=== PATIENT | female | born 1935 | race Caucasian/White ===

== ENCOUNTER 2018-01-22 20:02 | Emergency (ER) | payer OTHER ==
--- NOTE | 2018-01-22 20:46 | EDPHYS ---
Physician Documentation [facility] Name: Trisha Lovelace Age: 82 yrs Sex: Female : 1935 Arrival Date: 01/22/2018 Time: 20:07 Bed 6 Private MD: ED Physician Jignesh Nj HPI: 01/22 20:17 This 82 yrs old Female presents to ER via EMS with complaints of Syncope. kdr 20:17 The patient has experienced syncope, became unresponsive, collapsed, lost kdr consciousness. Onset: The symptoms/episode began/occurred suddenly, last night, About 10:00 PM last night. Duration: This was a single episode. Context: the episode(s) was witnessed, by no one, occurred at home, occurred while the patient was sitting, Just prior to the episode the patient experienced weakness, The patient was feeling week and sat on the toilet (not to go the bathroom). Then she passed out in the bathroom. Does not remember falling. By 19:00 today, she had managed to crawl into the living room where she had her cell phone and called her daughter. Associated injury: Head/face: She thinks she may have a tender spot on top of her head and her right eye seems more "puffy" then ususal. Associated signs and symptoms: The patient has no apparent associated signs or symptoms. Current symptoms: Generalized weakness. The patient has experienced similar episodes in the past, a few times. The patient has not recently seen a physician. States that she has passed out before. Historical: - Allergies: 20:15 shrimp; bp - Home Meds: 20:15 Aggrenox 25-200 mg Oral CM12 1 cap 2 times per day [Active]; carvedilol 6.25 mg Oral bp tab 1 tab 2 times per day [Active]; levothyroxine 50 mcg tab 1 tab once daily [Active]; losartan 50 mg Oral tab 1 tab once daily [Active]; Namenda 28MG Oral 1 tab daily [Active]; simvastatin 20 mg Oral tab 1 tab once daily [Active]; spiriva inhaler as needed [Active]; - PMHx: 20:15 Alzheimers; High Cholesterol; Hypertension; Hypothyroidism; TIA; bp - PSHx: 20:15 CATARACT; Hysterectomy; bp - Immunization history:: Adult Immunizations up to date. - Social history:: Smoking status: Patient/guardian denies using tobacco. - Ebola Screening: : Patient negative for fever greater than or equal to 101.5 degrees Fahrenheit, and additional compatible Ebola Virus Disease symptoms Patient denies exposure to infectious person Patient denies travel to an Ebola-affected area in the 21 days before illness onset No symptoms or risks identified at this time. ROS: 20:17 Constitutional: Negative for fever, chills, and weight loss, Eyes: Negative for injury, kdr pain, redness, and discharge, ENT: Negative for injury, pain, and discharge, Neck: Negative for injury, pain, and swelling, Cardiovascular: Negative for chest pain, palpitations, and edema, Respiratory: Negative for shortness of breath, cough, wheezing, and pleuritic chest pain, Abdomen/GI: Negative for abdominal pain, nausea, vomiting, diarrhea, and constipation, Back: Negative for injury and pain, : Negative for injury, bleeding, discharge, and swelling, MS/Extremity: Negative for injury and deformity, Skin: Negative for injury, rash, and discoloration, Psych: Negative for depression, anxiety, suicide ideation, homicidal ideation, and hallucinations, Allergy/Immunology: Negative for hives, rash, and allergies, Endocrine: Negative for neck swelling, polydipsia, polyuria, polyphagia, and marked weight changes, Hematologic/Lymphatic: Negative for swollen nodes, abnormal bleeding, and unusual bruising. 20:17 Neuro: Positive for dizziness, syncope, weakness, Negative for altered mental status, hearing loss, speech changes, tremor. Exam: 20:17 Constitutional: This is a well developed, well nourished patient who is awake, alert, kdr and in no acute distress. Head/Face: Normocephalic, atraumatic. Eyes: Pupils equal round and reactive to light, extra-ocular motions intact. Lids and lashes normal. Conjunctiva and sclera are non-icteric and not injected. Cornea within normal limits. Periorbital areas with no swelling, redness, or edema. Neck: Trachea midline, no thyromegaly or masses palpated, and no cervical lymphadenopathy. Supple, full range of motion without nuchal rigidity, or vertebral point tenderness. No Meningismus. Chest/axilla: Normal chest wall appearance and motion. Nontender with no deformity. No lesions are appreciated. Cardiovascular: Regular rate and rhythm with a normal S1 and S2. No gallops, murmurs, or rubs. Normal PMI, no JVD. No pulse deficits. Respiratory: Lungs have equal breath sounds bilaterally, clear to auscultation and percussion. No rales, rhonchi or wheezes noted. No increased work of breathing, no retractions or nasal flaring. Abdomen/GI: Soft, non-tender obese, with normal bowel sounds. No distension or tympany. No guarding or rebound. No evidence of tenderness throughout. Back: No spinal tenderness. No costovertebral tenderness. Full range of motion. Skin: Warm, dry with normal turgor. Normal color with no rashes, no lesions, and no evidence of cellulitis. MS/ Extremity: Pulses equal, no cyanosis. Neurovascular intact. Full, normal range of motion. Neuro: Awake and alert, GCS 15, oriented to person, place, time, and situation. Cranial nerves II-XII grossly intact. Motor strength 5/5 in all extremities. Sensory grossly intact. Cerebellar exam normal. Normal gait. Psych: Awake, alert, with orientation to person, place and time. Behavior, mood, and affect are within normal limits. Vital Signs: 20:15 BP 167 / 85; Pulse 78; Resp 16; Temp 98.1; Pulse Ox 99% ; bp 21:00 BP 142 / 75; Pulse 80; Resp 18; Pulse Ox 97% on R/A; lp1 21:27 BP 159 / 69; Pulse 75; Resp 18; Pulse Ox 96% on R/A; lp1 MDM: 20:17 Data reviewed: vital signs, nurses notes, lab test result(s), EKG, radiologic studies. kdr Counseling: I had a detailed discussion with the patient and/or guardian regarding: the historical points, exam findings, and any diagnostic results supporting the discharge/admit diagnosis, lab results, radiology results. 20:45 Patient medically screened. kdr 01/22 20:15 Order name: Basic Metabolic Panel; Complete Time: : kdr 01/22 20:15 Order name: BNP kdr 01/22 20:15 Order name: CBC with Diff; Complete Time: 21:11 kdr 01/22 20:15 Order name: CPK; Complete Time: : [facility] 01/22 20:15 Order name: LFT's; Complete Time: :26 [facility] 01/22 20:15 Order name: Magnesium; Complete Time: 21:26 [facility] 01/22 20:15 Order name: PT-INR [facility] 01/22 20:15 Order name: Ptt, Activated kdr 01/22 20:15 Order name: Troponin (emerg Dept Use Only); Complete Time: 21:26 [facility] 01/22 20:15 Order name: XRAY Chest (1 view) [facility] 01/22 20:15 Order name: EKG; Complete Time: 20:16 [facility] 01/22 20:15 Order name: Cardiac monitoring; Complete Time: 20:52 [facility] 01/22 20:15 Order name: EKG - Nurse/Tech; Complete Time: 20:52 [facility] 01/22 20:15 Order name: CT Head C Spine; Complete Time: 20:59 [facility] 01/22 20:15 Order name: IV Saline Lock; Complete Time: 20:53 [facility] 01/22 20:15 Order name: Labs collected and sent; Complete Time: 20:53 [facility] 01/22 20:15 Order name: O2 Per Protocol; Complete Time: 20:53 [facility] 01/22 20:15 Order name: O2 Sat Monitoring; Complete Time: 20:53 kdr Administered Medications: No medications were administered Point of Care Testing: Blood Glucose: 20:15 Blood Glucose: 144 mg/dL; bp Ranges: Critical Glucose Levels:Adult <50 mg/dl or >400 mg/dl <40 mg/dl or >180 mg/dl Disposition: 01/22/18 20:45 Transfer ordered to [facility]. Diagnosis is 4 CM Left Cerebellar infarct . - Reason for transfer: Higher level of care. - Accepting physician is Dr. Allen. - Condition is Fair. - Problem is new. - Symptoms are unchanged. Signatures: Dispatcher [employer] EDMS Jignesh Nj MD MD kdr Wally Vela RN RN bp Yaya Gunderson RN RN mg2 Corrections: (The following items were deleted from the chart) 21: 20:45 01/22/2018 20:45 Transfer ordered to [facility]. Diagnosis is kdr 4 CM Left Cerebellar infarct . Reason for transfer: Higher level of care. Accepting physician is Neuro/Medicine. Condition is Fair. Problem is new. Symptoms are unchanged. kdr 22:25 21:28 01/22/2018 20:45 Transfer ordered to [facility]. Diagnosis is mg2 4 CM Left Cerebellar infarct . Reason for transfer: Higher level of care. Accepting physician is Dr. Allen. Condition is Fair. Problem is new. Symptoms are unchanged. kdr
--- NOTE | 2018-01-22 20:46 | ER ---
Nurse's Notes [facility] Name: Trisha Lovelace Age: 82 yrs Sex: Female : 1935 Arrival Date: 01/22/2018 Time: 20:07 Bed 6 Private MD: Diagnosis: 4 CM Left Cerebellar infarct Presentation: 01/22 20:11 Presenting complaint: EMS states: SHE FELL AT 2200 LAST NIGHT AND HAS BEEN ON THE bp GROUND SINCE THEN, SHE CRAWLED TO A PHONE AND CALLED HER DAUGHTER. Transition of care: patient was not received from another setting of care. Onset of symptoms was January 21, 2018 at 22:00. Risk Assessment: Do you want to hurt yourself or someone else? Patient reports no desire to harm self or others. Initial Sepsis Screen: Does the patient meet any 2 criteria? No. Patient's initial sepsis screen is negative. Does the patient have a suspected source of infection? No. Patient's initial sepsis screen is negative. Care prior to arrival: IV initiated. 20 GA, in the right antecubital area, Glucose check: 144. 20:11 Method Of Arrival: EMS: [facility] bp 20:11 Acuity: JUAN 3 bp Historical: - Allergies: 20:15 shrimp; bp - Home Meds: 20:15 Aggrenox 25-200 mg Oral CM12 1 cap 2 times per day [Active]; carvedilol 6.25 mg Oral bp tab 1 tab 2 times per day [Active]; levothyroxine 50 mcg tab 1 tab once daily [Active]; losartan 50 mg Oral tab 1 tab once daily [Active]; Namenda 28MG Oral 1 tab daily [Active]; simvastatin 20 mg Oral tab 1 tab once daily [Active]; spiriva inhaler as needed [Active]; - PMHx: 20:15 Alzheimers; High Cholesterol; Hypertension; Hypothyroidism; TIA; bp - PSHx: 20:15 CATARACT; Hysterectomy; bp - Immunization history:: Adult Immunizations up to date. - Social history:: Smoking status: Patient/guardian denies using tobacco. - Ebola Screening: : Patient negative for fever greater than or equal to 101.5 degrees Fahrenheit, and additional compatible Ebola Virus Disease symptoms Patient denies exposure to infectious person Patient denies travel to an Ebola-affected area in the 21 days before illness onset No symptoms or risks identified at this time. Screenin:15 Abuse screen: Denies threats or abuse. Denies injuries from another. Nutritional bp screening: No deficits noted. Tuberculosis screening: No symptoms or risk factors identified. Fall Risk Fall in past 12 months (25 points). Secondary diagnosis (15 points) Alzheimer's, IV access (20 points). Ambulatory Aid- None/Bed Rest/Nurse Assist (0 pts). Gait- Normal/Bed Rest/Wheelchair (0 pts) Mental Status- Oriented to own ability (0 pts). Total Murillo Fall Scale indicates High Risk Score (45 or more points). Fall prevention measures have been instituted. Side Rails Up X 2 Placed Close to Nursing Station Frequent Obs/Assessments Occuring Family Present and informed to notify staff if the need to leave the bedside As available patient and family educated on Fall Prevention Program and Strategies. Assessment: 20:15 General: Appears in no apparent distress. comfortable, obese, Behavior is calm, bp cooperative, appropriate for age. Pain: Denies pain. Neuro: Level of Consciousness is awake, alert, obeys commands, Oriented to person, place, time, situation, Appropriate for age. Cardiovascular: Rhythm is sinus rhythm. Respiratory: Airway is patent Respiratory effort is even, unlabored, Respiratory pattern is regular, symmetrical. GI: No signs and/or symptoms were reported involving the gastrointestinal system. : No signs and/or symptoms were reported regarding the genitourinary system. EENT: Eyes PANCHITO-ORBITAL EDEMA. Derm: No signs and/or symptoms reported regarding the dermatologic system. Musculoskeletal: Circulation, motion, and sensation intact. Range of motion:. 20:57 Reassessment: PER MD, PT HAS ISCHEMIC STROKE. XFER TO [facility] INITIATED. PT bp REMAINS DIZZY BUT OTHERWISE NEURO INTACT. Neuro: Level of Consciousness is awake, alert, obeys commands, Oriented to person, place, time, situation, Appropriate for age Paper Reel Operator are equal bilaterally Moves all extremities. Gait is unsteady, Speech is normal, Facial symmetry appears normal, Pupils are PERRLA, Intact. 21:56 Reassessment: REPORT TO CARMELA MONREAL FOR [facility], 24 BED 5, TRANSPORT PENDING. bp 22:23 Reassessment: EMS AT B/S FOR TRANSPORT, PT ASHLY. mg2 Vital Signs: 20:15 BP 167 / 85; Pulse 78; Resp 16; Temp 98.1; Pulse Ox 99% ; bp 21:00 BP 142 / 75; Pulse 80; Resp 18; Pulse Ox 97% on R/A; lp1 21:27 BP 159 / 69; Pulse 75; Resp 18; Pulse Ox 96% on R/A; lp1 ED Course: 20:07 Patient arrived in ED. bp 20:08 Jignesh Nj MD is Attending Physician. kdr 20:10 Wally Vela, JOCELIN is Primary Nurse. bp 20:12 Triage completed. bp 20:15 Arm band placed on. bp 20:15 Patient has correct armband on for positive identification. Placed in gown. Bed in low bp position. Call light in reach. Side rails up X2. Adult w/ patient. 20:27 Maintain EMS IV. Dressing intact. Good blood return noted. Site clean \T\ dry. Gauge \T\ bp site: 20 R AC. 20:30 CT completed. Patient moved to CT via stretcher. Patient moved back from CT. cw1 20:31 CT Head C Spine In Process Unspecified. EDMS 21:01 initiated transfer with [facility] with Karen, she will call [place]uk[place] carbon electrodes supervisor and call eb us. 21:11 Franky Doctor from [facility] connected with ED for patient consultation for patient eb transfer. 21:25 the hospitalist from [facility] connected with ED doctor for pt consultation eb for patient transfer. 21:27 Dr. Crenshaw has accepted the patient. eb 21:27 No provider procedures requiring assistance completed. lp1 21:37 administrative approval given by Karen Medina , Pt is going to 24 tower Bed 5. Number eb for report is [phone]. 21:45 XRAY Chest (1 view) In Process Unspecified. EDMS 21:53 Report given to CARMELA MONREAL, [facility] 24 BED 5. bp 21:57 Patient transferred, IV remains in place. bp Administered Medications: No medications were administered Point of Care Testing: Blood Glucose: 20:15 Blood Glucose: 144 mg/dL; bp Ranges: Outcome: 20:45 ER care complete, transfer ordered by . kdr 22:23 Transferred by ground EMS to [facility], Transfer form completed. mg2 X-rays sent w/ patient. 22:23 Condition: stable 22:23 Instructed on the need for transfer. 22:25 Patient left the ED. mg2 Signatures: Dispatcher [employer] EDJignesh Harp MD MD kdr Woodley, Anette cw1 Aye Laura, RN RN lp1 Wally Vela RN RN bp Cydney Nolasco Michele, RN RN mg2 Corrections: (The following items were deleted from the chart) 21:10 21:04 initiated transfer with [facility] with Karen, she will call [facility] carbon electrodes supervisor and eb call us. eb 21:28 21:25 the hospitalist from [facility] connected with ED doctor for pt eb consultation for patient transfer. eb 21:53 20:15 BP 167 / 85; Pulse 78bpm; Resp 16bpm; Pulse Ox 99%; bp bp
--- NOTE | 2018-01-22 20:50 | RAD REPORT ---
EXAM DESCRIPTION: CT - Head C Spine Mpr Wo Con - 01/22/2018 8:32 pm CLINICAL HISTORY: Head and neck injury status post fall. Head and neck pain COMPARISON: 2013 TECHNIQUE: Computed axial tomography of the head and cervical spine was obtained. Sagittal and coronal reconstruction was performed. All CT scans are performed using dose optimization technique as appropriate and may include automated exposure control or mA/KV adjustment according to patient size. FINDINGS: Mild right scalp swelling is seen. A 4 centimeter low-density area has developed within the left cerebellum. The fourth ventricle is com pressed. An intracranial bleed is not seen. The ventricles are normal in caliber. An extra-axial fluid collect ion is not noted. Small amount of fluid is present within the right maxillary and sphenoid sinus A cervical fracture is not visualized. No dislocation is noted. IMPRESSION: A 4 centimeter low-density area within the left cerebellum results in compression of the fourth ventricle. Most likely this represents an acute infarct. Less likely this represents vasogeni c edema associated with a mass. Follow-up with MRI is recommended. A cervical fracture is not seen The exam was discussed with Dr Nj in the Emergency Room 8:43 p.m. on January 22, 2018
[2018-01-22 20:57] LABS: Absolute Lymphocytes (CBC) 1.4 K/uL (0.7-4.9); Absolute Monocytes 1.2 K/uL (0.1-1.3); Absolute Neutrophil 13.1 K/uL (1.8-8.0); Basophils % 0.3 % (0-1.3); Eosinophils % 0.1 % (0-4.4); Hematocrit 42.1 % (36.0-45.0); MCH 28.5 pg (27.0-35.0); MCV 86.3 fL (80-100); Monocytes % 7.8 % (3.3-12.3); RBC Red Blood Cell Count 4.88 M/uL (3.86-4.86)
[2018-01-22 21:12] LABS: Potassium 3.9 mEq/L (3.6-5.0)
[2018-01-22 21:18] LABS: Albumin 3.7 g/dL (3.2-5.5); Bilirubin Direct 0.1 mg/dL (0-0.2); Bilirubin Total 0.5 mg/dL (0.3-1.2); Magnesium 1.8 mg/dL (1.8-2.5); Protein, Total 6.9 g/dL (6.0-8.3)
[2018-01-22 21:28] LABS: Protime INR 1.07
[2018-01-22 22:28] VITALS: TEMP 98.1
[2018-01-22 22:30] VITALS: BP 159/69; O2SAT 96
--- NOTE | 2018-01-22 22:40 | RAD REPORT ---
EXAM DESCRIPTION: Alexa Single View01/22/2018 9:45 pm CLINICAL HISTORY: Chest pain COMPARISON: 2016 FINDINGS: The lungs appear clear of acute infiltrate. The heart is normal size IMPRESSION: No acute abnormalities displayed
--- NOTE | 2018-01-23 06:30 | EKG ---
Test Date: 2018-01-22 Test Time: 21:03:01 Lockstitch Sleeve Setter: MEASUREMENT RESULTS: Intervals: Rate: 72 OH: 204 QRSD: 64 QT: 398 QTc: 435 [place]: P: 47 OH: 204 QRS: 50 T: 65 INTERPRETIVE STATEMENTS: Normal sinus rhythm Normal ECG Compared to ECG 05/07/2016 09:21:16 No significant changes Electronically Signed On 01-23-18 06:29:38 CDT by Saul Arnold
== END 2018-01-22 22:25 | disposition short-term general hospital (02) ==
LOC: ER 20:02
DX: I63.8 Other cerebral infarction (principal); I10 Essential (primary) hypertension; G30.9 Alzheimer's disease, unspecified; F02.80 Dementia in other diseases classified elsewhere, unspecified severity, without behavioral disturbance, psychotic disturbance, mood disturbance, and anxiety; W19.XXXA Unspecified fall, initial encounter; Y93.9 Activity, unspecified; Y92.009 Unspecified place in unspecified non-institutional (private) residence as the place of occurrence of the external cause; Z91.013 Allergy to seafood
CPT/HCPCS: 36415; 70450; 71045; 72125; 80048; 80076; 82550; 83735; 83880; 84484; 85025; 85610; 85730; 93005; 99285

== ENCOUNTER 2018-01-29 09:39 | Inpatient (IN) | payer OTHER ==
--- NOTE | 2018-01-29 14:11 | R.PREADM ---
SCREENING DATE AND TIME 01/29/2018 09:42 (CDT) ANTICIPATED REHAB ADMISSION DATE 01/31/2018 REFERRING FACILITY [facility] REFERRAL DATE AND TIME 01/29/2018 09:43 (CDT) ACUTE ADMIT DATE 01/22/2018 Previous Rehabilitation(s): No. REFERRING PHYSICIAN Costa Crenshaw REHAB FACILITY [facility] CLINICAL LIAISON Jones Walsh PHYSICIAN REVIEWER Dr. Glen Davidson M.D. MR# [id number] NAME MAURICE SIFUENTES ADDRESS [address] PHONE [facility] [address] DATE OF 1935 AGE 82 SSN# [id number] GENDER female MARITAL STATUS RACE white ADMIT FROM 02 - [facility] PRE-HOSPITAL LIVING SETTING 01 - Home (private home/apt. board/care, assisted living, fdc, transitional living) HOME TYPE AND DETAILS Type of home: single family house # of steps to enter the residence: 0 # of steps within the residence: 0 # of levels in the residence: 1 PRE-HOSPITAL LIVING WITH Family/Relatives FAMILY SUPPORT Yes PRIMARY FAMILY CONTACT NAME Saida Sifuentes PRIMARY FAMILY CONTACT PHONE PHONE PRIMARY FAMILY CONTACT ON ADM.? no IS PRIMARY FAMILY CONTACT AUTH. REP.? no 1ST EMERGENCY CONTACT Saida Sifuentes 1ST CONTACT PHONE PHONE 1ST CONTACT ON ADM. no IS 1ST CONTACT AUTH. REP.? no PHONE 2ND CONTACT ON ADM.? no PATIENT EMPLOYMENT STATUS Retired (for age) PATIENT EMPLOYER No Employer PAYOR INFORMATION: 1ST PAYOR NAME Medicare 1ST PAYOR PHONE 1ST PAYOR INJURY/ILLNESS DUE TO ACCIDENT? No ANOTHER LIBERTARIAN RESPONSIBLE? No PRIMARY REHAB/ACUTE DIAGNOSIS: 4 cm left cerebeller hypodensity. L Pica stroke with associated hemorrhage ONSET DATE 01/22/2018 REHAB IMPAIRMENT CATEGORY (LONNY): 01 Stroke (STR) MEETS 60% rule AFFECTED EXTREMITIES: RLE, and RUE PRIMARY DIAGNOSIS-RELATED SURGERIES: No surgeries related to the primary diagnosis were performed. 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 is a 82 yo Right-handed white female. On 01/22/2018 Pt. presented to [facility] with sudden onset of right-side weakness. On 01/22/2018 she was admitted to [facility] with diagnosis 4 cm left cere igor hypodensity. L Pica stroke with associated hemorrhage. Her impairment category is Stroke 01 - Right Body (Left Brain) (01.2). Pre-morbidly, Pt. was independent/mod-I in Social Cognition, Self-Care, Sphincter Control, Transfers Control, Communication, and Locomotion; and she had good Sphincter Control. Currently, she has deficits of Social Cognition, Balance, Self-Care, Endurance, Safety Awareness, Tra nsfers Control, Communication, and Locomotion. Pt. is now referred to [facility] for acute in-patient rehabilitation in order to maximize patient's functional independence in activities of daily living, strength, ROM, and mobi lity. Patient has realistic goal of being discharged at assistance level 6-Ramon to reside at Home with Fam lisa/Relatives. PAST MEDICAL HISTORY dementia a fib with RVR MEDICATION ALLERGIES: No Known Drug Allergies (NKDA) ENVIRONMENTAL ALLERGIES: - Substance Allergies None Known - Other Allergies None Known CODE STATUS: Full code WEIGHT/HEIGHT/BMI: WEIGHT 227 lbs HEIGHT 5' 0" BMI 44.3 DIET: - Diet Type Regular - Diet - Solid Texture Regular - Diet - Liquid Texture Regular - Tube Feed N/A REVIEW OF SYSTEMS: - Gen Alert and awake Lying in bed No apparent distress Oriented to: person, time, and place - CVS RRR VITAL SIGNS Temperature: 96.4 F SBP/DBP: 166/74 Pulse: 77 Resp: 19 Vital signs stable, afebrile CURRENT SPHINCTER CONTROL: Pre-hospital bladder status: unspecified # of bladder accidents in the last 7 days prior to screenin Pre-hospital bowel status: unspecified # of bowel accidents in the last 7 days prior to screenin Last Bowel Movement Date: 01/29/2018 DETAILED CURRENT FUNCTIONAL STATUS: - Bladder accident frequency: Ind - No accidents in the past 7 days - Bowel accident frequency: Ind - No accidents in the past 7 days - Walking score based on distance walked: 1(<=50ft) FUNCTIONAL STATUS: - Self-Care A. Eating Ind modA B. Grooming Ind modA C. Bathing Ind modA D. Dressing - Upper Ind modA E. Dressing - Lower Ind modA F. Toileting Ind modA - Sphincter Control G: Bladder control Ind Ind H: Bowel control Ind Ind - Transfers Control I. Bed/Chair/Wheelchair Ind modA J. Toilet Ind modA K. Tub/Shower Ind modA - Locomotion L. Walk/Wheelchair (B) Ind Dep M. Stairs Ind ADNO - Communication N. Comprehension (B) Ind modA O. Expression (B) Ind [place] - Social Cognition P. Social Interaction Ind modA Q. Problem Solving Ind modA R. Memory Ind modA - Endurance Poor - Balance Poor - Safety Awareness Poor CURRENT FUNC. DEFICITS: Social Cognition, Balance, Self-Care, Endurance, Safety Awareness, Transfers Control, Communication, and Locomotion THERAPY NOTES FROM ACUTE CARE: Attached. SPECIAL NEEDS: - Safety Concerns Skin breakdown precautions needed due to skin breakdown risk PATIENT NEEDS ACTIVE AND ONGOING THERAPEUTIC INTERVENTION OF MULTIPLE THERAPY DISCIPLINES, INCLUDING: - Occupational Therapy Evaluate and Treat. Cognitive Retraining. Visual Perceptual Training. - Speech Therapy Memory Strategies. Expressive Language Skills. Speech Intelligibility Training. Cognitive Training. R eceptive Language Skills. - Physical Therapy Evaluate and Treat. PATIENT NEEDS CLOSE MEDICAL SUPERVISION BY A REHABILITATION PHYSICIAN FOR: Bowel and Bladder Management Coordination of Treatment Team Medical and Co-Morbidity Management PATIENT REQUIRES 24X7 REHAB NURSING FOR MEDICAL AND FUNCTIONAL MGT. OF THE FOLLOWING DEFICITS: ADL's Ambulation Bowel and Bladder Management Cognition Communication Disease Management Medication Management Patient/Family Education Providing Safe Environment Transfers PATIENT REQUIRES INTENSIVE, COORDINATED INTERDISCIPLINARY APPROACH TO REHAB: Arranging Home Equipment/Services Discharge Planning Family Intervention/Training Outbound Sales Agent/Case Management PATIENT REHAB POTENTIAL: Expected level of measurable improvement will be of a practical value to patient's functional capacit y or adaptations to impairments Has a viable Discharge Plan Medically appropriate; condition is sufficiently stable to participate in intensive rehab program Patient is able and expected to receive 3 hours of individualized therapy daily on at least 5 of ever y 7 days Patient's prognosis for significant practical improvement within a reasonable period of time appears Good DISCHARGE PLAN: - Estimated Length of Stay (days) 17. - Consensus on plan Discharge plan has been discussed with primary caregiver. Patient/Family is in agreement with the didi n. Primary caregiver is in agreement with the plan. - Patient/Family Goals Return home with assistance. - Planned Living Setting Upon Discharge Home, to live with Family/Relatives. RECOMMENDED CARE LEVEL: IRF RECOMMENDATION DETAILS: Recommended Admission to Comprehensive Rehabilitation Program to Increase Functional [place] SCREENER'S COMPLETENESS CONFIRMATION: - Screening Confirmation The patient data collection on this preadmission screening form is finished PHYSICIANS REVIEW AND ADMISSION DETERMINATION Admit - Based on my review of the Pre-Admission Screening results, in my medical judgment and experie nce, I concur with the findings and recommend admission to [facility], as this patient requires an IRF level of care. SIGNATURE PANEL: Clinical Liaison - [electronically] signed by Christen Miles on 01/29/2018 at 09:52 (CDT) Clinical Liaison - [electronically] signed by Jones Walsh on 01/29/2018 at 12:11 (CDT) Physician Reviewer - [electronically] signed by Dr. Glen Davidson M.D. on 01/29/2018 at 13:11 (CDT )
--- OUTSIDE RECORDS SUMMARY | 2018-01-29 17:22 | XMS REPORT | Clinical Summary ---
:1935 Author Organization [facility] Address [address] [place] [address] Phone Care Team Providers Name Role Phone Unavailable Primary Care Provider Unavailable Allergies No Known Allergies Current Medications Prescription Sig. Disp. Refills Start Date End Date Status tiotropium (SPIRIVA) Inhale 18 mcg by Active 18 mcg inhalation mouth via capsule inhaler daily as needed. memantine (NAMENDA Take 28 mg by Active XR) 28 mg mouth daily. CSpXIndications: Moderate to Severe Alzheimer's Type Dementia levothyroxine Take 50 mcg by Active (SYNTHROID, mouth Every LEVOTHROID) 50 MCG morning on an tablet empty stomach. apixaban (ELIQUIS) 5 Take 1 tablet (5 60 tablet 1 01/29/2018 Active mg Tab tablet mg total) by mouth 2 (two) times daily. aspirin 81 MG Take 1 tablet 30 tablet 11 01/30/2018 01/30/2019 Active chewable tablet (81 mg total) by mouth daily. carvedilol (COREG) Take 1 tablet 60 tablet 11 01/29/2018 01/29/2019 Active 12.5 MG tablet (12.5 mg total) by mouth 2 (two) times daily. atorvastatin Take 1 tablet 30 tablet 11 01/29/2018 01/29/2019 Active (LIPITOR) 80 MG (80 mg total) by tablet mouth nightly. losartan (COZAAR) 25 Take 1 tablet 30 tablet 11 01/30/2018 01/30/2019 Active MG tablet (25 mg total) by mouth daily. aspirin-dipyridamole Take 1 capsule 01/29/2018 Suspended (AGGRENOX) 25-200 mg by mouth 2 (two) per 12 hr capsule times daily. losartan (COZAAR) 50 Take 50 mg by 01/29/2018 Suspended MG tablet mouth daily. simvastatin (ZOCOR) Take 20 mg by 01/29/2018 Suspended 20 MG tablet mouth nightly. carvedilol (COREG) Take 6.25 mg by 01/29/2018 Suspended 6.25 MG tablet mouth 2 (two) times daily with breakfast and dinner. Active Problems Problem Noted Date Atrial fibrillation with RVR ([facility]) 01/25/2018 Benign essential HTN 01/25/2018 Mixed hyperlipidemia 01/25/2018 Late onset Alzheimer's disease without behavioral disturbance 01/25/2018 Stroke (cerebrum) ([facility]) 01/23/2018 Encounters Date Type Specialty Care Team Description 01/24/2018 Orders Only General Internal Medicine 01/22/2018 - Hospital Cardiology [facility], [facility] Cerebrovascular 01/29/2018 Encounter MD Anahy accident (CVA), Brea Michaud unspecified mechanism MD Diaz ([facility]);Essential Brann, Christopher hypertension;Hyperlipi MD Saul demia, unspecified hyperlipidemia type;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);Paroxysmal atrial fibrillation (HCC);Cerebellar stroke (HCC);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);Gait abnormality;Impaired mobility and ADLs after 01/28/2017 Social History Tobacco Use Types Packs/Day Years Used Date Former Smoker Smokeless Tobacco: Never Used Sex Assigned at Date Recorded Not on file Last Filed Vital Signs Vital Sign Reading Time Taken Blood Pressure 139/58 01/29/2018 3:44 PM CDT Pulse 69 01/29/2018 3:44 PM CDT Temperature 36.1 C (96.9 F) 01/29/2018 3:44 PM CDT Respiratory Rate 19 01/29/2018 3:44 PM CDT Oxygen Saturation 96% 01/29/2018 3:44 PM CDT Inhaled Oxygen Concentration - - Weight 103 kg (227 lb) 01/23/2018 12:01 AM CDT Height 158.8 cm (5' 2.5") 01/23/2018 12:01 AM CDT Body Mass Index 40.86 01/23/2018 12:01 AM CDT Plan of Treatment Not on file Results CT brain without IV contrast (01/29/2018 1:05 PM)Only the most recent of2 resultswithin the time period is included. Specimen Performing Laboratory RIS Narrative FINAL REPORT CT head without contrast. Comparisons: January 24 Reason for exam: Cerebral hemorrhage suspected follow up imaging for hemmorhage after anticoagulation started.. Discussion: Multiple axial CT images of the head are provided without contrast evaluated in brain and bone windows. Dose modulation, iterative reconstruction, and/or weight based adjustment of the mA/kV was utilized to reduce the radiation dose to as low as reasonably achievable. An evolving recent left PICA territory cerebellar infarct is similar in appearance to that of the prior study. Hemorrhages are not visible. There is mild associated swelling. No intracranial hematoma, significant mass effect, hydrocephalus, shift, extra-axial collection. Impressions: 1. Unchanged appearance of an evolving recent left cerebellar infarct. No tahir hematoma or mass effect.. Signed: Cheyenne Berger MD Report Verified Date/Time:01/29/2018 13:45:52 Reading Location: [address] Neuro Reading Room Procedure Note Interface, External Ris In - 01/29/2018 1:47 PM CDT FINAL REPORT CT head without contrast. Comparisons: January 24 Reason for exam: Cerebral hemorrhage suspected follow up imaging for hemmorhage after anticoagulation started.. Discussion: Multiple axial CT images of the head are provided without contrast evaluated in brain and bone windows. Dose modulation, iterative reconstruction, and/or weight based adjustment of the mA/kV was utilized to reduce the radiation dose to as low as reasonably achievable. An evolving recent left PICA territory cerebellar infarct is similar in appearance to that of the prior study. Hemorrhages are not visible. There is mild associated swelling. No intracranial hematoma, significant mass effect, hydrocephalus, shift, extra-axial collection. Impressions: 1. Unchanged appearance of an evolving recent left cerebellar infarct. No tahir hematoma or mass effect.. Signed: Cheyenne Berger MD Report Verified Date/Time: 01/29/2018 13:45:52 Reading Location: [address] Neuro Reading Room (Hemogram only) (01/29/2018 4:29 AM) Component Value Ref Range WBC 14.1 (H) 3.5 - 10.5 K/L RBC 4.91 3.93 - 5.22 M/L Hemoglobin 13.8 11.2 - 15.7 GM/DL Hematocrit 43.0 34.1 - 44.9 % MCV 87.6 79.4 - 94.8 fL MCH 28.1 25.6 - 32.2 pg MCHC 32.1 (L) 32.2 - 35.5 GM/DL RDW 14.7 (H) 11.7 - 14.4 % Platelets 222 150 - 450 K/CU MM MPV 9.8 9.4 - 12.3 fL nRBC 0 0 - 0 /100 WBC Specimen Performing Laboratory Blood - Arm, [address] [address] Basic Metabolic Panel (01/29/2018 4:29 AM)Only the most recent of4 resultswithin the time period is included. Component Value Ref Range Sodium 133 (L) 136 - 145 meq/L Potassium 4.2Comment: Specimen slightly hemolyzed 3.5 - 5.1 meq/L Chloride 102 98 - 107 meq/L CO2 19 (L) 22 - 29 meq/L BUN 24 (H) 7 - 21 mg/dL Creatinine 0.79Comment: Specimen slightly hemolyzed 0.57 - 1.25 mg/dL Glucose 112 (H) 70 - 105 mg/dL Calcium 8.8 8.4 - 10.2 mg/dL EGFR 70Comment: ESTIMATED GFR IS NOT ACCURATE mL/min/1.73 sq m CREATININE CLEARANCE IN PREDICTING GLOMERULAR FILTRATION RATE. ESTIMATED GFR IS NOT APPLICABLE FOR DIALYSIS PATIENTS. Specimen Performing Laboratory Blood - Arm, [address] [address] ECHOCARDIOGRAM REPORT - SCAN (01/25/2018 6:00 PM)2D Echo W/Doppler(CW/PW/Color ) (01/25/2018 10:42 AM) Component Value Ref Range Ejection Fraction Specimen Performing Laboratory [facility] ECHO HEARTLAB MKCKESSON CPACS Narrative Transthoracic Echocardiography Report (TTE) Demographics Patient Name MAURICE SIFUENTES Date of Study 01/25/2018 [id number] Female Visit Number [id number] Accession Number [id number] Room Number 2405 Date of Birth1935Referring Physician Age82 year(s)Taker Off [employer]rying [employer] Wally Funk [facility] Interpreting Ceci Crocker MD Physician Procedure Type of Study TTE procedure:2DECHO W/CONTRAST & DOPPLER (Routine) Indications:Suspected cardiac source of emboli. Clinical History Former Smoker Hyperlipidemia Hypertension Thyroid disease TIA HGB 14.2 HCT 43.4 % Contrast Medium: Definity. Amount - 2 ml Height: 62 inches Weight: 102.97 kg (227 lbs) BSA: 2.02 m^2 BMI: 41.52 kg/m^2 HR: 62 bpm BP: 122/75 mmHg Summary LV endocardium is partially visualized with IV ultrasound enhancing agent. Global LV systolic function hyperdynamic . Mild concentric LV hypertrophy. LA size is normal . IV saline contrast injection was negative for a PFO (patent foramen ovale) at rest and post Valsalva . Unable to estimate peak systolic PA pressure; inadequate TR velocity signal. The estimated RA pressure by IVC dynamics indeterminate . Technically limited study. Previous Study No prior studies available for comparison. Signature Findings Left Ventricle LV endocardium is partially visualized with IV ultrasound enhancing agent. Mild concentric LV hypertrophy. Global LV systolic function hyperdynamic . Degree of diastolic dysfunction (LAP assessment) is inconclusive due to arrhythmia . LVEF by Anderson's method of disk assessment is increased (>60%) . The left ventricle is chamber size (by vol index) is small. Left AtriumLA size is normal . Right VentricleRV is not well visualized. The right ventricular chamber size and systolic function are within normal limits. Right Atrium RA size is normal. Atrial SeptumIV saline contrast injection was negative for a PFO (patent foramen ovale) at rest and post Valsalva . Aortic Valve Mild AoV cusp thickening. Mild AoV cusp calcification. Mitral Valve Mild MV leaflet thickening. Mild mitral annular calcification. Tricuspid ValveTV is not well visualized. Unable to estimate peak systolic PA pressure; inadequate TR velocity signal. Pulmonic Valve PV is partially visualized. AortaAortic root size (SInus of Valsalva diameter) is normal . PericardiumNo pericardial effusion is visualized. IVC/SVC/PA/PV/PleuralThe inferior vena cava is not well visualized. The estimated RA pressure by IVC dynamics indeterminate . Chambers/Structures Left Atrium LA Volume: 50.06 ml LA Area: 18.09 cm^ 2 LA Vol. Index: 25 ml/m^2 Left Ventricle LVIDd: 3.37 cm LVIDs: 2.21 cm LV Septum Diastolic: 1.34 cm LV PW Diastolic: 1.29 cmLV FS: 34.4 % LVEDV Anderson's:50.22 ml LVESV Anderson's:15.07 mlLVEDVI: 25 ml/ m^2 LVEF Anderson's: 70 %LVESVI: 7 ml/m^2 Doppler/Quantitative Measurements Mitral Valve Mean Velocity: 0.58 m/s Mean Gradient: 1.57 mmHg MV VTI: 22.96 cm MV Td. Peak: 0.93 m/s LVOT Peak Velocity: 1.07 m/s Peak Gradient: 4.55 mmHg Mean Velocity: 0.61 m/s Mean Gradient: 1.95 mmHg LVOT VTI: 16.7 cm Procedure Note Interface, External Ris In - 01/25/2018 4:52 PM CDT Transthoracic Echocardiography Report (TTE) Demographics Patient Name MAURICE SIFUENTES Date of Study 01/25/2018 Gender Female Visit Number [id number] Race Unknown Accession Number [id number] Room Number 2405 Date of 1935 Referring Physician Age 82 year(s) Taker [employer] Wally Funk [facility] Interpreting Ceci Crocker MD Physician Procedure Type of Study TTE procedure:2DECHO W/CONTRAST & DOPPLER (Routine) Indications:Suspected cardiac source of emboli. Clinical History Former Smoker Hyperlipidemia Hypertension Thyroid disease TIA HGB 14.2 HCT 43.4 % Contrast Medium: Definity. Amount - 2 ml Height: 62 inches Weight: 102.97 kg (227 lbs) BSA: 2.02 m^2 BMI: 41.52 kg/m^2 HR: 62 bpm BP: 122/75 mmHg Summary LV endocardium is partially visualized with IV ultrasound enhancing agent. Global LV systolic function hyperdynamic . Mild concentric LV hypertrophy. LA size is normal . IV saline contrast injection was negative for a PFO (patent foramen ovale) at rest and post Valsalva . Unable to estimate peak systolic PA pressure; inadequate TR velocity signal. The estimated RA pressure by IVC dynamics indeterminate . Technically limited study. Previous Study No prior studies available for comparison. Signature Findings Left Ventricle LV endocardium is partially visualized with IV ultrasound enhancing agent. Mild concentric LV hypertrophy. Global LV systolic function hyperdynamic . Degree of diastolic dysfunction (LAP assessment) is inconclusive due to arrhythmia . LVEF by Anderson's method of disk assessment is increased (>60%) . The left ventricle is chamber size (by vol index) is small. Left Atrium LA size is normal . Right Ventricle RV is not well visualized. The right ventricular chamber size and systolic function are within normal limits. Right Atrium RA size is normal. Atrial Septum IV saline contrast injection was negative for a PFO (patent foramen ovale) at rest and post Valsalva . Aortic Valve Mild AoV cusp thickening. Mild AoV cusp calcification. Mitral Valve Mild MV leaflet thickening. Mild mitral annular calcification. Tricuspid Valve TV is not well visualized. Unable to estimate peak systolic PA pressure; inadequate TR velocity signal. Pulmonic Valve PV is partially visualized. Aorta Aortic root size (SInus of Valsalva diameter) is normal . Pericardium No pericardial effusion is visualized. IVC/SVC/PA/PV/Pleural The inferior vena cava is not well visualized. The estimated RA pressure by IVC dynamics indeterminate . Chambers/Structures Left Atrium LA Volume: 50.06 ml LA Area: 18.09 cm^2 LA Vol. Index: 25 ml/m^2 Left Ventricle LVIDd: 3.37 cm LVIDs: 2.21 cm LV Septum Diastolic: 1.34 cm LV PW Diastolic: 1.29 cm LV FS: 34.4 % LVEDV Anderson's:50.22 ml LVESV Anderson's:15.07 ml LVEDVI: 25 ml/m^2 LVEF Anderson's: 70 % LVESVI: 7 ml/m^2 Doppler/Quantitative Measurements Mitral Valve Mean Velocity: 0.58 m/s Mean Gradient: 1.57 mmHg MV VTI: 22.96 cm MV Td. Peak: 0.93 m/s LVOT Peak Velocity: 1.07 m/s Peak Gradient: 4.55 mmHg Mean Velocity: 0.61 m/s Mean Gradient: 1.95 mmHg LVOT VTI: 16.7 cm CBC with platelet count + automated diff (01/25/2018 6:04 AM)Only the most recent of3 resultswithin the time period is included. Component Value Ref Range WBC 10.6 (H) 3.5 - 10.5 K/L RBC 4.98 3.93 - 5.22 M/L Hemoglobin 14.2 11.2 - 15.7 GM/DL Hematocrit 43.4 34.1 - 44.9 % MCV 87.1 79.4 - 94.8 fL MCH 28.5 25.6 - 32.2 pg MCHC 32.7 32.2 - 35.5 GM/DL RDW 14.5 (H) 11.7 - 14.4 % Platelets 235 150 - 450 K/CU MM MPV 9.7 9.4 - 12.3 fL nRBC 0 0 - 0 /100 WBC % Neutros 60 % % Lymphs 23 % % Monos 13 % % Eos 3 % % Baso 0 % # Neutros 6.30 (H) 1.56 - 6.13 K/L # Lymphs 2.45 1.18 - 3.74 K/L # Monos 1.38 (H) 0.24 - 0.36 K/L # Eos 0.33 0.04 - 0.36 K/L # Baso 0.03 0.01 - 0.08 K/L Immature Granulocytes-Relative 1 0 - 1 % Specimen Performing Laboratory Blood - Arm, Left [facility] [address] [address] CBC with platelet count + automated diff (01/25/2018 6:04 AM)Only the most recent of3 resultswithin the time period is included. Specimen Performing Laboratory Blood Narrative The following orders were created for panel order CBC with platelet count + automated diff. Procedure Abnormality Status --------- ------ CBC with platelet count ...[[id number]]AbnormalFinal result Please view results for these tests on the individual orders. ECG 12 lead (01/24/2018 3:15 AM) Specimen Performing Laboratory GE MUSE Narrative Ventricular Rate 115 BPM Atrial Rate 111 BPM QRS Duration 84 ms Q-T Interval 314 ms QTC Calculation(Bazett) 434 ms R Bixby 22 degrees T Bixby 47 degrees Atrial fibrillation with rapid ventricular response Abnormal ECG No previous ECGs available Confirmed by MD JESUS YOCHAI ([id number]) on 01/24/2018 6:48:32 AM Procedure Note Interface, External Ris In - 01/24/2018 6:48 AM CDT Ventricular Rate 115 BPM Atrial Rate 111 BPM QRS Duration 84 ms Q-T Interval 314 ms QTC Calculation(Bazett) 434 ms R Bixby 22 degrees T Bixby 47 degrees Atrial fibrillation with rapid ventricular response Abnormal ECG No previous ECGs available Confirmed by MD JESUS YOCHAI ([id number]) on 01/24/2018 6:48:32 AM Urinalysis w/Microscopic + Reflex to Culture (01/23/2018 7:41 PM) Component Value Ref Range Color, UA Yellow Clarity, UA Clear Specific Malone, UA 1.022 1.001 - 1.035 pH, UA 5.5 5.0 - 8.0 Protein, UA 10 mg/dL (A) Negative Glucose, UA Negative Negative Ketones, UA Negative Negative Bilirubin, UA Negative Negative Blood, UA Negative Negative Nitrite, UA Negative Negative Leukocytes, UA Negative Negative Urobilinogen, UA 0.2 0.2 - 1.0 mg/dL RBC, UA <1 /HPF WBC, UA <1 /HPF Mucus Rare Squam Epithel, UA 1 /HPF Specimen Source Specimen Performing Laboratory Urine [facility] [address] [place] [id number] MR brain without IV contrast (01/23/2018 6:29 AM) Specimen Performing Laboratory GE RIS Narrative FINAL REPORT MRI brain and MRA head and neck without contrast 01/23/2018 7:26 AM CLINICAL INDICATION: Cerebral hemorrhage suspected Stroke TECHNIQUE: Multiplanar, multisequence MR imaging of the brain was performed utilizing the following imaging sequences: Axial T1, T2, FLAIR, GRE, and DWI; sagittal and coronal T1-weighted images.Two- and three-dimensional [id number] MRA images of the intra- and extracranial carotid and vertebral arterial circulations were obtained, from which maximal intensity projection 3-D reconstructions were created. COMPARISON: None available FINDINGS: MRI: There is a large volume acute infarct involving the inferior left cerebellar hemisphere and adjacent inferior vermis. There is petechial hemorrhage. There is no current parenchymal herniation or obstructive hydrocephalus. There is no malignant hematoma, mass, or extra-axial collection. There are rare chronic microvascular changes in the supratentorial white matter. There is generalized parenchymal volume loss. Normal appearing flow-voids are present in the major intracranial vascular structures. The sellar and pineal regions, craniocervical junction, orbits, face, and skull base are without worrisome finding. MRA neck: There is no vessel occlusion or flow-limiting stenosis. There is no NASCET-quantifiable cervical internal carotid artery stenosis. Flow is antegrade in both vertebral arteries. MRA [place]: There is severely attenuated flow related enhancement in the left posterior inferior cerebellar artery, which may reflect intraluminal thrombus and/or slow flow. The remainder of the intracranial arterial vasculature is intact. Anterior and bilateral posterior communicating arteries are present. IMPRESSION: 1. 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 2. Unremarkable extracranial MRA. 3. Left PICA intraluminal thrombus and/or slow flow. Findings were discussed with the floor neurology housestaff on 01/23/2018 at 0730. Signed: Se Patel MD Report Verified Date/Time:01/23/2018 07:30:49 Reading Location: [address] Neuro Reading Room Procedure Note Interface, External Ris In - 01/23/2018 7:33 AM CDT FINAL REPORT MRI brain and MRA head and neck without contrast 01/23/2018 7:26 AM CLINICAL INDICATION: Cerebral hemorrhage suspected Stroke TECHNIQUE: Multiplanar, multisequence MR imaging of the brain was performed utilizing the following imaging sequences: Axial T1, T2, FLAIR, GRE, and DWI; sagittal and coronal T1-weighted images. Two- and three-dimensional [id number] MRA images of the intra- and extracranial carotid and vertebral arterial circulations were obtained, from which maximal intensity projection 3-D reconstructions were created. COMPARISON: None available FINDINGS: MRI: There is a large volume acute infarct involving the inferior left cerebellar hemisphere and adjacent inferior vermis. There is petechial hemorrhage. There is no current parenchymal herniation or obstructive hydrocephalus. There is no malignant hematoma, mass, or extra-axial collection. There are rare chronic microvascular changes in the supratentorial white matter. There is generalized parenchymal volume loss. Normal appearing flow-voids are present in the major intracranial vascular structures. The sellar and pineal regions, craniocervical junction, orbits, face, and skull base are without worrisome finding. MRA neck: There is no vessel occlusion or flow-limiting stenosis. There is no NASCET-quantifiable cervical internal carotid artery stenosis. Flow is antegrade in both vertebral arteries. MRA [place]: There is severely attenuated flow related enhancement in the left posterior inferior cerebellar artery, which may reflect intraluminal thrombus and/or slow flow. The remainder of the intracranial arterial vasculature is intact. Anterior and bilateral posterior communicating arteries are present. IMPRESSION: 1. 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 2. Unremarkable extracranial MRA. 3. Left PICA intraluminal thrombus and/or slow flow. Findings were discussed with the floor neurology housestaff on 01/23/2018 at 0730. Signed: Se Patel MD Report Verified Date/Time: 01/23/2018 07:30:49 Reading Location: [address] Neuro Reading Room neck without IV contrast (01/23/2018 6:29 AM) Specimen Performing Laboratory [facility] RIS Narrative FINAL REPORT MRI brain and MRA head and neck without contrast 01/23/2018 7:26 AM CLINICAL INDICATION: Cerebral hemorrhage suspected Stroke TECHNIQUE: Multiplanar, multisequence MR imaging of the brain was performed utilizing the following imaging sequences: Axial T1, T2, FLAIR, GRE, and DWI; sagittal and coronal T1-weighted images.Two- and three-dimensional [id number] MRA images of the intra- and extracranial carotid and vertebral arterial circulations were obtained, from which maximal intensity projection 3-D reconstructions were created. COMPARISON: None available FINDINGS: MRI: There is a large volume acute infarct involving the inferior left cerebellar hemisphere and adjacent inferior vermis. There is petechial hemorrhage. There is no current parenchymal herniation or obstructive hydrocephalus. There is no malignant hematoma, mass, or extra-axial collection. There are rare chronic microvascular changes in the supratentorial white matter. There is generalized parenchymal volume loss. Normal appearing flow-voids are present in the major intracranial vascular structures. The sellar and pineal regions, craniocervical junction, orbits, face, and skull base are without worrisome finding. MRA neck: There is no vessel occlusion or flow-limiting stenosis. There is no NASCET-quantifiable cervical internal carotid artery stenosis. Flow is antegrade in both vertebral arteries. MRA [place]: There is severely attenuated flow related enhancement in the left posterior inferior cerebellar artery, which may reflect intraluminal thrombus and/or slow flow. The remainder of the intracranial arterial vasculature is intact. Anterior and bilateral posterior communicating arteries are present. IMPRESSION: 1. 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 2. Unremarkable extracranial MRA. 3. Left PICA intraluminal thrombus and/or slow flow. Findings were discussed with the floor neurology housestaff on 01/23/2018 at 0730. Signed: Se Patel MD Report Verified Date/Time:01/23/2018 07:30:49 Reading Location: [facility] Neuro Reading Room Procedure Note Interface, External Ris In - 01/23/2018 7:33 AM CDT FINAL REPORT MRI brain and MRA head and neck without contrast 01/23/2018 7:26 AM CLINICAL INDICATION: Cerebral hemorrhage suspected Stroke TECHNIQUE: Multiplanar, multisequence MR imaging of the brain was performed utilizing the following imaging sequences: Axial T1, T2, FLAIR, GRE, and DWI; sagittal and coronal T1-weighted images. Two- and three-dimensional [id number] MRA images of the intra- and extracranial carotid and vertebral arterial circulations were obtained, from which maximal intensity projection 3-D reconstructions were created. COMPARISON: None available FINDINGS: MRI: There is a large volume acute infarct involving the inferior left cerebellar hemisphere and adjacent inferior vermis. There is petechial hemorrhage. There is no current parenchymal herniation or obstructive hydrocephalus. There is no malignant hematoma, mass, or extra-axial collection. There are rare chronic microvascular changes in the supratentorial white matter. There is generalized parenchymal volume loss. Normal appearing flow-voids are present in the major intracranial vascular structures. The sellar and pineal regions, craniocervical junction, orbits, face, and skull base are without worrisome finding. MRA neck: There is no vessel occlusion or flow-limiting stenosis. There is no NASCET-quantifiable cervical internal carotid artery stenosis. Flow is antegrade in both vertebral arteries. MRA [place]: There is severely attenuated flow related enhancement in the left posterior inferior cerebellar artery, which may reflect intraluminal thrombus and/or slow flow. The remainder of the intracranial arterial vasculature is intact. Anterior and bilateral posterior communicating arteries are present. IMPRESSION: 1. 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 2. Unremarkable extracranial MRA. 3. Left PICA intraluminal thrombus and/or slow flow. Findings were discussed with the floor neurology housestaff on 01/23/2018 at 0730. Signed: Se Patel MD Report Verified Date/Time: 01/23/2018 07:30:49 Reading Location: [address] Neuro Reading Room head without IV contrast (01/23/2018 6:29 AM) Specimen Performing Laboratory [facility] Narrative FINAL REPORT MRI brain and MRA head and neck without contrast 01/23/2018 7:26 AM CLINICAL INDICATION: Cerebral hemorrhage suspected Stroke TECHNIQUE: Multiplanar, multisequence MR imaging of the brain was performed utilizing the following imaging sequences: Axial T1, T2, FLAIR, GRE, and DWI; sagittal and coronal T1-weighted images.Two- and three-dimensional [id number] MRA images of the intra- and extracranial carotid and vertebral arterial circulations were obtained, from which maximal intensity projection 3-D reconstructions were created. COMPARISON: None available FINDINGS: MRI: There is a large volume acute infarct involving the inferior left cerebellar hemisphere and adjacent inferior vermis. There is petechial hemorrhage. There is no current parenchymal herniation or obstructive hydrocephalus. There is no malignant hematoma, mass, or extra-axial collection. There are rare chronic microvascular changes in the supratentorial white matter. There is generalized parenchymal volume loss. Normal appearing flow-voids are present in the major intracranial vascular structures. The [place] and pineal regions, craniocervical junction, orbits, face, and skull base are without worrisome finding. MRA neck: There is no vessel occlusion or flow-limiting stenosis. There is no NASCET-quantifiable cervical internal carotid artery stenosis. Flow is antegrade in both vertebral arteries. MRA [place]: There is severely attenuated flow related enhancement in the left posterior inferior cerebellar artery, which may reflect intraluminal thrombus and/or slow flow. The remainder of the intracranial arterial vasculature is intact. Anterior and bilateral posterior communicating arteries are present. IMPRESSION: 1. 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 2. Unremarkable extracranial MRA. 3. Left PICA intraluminal thrombus and/or slow flow. Findings were discussed with the floor neurology housestaff on 01/23/2018 at 0730. Signed: Se Patel MD Report Verified Date/Time:01/23/2018 07:30:49 Reading Location: [address] Neuro Reading Room Procedure Note Interface, External Ris In - 01/23/2018 7:33 AM CDT FINAL REPORT MRI brain and MRA head and neck without contrast 01/23/2018 7:26 AM CLINICAL INDICATION: Cerebral hemorrhage suspected Stroke TECHNIQUE: Multiplanar, multisequence MR imaging of the brain was performed utilizing the following imaging sequences: Axial T1, T2, FLAIR, GRE, and DWI; sagittal and coronal T1-weighted images. Two- and three-dimensional [id number] MRA images of the intra- and extracranial carotid and vertebral arterial circulations were obtained, from which maximal intensity projection 3-D reconstructions were created. COMPARISON: None available FINDINGS: MRI: There is a large volume acute infarct involving the inferior left cerebellar hemisphere and adjacent inferior vermis. There is petechial hemorrhage. There is no current parenchymal herniation or obstructive hydrocephalus. There is no malignant hematoma, mass, or extra-axial collection. There are rare chronic microvascular changes in the supratentorial white matter. There is generalized parenchymal volume loss. Normal appearing flow-voids are present in the major intracranial vascular structures. The [place] and pineal regions, craniocervical junction, orbits, face, and skull base are without worrisome finding. MRA neck: There is no vessel occlusion or flow-limiting stenosis. There is no NASCET-quantifiable cervical internal carotid artery stenosis. Flow is antegrade in both vertebral arteries. MRA [place]: There is severely attenuated flow related enhancement in the left posterior inferior cerebellar artery, which may reflect intraluminal thrombus and/or slow flow. The remainder of the intracranial arterial vasculature is intact. Anterior and bilateral posterior communicating arteries are present. IMPRESSION: 1. 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 2. Unremarkable extracranial MRA. 3. Left PICA intraluminal thrombus and/or slow flow. Findings were discussed with the floor neurology housestaff on 01/23/2018 at 0730. Signed: Se Patel MD Report Verified Date/Time: 01/23/2018 07:30:49 Reading Location: [facility] Neuro Reading Room Vitamin B12 and Folate (01/23/2018 1:30 AM) Component Value Ref Range Vitamin B12 >2000 (H) 213 - 816 pg/mL Folate 5.4 (L) >=7.0 ng/mL Specimen Performing Laboratory [facility], [address] [address] TSH/Free T4 If Indicated (01/23/2018 1:30 AM) Component Value Ref Range TSH 0.78 0.35 - 4.94 uIU/mL Specimen Performing Laboratory [facility], [address] [address] BUN and Creatinine (01/23/2018 1:30 AM) Component Value Ref Range BUN 20 7 - 21 mg/dL Creatinine 0.93 0.57 - 1.25 mg/dL EGFR 58Comment: ESTIMATED GFR IS NOT ACCURATE mL/min/1.73 sq m CREATININE CLEARANCE IN PREDICTING GLOMERULAR FILTRATION RATE. ESTIMATED GFR IS NOT APPLICABLE FOR DIALYSIS PATIENTS. Specimen Performing Laboratory [facility], [address] [address] Narrative Fasting Troponin I (01/23/2018 1:30 AM) Component Value Ref Range Troponin I 0.02 0.00 - 0.03 ng/mL Specimen Performing Laboratory [facility], [address] [address] Narrative Troponin I (TnI) levels must be interpreted in the context of the presenting symptoms and the clinical findings. Elevated TnI levels indicate myocardial damage, but are not specific for ischemic heart disease. Elevated TnI levels are seen in patients with other cardiac conditions (including myocarditis and congestive heart failure), and slight TnI elevations occur in patients with other conditions, including sepsis, renal failure, acidosis, acute neurological disease, and persistent tachyarrhythmia. Fasting Hemoglobin A1c - Fasting (01/23/2018 1:30 AM) Component Value Ref Range Hemoglobin A1C 6.4 (H) 4.3 - 6.1 % Specimen Performing Laboratory [facility], [address] [address] Narrative Fasting Fasting lipid panel (01/23/2018 1:30 AM) Component Value Ref Range Triglycerides 173 mg/dL Cholesterol 180 mg/dL HDL 47 mg/dL LDL Calculated 98 mg/dL Specimen Performing Laboratory [facility], [address] [address] Narrative Triglyceride Reference Range: Low Risk <150 [id number] High Risk 200-499 Very High Risk>=500 Cholesterol Reference Range: Low Risk <200 [id number] High Risk>240 HDL Cholesterol Reference Range: Low Risk >=60 High Risk <40 LDL Cholesterol Reference Range: Optimal<100 Near [id number] Very High >=190 Fasting after 01/28/2017
--- OUTSIDE RECORDS SUMMARY | 2018-01-29 17:22 | XMS REPORT ---
:1935 [facility] Address [address] [place] [address] Dr. Doran [address] [place] [id number] Care Team Providers Name Role Phone NIKKI BENTLEY Unavailable Unavailable Problems This patient has no known problems. Allergies, Adverse Reactions, Alerts This patient has no known allergies or adverse reactions. Medications This patient has no known medications. Results Test Description Test Time Test Comments Text Results Atomic Results Result Comments CT, BRAIN, WITHOUT CONTRAST 2018-01-29 13:45:[address] head without contrast. Comparisons: January 24 Reason for exam: Cerebral hemorrhage suspectedfollow up imaging for hemmorhage after anticoagulation started.. [...] hematoma or mass effect.. Signed: Cheyenne Berger Verified Date/Time: 01/29/2018 13:45:52 Reading Location: [address] Neuro Reading Room C METABOLIC PANEL 2018-01-29 04:56:00 Test Item Value Reference Range Comments SODIUM (BEAKER) (test 133 meq/L 136-145 xyac=560) POTASSIUM (BEAKER) (test 4.2 meq/L 3.5-5.1 Specimen slightly hemolyzed hqch=750) CHLORIDE (BEAKER) (test 102 meq/L 98-107 ueda=802) CO2 (BEAKER) (test hfbo=671) 19 meq/L 22-29 BLOOD UREA NITROGEN (BEAKER) 24 mg/dL 7-21 (test pfuc=076) CREATININE (BEAKER) (test 0.79 mg/dL 0.57-1.25 Specimen slightly hemolyzed aazm=744) GLUCOSE RANDOM (BEAKER) 112 mg/dL 70-105 (test djep=242) CALCIUM (BEAKER) (test 8.8 mg/dL 8.4-10.2 wngd=523) EGFR (BEAKER) (test 70 mL/min/1.73 sq m ESTIMATED GFR IS NOT sywx=7005) ACCURATE CREATININE CLEARANCE IN PREDICTING GLOMERULAR FILTRATION RATE. ESTIMATED GFR IS NOT APPLICABLE FOR DIALYSIS PATIENTS. CBC (HEMOGRAM ONLY)2018-01-29 04:46:00 Test Item Value Reference Range Comments WHITE BLOOD CELL COUNT (BEAKER) (test uroq=856) 14.1 K/ L 3.5-10.5 RED BLOOD CELL COUNT (BEAKER) (test detn=536) 4.91 M/ L 3.93-5.22 HEMOGLOBIN (BEAKER) (test cfcr=747) 13.8 GM/DL 11.2-15.7 HEMATOCRIT (BEAKER) (test bnee=535) 43.0 % 34.1-44.9 MEAN CORPUSCULAR VOLUME (BEAKER) (test agwf=796) 87.6 fL 79.4-94.8 MEAN CORPUSCULAR HEMOGLOBIN (BEAKER) (test 28.1 pg 25.6-32.2 aedn=568) MEAN CORPUSCULAR HEMOGLOBIN CONC (BEAKER) (test 32.1 GM/DL 32.2-35.5 nvcb=802) RED CELL DISTRIBUTION WIDTH (BEAKER) (test 14.7 % 11.7-14.4 ugzz=082) PLATELET COUNT (BEAKER) (test nrdu=597) 222 K/CU MM 150-450 MEAN PLATELET VOLUME (BEAKER) (test fmmw=172) 9.8 fL 9.4-12.3 NUCLEATED RED BLOOD CELLS (BEAKER) (test 0 /100 WBC 0-0 xhfa=515) BASIC METABOLIC [id number] 07:03:00 Test Item Value Reference Range Comments SODIUM (BEAKER) (test 133 meq/L 136-145 auud=443) POTASSIUM (BEAKER) (test 4.2 meq/L 3.5-5.1 vicn=852) CHLORIDE (BEAKER) (test 102 meq/L 98-107 fekz=013) CO2 (BEAKER) (test 23 meq/L 22-29 wdft=812) BLOOD UREA NITROGEN 20 mg/dL 7-21 (BEAKER) (test tiwc=312) CREATININE (BEAKER) (test 0.82 mg/dL 0.57-1.25 enbe=205) GLUCOSE RANDOM (BEAKER) 116 mg/dL 70-105 (test suuo=808) CALCIUM (BEAKER) (test 8.9 mg/dL 8.4-10.2 zdyf=214) EGFR (BEAKER) (test 67 mL/min/1.73 sq m ESTIMATED GFR IS NOT xsci=1095) ACCURATE CREATININE CLEARANCE IN PREDICTING GLOMERULAR FILTRATION RATE. ESTIMATED GFR IS NOT APPLICABLE FOR DIALYSIS PATIENTS. CBC W/PLT COUNT & AUTO [id number] 06:36:00 Test Item Value Reference Range Comments WHITE BLOOD CELL COUNT (BEAKER) (test kjhm=732) 10.6 K/ L 3.5-10.5 RED BLOOD CELL COUNT (BEAKER) (test jifw=122) 4.98 M/ L 3.93-5.22 HEMOGLOBIN (BEAKER) (test jlvk=361) 14.2 GM/DL 11.2-15.7 HEMATOCRIT (BEAKER) (test fapi=485) 43.4 % 34.1-44.9 MEAN CORPUSCULAR VOLUME (BEAKER) (test ytao=828) 87.1 fL 79.4-94.8 MEAN CORPUSCULAR HEMOGLOBIN (BEAKER) (test 28.5 pg 25.6-32.2 kkdp=287) MEAN CORPUSCULAR HEMOGLOBIN CONC (BEAKER) (test 32.7 GM/DL 32.2-35.5 jcnr=535) RED CELL DISTRIBUTION WIDTH (BEAKER) (test 14.5 % 11.7-14.4 djbv=929) PLATELET COUNT (BEAKER) (test spri=742) 235 K/CU MM 150-450 MEAN PLATELET VOLUME (BEAKER) (test dwdu=158) 9.7 fL 9.4-12.3 NUCLEATED RED BLOOD CELLS (BEAKER) (test 0 /100 WBC 0-0 hseh=309) NEUTROPHILS RELATIVE PERCENT (BEAKER) (test 60 % fmid=147) LYMPHOCYTES RELATIVE PERCENT (BEAKER) (test 23 % bnzk=546) MONOCYTES RELATIVE PERCENT (BEAKER) (test 13 % lakt=606) EOSINOPHILS RELATIVE PERCENT (BEAKER) (test 3 % knfk=308) BASOPHILS RELATIVE PERCENT (BEAKER) (test 0 % yoli=652) NEUTROPHILS ABSOLUTE COUNT (BEAKER) (test 6.30 K/ L 1.56-6.13 zole=424) LYMPHOCYTES ABSOLUTE COUNT (BEAKER) (test 2.45 K/ L 1.18-3.74 mjsh=018) MONOCYTES ABSOLUTE COUNT (BEAKER) (test 1.38 K/ L 0.24-0.36 cneh=399) EOSINOPHILS ABSOLUTE COUNT (BEAKER) (test 0.33 K/ L 0.04-0.36 rtes=565) BASOPHILS ABSOLUTE COUNT (BEAKER) (test 0.03 K/ L 0.01-0.08 egmf=974) IMMATURE GRANULOCYTES-RELATIVE PERCENT (BEAKER) 1 % 0-1 (test ntpx=1011) CT, BRAIN, WITHOUT [id number] 09:53:00FINAL REPORT CT head without contrast 01/24/2018 9:51 AM CLINICAL HISTORY: Stroke TECHNIQUE: Axial noncontrast CT images through the head were obtained. This examination was performed according to our departmental dose optimization program, which includes automated exposure control, adjustment of the mA and/or kV according to patient size, and/or use of iterated reconstruction technique. COMPARISON: MRI brain 01/23/2018 FINDINGS: There is an evolving large volume left cerebellar/vermian infarct with stable trace petechial hemorrhage but no parenchymal herniation or obstructive hydrocephalus. There remains no mass or extra-axial collection. There is mild microvascular ischemia in the supratentorial white matter. There is atherosclerotic calcification of the intracranial arterial vasculature. There is generalized parenchymal volume loss. The visualized paranasal sinuses and mastoid air cells are well aerated. The skull is intact. 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 Signed: Se Patel MDReport Verified Date/Time: 01/24/2018 09:53:07 Reading Location: [facility] C013V Neuro Reading Room BASIC METABOLIC [id number] 07:40:00 Test Item Value Reference Range Comments SODIUM (BEAKER) (test 136 meq/L 136-145 gzft=822) POTASSIUM (BEAKER) (test 4.0 meq/L 3.5-5.1 rnlg=540) CHLORIDE (BEAKER) (test 104 meq/L 98-107 jmku=220) CO2 (BEAKER) (test 20 meq/L 22-29 iasd=145) BLOOD UREA NITROGEN 20 mg/dL 7-21 (BEAKER) (test vzjz=248) CREATININE (BEAKER) (test 0.80 mg/dL 0.57-1.25 czkn=573) GLUCOSE RANDOM (BEAKER) 126 mg/dL 70-105 (test jdtw=856) CALCIUM (BEAKER) (test 8.9 mg/dL 8.4-10.2 gzac=477) EGFR (BEAKER) (test 69 mL/min/1.73 sq m ESTIMATED GFR IS NOT tqmc=1727) ACCURATE CREATININE CLEARANCE IN PREDICTING GLOMERULAR FILTRATION RATE. ESTIMATED GFR IS NOT APPLICABLE FOR DIALYSIS PATIENTS. CBC W/PLT COUNT & AUTO [id number] 07:13:00 Test Item Value Reference Range Comments WHITE BLOOD CELL COUNT (BEAKER) (test llqz=850) 9.7 K/ L 3.5-10.5 RED BLOOD CELL COUNT (BEAKER) (test ntkz=101) 4.46 M/ L 3.93-5.22 HEMOGLOBIN (BEAKER) (test ukxw=505) 12.9 GM/DL 11.2-15.7 HEMATOCRIT (BEAKER) (test xfxg=976) 40.1 % 34.1-44.9 MEAN CORPUSCULAR VOLUME (BEAKER) (test vexe=387) 89.9 fL 79.4-94.8 MEAN CORPUSCULAR HEMOGLOBIN (BEAKER) (test 28.9 pg 25.6-32.2 gtam=584) MEAN CORPUSCULAR HEMOGLOBIN CONC (BEAKER) (test 32.2 GM/DL 32.2-35.5 betg=356) RED CELL DISTRIBUTION WIDTH (BEAKER) (test 15.0 % 11.7-14.4 hxos=666) PLATELET COUNT (BEAKER) (test octn=277) 228 K/CU MM 150-450 MEAN PLATELET VOLUME (BEAKER) (test uvnm=714) 10.1 fL 9.4-12.3 NUCLEATED RED BLOOD CELLS (BEAKER) (test 0 /100 WBC 0-0 sqre=826) NEUTROPHILS RELATIVE PERCENT (BEAKER) (test 60 % glto=670) LYMPHOCYTES RELATIVE PERCENT (BEAKER) (test 26 % pkxw=641) MONOCYTES RELATIVE PERCENT (BEAKER) (test 11 % zxsv=205) EOSINOPHILS RELATIVE PERCENT (BEAKER) (test 2 % vikk=487) BASOPHILS RELATIVE PERCENT (BEAKER) (test 0 % iweh=376) NEUTROPHILS ABSOLUTE COUNT (BEAKER) (test 5.81 K/ L 1.56-6.13 kmgs=925) LYMPHOCYTES ABSOLUTE COUNT (BEAKER) (test 2.56 K/ L 1.18-3.74 exyc=644) MONOCYTES ABSOLUTE COUNT (BEAKER) (test 1.07 K/ L 0.24-0.36 erxv=365) EOSINOPHILS ABSOLUTE COUNT (BEAKER) (test 0.19 K/ L 0.04-0.36 ttpt=717) BASOPHILS ABSOLUTE COUNT (BEAKER) (test 0.02 K/ L 0.01-0.08 lwbm=508) IMMATURE GRANULOCYTES-RELATIVE PERCENT (BEAKER) 1 % 0-1 (test cgut=1168) URINALYSIS W/ REFLEX URINE [id number] 20:08:00 Test Item Value Reference Range Comments COLOR (BEAKER) (test basa=352) Yellow CLARITY (BEAKER) (test vhep=596) Clear SPECIFIC GRAVITY UA (BEAKER) (test dgjf=899) 1.022 1.001-1.035 PH UA (BEAKER) (test xigz=416) 5.5 5.0-8.0 PROTEIN UA (BEAKER) (test emqy=082) 10 mg/dL Negative GLUCOSE UA (BEAKER) (test dczi=650) Negative Negative KETONES UA (BEAKER) (test tawt=465) Negative Negative BILIRUBIN UA (BEAKER) (test agpe=786) Negative Negative BLOOD UA (BEAKER) (test qhsw=769) Negative Negative NITRITE UA (BEAKER) (test ibne=061) Negative Negative LEUKOCYTE ESTERASE UA (BEAKER) (test gxam=890) Negative Negative UROBILINOGEN UA (BEAKER) (test swum=960) 0.2 mg/dL 0.2-1.0 RBC UA (BEAKER) (test gqgl=980) < /HPF WBC UA (BEAKER) (test bbvu=951) < /HPF MUCUS (BEAKER) (test frmu=4812) Rare SQUAMOUS EPITHELIAL (BEAKER) (test kcmz=143) 1 /HPF SOURCE(BEAKER) (test zmlo=5848) HEMOGLOBIN [id number] 10:48:00 Test Item Value Reference Range Comments HEMOGLOBIN A1C (BEAKER) (test frgm=346) 6.4 % 4.3-6.1 FastingMR, BRAIN, WITHOUT [id number] 07:30:00Reason for exam:-> StrokeWhat is the patient's sedation requirement?->No SedationFINAL REPORT MRI brain and MRA head and neck without contrast 2017 7:26 AM CLINICAL INDICATION: Cerebral hemorrhage suspectedStroke TECHNIQUE : Multiplanar, multisequence MR imaging of the brain was performed utilizing the following imaging sequences: Axial T1, T2, FLAIR, GRE, and DWI; sagittal and coronal T1-weighted images. Two- and three-dimensional zxfz-nr-cyccja MRA images of the intra- and extracranial carotid and vertebral arterial circulations were obtained, from which maximal intensity projection 3-D reconstructions were created. COMPARISON: None available FINDINGS: MRI: There is a large volume acute infarct involving the inferior left cerebellar hemisphere andadjacent inferior vermis. There is petechial hemorrhage. There [...] skull base are without worrisome finding. MRA neck : There is no vessel occlusion or flow-limiting stenosis. There is no NASCET- quantifiable cervical internal carotid artery stenosis. Flow is antegrade in both vertebral arteries. MRA [place]: There is severely attenuated flow related enhancement in the left posterior inferior cerebellar artery, which may reflect intraluminal thrombus and/or slow flow. The remainder of the intracranial arterial vasculature is intact. Anterior and bilateral posterior communicatingarteries are present. IMPRESSION: 1. 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 Unremarkable extracranial MRA. 3. Left PICA intraluminal thrombus and/or slow flow. Findings were discussed with the floor neurology housestaff on 01/23/2018 at 0730. Signed : Se Patel Verified Date/Time: 01/23/2018 07:30:49 Reading Location: [facility] C013V Neuro Reading Room Electronicallysigned by: SE PATEL M.D. on 01/23/2018 07:30 AMMR, MRA, BRAIN, WITHOUT [id number] 07 :30:00Reason for exam:->Ischemic Stroke EvaluationFINAL REPORT MRI brain and MRA head and neck without contrast 01/23/2018 7:26 AM CLINICAL INDICATION: Cerebral hemorrhage suspectedStroke TECHNIQUE: Multiplanar , multisequence MR imaging of the brain was performed utilizing the following imaging sequences: Axial T1, T2, FLAIR, GRE, and DWI; sagittal and coronal T1- weighted images. Two- and three-dimensional etpw-ku-euzxni MRA images of the intra- and extracranial carotid and vertebral arterial circulations were obtained, from which maximal intensity projection 3-D reconstructions were created. COMPARISON: None available FINDINGS: MRI: There is a large volume acute infarct involving the inferior left cerebellar hemisphere andadjacent inferior vermis. There is petechial hemorrhage. There is no current parenchymal herniation or obstructive hydrocephalus. There is no malignant hematoma, mass, or extra-axial collection. There are rare chronic microvascular changes in the supratentorial white matter. There is generalized parenchymal volume loss. Normal appearing flow-voids are present in the major intracranial vascular structures. The sellar and pineal regions, craniocervical junction, orbits, face , and skull base are without worrisome finding. MRA neck: There is no vessel occlusion or flow-limiting stenosis. There is no NASCET-quantifiable cervical internal carotid artery stenosis. Flow is antegrade in both vertebral arteries. MRA [place]: There is severely attenuated flow related enhancement in the left posterior inferior cerebellar artery, which may reflect intraluminal thrombus and/or slow flow. The remainder of the intracranial arterial vasculature is intact. Anterior and bilateral posterior communicatingarteries are present. IMPRESSION: 1. 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 Unremarkable extracranial MRA. 3. Left PICA intraluminal thrombus and/or slow flow. Findings were discussed with the floor neurology housestaff on 01/23/2018 at 0730. Signed: Se Patel Verified Date/Time: 01/23/2018 07:30:49 Reading Location: [address] Neuro Reading Room Electronicallysigned by: SE PATEL M.D. on 01/23/2018 07:30 AMMR, MRA, NECK, WITHOUT IV [id number] 07:30:00Reason for exam:->Ischemic Stroke EvaluationFINAL REPORT MRI brain and MRA head and neck without contrast 01/23/2018 7:26 AM CLINICAL INDICATION: Cerebral hemorrhage suspectedStroke TECHNIQUE: Multiplanar, multisequence MR imaging of the brain was performed utilizing the following imaging sequences: Axial T1, T2, FLAIR, GRE, and DWI; sagittal and coronal T1- weighted images. Two- and three-dimensional tltf-gh-wlnawr MRA images of the intra- and extracranial carotid and vertebral arterial circulations were obtained, from which maximal intensity projection 3-D reconstructions were created. COMPARISON: None available FINDINGS: MRI: There is a large volume acute infarct involving the inferior left cerebellar hemisphere andadjacent inferior vermis. There is petechial hemorrhage. There is no current parenchymal herniation or obstructive hydrocephalus. There is no malignant hematoma, mass, or extra-axial collection. There are rare chronic microvascular changes in the supratentorial white matter. There is generalized parenchymal volume loss. Normal appearing flow-voids are present in the major intracranial vascular structures. The sellar and pineal regions, craniocervical junction, orbits, face , and skull base are without worrisome finding. MRA neck: There is no vessel occlusion or flow-limiting stenosis. There is no NASCET-quantifiable cervical internal carotid artery stenosis. Flow is antegrade in both vertebral arteries. MRA [place]: There is severely attenuated flow related enhancement in the left posterior inferior cerebellar artery, which may reflect intraluminal thrombus and/or slow flow. The remainder of the intracranial arterial vasculature is intact. Anterior and bilateral posterior communicatingarteries are present. IMPRESSION: 1. 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 Unremarkable extracranial MRA. 3. Left PICA intraluminal thrombus and/or slow flow. Findings were discussed with the floor neurology housestaff on 01/23/2018 at 0730. Signed: Se Patel Verified Date/Time: 01/23/2018 07:30:49 Reading Location: [address] Neuro Reading Room Electronicallysigned by: SE PATEL M.D. on 01/23/2018 07:30 AMTSH/FREE T4 IF [id number] 02:31:00 Test Item Value Reference Range Comments THYROID STIMULATING HORMONE (BEAKER) (test 0.78 uIU/mL 0.35-4.94 ounb=955) VITAMIN B12 AND [id number] 02:31:00 Test Item Value Reference Range Comments VITAMIN B12 (BEAKER) (test bacq=784) > pg/mL 213-816 FOLATE (BEAKER) (test pkyf=025) 5.4 ng/mL >=7.0 TROPONIN [id number] 02:08:00 Test Item Value Reference Range Comments TROPONIN I (BEAKER) (test fgto=774) 0.02 ng/mL 0.00-0.03 Troponin I (TnI) levels must be interpreted [...] failure, acidosis, acute neurological disease, and persistent tachyarrhythmia.FastingLIPID [id number] 02:00:00 Test Item Value Reference Range Comments TRIGLYCERIDES (BEAKER) (test cqny=520) 173 mg/dL CHOLESTEROL (BEAKER) (test rzfh=779) 180 mg/dL HDL CHOLESTEROL (BEAKER) (test kicy=070) 47 mg/dL LDL CHOLESTEROL CALCULATED (BEAKER) (test 98 mg/dL tecq=725) Triglyceride Reference Range: Low Risk <150 Borderline 150- 199 High Risk 200-499 Very High Risk >=500Cholesterol Reference Range: Low Risk <200 Borderline 200-239 High Risk > 240HDL Cholesterol Reference Range: Low Risk >=60 High Risk <40LDL Cholesterol Reference Range: Optimal <100 Near Optimal 100-129 Borderline 130-159 High 160-189 Very High >=190 FastingBUN AND [id number] 02:00:00 Test Item Value Reference Range Comments BLOOD UREA NITROGEN 20 mg/dL 7-21 (BEAKER) (test yafp=788) CREATININE (BEAKER) (test 0.93 mg/dL 0.57-1.25 rnlz=533) EGFR (BEAKER) (test 58 mL/min/1.73 sq m ESTIMATED GFR IS NOT ioha=4064) ACCURATE CREATININE CLEARANCE IN PREDICTING GLOMERULAR FILTRATION RATE. ESTIMATED GFR IS NOT APPLICABLE FOR DIALYSIS PATIENTS. FastingBASIC METABOLIC [id number] 02:00:00 Test Item Value Reference Range Comments SODIUM (BEAKER) (test 143 meq/L 136-145 wqvq=291) POTASSIUM (BEAKER) (test 4.2 meq/L 3.5-5.1 dahd=946) CHLORIDE (BEAKER) (test 106 meq/L 98-107 iblf=594) CO2 (BEAKER) (test 26 meq/L 22-29 pcwk=457) BLOOD UREA NITROGEN 20 mg/dL 7-21 (BEAKER) (test cymz=136) CREATININE (BEAKER) (test 0.93 mg/dL 0.57-1.25 mafe=585) GLUCOSE RANDOM (BEAKER) 147 mg/dL 70-105 (test abro=767) CALCIUM (BEAKER) (test 9.2 mg/dL 8.4-10.2 pxlc=950) EGFR (BEAKER) (test 58 mL/min/1.73 sq m ESTIMATED GFR IS NOT xdwi=8504) ACCURATE CREATININE CLEARANCE IN PREDICTING GLOMERULAR FILTRATION RATE. ESTIMATED GFR IS NOT APPLICABLE FOR DIALYSIS PATIENTS. FastingCBC W/PLT COUNT & AUTO [id number] 01:51:00 Test Item Value Reference Range Comments WHITE BLOOD CELL COUNT (BEAKER) (test dgnd=816) 13.8 K/ L 3.5-10.5 RED BLOOD CELL COUNT (BEAKER) (test vlqp=085) 4.83 M/ L 3.93-5.22 HEMOGLOBIN (BEAKER) (test xbon=580) 13.7 GM/DL 11.2-15.7 HEMATOCRIT (BEAKER) (test lzmc=507) 42.5 % 34.1-44.9 MEAN CORPUSCULAR VOLUME (BEAKER) (test aofr=635) 88.0 fL 79.4-94.8 MEAN CORPUSCULAR HEMOGLOBIN (BEAKER) (test 28.4 pg 25.6-32.2 zvdw=098) MEAN CORPUSCULAR HEMOGLOBIN CONC (BEAKER) (test 32.2 GM/DL 32.2-35.5 bgln=082) RED CELL DISTRIBUTION WIDTH (BEAKER) (test 14.6 % 11.7-14.4 pzkd=115) PLATELET COUNT (BEAKER) (test nopr=738) 233 K/CU MM 150-450 MEAN PLATELET VOLUME (BEAKER) (test nwpz=981) 9.9 fL 9.4-12.3 NUCLEATED RED BLOOD CELLS (BEAKER) (test 0 /100 WBC 0-0 ytni=989) NEUTROPHILS RELATIVE PERCENT (BEAKER) (test 80 % inxo=418) LYMPHOCYTES RELATIVE PERCENT (BEAKER) (test 11 % rlin=953) MONOCYTES RELATIVE PERCENT (BEAKER) (test 8 % elfg=120) EOSINOPHILS RELATIVE PERCENT (BEAKER) (test 0 % xbxc=182) BASOPHILS RELATIVE PERCENT (BEAKER) (test 0 % exdv=809) NEUTROPHILS ABSOLUTE COUNT (BEAKER) (test 10.98 K/ L 1.56-6.13 qpsg=862) LYMPHOCYTES ABSOLUTE COUNT (BEAKER) (test 1.51 K/ L 1.18-3.74 cgxe=089) MONOCYTES ABSOLUTE COUNT (BEAKER) (test 1.11 K/ L 0.24-0.36 gwhi=623) EOSINOPHILS ABSOLUTE COUNT (BEAKER) (test 0.03 K/ L 0.04-0.36 nkmn=834) BASOPHILS ABSOLUTE COUNT (BEAKER) (test 0.02 K/ L 0.01-0.08 vztf=863) IMMATURE GRANULOCYTES-RELATIVE PERCENT (BEAKER) 1 % 0-1 (test kmiq=1501)
[2018-01-29 17:48] VITALS: BMI 39.9
[2018-01-29] MEDS ORDERED: BISACODYL 10 MG RECTAL SUPP PR PRN (17:50)
[2018-01-29] MEDS ORDERED: HYDROCODONE/APAP 10/325 TAB PO PRN (17:50)
[2018-01-29] MEDS ORDERED: BISACODYL E.C. 5 MG TAB PO PRN (17:50)
[2018-01-29] MEDS ORDERED: HYDROCODONE/APAP 5/325 MG TAB PO PRN (17:50)
[2018-01-29] MEDS ORDERED: MAGNES/ALUMIN/SIMET 30ML UCUP PO PRN (18:01)
[2018-01-29] MEDS: CARVEDILOL 12.5 MG TAB PO SCH (18:20)
[2018-01-29] MEDS: FAMOTIDINE 20 MG TAB PO SCH (20:06)
[2018-01-29] MEDS: ATORVASTATIN 80 MG TAB PO SCH (20:06)
[2018-01-29] MEDS: DOCUSATE NA/SENNA CONC 1 TAB PO SCH (20:06)
[2018-01-29] MEDS: APIXABAN 5 MG TABLET PO SCH (20:06)
[2018-01-29] MEDS ORDERED: MECLIZINE HCL 12.5 MG TAB PO SCH (21:00)
[2018-01-29 21:21] LABS: Urine Appearance CLEAR; Urine Bilirubin NEGATIVE (NEG); Urine Blood NEGATIVE (NEG); Urine Color YELLOW; Urine Glucose NEGATIVE (NEG); Urine Protein NEGATIVE (NEG); Urine Urobilinogen 0.2 mg/dL (0.2-1.0); Urine pH 5.5 (5.0-7.0)
[2018-01-29 21:25] LABS: Urine Bacteria <20 /HPF (<20); Urine Culture Reflex Order NOT NEEDED; Urine RBC <5 /HPF (NONE SEEN)
[2018-01-30] MEDS ORDERED: MECLIZINE HCL 12.5 MG TAB PO PRN (03:32)
[2018-01-30] MEDS: CARVEDILOL 12.5 MG TAB PO SCH ×2 (05:15→17:15)
[2018-01-30] MEDS: LEVOTHYROXINE SOD 0.05 MG TABLET PO SCH (05:15)
[2018-01-30 06:38] LABS: Absolute Lymphocytes (CBC) 2.4 K/uL (0.7-4.9); Absolute Monocytes 1.7 K/uL (0.1-1.3); Absolute Neutrophil 7.6 K/uL (1.8-8.0); Basophils % 0.4 % (0-1.3); Eosinophils % 1.7 % (0-4.4); Hematocrit 39.5 % (36.0-45.0); Lymphocytes % 20.4 % (15.3-44.8); MCH 28.9 pg (27.0-35.0); MCV 87.2 fL (80-100); MPV 8.3 fL (7.6-11.3); Monocytes % 14.2 % (3.3-12.3); RBC Red Blood Cell Count 4.53 M/uL (3.86-4.86)
[2018-01-30 06:49] LABS: Albumin 2.8 g/dL (3.2-5.5); Magnesium 1.8 mg/dL (1.8-2.5); Potassium 4.1 mEq/L (3.6-5.0); Prealbumin 16.6 mg/dl (18-38)
[2018-01-30] MEDS: LOSARTAN POTASSIUM 50 MG TABLET PO SCH ×2 (08:00→08:17)
[2018-01-30] MEDS: APIXABAN 5 MG TABLET PO SCH ×2 (08:16→20:10)
[2018-01-30] MEDS: FAMOTIDINE 20 MG TAB PO SCH ×2 (08:16→20:10)
[2018-01-30] MEDS: ASPIRIN 81 MG CHEWABLE TABLET PO SCH (08:16)
[2018-01-30] MEDS: DOCUSATE NA/SENNA CONC 1 TAB PO SCH ×2 (08:16→20:00)
[2018-01-30] MEDS: FOLIC ACID 1 MG TABLET PO SCH (08:16)
[2018-01-30] MEDS: NAMENDA 28 MG PO SCH (08:16)
--- NOTE | 2018-01-30 13:55 | R.HP ---
FACILITY: [facility] ENCOUNTER DATE AND TIME: 01/30/2018 12:51 (CDT) MR#: [id number] NAME MAURICE SIFUENTES ADDRESS: [address] [place] [address]: [place]IP [id number] PHONE: DATE OF : 1935 AGE: 82 SSN# [id number] GENDER: Female DEXTERITY Right-handed MARITAL STATUS RACE White PRE-HOSPITAL LIVING SETTING 01 - Home (private home/apt. board/care, assisted living, long-term, transitional living) PRE-HOSPITAL LIVING WITH Family/Relatives ENCOUNTER PHYSICIAN: Dr. Glen Davidson M.D. REFERRING DOCTOR: Costa Crenshaw DATE OF ADMISSION: 01/29/2018 17:19 (CDT) REFERRING FACILITY [facility] HOME TYPE AND DETAILS: Type of home: single family house # of steps to enter the residence: 0 # of steps within the residence: 0 # of levels in the residence: 1 ADMISSION DIAGNOSIS: 4 cm left cerebeller hypodensity. L Pica stroke with associated hemorrhage ONSET DATE: 01/22/2018 PRIMARY DIAGNOSIS-RELATED SURGERIES: No surgeries related to the primary diagnosis were performed. 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 is a 82 yo Right-handed white female. On 01/22/2018 Pt. presented to [facility] with sudden onset of right-side weakness. On 01/22/2018 she was admitted to [facility] with diagnosis 4 cm left cere igor hypodensity. L Pica stroke with associated hemorrhage. Her impairment category is Stroke 01 - Right Body (Left Brain) (01.2). Pre-morbidly, Pt. was independent/mod-I in Social Cognition, Self-Care, Sphincter Control, Transfers Control, Communication, and Locomotion; and she had good Sphincter Control. Currently, she has deficits of Social Cognition, Balance, Self-Care, Endurance, Safety Awareness, Tra nsfers Control, Communication, and Locomotion. Pt. is now referred to [facility] for acute in-patient rehabilitation in order to maximize patient's functional independence in activities of daily living, strength, ROM, and mobi lity. Patient has realistic goal of being discharged at assistance level 6-Ramon to reside at Home with Fam lisa/Relatives. MEDICATION ALLERGIES: No Known Drug Allergies (NKDA) ENVIRONMENTAL ALLERGIES: - Substance Allergies None Known - Other Allergies None Known PAST MEDICAL HISTORY: dementia a fib with RVR FAMILY HISTORY: Family history is not contributory. SOCIAL HISTORY: - Home Living Family/Relatives REVIEW OF SYSTEMS: - Gen No Chills No Fatigue No Fever - Eyes No Double Vision No itchiness - ENMT No Difficulty Swallowing - CVS No Chest Discomfort No Chest Pain No Fatigue No Weight Gain - Resp No Cough No Shortness of Breath - GI Continent No Abdominal Pain No Constipation No Diarrhea - Continent No Kidney Pain No Painful Urination No Urinary Urgency - MSK No Joint Pain No Muscle Cramps No Stiffness - Skin No Itching No Rash No Suspicious Lesions - Neuro No Coordination Difficulty No Difficulty with Concentration No Memory Loss No Seizures No Weakness - Psych No Anxiety No Depression No HIV Exposure No Persistent Infections No Seasonal Allergies - Endo No Cold/Heat Intolerance No Excessive Hunger No Excessive Thirst No Excessive Urination PHYSICAL EXAM - Gen Alert and awake Lying in bed No apparent distress Oriented to: person, time, and place - Skin No breakdowns No abnormalities - Eyes No abnormalities - ENMT No abnormalities - Neck No abnormalities - CVS RRR - Chest Clear - Abd + BS - GI Soft Deferred - No abnormalities - Ext no edema - MSK Right arm and leg incoordination. Drifts to the right with ambulation. Able to walk fairly well with walker covering 250'. - Neuro Mild right sided weakness and incoordination. - Psych No abnormalities VITAL SIGNS Temperature: 96.4 F SBP/DBP: 166/74 Pulse: 77 Resp: 19 NURSING: - Shower allowing shower - Bladder care per protocol - Skin care per protocol PRECAUTIONS: - Weight Bearing Precaution WBAT right LE ACTIVITIES OOB only with supervision FUNCTIONAL STATUS: - Self-Care A. Eating Ind modA B. Grooming Ind modA C. Bathing Ind modA D. Dressing - Upper Ind modA E. Dressing - Lower Ind modA F. Toileting Ind modA - Sphincter Control G: Bladder control Ind Ind H: Bowel control Ind Ind - Transfers Control I. Bed/Chair/Wheelchair Ind modA J. Toilet Ind modA K. Tub/Shower Ind modA - Locomotion L. Walk/Wheelchair (B) Ind Dep M. Stairs Ind ADNO - Communication N. Comprehension (B) Ind modA O. Expression (B) Ind Abdirizak - Social Cognition P. Social Interaction Ind modA Q. Problem Solving Ind modA R. Memory Ind modA - Endurance Poor - Balance Poor - Safety Awareness Poor CURRENT FUNC. DEFICITS: Social Cognition, Balance, Self-Care, Endurance, Safety Awareness, Transfers Control, Communication, and Locomotion ASSESSMENT: Pt. is a 82 yo Right-handed white female.On 01/22/2018 Pt. presented to [facility] with sudden onset of right-side weakness.On 01/22/2018 she was admitted to [facility] with diagnosis 4 cm left cerebeller hypodensity. L Pica stroke with associated h emorrhage.Her impairment category is Stroke 01 - Right Body (Left Brain) (01.2).Pre-morbidly, Pt. wa s independent/mod-I in Social Cognition, Self-Care, Sphincter Control, Transfers Control, Communicati on, and Locomotion; and she had good Sphincter Control.Currently, she has deficits of Social Cognitio n, Balance, Self-Care, Endurance, Safety Awareness, Transfers Control, Communication, and Locomotion. Pt. is now referred to [facility] for acute in-patient rehabilitation in order to maximize patient's functional independence in activities of daily living, strength, ROM, and mobi lity.- Rehab Goal Patient has realistic goal of being discharged at assistance level 6-Ramon to reside at Home with Fam lisa/Relatives. REHAB PLAN: for Dementia, TBI, Stroke, or others - Physical Therapy Gait dysfunction - to improve, our physical therapists will perform initial evaluation of pt's status upon admission and devise an individualized program for Gait Training, and Wheel Chair mobility Inability to transfer - to improve, our physical therapists will perform initial evaluation of pt's s tatus upon admission and devise an individualized program for Bed mobility Need for home safety evaluation - to improve, our physical therapists will perform initial evaluation of pt's status upon admission and devise an individualized program for Home Evaluation Need in caregiver upon discharge - to improve, our physical therapists will perform initial evaluatio n of pt's status upon admission and devise an individualized program for Caregiver Training New precaution - to improve, our physical therapists will perform initial evaluation of pt's status u desirae admission and devise an individualized program for Patient precaution education Poor balance - to improve, our physical therapists will perform initial evaluation of pt's status upo n admission and devise an individualized program for Balance Training Poor endurance - to improve, our physical therapists will perform initial evaluation of pt's status u desirae admission and devise an individualized program for Endurance Training Weakness - to improve, our physical therapists will perform initial evaluation of pt's status upon ad mission and devise an individualized program for Aquatic Therapy, Neuromuscular Reeducation, and Stre ngthening Achieving independence - to improve, our physical therapists will perform initial evaluation of pt's status upon admission and devise an individualized program for Community Reintegration Activities - Occupational Therapy ADL deficits - to improve, our occupation therapists will perform initial evaluation of pt's status u desirae admission and devise an individualized program for Bathing, Bed mobility, Community Reintegration , Cooking, Dressing, Eating, Fine Motor Skills, Grooming, Homemaking, Kitchen Mobility, Laundry, Idalia ent Education, Safety Awareness, Splinting - Positioning, Transfers(Toilet, Tub, Shower), and Wheel C hair Management Cognitive deficits - to improve, our occupation therapists will perform initial evaluation of pt's st atus upon admission and devise an individualized program for Cognition - orientation Need for intensive care nurse - to improve, our occupation therapists will perform initial evaluation of pt's s tatus upon admission and devise an individualized program for Caregiver Training Weakness - to improve, our occupation therapists will perform initial evaluation of pt's status upon admission and devise an individualized program for Aquatic Therapy, Balance, Endurance, UE ROM, and U E strengthening MEDICAL PLAN: - Diet Type Regular - Diet - Liquid Texture Regular - Tube Feed N/A - Bladder care per protocol - Weight Bearing Precaution WBAT right LE - Skin care per protocol - Diet - Solid Texture Regular - Shower shower DISCHARGE PLAN: - Estimated Length of Stay (days) 17. - Consensus on plan Discharge plan has been discussed with primary caregiver. Patient/Family is in agreement with the didi n. Primary caregiver is in agreement with the plan. - Patient/Family Goals Return home with assistance. - Planned Living Setting Upon Discharge Home, to live with Family/Relatives. SIGNATURE PANEL: (CDT)
--- NOTE | 2018-01-30 13:56 | PAPE ---
PATIENT: [facility] MR# [id number] REFERRING DOCTOR Costa Crenshaw EVALUATION DATE AND TIME 01/30/2018 12:55 (CDT) NAME MAURICE SIFUENTES DATE OF 1935 AGE 82 PHONE N# [id number] GENDER female EVALUATING PHYSICIAN Dr. Glen Davidson M.D. ADMISSION DIAGNOSIS: 4 cm left cerebeller hypodensity. 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 PATIENT NEEDS CLOSE MEDICAL SUPERVISION BY A REHABILITATION PHYSICIAN FOR: Bowel and Bladder Management Coordination of Treatment Team Medical and Co-Morbidity Management PATIENT REQUIRES 24X7 REHAB NURSING FOR MEDICAL AND FUNCTIONAL MGT. OF THE FOLLOWING DEFICITS: ADL's Ambulation Bowel and Bladder Management Cognition Communication Disease Management Medication Management Patient/Family Education Providing Safe Environment Transfers PATIENT REQUIRES INTENSIVE, COORDINATED INTERDISCIPLINARY APPROACH TO REHAB: Arranging Home Equipment/Services Discharge Planning Family Intervention/Training Fire Assistant/Case Management LIST OF IDENTIFIED AND POTENTIAL PROBLEMS: Alteration in leisure activities Bladder, Incontinence Bowel, Incontinence Infection, Actual or Potential Mobility Impaired Pain, Alteration in Comfort Self Care Deficit Skin Integrity, Actual or Potential Urinary Tract Infection (UTI), Actual or Potential PATIENT COULD BE AT RISK FOR COMPLICATIONS FROM ADVERSE MEDICAL CONDITIONS DUE TO HIS/HER COMORBIDITI ES AND THE RIGORS OF THE INTENSIVE REHABILLITATION PROGRAM. METHODS OR INTERVENTIONS TO AVOID COMPLIC ATIONS INCLUDE: - Bleeding Stroke patients assessed for lethargy or change in status. - Infection Clinical staff to assess and manage the signs and symptoms of infection including fever, redness, war mth, etc. - Urinary Tract Infection - Aspiration Clinical staff will assess and manage coughing, drooling, congestion. - Falls Patient will be evaluated for Fall Precautions and will be placed on Fall Precautions as indicated pe r protocol. - Skin Breakdown Nursing will assess skin daily using assessment tool and will place on Skin Breakdown Precautions as indicated per protocol. - Pain Clinical staff may employ non-medication methods such as massage, distraction, decrease stimulus, etc . as needed. Clinical staff will assess patient's pain level every shift per protocol to assess and e nsure pain management effectiveness. Medications will be given and the pain level re-assessed. PRELIMINARY PLAN OF CARE: - Physical Therapy Patient needs Physical Therapy for a daily minimum of 1.5 hours at least 5 out of 7 days, to improve: Mobility, Strengthening, Transfers, Stretching, ROM, Endurance, Ability to manage stairs, Gait, and Balance. - Speech Therapy Patient needs Speech Therapy for a daily minimum of 0.5 hours at least 5 out of 7 days, to improve: S wallowing, Cognition, Language Skills, and Compensatory Strategies. - Rehabilitation Nursing Patient requires 24x7 Rehabilitation Nursing for: Pain Issues, Identifying and preventing risk factor s, Monitoring and reporting current medical conditions, Assisting with ambulation and transfer, Karl ting with all ADL-s, Teaching patients about disease process and medications, Family teaching, Provid ing safe environment, Bowel and Bladder Issues, Skin Integrity, and Medication Management. Patient needs Fire Assistant and/or Case Management for: Discharge Planning, Arranging Home Equipmen t or Services, and Family Interventions. - Dietary and Nutrition Services Patient needs Dietary and Nutrition Services for: Adequate Nutrition, Nutritional Supplements, and Nu tritional Education. - Occupational Therapy Patient needs Occupational Therapy for a daily minimum of 1.5 hours at least 5 out of 7 days, to impr ove Activities of Daily Living, including: Eating, Grooming, Bathing, Dressing, Toileting, Toilet Tra nsfers, Community Reintegration, Higher functional activities, Adaptive Equipment, Splinting, Househo ld Tasks, and Other activities as determined. POTENTIAL FUNCTIONAL GOALS FOR PATIENT TO ACHIEVE BY DISCHARGE: - Safety Precaution Patient will remain free from falls or injury at time of discharge. - Bed Mobility Patient will perform bed mobility at 4-Abdirizak level of assistance. - Transfers Patient will complete transfers from bed to chair at 4-Abdirizak level of assistance. - Mobility Patient will ambulate 150 ft with 4-Abdirizak level of assistance with RW. PATIENT REHAB POTENTIAL Expected level of measurable improvement will be of a practical value to patient's functional capacit y or adaptations to impairments Has a viable Discharge Plan Medically appropriate; condition is sufficiently stable to participate in intensive rehab program Patient is able and expected to receive 3 hours of individualized therapy daily on at least 5 of ever y 7 days Patient's prognosis for significant practical improvement within a reasonable period of time appears Good DISCHARGE PLAN: - Estimated Length of Stay (days) 17. - Consensus on plan Discharge plan has been discussed with primary caregiver. Patient/Family is in agreement with the didi n. Primary caregiver is in agreement with the plan. - Patient/Family Goals Return home with assistance. - Planned Living Setting Upon Discharge Home, to live with Family/Relatives. CONCLUSION ON REHABILITATION NECESSITY: I have evaluated patient's pre-admission functional status and, comparing it to the patient's post-ad mission functional status now, I conclude that the pre-admission assessment was accurate. Patient's c ondition on admission supports the medical necessity of admission to IR[facility]. It is safe to proceed with patient's therapy program. SIGNATURE PANEL: (CDT)
--- NOTE | 2018-01-30 16:35 | FAST ---
SHIFT START DATE/TIME: 01/30/2018 07:00 (CDT) SHIFT END DATE/TIME: 01/30/2018 19:00 (CDT) NAME MAURICE SIFUENTES DATE OF : 1935 DATE OF ADMISSION: 01/29/2018 17:19 (CDT) PHONE: AGE: 82 [facility]# [id number] GENDER: Female ENCOUNTER PHYSICIAN: Dr. Glen Davidson M.D. 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 EATING: EATING - STEP 1: Does the patient require assistance when eating? Yes. EATING - STEP 2: Does the patient require the assistance of a helper? No, patient only requires an assistive device, O R s/he takes more than reasonable time to eat, OR there is a safety concern, OR s/he requires modifie d food consistency EATING - SCORE: 6-SONYA GROOMING: Comb/brush hair Oral care Wash, rinse, and dry face Wash, rinse, and dry hands GROOMING - STEP 1: Does the patient require assistance when grooming? Yes. GROOMING - STEP 2: Does the patient require the assistance of a helper? No. The patient only requires an assistive devic e, OR takes more than reasonable time to groom, OR there is a concern for safety as the patient groom s GROOMING - SCORE: 6-SONYA BATHING: Activity did not occur on this shift BATHING - SCORE: 0-UNK DRESSING - UPPER BODY: Activity did not occur on this shift ARTICLES SCORE Total number of steps: 0 DRESSING - UPPER BODY - SCORE: 0-UNK DRESSING - LOWER BODY: Activity did not occur on this shift ARTICLES SCORE Total number of steps: 0 DRESSING - LOWER BODY - SCORE: 0-UNK TOILETING: TOILETING - STEP 1: Does the patient require assistance with toileting? Yes. TOILETING - STEP 2: Does the patient require the assistance of a helper? Yes. TOILETING - STEP 3: How much assistance does the patient require from the helper? Only supervision TOILETING - SCORE: 5-SUP BLADDER MANAGEMENT: BLADDER MANAGEMENT - STEP 1: Does the patient control the bladder completely and intentionally without equipment or devices or med ications, and is always continent? No. BLADDER MANAGEMENT - STEP 2: Does the patient require the assistance of a helper? Yes. BLADDER MANAGEMENT - STEP 3: How much assistance does the patient require from the helper? Only supervision, stand-by, cuing, or c oaxing BLADDER MANAGEMENT - SCORE: 5-SUP BLADDER MANAGEMENT - FREQUENCY OF ACCIDENTS: BLADDER MANAGEMENT(FA) - STEP 1: How many accidents has the patient had during the current shift? 0 BOWEL MANAGEMENT: Activity did not occur on this shift BOWEL MANAGEMENT - SCORE: 7-IND BOWEL MANAGEMENT - FREQUENCY OF ACCIDENTS: BOWEL MANAGEMENT(FA) - STEP 1: How many accidents has the patient had during the current shift? 0 TRANSFERS: BED, CHAIR, WHEELCHAIR: TRANSFERS: BED, CHAIR, WHEELCHAIR - STEP 1: Does the patient require assistance with bed, chair, or wheelchair transfers? Yes. TRANSFERS: BED, CHAIR, WHEELCHAIR - STEP 2: Does the patient require the assistance of a helper? Yes. TRANSFERS: BED, CHAIR, WHEELCHAIR - STEP 3: How much assistance does the patient require from the helper? Steadying/guiding assistance TRANSFERS: BED, CHAIR, WHEELCHAIR - SCORE: 4-MIN TRANSFERS: TOILET: TRANSFERS: TOILET - STEP 1: Does the patient require assistance with toilet transfers? Yes. TRANSFERS: TOILET - STEP 2: Does the patient require the assistance of a helper? Yes. TRANSFERS: TOILET - STEP 3: How much assistance does the patient require from the helper? Patient performs half or more of the tr ansferring tasks TRANSFERS: TOILET - STEP 4: Does the patient need only incidental help such as contact guard or steadying during toilet transfer? Yes. TRANSFERS: TOILET - SCORE: 4-MIN TRANSFERS: SHOWER: Activity did not occur on this shift TRANSFERS: SHOWER - SCORE: 0-UNK TRANSFERS: TUB: Activity did not occur on this shift TRANSFERS: TUB - SCORE: 0-UNK LOCOMOTION: WALK: Activity did not occur on this shift LOCOMOTION: WALK - SCORE: 0-UNK LOCOMOTION: WHEELCHAIR: LOCOMOTION: WHEELCHAIR - STEP 1: Does the patient need help to go 150 feet in a wheelchair? Yes. LOCOMOTION: WHEELCHAIR - STEP 2: How much assistance does the patient need from the helper? Only supervision, cuing, or coaxing LOCOMOTION: WHEELCHAIR - SCORE: 5-SUP COMPREHENSION: COMPREHENSION - STEP 1: Does the patient require help to understand complex and abstract ideas (such as current events, finan naveen, discharge planning, medical issues, relationships, etc)? No. COMPREHENSION - STEP 2: Does the patient need extra time, require an assistive device (such as glasses, hearing aids, or an a ugmentative communication system), OR does s/he have mild difficulty expressing complex and abstract ideas (including mild dysarthria or mild word-finding problems)? Yes. COMPREHENSION - SCORE: 6-SNOYA EXPRESSION EXPRESSION: TYPE: Both EXPRESSION - STEP 1: Does the patient require help expressing complex and abstract ideas (such as current events, finances , discharge planning, medical issues, relationships, etc)? No. EXPRESSION - STEP 2: Does the patient need extra time, require an assistive device (such as augmentive communication syste m or a communication board), OR does s/he have mild difficulty expressing complex and abstract ideas (including mild dysarthria or mild word-find problems)? Yes. EXPRESSION - SCORE: 6-SONYA SOCIAL INTERACTION: SOCIAL INTERACTION - STEP 1: Does the patient require a helper to interact with others in social and therapeutic situations? No. SOCIAL INTERACTION - STEP 2: Does the patient need extra time in social situations, OR does s/he interact with staff, other patien ts, and family members ONLY in structured environments, OR does s/he require medication for social in teraction? No. SOCIAL INTERACTION - SCORE: 7-IND PROBLEM SOLVING: PROBLEM SOLVING - STEP 1: Does the patient need help to solve complex problems such as managing a checking account or confronti ng interpersonal problems? No. PROBLEM SOLVING - STEP 2: Does the patient require extra time to make decisions or solve problems, OR does s/he have slight dif ficulty reading, initiating, or self-correcting in unfamiliar situations? Yes, patient needs extra ti me. PROBLEM SOLVING - SCORE: 6-SONYA MEMORY: MEMORY - STEP 1: Does the patient need help to remember frequently encountered people, daily routines, and executing r equests? No. MEMORY - STEP 2: Does the patient have slight difficulty recognizing frequently encountered people, daily routines, or executing requests without the need for repetition or using self-initiated or environmental cues to remember? Yes. MEMORY - SCORE: 6-SONYA SIGNATURE PANEL: The following modified sections: Eating - Score, Grooming - Score, Bathing - Score, Dressing - Upper Body - Score, Dressing - Lower Body - Score, Toileting - Score, Bladder Management - Score, Bowel Man agement - Score, Transfers: Bed, Chair, Wheelchair - Score, Transfers: Toilet - Score, Transfers: Sara wer - Score, Transfers: Tub - Score, Locomotion: Walk - Score, Locomotion: Wheelchair - Score, Compre hension - Score, Expression - Score, Social Interaction - Score, Problem Solving - Score, Memory - Sc ore were [electronically] signed by Anselmo LozanoNMundo on MonJan 30 2018 15:35:12 T-0500 (Centra [place] Daylight Time)
--- NOTE | 2018-01-30 16:41 | FAST ---
ENCOUNTER DATE AND TIME: 01/30/2018 08:00 (CDT) NAME MAURICE SIFUENTES DATE OF : 1935 DATE OF ADMISSION: 01/29/2018 17:19 (CDT) PHONE: AGE: 82 N# [id number] GENDER: Female ENCOUNTER PHYSICIAN: Dr. Glen Davidson M.D. 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 EATING: Activity did not occur on this shift EATING - SCORE: 0-UNK GROOMING: Activity did not occur on this shift GROOMING - SCORE: 0-UNK BATHING: Activity did not occur on this shift BATHING - SCORE: 0-UNK DRESSING - UPPER BODY: Activity did not occur on this shift Patient is not dressing in public clothing ARTICLES SCORE Total number of steps: 0 DRESSING - UPPER BODY - SCORE: 0-UNK DRESSING - LOWER BODY: Activity did not occur on this shift Patient is not dressing in public clothing ARTICLES SCORE Total number of steps: 0 DRESSING - LOWER BODY - SCORE: 0-UNK TOILETING: Activity did not occur on this shift TOILETING - SCORE: 0-UNK BLADDER MANAGEMENT: Activity did not occur on this shift BLADDER MANAGEMENT - SCORE: 7-IND BOWEL MANAGEMENT: Activity did not occur on this shift BOWEL MANAGEMENT - SCORE: 7-IND TRANSFERS: BED, CHAIR, WHEELCHAIR: Activity did not occur on this shift TRANSFERS: BED, CHAIR, WHEELCHAIR - SCORE: 0-UNK TRANSFERS: TOILET: Activity did not occur on this shift TRANSFERS: TOILET - SCORE: 0-UNK TRANSFERS: SHOWER: Activity did not occur on this shift TRANSFERS: SHOWER - SCORE: 0-UNK TRANSFERS: TUB: Activity did not occur on this shift TRANSFERS: TUB - SCORE: 0-UNK LOCOMOTION: WALK: Activity did not occur on this shift LOCOMOTION: WALK - SCORE: 0-UNK LOCOMOTION: WHEELCHAIR: Activity did not occur on this shift LOCOMOTION: WHEELCHAIR - SCORE: 0-UNK LOCOMOTION: STAIRS: Activity did not occur on this shift LOCOMOTION: STAIRS - SCORE: 0-UNK COMPREHENSION: COMPREHENSION - STEP 1: Does the patient require help to understand complex and abstract ideas (such as current events, finan naveen, discharge planning, medical issues, relationships, etc)? Yes. COMPREHENSION - STEP 2: Does the patient require help to understand questions or statements about basic needs or ideas (such as hunger, thirst, sleep, safety, daily schedule, room location, or discomfort) half or more of the t russell? No. COMPREHENSION - STEP 3: How often does the patient need help to understand directions and conversation about basic needs? 10% - 24% of the time COMPREHENSION - SCORE: 4-MIN EXPRESSION EXPRESSION - STEP 1: Does the patient require help expressing complex and abstract ideas (such as current events, finances , discharge planning, medical issues, relationships, etc)? Yes. EXPRESSION - STEP 2: Does the patient require help to express basic necessities or ideas (such as hunger, thirst, sleep, s afety, daily schedule, room location, or discomfort) half or more of the time? No. EXPRESSION - STEP 3: How often does the patient need help to express directions and conversation about basic needs? Less t wilder 10% of the time EXPRESSION - SCORE: 5-SUP SOCIAL INTERACTION: SOCIAL INTERACTION - STEP 1: Does the patient require a helper to interact with others in social and therapeutic situations? No. SOCIAL INTERACTION - STEP 2: Does the patient need extra time in social situations, OR does s/he interact with staff, other patien ts, and family members ONLY in structured environments, OR does s/he require medication for social in teraction? No. SOCIAL INTERACTION - SCORE: 7-IND PROBLEM SOLVING: PROBLEM SOLVING - STEP 1: Does the patient need help to solve complex problems such as managing a checking account or confronti ng interpersonal problems? Yes. PROBLEM SOLVING - STEP 2: Does the patient solve basic routine problems half or more of the time? Yes. PROBLEM SOLVING - STEP 3: How often does the patient need help to solve basic routine problems? Less than 10% of the time PROBLEM SOLVING - SCORE: 5-SUP MEMORY: MEMORY - STEP 1: Does the patient need help to remember frequently encountered people, daily routines, and executing r equests? Yes. MEMORY - STEP 2: How often does the patient need help to remember frequently encountered people, daily routines, and e xecuting requests? 25% - 49% of the time MEMORY - SCORE: 3-MOD SIGNATURE PANEL: The following modified sections: Comprehension - Score, Expression - Score, Social Interaction - Scor e, Problem Solving - Score, Memory - Score were [electronically] signed by LINN Carlton on Mon 15:41:03 GMT-0500 (Central Daylight Time)
--- NOTE | 2018-01-30 17:13 | FAST ---
ENCOUNTER DATE AND TIME: 01/30/2018 08:00 (CDT) NAME MAURICE SIFUENTES DATE OF : 1935 DATE OF ADMISSION: 01/29/2018 17:19 (CDT) PHONE: AGE: 82 N# [id number] GENDER: Female ENCOUNTER PHYSICIAN: Dr. Glen Davidson M.D. 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 EATING: EATING - STEP 1: Does the patient require assistance when eating? No. EATING - SCORE: 7-IND GROOMING: Comb/brush hair Oral care Wash, rinse, and dry face Wash, rinse, and dry hands GROOMING - STEP 1: Does the patient require assistance when grooming? No. GROOMING - SCORE: 7-IND BATHING: Abdomen Buttocks Chest Left arm Left lower leg and foot Left upper leg Perineal area Right arm Right lower leg and foot Right upper leg BATHING - STEP 1: Does the patient require assistance when bathing? Yes. BATHING - STEP 2: Does the patient require the assistance of a helper? Yes. BATHING - STEP 3: How much assistance does the patient require from the helper? More than just incidental help BATHING - STEP 4: What percent of the body parts did the patient bathe WITHOUT the helper? Half or more of the body par ts BATHING - SCORE: 3-MOD DRESSING - UPPER BODY: Bra (three steps) T-shirt/pullover shirt (four steps) ARTICLES SCORE Total number of steps: 7 DRESSING - UPPER BODY - STEP 1: Does the patient require help when dressing above the waist? Yes. DRESSING - UPPER BODY - STEP 2: Does the patient require the assistance of a helper? Yes. DRESSING - UPPER BODY - STEP 3: Does the helper touch the patient while dressing? No. DRESSING - UPPER BODY - SCORE: 5-SUP DRESSING - LOWER BODY: Elastic waist pants (three steps) Slip-on shoe - Left foot (one step) Slip-on shoe - Right foot (one step) Underwear (three steps) ARTICLES SCORE Total number of steps: 8 DRESSING - LOWER BODY - STEP 1: Does the patient require help when dressing below the waist? Yes. DRESSING - LOWER BODY - STEP 2: Does the patient require the assistance of a helper? Yes. DRESSING - LOWER BODY - STEP 3: Does the helper touch the patient while dressing? Yes. DRESSING - LOWER BODY - STEP 4: How many of the total steps does the patient complete on his/her own? 8 DRESSING - LOWER BODY - SCORE: 4-MIN TOILETING: TOILETING - STEP 1: Does the patient require assistance with toileting? Yes. TOILETING - STEP 2: Does the patient require the assistance of a helper? Yes. TOILETING - STEP 3: How much assistance does the patient require from the helper? Hands-on assistance from the helper TOILETING - STEP 4: Of the 3 tasks: 1) Adjusting clothing prior to use, 2) Cleansing of perineal area, 3) Adjusting clot nisha after use; How many tasks does the patient perform WITHOUT assistance of the helper? Two tasks TOILETING - SCORE: 3-MOD BLADDER MANAGEMENT: Activity did not occur on this shift BLADDER MANAGEMENT - SCORE: 7-IND BOWEL MANAGEMENT: Activity did not occur on this shift BOWEL MANAGEMENT - SCORE: 7-IND TRANSFERS: BED, CHAIR, WHEELCHAIR: Activity did not occur on this shift TRANSFERS: BED, CHAIR, WHEELCHAIR - SCORE: 0-UNK TRANSFERS: TOILET: TRANSFERS: TOILET - STEP 1: Does the patient require assistance with toilet transfers? Yes. TRANSFERS: TOILET - STEP 2: Does the patient require the assistance of a helper? Yes. TRANSFERS: TOILET - STEP 3: How much assistance does the patient require from the helper? Patient performs half or more of the tr ansferring tasks TRANSFERS: TOILET - STEP 4: Does the patient need only incidental help such as contact guard or steadying during toilet transfer? Yes. TRANSFERS: TOILET - SCORE: 4-MIN TRANSFERS: SHOWER: Activity did not occur on this shift TRANSFERS: SHOWER - SCORE: 0-UNK TRANSFERS: TUB: TRANSFERS: TUB - STEP 1: Does the patient require assistance with tub transfers? Yes. TRANSFERS: TUB - STEP 2: Does the patient require the assistance of a helper? Yes. TRANSFERS: TUB - STEP 3: How much assistance does the patient require from the helper? Incidental help such as contact guardin g or steadying, OR help to lift one leg into the tub TRANSFERS: TUB - SCORE: 4-MIN LOCOMOTION: WALK: Activity did not occur on this shift LOCOMOTION: WALK - SCORE: 0-UNK LOCOMOTION: WHEELCHAIR: Activity did not occur on this shift LOCOMOTION: WHEELCHAIR - SCORE: 0-UNK LOCOMOTION: STAIRS: Activity did not occur on this shift LOCOMOTION: STAIRS - SCORE: 0-UNK COMPREHENSION: COMPREHENSION: TYPE: Both COMPREHENSION - STEP 1: Does the patient require help to understand complex and abstract ideas (such as current events, finan naveen, discharge planning, medical issues, relationships, etc)? No. COMPREHENSION - STEP 2: Does the patient need extra time, require an assistive device (such as glasses, hearing aids, or an a ugmentative communication system), OR does s/he have mild difficulty expressing complex and abstract ideas (including mild dysarthria or mild word-finding problems)? No. COMPREHENSION - SCORE: 7-IND EXPRESSION EXPRESSION: TYPE: Both EXPRESSION - STEP 1: Does the patient require help expressing complex and abstract ideas (such as current events, finances , discharge planning, medical issues, relationships, etc)? No. EXPRESSION - STEP 2: Does the patient need extra time, require an assistive device (such as augmentive communication syste m or a communication board), OR does s/he have mild difficulty expressing complex and abstract ideas (including mild dysarthria or mild word-find problems)? No. EXPRESSION - SCORE: 7-IND SOCIAL INTERACTION: SOCIAL INTERACTION - STEP 1: Does the patient require a helper to interact with others in social and therapeutic situations? No. SOCIAL INTERACTION - STEP 2: Does the patient need extra time in social situations, OR does s/he interact with staff, other patien ts, and family members ONLY in structured environments, OR does s/he require medication for social in teraction? No. SOCIAL INTERACTION - SCORE: 7-IND PROBLEM SOLVING: PROBLEM SOLVING - STEP 1: Does the patient need help to solve complex problems such as managing a checking account or confronti ng interpersonal problems? No. PROBLEM SOLVING - STEP 2: Does the patient require extra time to make decisions or solve problems, OR does s/he have slight dif ficulty reading, initiating, or self-correcting in unfamiliar situations? No. PROBLEM SOLVING - SCORE: 7-IND MEMORY: MEMORY - STEP 1: Does the patient need help to remember frequently encountered people, daily routines, and executing r equests? No. MEMORY - STEP 2: Does the patient have slight difficulty recognizing frequently encountered people, daily routines, or executing requests without the need for repetition or using self-initiated or environmental cues to remember? Yes. MEMORY - SCORE: 6-SONYA SIGNATURE PANEL: The following modified sections: Eating - Score, Grooming - Score, Bathing - Score, Dressing - Upper Body - Score, Dressing - Lower Body - Score, Toileting - Score, Transfers: Bed, Chair, Wheelchair - S core, Transfers: Shower - Score, Transfers: Toilet - Score, Transfers: Tub - Score, Comprehension - S core, Expression - Score, Social Interaction - Score, Problem Solving - Score, Memory - Score were [e lectronically] signed by Kylee Goncalves OT on MonJan 30 2018 16:13:01 T-0500 (Central Daylight T russell)
--- NOTE | 2018-01-30 17:39 | FAST ---
ENCOUNTER DATE AND TIME: 01/30/2018 08:00 (CDT) NAME MAURICE SIFUENTES DATE OF : 1935 DATE OF ADMISSION: 01/29/2018 17:19 (CDT) PHONE: AGE: 82 N# [id number] GENDER: Female ENCOUNTER PHYSICIAN: Dr. Glen Davidson M.D. 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 EATING: Activity did not occur on this shift EATING - SCORE: 0-UNK GROOMING: Activity did not occur on this shift GROOMING - SCORE: 0-UNK BATHING: Activity did not occur on this shift BATHING - SCORE: 0-UNK DRESSING - UPPER BODY: Activity did not occur on this shift Patient is not dressing in public clothing ARTICLES SCORE Total number of steps: 0 DRESSING - UPPER BODY - SCORE: 0-UNK DRESSING - LOWER BODY: Activity did not occur on this shift Patient is not dressing in public clothing ARTICLES SCORE Total number of steps: 0 DRESSING - LOWER BODY - SCORE: 0-UNK TOILETING: Activity did not occur on this shift TOILETING - SCORE: 0-UNK BLADDER MANAGEMENT: Activity did not occur on this shift BLADDER MANAGEMENT - SCORE: 7-IND BOWEL MANAGEMENT: Activity did not occur on this shift BOWEL MANAGEMENT - SCORE: 7-IND TRANSFERS: BED, CHAIR, WHEELCHAIR: TRANSFERS: BED, CHAIR, WHEELCHAIR - STEP 1: Does the patient require assistance with bed, chair, or wheelchair transfers? Yes. TRANSFERS: BED, CHAIR, WHEELCHAIR - STEP 2: Does the patient require the assistance of a helper? Yes. TRANSFERS: BED, CHAIR, WHEELCHAIR - STEP 3: How much assistance does the patient require from the helper? Steadying/guiding assistance TRANSFERS: BED, CHAIR, WHEELCHAIR - SCORE: 4-MIN TRANSFERS: TOILET: Activity did not occur on this shift TRANSFERS: TOILET - SCORE: 0-UNK TRANSFERS: SHOWER: Activity did not occur on this shift TRANSFERS: SHOWER - SCORE: 0-UNK TRANSFERS: TUB: Activity did not occur on this shift TRANSFERS: TUB - SCORE: 0-UNK LOCOMOTION: WALK: LOCOMOTION: WALK - STEP 1: Does the patient need help to walk 150 feet? Yes. LOCOMOTION: WALK - STEP 2: How much assistance does the patient require to walk a minimum of 150 feet? Only incidental help such as contact guarding or steadying LOCOMOTION: WALK - SCORE: 4-MIN LOCOMOTION: WHEELCHAIR: Activity did not occur on this shift LOCOMOTION: WHEELCHAIR - SCORE: 0-UNK LOCOMOTION: STAIRS: Activity did not occur on this shift LOCOMOTION: STAIRS - SCORE: 0-UNK COMPREHENSION: COMPREHENSION - SCORE: 0-UNK EXPRESSION EXPRESSION - SCORE: 0-UNK SOCIAL INTERACTION: SOCIAL INTERACTION - SCORE: 0-UNK PROBLEM SOLVING: PROBLEM SOLVING - SCORE: 0-UNK MEMORY: MEMORY - SCORE: 0-UNK SIGNATURE PANEL: The following modified sections: Transfers: Bed, Chair, Wheelchair - Score, Transfers: Toilet - Score , Locomotion: Walk - Score, Locomotion: Wheelchair - Score, Locomotion: Stairs - Score were [electron lauren] signed by Moises Sherman PT on MonJan 30 2018 16:39:31 T-0500 (Central Daylight Time)
[2018-01-30] MEDS: ATORVASTATIN 80 MG TAB PO SCH (20:09)
[2018-01-31] MEDS: MELATONIN 3 MG TABLET PO PRN (01:04)
--- NOTE | 2018-01-31 05:00 | FAST ---
SHIFT START DATE/TIME: 01/30/2018 19:00 (CDT) SHIFT END DATE/TIME: 01/31/2018 07:00 (CDT) NAME MAURICE SIFUENTES DATE OF : 1935 DATE OF ADMISSION: 01/29/2018 17:19 (CDT) PHONE: AGE: 82 [facility]# [id number] GENDER: Female ENCOUNTER PHYSICIAN: Dr. Glen Davidson M.D. 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 EATING: EATING - STEP 1: Does the patient require assistance when eating? Yes. EATING - STEP 2: Does the patient require the assistance of a helper? Yes. EATING - STEP 3: Does the patient perform half or more of the eating tasks? Yes. EATING - STEP 4: Does the patient need only supervision, cuing, coaxing OR help to apply an orthosis OR help to cut fo od, open containers, pour liquids, or butter bread? Yes. EATING - SCORE: 5-SUP GROOMING: Oral care Wash, rinse, and dry face Wash, rinse, and dry hands GROOMING - STEP 1: Does the patient require assistance when grooming? Yes. GROOMING - STEP 2: Does the patient require the assistance of a helper? Yes. GROOMING - STEP 3: How much assistance does the patient require from the helper? Only prior equipment preparation/set up from the helper GROOMING - SCORE: 5-SUP BATHING: Activity did not occur on this shift BATHING - SCORE: 0-UNK DRESSING - UPPER BODY: Patient is not dressing in public clothing ARTICLES SCORE Total number of steps: 0 DRESSING - UPPER BODY - SCORE: 0-UNK DRESSING - LOWER BODY: Patient is not dressing in public clothing ARTICLES SCORE Total number of steps: 0 DRESSING - LOWER BODY - SCORE: 0-UNK TOILETING: TOILETING - STEP 1: Does the patient require assistance with toileting? Yes. TOILETING - STEP 2: Does the patient require the assistance of a helper? Yes. TOILETING - STEP 3: How much assistance does the patient require from the helper? Hands-on assistance from the helper TOILETING - STEP 4: Of the 3 tasks: 1) Adjusting clothing prior to use, 2) Cleansing of perineal area, 3) Adjusting clot nisha after use; How many tasks does the patient perform WITHOUT assistance of the helper? One task TOILETING - SCORE: 2-MAX BLADDER MANAGEMENT: BLADDER MANAGEMENT - STEP 1: Does the patient control the bladder completely and intentionally without equipment or devices or med ications, and is always continent? No. BLADDER MANAGEMENT - STEP 2: Does the patient require the assistance of a helper? Yes. BLADDER MANAGEMENT - STEP 3: How much assistance does the patient require from the helper? Patient requires contact assistance fro m the helper BLADDER MANAGEMENT - STEP 4: How much contact assistance does the patient require from the helper? Patient requires minimal assist ance to maintain an external device - by positioning, and the patient performs 75% or more of bladder management tasks, while the helper provides less than 25% of the assistance to position patient on / off bedpan BLADDER MANAGEMENT - SCORE: 4-MIN BLADDER MANAGEMENT - FREQUENCY OF ACCIDENTS: BLADDER MANAGEMENT(FA) - STEP 1: How many accidents has the patient had during the current shift? 0 BOWEL MANAGEMENT: BOWEL MANAGEMENT - STEP 1: Does the patient control bowels completely and intentionally without equipment devices or medications AND is always continent? No. BOWEL MANAGEMENT - STEP 2: Does the patient require the assistance of a helper? Yes. BOWEL MANAGEMENT - STEP 3: How much assistance does the patient require from the helper? [place] provides less than 25% assistanc e to position patient on / off bedpan BOWEL MANAGEMENT - SCORE: 4-MIN BOWEL MANAGEMENT - FREQUENCY OF ACCIDENTS: BOWEL MANAGEMENT(FA) - STEP 1: How many accidents has the patient had during the current shift? 0 TRANSFERS: BED, CHAIR, WHEELCHAIR: TRANSFERS: BED, CHAIR, WHEELCHAIR - STEP 1: Does the patient require assistance with bed, chair, or wheelchair transfers? Yes. TRANSFERS: BED, CHAIR, WHEELCHAIR - STEP 2: Does the patient require the assistance of a helper? Yes. TRANSFERS: BED, CHAIR, WHEELCHAIR - STEP 3: How much assistance does the patient require from the helper? Steadying/guiding assistance TRANSFERS: BED, CHAIR, WHEELCHAIR - SCORE: 4-MIN TRANSFERS: TOILET: TRANSFERS: TOILET - STEP 1: Does the patient require assistance with toilet transfers? Yes. TRANSFERS: TOILET - STEP 2: Does the patient require the assistance of a helper? Yes. TRANSFERS: TOILET - STEP 3: How much assistance does the patient require from the helper? Patient performs half or more of the tr ansferring tasks TRANSFERS: TOILET - STEP 4: Does the patient need only incidental help such as contact guard or steadying during toilet transfer? Yes. TRANSFERS: TOILET - SCORE: 4-MIN TRANSFERS: SHOWER: Activity did not occur on this shift TRANSFERS: SHOWER - SCORE: 0-UNK TRANSFERS: TUB: Activity did not occur on this shift TRANSFERS: TUB - SCORE: 0-UNK LOCOMOTION: WALK: Activity did not occur on this shift LOCOMOTION: WALK - SCORE: 0-UNK LOCOMOTION: WHEELCHAIR: Activity did not occur on this shift LOCOMOTION: WHEELCHAIR - SCORE: 0-UNK COMPREHENSION: COMPREHENSION: TYPE: Both COMPREHENSION - STEP 1: Does the patient require help to understand complex and abstract ideas (such as current events, finan naveen, discharge planning, medical issues, relationships, etc)? No. COMPREHENSION - STEP 2: Does the patient need extra time, require an assistive device (such as glasses, hearing aids, or an a ugmentative communication system), OR does s/he have mild difficulty expressing complex and abstract ideas (including mild dysarthria or mild word-finding problems)? Yes. COMPREHENSION - SCORE: 6-SONYA EXPRESSION EXPRESSION: TYPE: Both EXPRESSION - STEP 1: Does the patient require help expressing complex and abstract ideas (such as current events, finances , discharge planning, medical issues, relationships, etc)? No. EXPRESSION - STEP 2: Does the patient need extra time, require an assistive device (such as augmentive communication syste m or a communication board), OR does s/he have mild difficulty expressing complex and abstract ideas (including mild dysarthria or mild word-find problems)? No. EXPRESSION - SCORE: 7-IND SOCIAL INTERACTION: SOCIAL INTERACTION - STEP 1: Does the patient require a helper to interact with others in social and therapeutic situations? No. SOCIAL INTERACTION - STEP 2: Does the patient need extra time in social situations, OR does s/he interact with staff, other patien ts, and family members ONLY in structured environments, OR does s/he require medication for social in teraction? No. SOCIAL INTERACTION - SCORE: 7-IND PROBLEM SOLVING: PROBLEM SOLVING - STEP 1: Does the patient need help to solve complex problems such as managing a checking account or confronti ng interpersonal problems? No. PROBLEM SOLVING - STEP 2: Does the patient require extra time to make decisions or solve problems, OR does s/he have slight dif ficulty reading, initiating, or self-correcting in unfamiliar situations? Yes, patient needs extra ti me. PROBLEM SOLVING - SCORE: 6-SONYA MEMORY: MEMORY - STEP 1: Does the patient need help to remember frequently encountered people, daily routines, and executing r equests? No. MEMORY - STEP 2: Does the patient have slight difficulty recognizing frequently encountered people, daily routines, or executing requests without the need for repetition or using self-initiated or environmental cues to remember? Yes. MEMORY - SCORE: 6-SONYA SIGNATURE PANEL: The following modified sections: Eating - Score, Grooming - Score, Bathing - Score, Dressing - Upper Body - Score, Dressing - Lower Body - Score, Toileting - Score, Bladder Management - Score, Bowel Man agement - Score, Transfers: Bed, Chair, Wheelchair - Score, Transfers: Toilet - Score, Transfers: Sara wer - Score, Transfers: Tub - Score, Locomotion: Walk - Score, Locomotion: Wheelchair - Score, Compre hension - Score, Expression - Score, Social Interaction - Score, Problem Solving - Score, Memory - Sc ore were [electronically] signed by Anselmo UgaldeNMundo on MonJan 31 2018 03:59:42 GMT-0500 ( Central Daylight Time)
[2018-01-31] MEDS: CARVEDILOL 12.5 MG TAB PO SCH ×2 (05:20→17:06)
[2018-01-31] MEDS: LEVOTHYROXINE SOD 0.05 MG TABLET PO SCH (05:21)
[2018-01-31] MEDS: NAMENDA 28 MG PO SCH (07:46)
[2018-01-31] MEDS: APIXABAN 5 MG TABLET PO SCH ×2 (07:47→20:01)
[2018-01-31] MEDS: LOSARTAN POTASSIUM 50 MG TABLET PO SCH (07:47)
[2018-01-31] MEDS: DOCUSATE NA/SENNA CONC 1 TAB PO SCH ×2 (07:47→19:31)
[2018-01-31] MEDS: ASPIRIN 81 MG CHEWABLE TABLET PO SCH (07:47)
[2018-01-31] MEDS: FOLIC ACID 1 MG TABLET PO SCH (07:47)
[2018-01-31] MEDS: FAMOTIDINE 20 MG TAB PO SCH ×2 (07:47→20:01)
--- NOTE | 2018-01-31 15:24 | FAST ---
SHIFT START DATE/TIME: 01/31/2018 07:00 (CDT) SHIFT END DATE/TIME: 01/31/2018 19:00 (CDT) NAME MAURICE SIFUENTES DATE OF : 1935 DATE OF ADMISSION: 01/29/2018 17:19 (CDT) PHONE: AGE: 82 N# [id number] GENDER: Female ENCOUNTER PHYSICIAN: Dr. Glen Davidson M.D. 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 EATING: EATING - STEP 1: Does the patient require assistance when eating? Yes. EATING - STEP 2: Does the patient require the assistance of a helper? No, patient only requires an assistive device, O R s/he takes more than reasonable time to eat, OR there is a safety concern, OR s/he requires modifie d food consistency EATING - SCORE: 6-SONYA GROOMING: Comb/brush hair Oral care Patient shaved Wash, rinse, and dry face Wash, rinse, and dry hands GROOMING - STEP 1: Does the patient require assistance when grooming? Yes. GROOMING - STEP 2: Does the patient require the assistance of a helper? No. The patient only requires an assistive devic e, OR takes more than reasonable time to groom, OR there is a concern for safety as the patient groom s GROOMING - SCORE: 6-SONYA BATHING: Activity did not occur on this shift BATHING - SCORE: 0-UNK DRESSING - UPPER BODY: Bra (three steps) Sweater (four steps) T-shirt/pullover shirt (four steps) ARTICLES SCORE Total number of steps: 11 DRESSING - UPPER BODY - STEP 1: Does the patient require help when dressing above the waist? Yes. DRESSING - UPPER BODY - STEP 2: Does the patient require the assistance of a helper? Yes. DRESSING - UPPER BODY - STEP 3: Does the helper touch the patient while dressing? No. DRESSING - UPPER BODY - SCORE: 5-SUP DRESSING - LOWER BODY: Elastic waist pants (three steps) Slip-on shoe - Left foot (one step) Slip-on shoe - Right foot (one step) ARTICLES SCORE Total number of steps: 5 DRESSING - LOWER BODY - STEP 1: Does the patient require help when dressing below the waist? Yes. DRESSING - LOWER BODY - STEP 2: Does the patient require the assistance of a helper? Yes. DRESSING - LOWER BODY - STEP 3: Does the helper touch the patient while dressing? No. DRESSING - LOWER BODY - SCORE: 5-SUP TOILETING: TOILETING - STEP 1: Does the patient require assistance with toileting? Yes. TOILETING - STEP 2: Does the patient require the assistance of a helper? Yes. TOILETING - STEP 3: How much assistance does the patient require from the helper? Hands-on assistance from the helper TOILETING - STEP 4: Of the 3 tasks: 1) Adjusting clothing prior to use, 2) Cleansing of perineal area, 3) Adjusting clot nisha after use; How many tasks does the patient perform WITHOUT assistance of the helper? Three tasks with steadying assistance from the helper TOILETING - SCORE: 4-MIN BLADDER MANAGEMENT: BLADDER MANAGEMENT - STEP 1: Does the patient control the bladder completely and intentionally without equipment or devices or med ications, and is always continent? No. BLADDER MANAGEMENT - STEP 2: Does the patient require the assistance of a helper? No, patient requires and independently uses an a ssistive device, such as a urinal, bedpan, bedside commode, catheter, absorbent pad, or collecting de vice BLADDER MANAGEMENT - SCORE: 6-SONYA BOWEL MANAGEMENT: BOWEL MANAGEMENT - STEP 1: Does the patient control bowels completely and intentionally without equipment devices or medications AND is always continent? No. BOWEL MANAGEMENT - STEP 2: Does the patient require the assistance of a helper? No, patient requires and manages independently a n assistive device such as a bedpan, bedside commode, absorbent pad, incontinent device, or collectin g device BOWEL MANAGEMENT - SCORE: 6-SONYA TRANSFERS: BED, CHAIR, WHEELCHAIR: TRANSFERS: BED, CHAIR, WHEELCHAIR - STEP 1: Does the patient require assistance with bed, chair, or wheelchair transfers? Yes. TRANSFERS: BED, CHAIR, WHEELCHAIR - STEP 2: Does the patient require the assistance of a helper? Yes. TRANSFERS: BED, CHAIR, WHEELCHAIR - STEP 3: How much assistance does the patient require from the helper? Steadying/guiding assistance TRANSFERS: BED, CHAIR, WHEELCHAIR - SCORE: 4-MIN TRANSFERS: TOILET: TRANSFERS: TOILET - STEP 1: Does the patient require assistance with toilet transfers? Yes. TRANSFERS: TOILET - STEP 2: Does the patient require the assistance of a helper? Yes. TRANSFERS: TOILET - STEP 3: How much assistance does the patient require from the helper? Only supervision, cuing, coaxing, OR he lp to set out transfer equipment or to lock brakes and/or lift foot rests TRANSFERS: TOILET - SCORE: 5-SUP TRANSFERS: SHOWER: Activity did not occur on this shift TRANSFERS: SHOWER - SCORE: 0-UNK TRANSFERS: TUB: Activity did not occur on this shift TRANSFERS: TUB - SCORE: 0-UNK LOCOMOTION: WALK: Activity did not occur on this shift LOCOMOTION: WALK - SCORE: 0-UNK LOCOMOTION: WHEELCHAIR: Activity did not occur on this shift LOCOMOTION: WHEELCHAIR - SCORE: 0-UNK COMPREHENSION: COMPREHENSION - SCORE: 0-UNK EXPRESSION EXPRESSION - SCORE: 0-UNK SOCIAL INTERACTION: SOCIAL INTERACTION - SCORE: 0-UNK PROBLEM SOLVING: PROBLEM SOLVING - SCORE: 0-UNK MEMORY: MEMORY - SCORE: 0-UNK SIGNATURE PANEL: The following modified sections: Eating - Score, Grooming - Score, Bathing - Score, Dressing - Upper Body - Score, Dressing - Lower Body - Score, Toileting - Score, Bladder Management - Score, Bowel Man agement - Score, Transfers: Bed, Chair, Wheelchair - Score, Transfers: Toilet - Score, Transfers: Sara wer - Score, Transfers: Tub - Score, Locomotion: Walk - Score, Locomotion: Wheelchair - Score, Compre hension - Score, Expression - Score, Social Interaction - Score, Problem Solving - Score, Memory - Sc ore were [electronically] signed by Anjel Maki on MonJan 31 2018 14:24:40 GMT-0500 (Central Daylight Time)
--- NOTE | 2018-01-31 16:10 | FAST ---
ENCOUNTER DATE AND TIME: 01/31/2018 08:00 (CDT) NAME MAURICE SIFUENTES DATE OF : 1935 DATE OF ADMISSION: 01/29/2018 17:19 (CDT) PHONE: AGE: 82 N# [id number] GENDER: Female ENCOUNTER PHYSICIAN: Dr. Glen Davidson M.D. 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 EATING: Activity did not occur on this shift EATING - SCORE: 0-UNK GROOMING: Activity did not occur on this shift GROOMING - SCORE: 0-UNK BATHING: Activity did not occur on this shift BATHING - SCORE: 0-UNK DRESSING - UPPER BODY: Activity did not occur on this shift Patient is not dressing in public clothing ARTICLES SCORE Total number of steps: 0 DRESSING - UPPER BODY - SCORE: 0-UNK DRESSING - LOWER BODY: Activity did not occur on this shift Patient is not dressing in public clothing ARTICLES SCORE Total number of steps: 0 DRESSING - LOWER BODY - SCORE: 0-UNK TOILETING: Activity did not occur on this shift TOILETING - SCORE: 0-UNK BLADDER MANAGEMENT: Activity did not occur on this shift BLADDER MANAGEMENT - SCORE: 7-IND BOWEL MANAGEMENT: Activity did not occur on this shift BOWEL MANAGEMENT - SCORE: 7-IND TRANSFERS: BED, CHAIR, WHEELCHAIR: TRANSFERS: BED, CHAIR, WHEELCHAIR - STEP 1: Does the patient require assistance with bed, chair, or wheelchair transfers? Yes. TRANSFERS: BED, CHAIR, WHEELCHAIR - STEP 2: Does the patient require the assistance of a helper? Yes. TRANSFERS: BED, CHAIR, WHEELCHAIR - STEP 3: How much assistance does the patient require from the helper? Only supervision TRANSFERS: BED, CHAIR, WHEELCHAIR - SCORE: 5-SUP TRANSFERS: TOILET: Activity did not occur on this shift TRANSFERS: TOILET - SCORE: 0-UNK TRANSFERS: SHOWER: Activity did not occur on this shift TRANSFERS: SHOWER - SCORE: 0-UNK TRANSFERS: TUB: Activity did not occur on this shift TRANSFERS: TUB - SCORE: 0-UNK LOCOMOTION: WALK: LOCOMOTION: WALK - STEP 1: Does the patient need help to walk 150 feet? Yes. LOCOMOTION: WALK - STEP 2: How much assistance does the patient require to walk a minimum of 150 feet? Only supervision, cuing, or coaxing LOCOMOTION: WALK - SCORE: 5-SUP LOCOMOTION: WHEELCHAIR: LOCOMOTION: WHEELCHAIR - STEP 1: Does the patient need help to go 150 feet in a wheelchair? Yes. LOCOMOTION: WHEELCHAIR - STEP 2: How much assistance does the patient need from the helper? Only supervision, cuing, or coaxing LOCOMOTION: WHEELCHAIR - SCORE: 5-SUP LOCOMOTION: STAIRS: LOCOMOTION: STAIRS - STEP 1: Does the patient need help to go up and down 12 to 14 stairs? Yes. LOCOMOTION: STAIRS - STEP 2: How much assistance does the patient need from the helper to go a minimum of 12 to 14 stairs? Only in cidental help such as contact guarding or steadying LOCOMOTION: STAIRS - SCORE: 4-MIN COMPREHENSION: COMPREHENSION - SCORE: 0-UNK EXPRESSION EXPRESSION - SCORE: 0-UNK SOCIAL INTERACTION: SOCIAL INTERACTION - SCORE: 0-UNK PROBLEM SOLVING: PROBLEM SOLVING - SCORE: 0-UNK MEMORY: MEMORY - SCORE: 0-UNK SIGNATURE PANEL: The following modified sections: Transfers: Bed, Chair, Wheelchair - Score, Transfers: Toilet - Score , Locomotion: Walk - Score, Locomotion: Wheelchair - Score, Locomotion: Stairs - Score were [cluadio [email or web address]] signed by Jan Bush PTA on MonJan 31 2018 15:10:14 GMT-0500 (Central Daylight Time)
--- NOTE | 2018-01-31 16:57 | FAST ---
ENCOUNTER DATE AND TIME: 01/31/2018 08:00 (CDT) NAME MAURICE SIFUENTES DATE OF : 1935 DATE OF ADMISSION: 01/29/2018 17:19 (CDT) PHONE: AGE: 82 N# [id number] GENDER: Female ENCOUNTER PHYSICIAN: Dr. Glen Davidson M.D. 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 EATING: Activity did not occur on this shift EATING - SCORE: 0-UNK GROOMING: Activity did not occur on this shift GROOMING - SCORE: 0-UNK BATHING: Activity did not occur on this shift BATHING - SCORE: 0-UNK DRESSING - UPPER BODY: Activity did not occur on this shift Patient is not dressing in public clothing ARTICLES SCORE Total number of steps: 0 DRESSING - UPPER BODY - SCORE: 0-UNK DRESSING - LOWER BODY: Activity did not occur on this shift Patient is not dressing in public clothing ARTICLES SCORE Total number of steps: 0 DRESSING - LOWER BODY - SCORE: 0-UNK TOILETING: Activity did not occur on this shift TOILETING - SCORE: 0-UNK BLADDER MANAGEMENT: Activity did not occur on this shift BLADDER MANAGEMENT - SCORE: 7-IND BOWEL MANAGEMENT: Activity did not occur on this shift BOWEL MANAGEMENT - SCORE: 7-IND TRANSFERS: BED, CHAIR, WHEELCHAIR: Activity did not occur on this shift TRANSFERS: BED, CHAIR, WHEELCHAIR - SCORE: 0-UNK TRANSFERS: TOILET: Activity did not occur on this shift TRANSFERS: TOILET - SCORE: 0-UNK TRANSFERS: SHOWER: Activity did not occur on this shift TRANSFERS: SHOWER - SCORE: 0-UNK TRANSFERS: TUB: Activity did not occur on this shift TRANSFERS: TUB - SCORE: 0-UNK LOCOMOTION: WALK: Activity did not occur on this shift LOCOMOTION: WALK - SCORE: 0-UNK LOCOMOTION: WHEELCHAIR: Activity did not occur on this shift LOCOMOTION: WHEELCHAIR - SCORE: 0-UNK LOCOMOTION: STAIRS: Activity did not occur on this shift LOCOMOTION: STAIRS - SCORE: 0-UNK COMPREHENSION: COMPREHENSION - STEP 1: Does the patient require help to understand complex and abstract ideas (such as current events, finan naveen, discharge planning, medical issues, relationships, etc)? Yes. COMPREHENSION - STEP 2: Does the patient require help to understand questions or statements about basic needs or ideas (such as hunger, thirst, sleep, safety, daily schedule, room location, or discomfort) half or more of the t russell? No. COMPREHENSION - STEP 3: How often does the patient need help to understand directions and conversation about basic needs? Les s than 10% of the time COMPREHENSION - SCORE: 5-SUP EXPRESSION EXPRESSION - STEP 1: Does the patient require help expressing complex and abstract ideas (such as current events, finances , discharge planning, medical issues, relationships, etc)? Yes. EXPRESSION - STEP 2: Does the patient require help to express basic necessities or ideas (such as hunger, thirst, sleep, s afety, daily schedule, room location, or discomfort) half or more of the time? No. EXPRESSION - STEP 3: How often does the patient need help to express directions and conversation about basic needs? Less t wilder 10% of the time EXPRESSION - SCORE: 5-SUP SOCIAL INTERACTION: SOCIAL INTERACTION - STEP 1: Does the patient require a helper to interact with others in social and therapeutic situations? No. SOCIAL INTERACTION - STEP 2: Does the patient need extra time in social situations, OR does s/he interact with staff, other patien ts, and family members ONLY in structured environments, OR does s/he require medication for social in teraction? No. SOCIAL INTERACTION - SCORE: 7-IND PROBLEM SOLVING: PROBLEM SOLVING - STEP 1: Does the patient need help to solve complex problems such as managing a checking account or confronti ng interpersonal problems? Yes. PROBLEM SOLVING - STEP 2: Does the patient solve basic routine problems half or more of the time? Yes. PROBLEM SOLVING - STEP 3: How often does the patient need help to solve basic routine problems? Less than 10% of the time PROBLEM SOLVING - SCORE: 5-SUP MEMORY: MEMORY - STEP 1: Does the patient need help to remember frequently encountered people, daily routines, and executing r equests? Yes. MEMORY - STEP 2: How often does the patient need help to remember frequently encountered people, daily routines, and e xecuting requests? 10% - 24% of the time MEMORY - SCORE: 4-MIN SIGNATURE PANEL: The following modified sections: Comprehension - Score, Expression - Score, Social Interaction - Scor e, Problem Solving - Score, Memory - Score were [electronically] signed by LINN Carlton on Mon 15:57:14 GMT-0500 (Central Daylight Time)
[2018-01-31] MEDS ORDERED: ONDANSETRON 4 MG (ODT) TAB PO PRN (18:04)
[2018-01-31] MEDS: ATORVASTATIN 80 MG TAB PO SCH (20:01)
[2018-02-01] MEDS: MELATONIN 3 MG TABLET PO PRN ×2 (00:48→23:59)
--- NOTE | 2018-02-01 03:32 | FAST ---
SHIFT START DATE/TIME: 01/31/2018 19:00 (CDT) SHIFT END DATE/TIME: 02/01/2018 07:00 (CDT) NAME MAURICE SIFUENTES DATE OF : 1935 DATE OF ADMISSION: 01/29/2018 17:19 (CDT) PHONE: AGE: [address] [facility]# [id number] GENDER: Female ENCOUNTER PHYSICIAN: Dr. Glen Davidson M.D. 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 EATING: EATING - STEP 1: Does the patient require assistance when eating? Yes. EATING - STEP 2: Does the patient require the assistance of a helper? No, patient only requires an assistive device, O R s/he takes more than reasonable time to eat, OR there is a safety concern, OR s/he requires modifie d food consistency EATING - SCORE: 6-SOYNA GROOMING: Comb/brush hair Oral care Wash, rinse, and dry face Wash, rinse, and dry hands GROOMING - STEP 1: Does the patient require assistance when grooming? Yes. GROOMING - STEP 2: Does the patient require the assistance of a helper? No. The patient only requires an assistive devic e, OR takes more than reasonable time to groom, OR there is a concern for safety as the patient groom s GROOMING - SCORE: 6-SONYA BATHING: Activity did not occur on this shift BATHING - SCORE: 0-UNK DRESSING - UPPER BODY: Patient is not dressing in public clothing ARTICLES SCORE Total number of steps: 0 DRESSING - UPPER BODY - SCORE: 0-UNK DRESSING - LOWER BODY: Patient is not dressing in public clothing ARTICLES SCORE Total number of steps: 0 DRESSING - LOWER BODY - SCORE: 0-UNK TOILETING: TOILETING - STEP 1: Does the patient require assistance with toileting? Yes. TOILETING - STEP 2: Does the patient require the assistance of a helper? Yes. TOILETING - STEP 3: How much assistance does the patient require from the helper? Hands-on assistance from the helper TOILETING - STEP 4: Of the 3 tasks: 1) Adjusting clothing prior to use, 2) Cleansing of perineal area, 3) Adjusting clot nisha after use; How many tasks does the patient perform WITHOUT assistance of the helper? Two tasks TOILETING - SCORE: 3-MOD BLADDER MANAGEMENT: BLADDER MANAGEMENT - STEP 1: Does the patient control the bladder completely and intentionally without equipment or devices or med ications, and is always continent? No. BLADDER MANAGEMENT - STEP 2: Does the patient require the assistance of a helper? Yes. BLADDER MANAGEMENT - STEP 3: How much assistance does the patient require from the helper? Patient requires contact assistance fro m the helper BLADDER MANAGEMENT - STEP 4: How much contact assistance does the patient require from the helper? Patient requires minimal assist ance to maintain an external device - by positioning, and the patient performs 75% or more of bladder management tasks, while the helper provides less than 25% of the assistance to position patient on / off bedpan BLADDER MANAGEMENT - SCORE: 4-MIN BLADDER MANAGEMENT - FREQUENCY OF ACCIDENTS: BLADDER MANAGEMENT(FA) - STEP 1: How many accidents has the patient had during the current shift? 0 BOWEL MANAGEMENT: BOWEL MANAGEMENT - STEP 1: Does the patient control bowels completely and intentionally without equipment devices or medications AND is always continent? No. BOWEL MANAGEMENT - STEP 2: Does the patient require the assistance of a helper? Yes. BOWEL MANAGEMENT - STEP 3: How much assistance does the patient require from the helper? [place] provides less than 25% assistanc e to position patient on / off bedpan BOWEL MANAGEMENT - SCORE: 4-MIN BOWEL MANAGEMENT - FREQUENCY OF ACCIDENTS: BOWEL MANAGEMENT(FA) - STEP 1: How many accidents has the patient had during the current shift? 0 TRANSFERS: BED, CHAIR, WHEELCHAIR: TRANSFERS: BED, CHAIR, WHEELCHAIR - STEP 1: Does the patient require assistance with bed, chair, or wheelchair transfers? Yes. TRANSFERS: BED, CHAIR, WHEELCHAIR - STEP 2: Does the patient require the assistance of a helper? Yes. TRANSFERS: BED, CHAIR, WHEELCHAIR - STEP 3: How much assistance does the patient require from the helper? Steadying/guiding assistance TRANSFERS: BED, CHAIR, WHEELCHAIR - SCORE: 4-MIN TRANSFERS: TOILET: TRANSFERS: TOILET - STEP 1: Does the patient require assistance with toilet transfers? Yes. TRANSFERS: TOILET - STEP 2: Does the patient require the assistance of a helper? Yes. TRANSFERS: TOILET - STEP 3: How much assistance does the patient require from the helper? Patient performs half or more of the tr ansferring tasks TRANSFERS: TOILET - STEP 4: Does the patient need only incidental help such as contact guard or steadying during toilet transfer? Yes. TRANSFERS: TOILET - SCORE: 4-MIN TRANSFERS: SHOWER: Activity did not occur on this shift TRANSFERS: SHOWER - SCORE: 0-UNK TRANSFERS: TUB: Activity did not occur on this shift TRANSFERS: TUB - SCORE: 0-UNK LOCOMOTION: WALK: Activity did not occur on this shift LOCOMOTION: WALK - SCORE: 0-UNK LOCOMOTION: WHEELCHAIR: Activity did not occur on this shift LOCOMOTION: WHEELCHAIR - SCORE: 0-UNK COMPREHENSION: COMPREHENSION: TYPE: Both COMPREHENSION - STEP 1: Does the patient require help to understand complex and abstract ideas (such as current events, finan naveen, discharge planning, medical issues, relationships, etc)? No. COMPREHENSION - STEP 2: Does the patient need extra time, require an assistive device (such as glasses, hearing aids, or an a ugmentative communication system), OR does s/he have mild difficulty expressing complex and abstract ideas (including mild dysarthria or mild word-finding problems)? Yes. COMPREHENSION - SCORE: 6-SONYA EXPRESSION EXPRESSION: TYPE: Both EXPRESSION - STEP 1: Does the patient require help expressing complex and abstract ideas (such as current events, finances , discharge planning, medical issues, relationships, etc)? No. EXPRESSION - STEP 2: Does the patient need extra time, require an assistive device (such as augmentive communication syste m or a communication board), OR does s/he have mild difficulty expressing complex and abstract ideas (including mild dysarthria or mild word-find problems)? No. EXPRESSION - SCORE: 7-IND SOCIAL INTERACTION: SOCIAL INTERACTION - STEP 1: Does the patient require a helper to interact with others in social and therapeutic situations? No. SOCIAL INTERACTION - STEP 2: Does the patient need extra time in social situations, OR does s/he interact with staff, other patien ts, and family members ONLY in structured environments, OR does s/he require medication for social in teraction? No. SOCIAL INTERACTION - SCORE: 7-IND PROBLEM SOLVING: PROBLEM SOLVING - STEP 1: Does the patient need help to solve complex problems such as managing a checking account or confronti ng interpersonal problems? No. PROBLEM SOLVING - STEP 2: Does the patient require extra time to make decisions or solve problems, OR does s/he have slight dif ficulty reading, initiating, or self-correcting in unfamiliar situations? Yes, patient needs extra ti me. PROBLEM SOLVING - SCORE: 6-SONYA MEMORY: MEMORY - STEP 1: Does the patient need help to remember frequently encountered people, daily routines, and executing r equests? No. MEMORY - STEP 2: Does the patient have slight difficulty recognizing frequently encountered people, daily routines, or executing requests without the need for repetition or using self-initiated or environmental cues to remember? Yes. MEMORY - SCORE: 6-SONYA SIGNATURE PANEL: The following modified sections: Eating - Score, Grooming - Score, Bathing - Score, Dressing - Upper Body - Score, Dressing - Lower Body - Score, Toileting - Score, Bladder Management - Score, Bowel Man agement - Score, Transfers: Bed, Chair, Wheelchair - Score, Transfers: Toilet - Score, Transfers: Sara wer - Score, Transfers: Tub - Score, Locomotion: Walk - Score, Locomotion: Wheelchair - Score, Compre hension - Score, Expression - Score, Social Interaction - Score, Problem Solving - Score, Memory - Sc ore were [electronically] signed by Nelly Angela [email or web address] on MonFeb 01 2018 02:32:47 GMT-0500 ( Central Daylight Time)
[2018-02-01] MEDS: CARVEDILOL 12.5 MG TAB PO SCH ×2 (05:11→17:22)
[2018-02-01] MEDS: LEVOTHYROXINE SOD 0.05 MG TABLET PO SCH (05:12)
[2018-02-01 06:36] LABS: Absolute Lymphocytes (CBC) 2.2 K/uL (0.7-4.9); Absolute Monocytes 1.2 K/uL (0.1-1.3); Absolute Neutrophil 6.6 K/uL (1.8-8.0); Basophils % 1.1 % (0-1.3); Eosinophils % 2.1 % (0-4.4); Hematocrit 39.5 % (36.0-45.0); Lymphocytes % 21.1 % (15.3-44.8); MCH 28.7 pg (27.0-35.0); MCV 87.2 fL (80-100); MPV 8.5 fL (7.6-11.3); Monocytes % 11.5 % (3.3-12.3); RBC Red Blood Cell Count 4.52 M/uL (3.86-4.86)
[2018-02-01 06:54] LABS: Magnesium 1.8 mg/dL (1.8-2.5); Potassium 4.2 mEq/L (3.6-5.0)
[2018-02-01] MEDS: NAMENDA 28 MG PO SCH (07:55)
[2018-02-01] MEDS: ASPIRIN 81 MG CHEWABLE TABLET PO SCH (07:56)
[2018-02-01] MEDS: LOSARTAN POTASSIUM 50 MG TABLET PO SCH (07:56)
[2018-02-01] MEDS: FAMOTIDINE 20 MG TAB PO SCH ×2 (07:56→20:17)
[2018-02-01] MEDS: FOLIC ACID 1 MG TABLET PO SCH (07:57)
[2018-02-01] MEDS: DOCUSATE NA/SENNA CONC 1 TAB PO SCH ×2 (07:57→20:00)
[2018-02-01] MEDS: APIXABAN 5 MG TABLET PO SCH ×2 (07:57→20:17)
--- NOTE | 2018-02-01 09:36 | P.RH.PN ---
Estimated Length of Stay: 10 Expected Discharge Date: 02/07/18 Discharge Disposition Plan: Home Family Support: Yes Shelter Goal: Mobility, Transfers, Self Care Vital Signs: Last Vital Signs Temp 97.0 F 02/01/18 07:26 Pulse 62 02/01/18 07:26 Resp 18 02/01/18 07:26 BP 136/63 02/01/18 07:26 Pulse Ox 96 02/01/18 07:26 Laboratory: Laboratory Last Values WBC 10.3 K/uL (4.3-10.9) D 02/01/18 06:07 RBC 4.52 M/uL (3.86-4.86) 02/01/18 06:07 Hgb 13.0 g/dL (12.0-15.0) 02/01/18 06:07 Hct 39.5 % (36.0-45.0) 02/01/18 06:07 MCV 87.2 fL (80-100) 02/01/18 06:07 MCH 28.7 pg (27.0-35.0) 02/01/18 06:07 MCHC 32.9 g/dL (32.0-36.0) 02/01/18 06:07 RDW 14.6 % (12.1-15.2) 02/01/18 06:07 Plt Count 225 K/uL (152-406) 02/01/18 06:07 MPV 8.5 fL (7.6-11.3) 02/01/18 06:07 Neutrophils % 64.2 % (41.7-73.7) 02/01/18 06:07 Lymphocytes % 21.1 % (15.3-44.8) 02/01/18 06:07 Monocytes % 11.5 % (3.3-12.3) 02/01/18 06:07 Eosinophils % 2.1 % (0-4.4) 02/01/18 06:07 Basophils % 1.1 % (0-1.3) 02/01/18 06:07 Absolute Neutrophils 6.6 K/uL (1.8-8.0) 02/01/18 06:07 Absolute Lymphocytes 2.2 K/uL (0.7-4.9) 02/01/18 06:07 Absolute Monocytes 1.2 K/uL (0.1-1.3) 02/01/18 06:07 Absolute Eosinophils 0.2 K/uL (0-0.5) 02/01/18 06:07 Absolute Basophils 0.1 K/uL (0-0.5) 02/01/18 06:07 Sodium 137 mEq/L (135-145) 02/01/18 06:07 Potassium 4.2 mEq/L (3.6-5.0) 02/01/18 06:07 Chloride 105 mEq/L (101-111) 02/01/18 06:07 Carbon Dioxide 26 mEq/L (21-31) 02/01/18 06:07 BUN 25 mg/dL (6-20) H 02/01/18 06:07 Creatinine 1.02 mg/dL (0.44-1.00) H 02/01/18 06:07 Estimated GFR 52 mL/min (=/>90) L 02/01/18 06:07 Glucose 106 mg/dL (65-120) 02/01/18 06:07 Calcium 8.6 mg/dL (8.5-10.5) 02/01/18 06:07 Magnesium 1.8 mg/dL (1.8-2.5) 02/01/18 06:07 Albumin 2.8 g/dL (3.2-5.5) L 01/30/18 05:54 Prealbumin 16.6 mg/dl (18-38) L 01/30/18 05:54 Urine Color Yellow 01/29/18 20:00 Urine Appearance Clear 01/29/18 20:00 Urine pH 5.5 (5.0-7.0) 01/29/18 20:00 Ur Specific [place] 1.010 (1.005-1.030) 01/29/18 20:00 Urine Ketones Negative (NEG) 01/29/18 20:00 Urine Blood Negative (NEG) 01/29/18 20:00 Urine Nitrite Negative (NEG) 01/29/18 20:00 Urine Bilirubin Negative (NEG) 01/29/18 20:00 Urine Urobilinogen 0.2 mg/dL (0.2-1.0) 01/29/18 20:00 Ur Leukocyte Esterase Negative (NEG) 01/29/18 20:00 Urine RBC <5 /HPF (NONE SEEN) 01/29/18 20:00 Urine WBC <5 /HPF (<5) 01/29/18 20:00 Ur Squamous Epith Cells <5 /HPF (NONE SEEN) 01/29/18 20:00 Urine Bacteria <20 /HPF (<20) 01/29/18 20:00 Urine Culture Reflexed Not needed 01/29/18 20:00 Urine Glucose Negative (NEG) 01/29/18 20:00 Urine Total Protein Negative (NEG) 01/29/18 20:00 Weight: 218 lb 2 oz Wound Present: No Closed Surgical Incision Present: No Negative Pressure Wound Therapy Present: No Physician Update: Urine cultures show mixed manolo with strep Agalac. However, her UA is completely negative. Will start cranberry 400 mg twice daily and push more water. Mild dehydration. Mild dizzyness yesterday and today due to mildly low blood pressures secondary to dehydration. She requires minimum assistance overall with physical and occupational therapy. Summary: Patient's care plan and long term care pharmacist goals have been reviewed and revised as necessary. Please see the Rehabilitation Signature page for all necessary signatures.
--- NOTE | 2018-02-01 11:55 | FAST ---
SHIFT START DATE/TIME: 02/01/2018 07:00 (CDT) SHIFT END DATE/TIME: 02/01/2018 19:00 (CDT) NAME MAURICE SIFUENTES DATE OF : 1935 DATE OF ADMISSION: 01/29/2018 17:19 (CDT) PHONE: AGE: [address] [facility]# [id number] GENDER: Female ENCOUNTER PHYSICIAN: Dr. Glen Davidson M.D. 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 EATING: EATING - STEP 1: Does the patient require assistance when eating? Yes. EATING - STEP 2: Does the patient require the assistance of a helper? No, patient only requires an assistive device, O R s/he takes more than reasonable time to eat, OR there is a safety concern, OR s/he requires modifie d food consistency EATING - SCORE: 6-SONYA GROOMING: Comb/brush hair Oral care Wash, rinse, and dry face Wash, rinse, and dry hands GROOMING - STEP 1: Does the patient require assistance when grooming? Yes. GROOMING - STEP 2: Does the patient require the assistance of a helper? No. The patient only requires an assistive devic e, OR takes more than reasonable time to groom, OR there is a concern for safety as the patient groom s GROOMING - SCORE: 6-SONYA BATHING: Activity did not occur on this shift BATHING - SCORE: 0-UNK DRESSING - UPPER BODY: Bra (three steps) T-shirt/pullover shirt (four steps) ARTICLES SCORE Total number of steps: 7 DRESSING - UPPER BODY - STEP 1: Does the patient require help when dressing above the waist? Yes. DRESSING - UPPER BODY - STEP 2: Does the patient require the assistance of a helper? Yes. DRESSING - UPPER BODY - STEP 3: Does the helper touch the patient while dressing? No. DRESSING - UPPER BODY - SCORE: 5-SUP DRESSING - LOWER BODY: Elastic waist pants (three steps) Slip-on shoe - Left foot (one step) Slip-on shoe - Right foot (one step) Underwear (three steps) ARTICLES SCORE Total number of steps: 8 DRESSING - LOWER BODY - STEP 1: Does the patient require help when dressing below the waist? Yes. DRESSING - LOWER BODY - STEP 2: Does the patient require the assistance of a helper? Yes. DRESSING - LOWER BODY - STEP 3: Does the helper touch the patient while dressing? No. DRESSING - LOWER BODY - SCORE: 5-SUP TOILETING: TOILETING - STEP 1: Does the patient require assistance with toileting? Yes. TOILETING - STEP 2: Does the patient require the assistance of a helper? Yes. TOILETING - STEP 3: How much assistance does the patient require from the helper? Only supervision TOILETING - SCORE: 5-SUP BLADDER MANAGEMENT: BLADDER MANAGEMENT - STEP 1: Does the patient control the bladder completely and intentionally without equipment or devices or med ications, and is always continent? Yes. BLADDER MANAGEMENT - SCORE: 7-IND BOWEL MANAGEMENT: Activity did not occur on this shift BOWEL MANAGEMENT - SCORE: 7-IND TRANSFERS: BED, CHAIR, WHEELCHAIR: TRANSFERS: BED, CHAIR, WHEELCHAIR - STEP 1: Does the patient require assistance with bed, chair, or wheelchair transfers? Yes. TRANSFERS: BED, CHAIR, WHEELCHAIR - STEP 2: Does the patient require the assistance of a helper? Yes. TRANSFERS: BED, CHAIR, WHEELCHAIR - STEP 3: How much assistance does the patient require from the helper? Steadying/guiding assistance TRANSFERS: BED, CHAIR, WHEELCHAIR - SCORE: 4-MIN TRANSFERS: TOILET: TRANSFERS: TOILET - STEP 1: Does the patient require assistance with toilet transfers? Yes. TRANSFERS: TOILET - STEP 2: Does the patient require the assistance of a helper? Yes. TRANSFERS: TOILET - STEP 3: How much assistance does the patient require from the helper? Patient performs half or more of the tr ansferring tasks TRANSFERS: TOILET - STEP 4: Does the patient need only incidental help such as contact guard or steadying during toilet transfer? Yes. TRANSFERS: TOILET - SCORE: 4-MIN TRANSFERS: SHOWER: Activity did not occur on this shift TRANSFERS: SHOWER - SCORE: 0-UNK TRANSFERS: TUB: Activity did not occur on this shift TRANSFERS: TUB - SCORE: 0-UNK LOCOMOTION: WALK: Activity did not occur on this shift LOCOMOTION: WALK - SCORE: 0-UNK LOCOMOTION: WHEELCHAIR: Activity did not occur on this shift LOCOMOTION: WHEELCHAIR - SCORE: 0-UNK COMPREHENSION: COMPREHENSION - SCORE: 0-UNK EXPRESSION EXPRESSION - SCORE: 0-UNK SOCIAL INTERACTION: SOCIAL INTERACTION - SCORE: 0-UNK PROBLEM SOLVING: PROBLEM SOLVING - SCORE: 0-UNK MEMORY: MEMORY - SCORE: 0-UNK SIGNATURE PANEL: The following modified sections: Bathing - Score, Eating - Score, Grooming - Score, Dressing - Upper Body - Score, Dressing - Lower Body - Score, Toileting - Score, Bladder Management - Score, Bowel Man agement - Score, Transfers: Bed, Chair, Wheelchair - Score, Transfers: Toilet - Score, Transfers: Sara wer - Score, Transfers: Tub - Score, Locomotion: Walk - Score, Locomotion: Wheelchair - Score, Compre hension - Score, Expression - Score, Social Interaction - Score, Problem Solving - Score, Memory - Sc ore were [electronically] signed by Anjel Maki on MonFeb 01 2018 10:55:29 GMT-0500 (Central Daylight Time)
--- NOTE | 2018-02-01 15:58 | FAST ---
ENCOUNTER DATE AND TIME: 02/01/2018 08:00 (CDT) NAME MAURICE SIFUENTES DATE OF : 1935 DATE OF ADMISSION: 01/29/2018 17:19 (CDT) PHONE: AGE: 82 N# [id number] GENDER: Female ENCOUNTER PHYSICIAN: Dr. Glen Davidson M.D. 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 EATING: Activity did not occur on this shift EATING - SCORE: 0-UNK GROOMING: Comb/brush hair Wash, rinse, and dry face Wash, rinse, and dry hands GROOMING - STEP 1: Does the patient require assistance when grooming? No. GROOMING - SCORE: 7-IND BATHING: Abdomen Buttocks Chest Left arm Left lower leg and foot Left upper leg Perineal area Right arm Right lower leg and foot Right upper leg BATHING - STEP 1: Does the patient require assistance when bathing? Yes. BATHING - STEP 2: Does the patient require the assistance of a helper? Yes. BATHING - STEP 3: How much assistance does the patient require from the helper? Only prior preparation such as putting bathing equipment within reach, turning on water, checking water temperature BATHING - SCORE: 5-SUP DRESSING - UPPER BODY: Bra (three steps) T-shirt/pullover shirt (four steps) ARTICLES SCORE Total number of steps: 7 DRESSING - UPPER BODY - STEP 1: Does the patient require help when dressing above the waist? No. DRESSING - UPPER BODY - SCORE: 7-IND DRESSING - LOWER BODY: Elastic waist pants (three steps) Slip-on shoe - Left foot (one step) Slip-on shoe - Right foot (one step) Underwear (three steps) ARTICLES SCORE Total number of steps: 8 DRESSING - LOWER BODY - STEP 1: Does the patient require help when dressing below the waist? Yes. DRESSING - LOWER BODY - STEP 2: Does the patient require the assistance of a helper? Yes. DRESSING - LOWER BODY - STEP 3: Does the helper touch the patient while dressing? No. DRESSING - LOWER BODY - SCORE: 5-SUP TOILETING: TOILETING - STEP 1: Does the patient require assistance with toileting? Yes. TOILETING - STEP 2: Does the patient require the assistance of a helper? Yes. TOILETING - STEP 3: How much assistance does the patient require from the helper? Only supervision TOILETING - SCORE: 5-SUP BLADDER MANAGEMENT: Activity did not occur on this shift BLADDER MANAGEMENT - SCORE: 7-IND BOWEL MANAGEMENT: Activity did not occur on this shift BOWEL MANAGEMENT - SCORE: 7-IND TRANSFERS: BED, CHAIR, WHEELCHAIR: Activity did not occur on this shift TRANSFERS: BED, CHAIR, WHEELCHAIR - SCORE: 0-UNK TRANSFERS: TOILET: TRANSFERS: TOILET - STEP 1: Does the patient require assistance with toilet transfers? Yes. TRANSFERS: TOILET - STEP 2: Does the patient require the assistance of a helper? Yes. TRANSFERS: TOILET - STEP 3: How much assistance does the patient require from the helper? Patient performs half or more of the tr ansferring tasks TRANSFERS: TOILET - STEP 4: Does the patient need only incidental help such as contact guard or steadying during toilet transfer? Yes. TRANSFERS: TOILET - SCORE: 4-MIN TRANSFERS: SHOWER: Activity did not occur on this shift TRANSFERS: SHOWER - SCORE: 0-UNK TRANSFERS: TUB: TRANSFERS: TUB - STEP 1: Does the patient require assistance with tub transfers? Yes. TRANSFERS: TUB - STEP 2: Does the patient require the assistance of a helper? Yes. TRANSFERS: TUB - STEP 3: How much assistance does the patient require from the helper? Incidental help such as contact guardin g or steadying, OR help to lift one leg into the tub TRANSFERS: TUB - SCORE: 4-MIN LOCOMOTION: WALK: Activity did not occur on this shift LOCOMOTION: WALK - SCORE: 0-UNK LOCOMOTION: WHEELCHAIR: Activity did not occur on this shift LOCOMOTION: WHEELCHAIR - SCORE: 0-UNK LOCOMOTION: STAIRS: Activity did not occur on this shift LOCOMOTION: STAIRS - SCORE: 0-UNK COMPREHENSION: COMPREHENSION - SCORE: 0-UNK EXPRESSION EXPRESSION - SCORE: 0-UNK SOCIAL INTERACTION: SOCIAL INTERACTION - SCORE: 0-UNK PROBLEM SOLVING: PROBLEM SOLVING - SCORE: 0-UNK MEMORY: MEMORY - SCORE: 0-UNK SIGNATURE PANEL: The following modified sections: Eating - Score, Grooming - Score, Bathing - Score, Dressing - Upper Body - Score, Dressing - Lower Body - Score, Toileting - Score, Transfers: Bed, Chair, Wheelchair - S core, Transfers: Toilet - Score, Transfers: Shower - Score, Transfers: Tub - Score, Comprehension - S core, Expression - Score, Social Interaction - Score, Problem Solving - Score, Memory - Score were [e lectronically] signed by ELAINE Shepherd on MonFeb 01 2018 14:57:43 [facility]-0500 ([facility] Time)
--- NOTE | 2018-02-01 16:01 | FAST ---
ENCOUNTER DATE AND TIME: 02/01/2018 08:00 (CDT) NAME MAURICE SIFUENTES DATE OF : 1935 DATE OF ADMISSION: 01/29/2018 17:19 (CDT) PHONE: AGE: 82 N# [id number] GENDER: Female ENCOUNTER PHYSICIAN: Dr. Glen Davidson M.D. 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 EATING: Activity did not occur on this shift EATING - SCORE: 0-UNK GROOMING: Activity did not occur on this shift GROOMING - SCORE: 0-UNK BATHING: Activity did not occur on this shift BATHING - SCORE: 0-UNK DRESSING - UPPER BODY: Activity did not occur on this shift Patient is not dressing in public clothing ARTICLES SCORE Total number of steps: 0 DRESSING - UPPER BODY - SCORE: 0-UNK DRESSING - LOWER BODY: Activity did not occur on this shift Patient is not dressing in public clothing ARTICLES SCORE Total number of steps: 0 DRESSING - LOWER BODY - SCORE: 0-UNK TOILETING: Activity did not occur on this shift TOILETING - SCORE: 0-UNK BLADDER MANAGEMENT: Activity did not occur on this shift BLADDER MANAGEMENT - SCORE: 7-IND BOWEL MANAGEMENT: Activity did not occur on this shift BOWEL MANAGEMENT - SCORE: 7-IND TRANSFERS: BED, CHAIR, WHEELCHAIR: TRANSFERS: BED, CHAIR, WHEELCHAIR - STEP 1: Does the patient require assistance with bed, chair, or wheelchair transfers? Yes. TRANSFERS: BED, CHAIR, WHEELCHAIR - STEP 2: Does the patient require the assistance of a helper? No. Patient only requires an assistive device fo r bed, chair, wheelchair transfers such as a sliding board, grab bar, or brace, OR s/he takes more th an reasonable time, OR there is a safety concern when s/he performs the transfers TRANSFERS: BED, CHAIR, WHEELCHAIR - SCORE: 6-SONYA TRANSFERS: TOILET: Activity did not occur on this shift TRANSFERS: TOILET - SCORE: 0-UNK TRANSFERS: SHOWER: Activity did not occur on this shift TRANSFERS: SHOWER - SCORE: 0-UNK TRANSFERS: TUB: Activity did not occur on this shift TRANSFERS: TUB - SCORE: 0-UNK LOCOMOTION: WALK: LOCOMOTION: WALK - STEP 1: Does the patient need help to walk 150 feet? Yes. LOCOMOTION: WALK - STEP 2: How much assistance does the patient require to walk a minimum of 150 feet? Only supervision, cuing, or coaxing LOCOMOTION: WALK - SCORE: 5-SUP LOCOMOTION: WHEELCHAIR: LOCOMOTION: WHEELCHAIR - STEP 1: Does the patient need help to go 150 feet in a wheelchair? Yes. LOCOMOTION: WHEELCHAIR - STEP 2: How much assistance does the patient need from the helper? Only supervision, cuing, or coaxing LOCOMOTION: WHEELCHAIR - SCORE: 5-SUP LOCOMOTION: STAIRS: LOCOMOTION: STAIRS - STEP 1: Does the patient need help to go up and down 12 to 14 stairs? Yes. LOCOMOTION: STAIRS - STEP 2: How much assistance does the patient need from the helper to go a minimum of 12 to 14 stairs? Only ocasio pervision, cuing, or coaxing LOCOMOTION: STAIRS - SCORE: 5-SUP COMPREHENSION: COMPREHENSION - SCORE: 0-UNK EXPRESSION EXPRESSION - SCORE: 0-UNK SOCIAL INTERACTION: SOCIAL INTERACTION - SCORE: 0-UNK PROBLEM SOLVING: PROBLEM SOLVING - SCORE: 0-UNK MEMORY: MEMORY - SCORE: 0-UNK SIGNATURE PANEL: The following modified sections: Transfers: Bed, Chair, Wheelchair - Score, Transfers: Toilet - Score , Locomotion: Walk - Score, Locomotion: Wheelchair - Score, Locomotion: Stairs - Score were [claudio aguilar] signed by Jan Bush PTA on MonFeb 01 2018 15:00:33 GMT-0500 (Central Daylight Time)
--- NOTE | 2018-02-01 19:26 | FAST ---
ENCOUNTER DATE AND TIME: 02/01/2018 08:00 (CDT) NAME MAURICE SIFUENTES DATE OF : 1935 DATE OF ADMISSION: 01/29/2018 17:19 (CDT) PHONE: AGE: 82 N# [id number] GENDER: Female ENCOUNTER PHYSICIAN: Dr. Glen Davidson M.D. 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 EATING: Activity did not occur on this shift EATING - SCORE: 0-UNK GROOMING: Activity did not occur on this shift GROOMING - SCORE: 0-UNK BATHING: Activity did not occur on this shift BATHING - SCORE: 0-UNK DRESSING - UPPER BODY: Activity did not occur on this shift Patient is not dressing in public clothing ARTICLES SCORE Total number of steps: 0 DRESSING - UPPER BODY - SCORE: 0-UNK DRESSING - LOWER BODY: Activity did not occur on this shift Patient is not dressing in public clothing ARTICLES SCORE Total number of steps: 0 DRESSING - LOWER BODY - SCORE: 0-UNK TOILETING: Activity did not occur on this shift TOILETING - SCORE: 0-UNK BLADDER MANAGEMENT: Activity did not occur on this shift BLADDER MANAGEMENT - SCORE: 7-IND BOWEL MANAGEMENT: Activity did not occur on this shift BOWEL MANAGEMENT - SCORE: 7-IND TRANSFERS: BED, CHAIR, WHEELCHAIR: Activity did not occur on this shift TRANSFERS: BED, CHAIR, WHEELCHAIR - SCORE: 0-UNK TRANSFERS: TOILET: Activity did not occur on this shift TRANSFERS: TOILET - SCORE: 0-UNK TRANSFERS: SHOWER: Activity did not occur on this shift TRANSFERS: SHOWER - SCORE: 0-UNK TRANSFERS: TUB: Activity did not occur on this shift TRANSFERS: TUB - SCORE: 0-UNK LOCOMOTION: WALK: Activity did not occur on this shift LOCOMOTION: WALK - SCORE: 0-UNK LOCOMOTION: WHEELCHAIR: Activity did not occur on this shift LOCOMOTION: WHEELCHAIR - SCORE: 0-UNK LOCOMOTION: STAIRS: Activity did not occur on this shift LOCOMOTION: STAIRS - SCORE: 0-UNK COMPREHENSION: COMPREHENSION - STEP 1: Does the patient require help to understand complex and abstract ideas (such as current events, finan naveen, discharge planning, medical issues, relationships, etc)? No. COMPREHENSION - STEP 2: Does the patient need extra time, require an assistive device (such as glasses, hearing aids, or an a ugmentative communication system), OR does s/he have mild difficulty expressing complex and abstract ideas (including mild dysarthria or mild word-finding problems)? Yes. COMPREHENSION - SCORE: 6-SONYA EXPRESSION EXPRESSION - STEP 1: Does the patient require help expressing complex and abstract ideas (such as current events, finances , discharge planning, medical issues, relationships, etc)? No. EXPRESSION - STEP 2: Does the patient need extra time, require an assistive device (such as augmentive communication syste m or a communication board), OR does s/he have mild difficulty expressing complex and abstract ideas (including mild dysarthria or mild word-find problems)? Yes. EXPRESSION - SCORE: 6-SONYA SOCIAL INTERACTION: SOCIAL INTERACTION - STEP 1: Does the patient require a helper to interact with others in social and therapeutic situations? No. SOCIAL INTERACTION - STEP 2: Does the patient need extra time in social situations, OR does s/he interact with staff, other patien ts, and family members ONLY in structured environments, OR does s/he require medication for social in teraction? No. SOCIAL INTERACTION - SCORE: 7-IND PROBLEM SOLVING: PROBLEM SOLVING - STEP 1: Does the patient need help to solve complex problems such as managing a checking account or confronti ng interpersonal problems? No. PROBLEM SOLVING - STEP 2: Does the patient require extra time to make decisions or solve problems, OR does s/he have slight dif ficulty reading, initiating, or self-correcting in unfamiliar situations? Yes, patient needs extra ti me. PROBLEM SOLVING - SCORE: 6-SONYA MEMORY: MEMORY - STEP 1: Does the patient need help to remember frequently encountered people, daily routines, and executing r equests? Yes. MEMORY - STEP 2: How often does the patient need help to remember frequently encountered people, daily routines, and e xecuting requests? Less than 10% of the time MEMORY - SCORE: 5-SUP SIGNATURE PANEL: The following modified sections: Comprehension - Score, Expression - Score, Social Interaction - Scor e, Problem Solving - Score, Memory - Score were [electronically] signed by LINN Carlton on Mon 18:26:42 GMT-0500 (Central Daylight Time)
[2018-02-01] MEDS: CRANBERRY FRUIT EXTRACT 200 MG CAP PO SCH (20:17)
[2018-02-01] MEDS: ATORVASTATIN 80 MG TAB PO SCH (20:17)
--- NOTE | 2018-02-02 04:41 | FAST ---
SHIFT START DATE/TIME: 02/01/2018 19:00 (CDT) SHIFT END DATE/TIME: 02/02/2018 07:00 (CDT) NAME MAURICE SIFUENTES DATE OF : 1935 DATE OF ADMISSION: 01/29/2018 17:19 (CDT) PHONE: AGE: 82 [facility]# [id number] GENDER: Female ENCOUNTER PHYSICIAN: Dr. Glen Davidson M.D. 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 EATING: EATING - STEP 1: Does the patient require assistance when eating? Yes. EATING - STEP 2: Does the patient require the assistance of a helper? No, patient only requires an assistive device, O R s/he takes more than reasonable time to eat, OR there is a safety concern, OR s/he requires modifie d food consistency EATING - SCORE: 6-SONYA GROOMING: Comb/brush hair Oral care Wash, rinse, and dry face Wash, rinse, and dry hands GROOMING - STEP 1: Does the patient require assistance when grooming? Yes. GROOMING - STEP 2: Does the patient require the assistance of a helper? Yes. GROOMING - STEP 3: How much assistance does the patient require from the helper? Steadying assistance from the helper GROOMING - SCORE: 4-MIN BATHING: Activity did not occur on this shift BATHING - SCORE: 0-UNK DRESSING - UPPER BODY: Activity did not occur on this shift ARTICLES SCORE Total number of steps: 0 DRESSING - UPPER BODY - SCORE: 0-UNK DRESSING - LOWER BODY: Activity did not occur on this shift ARTICLES SCORE Total number of steps: 0 DRESSING - LOWER BODY - SCORE: 0-UNK TOILETING: TOILETING - STEP 1: Does the patient require assistance with toileting? Yes. TOILETING - STEP 2: Does the patient require the assistance of a helper? Yes. TOILETING - STEP 3: How much assistance does the patient require from the helper? Hands-on assistance from the helper TOILETING - STEP 4: Of the 3 tasks: 1) Adjusting clothing prior to use, 2) Cleansing of perineal area, 3) Adjusting clot nisha after use; How many tasks does the patient perform WITHOUT assistance of the helper? Three tasks with steadying assistance from the helper TOILETING - SCORE: 4-MIN BLADDER MANAGEMENT: BLADDER MANAGEMENT - STEP 1: Does the patient control the bladder completely and intentionally without equipment or devices or med ications, and is always continent? No. BLADDER MANAGEMENT - STEP 2: Does the patient require the assistance of a helper? Yes. BLADDER MANAGEMENT - STEP 3: How much assistance does the patient require from the helper? Patient requires contact assistance fro m the helper BLADDER MANAGEMENT - STEP 4: How much contact assistance does the patient require from the helper? Patient requires minimal assist ance to maintain an external device - by positioning, and the patient performs 75% or more of bladder management tasks, while the helper provides less than 25% of the assistance to position patient on / off bedpan BLADDER MANAGEMENT - SCORE: 4-MIN BLADDER MANAGEMENT - FREQUENCY OF ACCIDENTS: BLADDER MANAGEMENT(FA) - STEP 1: How many accidents has the patient had during the current shift? 0 BOWEL MANAGEMENT: Activity did not occur on this shift BOWEL MANAGEMENT - SCORE: 7-IND TRANSFERS: BED, CHAIR, WHEELCHAIR: TRANSFERS: BED, CHAIR, WHEELCHAIR - STEP 1: Does the patient require assistance with bed, chair, or wheelchair transfers? Yes. TRANSFERS: BED, CHAIR, WHEELCHAIR - STEP 2: Does the patient require the assistance of a helper? Yes. TRANSFERS: BED, CHAIR, WHEELCHAIR - STEP 3: How much assistance does the patient require from the helper? Steadying/guiding assistance TRANSFERS: BED, CHAIR, WHEELCHAIR - SCORE: 4-MIN TRANSFERS: TOILET: TRANSFERS: TOILET - STEP 1: Does the patient require assistance with toilet transfers? Yes. TRANSFERS: TOILET - STEP 2: Does the patient require the assistance of a helper? Yes. TRANSFERS: TOILET - STEP 3: How much assistance does the patient require from the helper? Patient performs half or more of the tr ansferring tasks TRANSFERS: TOILET - STEP 4: Does the patient need only incidental help such as contact guard or steadying during toilet transfer? Yes. TRANSFERS: TOILET - SCORE: 4-MIN TRANSFERS: SHOWER: Activity did not occur on this shift TRANSFERS: SHOWER - SCORE: 0-UNK TRANSFERS: TUB: Activity did not occur on this shift TRANSFERS: TUB - SCORE: 0-UNK LOCOMOTION: WALK: Activity did not occur on this shift LOCOMOTION: WALK - SCORE: 0-UNK LOCOMOTION: WHEELCHAIR: Activity did not occur on this shift LOCOMOTION: WHEELCHAIR - SCORE: 0-UNK COMPREHENSION: COMPREHENSION: TYPE: Both COMPREHENSION - STEP 1: Does the patient require help to understand complex and abstract ideas (such as current events, finan naveen, discharge planning, medical issues, relationships, etc)? No. COMPREHENSION - STEP 2: Does the patient need extra time, require an assistive device (such as glasses, hearing aids, or an a ugmentative communication system), OR does s/he have mild difficulty expressing complex and abstract ideas (including mild dysarthria or mild word-finding problems)? Yes. COMPREHENSION - SCORE: 6-SONYA EXPRESSION EXPRESSION - STEP 1: Does the patient require help expressing complex and abstract ideas (such as current events, finances , discharge planning, medical issues, relationships, etc)? No. EXPRESSION - STEP 2: Does the patient need extra time, require an assistive device (such as augmentive communication syste m or a communication board), OR does s/he have mild difficulty expressing complex and abstract ideas (including mild dysarthria or mild word-find problems)? Yes. EXPRESSION - SCORE: 6-SONYA SOCIAL INTERACTION: SOCIAL INTERACTION - STEP 1: Does the patient require a helper to interact with others in social and therapeutic situations? No. SOCIAL INTERACTION - STEP 2: Does the patient need extra time in social situations, OR does s/he interact with staff, other patien ts, and family members ONLY in structured environments, OR does s/he require medication for social in teraction? No. SOCIAL INTERACTION - SCORE: 7-IND PROBLEM SOLVING: PROBLEM SOLVING - STEP 1: Does the patient need help to solve complex problems such as managing a checking account or confronti ng interpersonal problems? No. PROBLEM SOLVING - STEP 2: Does the patient require extra time to make decisions or solve problems, OR does s/he have slight dif ficulty reading, initiating, or self-correcting in unfamiliar situations? Yes, patient needs extra ti me. PROBLEM SOLVING - SCORE: 6-SONYA MEMORY: MEMORY - STEP 1: Does the patient need help to remember frequently encountered people, daily routines, and executing r equests? No. MEMORY - STEP 2: Does the patient have slight difficulty recognizing frequently encountered people, daily routines, or executing requests without the need for repetition or using self-initiated or environmental cues to remember? Yes. MEMORY - SCORE: 6-SONYA SIGNATURE PANEL: The following modified sections: Eating - Score, Grooming - Score, Bathing - Score, Dressing - Upper Body - Score, Dressing - Lower Body - Score, Toileting - Score, Bladder Management - Score, Bowel Man agement - Score, Transfers: Bed, Chair, Wheelchair - Score, Transfers: Toilet - Score, Transfers: Sara wer - Score, Transfers: Tub - Score, Locomotion: Walk - Score, Locomotion: Wheelchair - Score, Compre hension - Score, Expression - Score, Social Interaction - Score, Problem Solving - Score, Memory - Sc ore were [electronically] signed by Nelly Angela [email or web address] on MonFeb 02 2018 03:40:56 T-0500 ( Central Daylight Time)
[2018-02-02] MEDS: CARVEDILOL 12.5 MG TAB PO SCH ×2 (05:08→17:14)
[2018-02-02] MEDS: LEVOTHYROXINE SOD 0.05 MG TABLET PO SCH (05:08)
[2018-02-02] MEDS: CRANBERRY FRUIT EXTRACT 200 MG CAP PO SCH ×2 (08:19→20:26)
[2018-02-02] MEDS: NAMENDA 28 MG PO SCH (08:19)
[2018-02-02] MEDS: APIXABAN 5 MG TABLET PO SCH ×2 (08:20→20:25)
[2018-02-02] MEDS: LOSARTAN POTASSIUM 50 MG TABLET PO SCH (08:20)
[2018-02-02] MEDS: FOLIC ACID 1 MG TABLET PO SCH (08:20)
[2018-02-02] MEDS: ASPIRIN 81 MG CHEWABLE TABLET PO SCH (08:20)
[2018-02-02] MEDS: DOCUSATE NA/SENNA CONC 1 TAB PO SCH ×2 (08:20→20:25)
[2018-02-02] MEDS: FAMOTIDINE 20 MG TAB PO SCH ×2 (08:20→20:26)
--- NOTE | 2018-02-02 12:06 | FAST ---
SHIFT START DATE/TIME: 02/02/2018 07:00 (CDT) SHIFT END DATE/TIME: 02/02/2018 19:00 (CDT) NAME MAURICE SIFUENTES DATE OF : 1935 DATE OF ADMISSION: 01/29/2018 17:19 (CDT) PHONE: AGE: 82 N# [id number] GENDER: Female ENCOUNTER PHYSICIAN: Dr. Glen Davidson M.D. 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 EATING: EATING - STEP 1: Does the patient require assistance when eating? Yes. EATING - STEP 2: Does the patient require the assistance of a helper? No, patient only requires an assistive device, O R s/he takes more than reasonable time to eat, OR there is a safety concern, OR s/he requires modifie d food consistency EATING - SCORE: 6-SONYA GROOMING: Comb/brush hair Oral care Wash, rinse, and dry face Wash, rinse, and dry hands GROOMING - STEP 1: Does the patient require assistance when grooming? Yes. GROOMING - STEP 2: Does the patient require the assistance of a helper? No. The patient only requires an assistive devic e, OR takes more than reasonable time to groom, OR there is a concern for safety as the patient groom s GROOMING - SCORE: 6-SONYA BATHING: Activity did not occur on this shift BATHING - SCORE: 0-UNK DRESSING - UPPER BODY: Button down/zippered sweater (four steps) T-shirt/pullover shirt (four steps) ARTICLES SCORE Total number of steps: 8 DRESSING - UPPER BODY - STEP 1: Does the patient require help when dressing above the waist? Yes. DRESSING - UPPER BODY - STEP 2: Does the patient require the assistance of a helper? No. Patient only requires an assistive device, s uch as a button hook, velcro, or professional nursing tutor. OR s/he takes more than reasonable time as s/he dresses the upper body. OR there is a concern for safety when s/he dresses the upper body DRESSING - UPPER BODY - SCORE: 6-SONYA DRESSING - LOWER BODY: Elastic waist pants (three steps) Sock - Left foot (one step) Sock - Right foot (one step) Underwear (three steps) ARTICLES SCORE Total number of steps: 8 DRESSING - LOWER BODY - STEP 1: Does the patient require help when dressing below the waist? Yes. DRESSING - LOWER BODY - STEP 2: Does the patient require the assistance of a helper? No. Patient requires an assistive device such as a professional nursing tutor. OR s/he takes more than reasonable time as s/he dresses the lower body, OR there is a con cern for safety when s/he dresses the lower body DRESSING - LOWER BODY - SCORE: 6-SONYA TOILETING: TOILETING - STEP 1: Does the patient require assistance with toileting? Yes. TOILETING - STEP 2: Does the patient require the assistance of a helper? Yes. TOILETING - STEP 3: How much assistance does the patient require from the helper? Hands-on assistance from the helper TOILETING - STEP 4: Of the 3 tasks: 1) Adjusting clothing prior to use, 2) Cleansing of perineal area, 3) Adjusting clot nisha after use; How many tasks does the patient perform WITHOUT assistance of the helper? Three tasks with steadying assistance from the helper TOILETING - SCORE: 4-MIN BLADDER MANAGEMENT: BLADDER MANAGEMENT - STEP 1: Does the patient control the bladder completely and intentionally without equipment or devices or med ications, and is always continent? Yes. BLADDER MANAGEMENT - SCORE: 7-IND BLADDER MANAGEMENT - FREQUENCY OF ACCIDENTS: BLADDER MANAGEMENT(FA) - STEP 1: How many accidents has the patient had during the current shift? 0 BOWEL MANAGEMENT: BOWEL MANAGEMENT - STEP 1: Does the patient control bowels completely and intentionally without equipment devices or medications AND is always continent? Yes. BOWEL MANAGEMENT - SCORE: 7-IND BOWEL MANAGEMENT - FREQUENCY OF ACCIDENTS: BOWEL MANAGEMENT(FA) - STEP 1: How many accidents has the patient had during the current shift? 0 TRANSFERS: BED, CHAIR, WHEELCHAIR: TRANSFERS: BED, CHAIR, WHEELCHAIR - STEP 1: Does the patient require assistance with bed, chair, or wheelchair transfers? Yes. TRANSFERS: BED, CHAIR, WHEELCHAIR - STEP 2: Does the patient require the assistance of a helper? Yes. TRANSFERS: BED, CHAIR, WHEELCHAIR - STEP 3: How much assistance does the patient require from the helper? Only supervision TRANSFERS: BED, CHAIR, WHEELCHAIR - SCORE: 5-SUP TRANSFERS: TOILET: TRANSFERS: TOILET - STEP 1: Does the patient require assistance with toilet transfers? Yes. TRANSFERS: TOILET - STEP 2: Does the patient require the assistance of a helper? Yes. TRANSFERS: TOILET - STEP 3: How much assistance does the patient require from the helper? Only supervision, cuing, coaxing, OR he lp to set out transfer equipment or to lock brakes and/or lift foot rests TRANSFERS: TOILET - SCORE: 5-SUP TRANSFERS: SHOWER: Activity did not occur on this shift TRANSFERS: SHOWER - SCORE: 0-UNK TRANSFERS: TUB: Activity did not occur on this shift TRANSFERS: TUB - SCORE: 0-UNK LOCOMOTION: WALK: Activity did not occur on this shift LOCOMOTION: WALK - SCORE: 0-UNK LOCOMOTION: WHEELCHAIR: Activity did not occur on this shift LOCOMOTION: WHEELCHAIR - SCORE: 0-UNK COMPREHENSION: COMPREHENSION - SCORE: 0-UNK EXPRESSION EXPRESSION - SCORE: 0-UNK SOCIAL INTERACTION: SOCIAL INTERACTION - SCORE: 0-UNK PROBLEM SOLVING: PROBLEM SOLVING - SCORE: 0-UNK MEMORY: MEMORY - SCORE: 0-UNK SIGNATURE PANEL: The following modified sections: Eating - Score, Grooming - Score, Bathing - Score, Dressing - Upper Body - Score, Dressing - Lower Body - Score, Toileting - Score, Bladder Management - Score, Bowel Man agement - Score, Transfers: Bed, Chair, Wheelchair - Score, Transfers: Toilet - Score, Transfers: Sara wer - Score, Transfers: Tub - Score, Locomotion: Walk - Score, Locomotion: Wheelchair - Score, Compre hension - Score, Expression - Score, Social Interaction - Score, Problem Solving - Score, Memory - Sc ore were [electronically] signed by Ada Eastman CNA on MonFeb 02 2018 11:05:05 GMT-0500 (Centra [place] Daylight Time)
--- NOTE | 2018-02-02 14:47 | FAST ---
ENCOUNTER DATE AND TIME: 02/02/2018 08:00 (CDT) NAME MAURICE SIFUENTES DATE OF : 1935 DATE OF ADMISSION: 01/29/2018 17:19 (CDT) PHONE: AGE: 82 N# [id number] GENDER: Female ENCOUNTER PHYSICIAN: Dr. Glen Davidson M.D. 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 EATING: Activity did not occur on this shift EATING - SCORE: 0-UNK GROOMING: Activity did not occur on this shift GROOMING - SCORE: 0-UNK BATHING: Activity did not occur on this shift BATHING - SCORE: 0-UNK DRESSING - UPPER BODY: Activity did not occur on this shift Patient is not dressing in public clothing ARTICLES SCORE Total number of steps: 0 DRESSING - UPPER BODY - SCORE: 0-UNK DRESSING - LOWER BODY: Activity did not occur on this shift Patient is not dressing in public clothing ARTICLES SCORE Total number of steps: 0 DRESSING - LOWER BODY - SCORE: 0-UNK TOILETING: Activity did not occur on this shift TOILETING - SCORE: 0-UNK BLADDER MANAGEMENT: Activity did not occur on this shift BLADDER MANAGEMENT - SCORE: 7-IND BOWEL MANAGEMENT: Activity did not occur on this shift BOWEL MANAGEMENT - SCORE: 7-IND TRANSFERS: BED, CHAIR, WHEELCHAIR: Activity did not occur on this shift TRANSFERS: BED, CHAIR, WHEELCHAIR - SCORE: 0-UNK TRANSFERS: TOILET: Activity did not occur on this shift TRANSFERS: TOILET - SCORE: 0-UNK TRANSFERS: SHOWER: Activity did not occur on this shift TRANSFERS: SHOWER - SCORE: 0-UNK TRANSFERS: TUB: Activity did not occur on this shift TRANSFERS: TUB - SCORE: 0-UNK LOCOMOTION: WALK: Activity did not occur on this shift LOCOMOTION: WALK - SCORE: 0-UNK LOCOMOTION: WHEELCHAIR: Activity did not occur on this shift LOCOMOTION: WHEELCHAIR - SCORE: 0-UNK LOCOMOTION: STAIRS: Activity did not occur on this shift LOCOMOTION: STAIRS - SCORE: 0-UNK COMPREHENSION: COMPREHENSION - STEP 1: Does the patient require help to understand complex and abstract ideas (such as current events, finan naveen, discharge planning, medical issues, relationships, etc)? No. COMPREHENSION - STEP 2: Does the patient need extra time, require an assistive device (such as glasses, hearing aids, or an a ugmentative communication system), OR does s/he have mild difficulty expressing complex and abstract ideas (including mild dysarthria or mild word-finding problems)? No. COMPREHENSION - SCORE: 7-IND EXPRESSION EXPRESSION - STEP 1: Does the patient require help expressing complex and abstract ideas (such as current events, finances , discharge planning, medical issues, relationships, etc)? No. EXPRESSION - STEP 2: Does the patient need extra time, require an assistive device (such as augmentive communication syste m or a communication board), OR does s/he have mild difficulty expressing complex and abstract ideas (including mild dysarthria or mild word-find problems)? No. EXPRESSION - SCORE: 7-IND SOCIAL INTERACTION: SOCIAL INTERACTION - STEP 1: Does the patient require a helper to interact with others in social and therapeutic situations? No. SOCIAL INTERACTION - STEP 2: Does the patient need extra time in social situations, OR does s/he interact with staff, other patien ts, and family members ONLY in structured environments, OR does s/he require medication for social in teraction? No. SOCIAL INTERACTION - SCORE: 7-IND PROBLEM SOLVING: PROBLEM SOLVING - STEP 1: Does the patient need help to solve complex problems such as managing a checking account or confronti ng interpersonal problems? No. PROBLEM SOLVING - STEP 2: Does the patient require extra time to make decisions or solve problems, OR does s/he have slight dif ficulty reading, initiating, or self-correcting in unfamiliar situations? No. PROBLEM SOLVING - SCORE: 7-IND MEMORY: MEMORY - STEP 1: Does the patient need help to remember frequently encountered people, daily routines, and executing r equests? No. MEMORY - STEP 2: Does the patient have slight difficulty recognizing frequently encountered people, daily routines, or executing requests without the need for repetition or using self-initiated or environmental cues to remember? Yes. MEMORY - SCORE: 6-SONYA SIGNATURE PANEL: The following modified sections: Comprehension - Score, Expression - Score, Social Interaction - Scor e, Problem Solving - Score, Memory - Score were [electronically] signed by LINN Carlton on Mon 13:47:13 GMT-0500 (Central Daylight Time)
[2018-02-02] MEDS: ATORVASTATIN 80 MG TAB PO SCH (20:25)
--- NOTE | 2018-02-03 05:03 | FAST ---
SHIFT START DATE/TIME: 02/02/2018 19:00 (CDT) SHIFT END DATE/TIME: 02/03/2018 07:00 (CDT) NAME MAURICE SIFUENTES DATE OF : 1935 DATE OF ADMISSION: 01/29/2018 17:19 (CDT) PHONE: AGE: 82 [facility]# [id number] GENDER: Female ENCOUNTER PHYSICIAN: Dr. Glen Davidson M.D. 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 EATING: Activity did not occur on this shift EATING - SCORE: 0-UNK GROOMING: Oral care Wash, rinse, and dry face Wash, rinse, and dry hands GROOMING - STEP 1: Does the patient require assistance when grooming? Yes. GROOMING - STEP 2: Does the patient require the assistance of a helper? Yes. GROOMING - STEP 3: How much assistance does the patient require from the helper? Only prior equipment preparation/set up from the helper GROOMING - SCORE: 5-SUP BATHING: Activity did not occur on this shift BATHING - SCORE: 0-UNK DRESSING - UPPER BODY: Patient is not dressing in public clothing ARTICLES SCORE Total number of steps: 0 DRESSING - UPPER BODY - SCORE: 0-UNK DRESSING - LOWER BODY: Patient is not dressing in public clothing ARTICLES SCORE Total number of steps: 0 DRESSING - LOWER BODY - SCORE: 0-UNK TOILETING: TOILETING - STEP 1: Does the patient require assistance with toileting? Yes. TOILETING - STEP 2: Does the patient require the assistance of a helper? Yes. TOILETING - STEP 3: How much assistance does the patient require from the helper? Hands-on assistance from the helper TOILETING - STEP 4: Of the 3 tasks: 1) Adjusting clothing prior to use, 2) Cleansing of perineal area, 3) Adjusting clot nisha after use; How many tasks does the patient perform WITHOUT assistance of the helper? Three tasks with steadying assistance from the helper TOILETING - SCORE: 4-MIN BLADDER MANAGEMENT: BLADDER MANAGEMENT - STEP 1: Does the patient control the bladder completely and intentionally without equipment or devices or med ications, and is always continent? No. BLADDER MANAGEMENT - STEP 2: Does the patient require the assistance of a helper? Yes. BLADDER MANAGEMENT - STEP 3: How much assistance does the patient require from the helper? Patient requires contact assistance fro m the helper BLADDER MANAGEMENT - STEP 4: How much contact assistance does the patient require from the helper? Patient requires minimal assist ance to maintain an external device - by positioning, and the patient performs 75% or more of bladder management tasks, while the helper provides less than 25% of the assistance to position patient on / off bedpan BLADDER MANAGEMENT - SCORE: 4-MIN BOWEL MANAGEMENT: Activity did not occur on this shift BOWEL MANAGEMENT - SCORE: 7-IND TRANSFERS: BED, CHAIR, WHEELCHAIR: TRANSFERS: BED, CHAIR, WHEELCHAIR - STEP 1: Does the patient require assistance with bed, chair, or wheelchair transfers? Yes. TRANSFERS: BED, CHAIR, WHEELCHAIR - STEP 2: Does the patient require the assistance of a helper? Yes. TRANSFERS: BED, CHAIR, WHEELCHAIR - STEP 3: How much assistance does the patient require from the helper? Steadying/guiding assistance TRANSFERS: BED, CHAIR, WHEELCHAIR - SCORE: 4-MIN TRANSFERS: TOILET: TRANSFERS: TOILET - STEP 1: Does the patient require assistance with toilet transfers? Yes. TRANSFERS: TOILET - STEP 2: Does the patient require the assistance of a helper? Yes. TRANSFERS: TOILET - STEP 3: How much assistance does the patient require from the helper? Patient performs half or more of the tr ansferring tasks TRANSFERS: TOILET - STEP 4: Does the patient need only incidental help such as contact guard or steadying during toilet transfer? Yes. TRANSFERS: TOILET - SCORE: 4-MIN TRANSFERS: SHOWER: Activity did not occur on this shift TRANSFERS: SHOWER - SCORE: 0-UNK TRANSFERS: TUB: Activity did not occur on this shift TRANSFERS: TUB - SCORE: 0-UNK LOCOMOTION: WALK: Activity did not occur on this shift LOCOMOTION: WALK - SCORE: 0-UNK LOCOMOTION: WHEELCHAIR: Activity did not occur on this shift LOCOMOTION: WHEELCHAIR - SCORE: 0-UNK COMPREHENSION: COMPREHENSION: TYPE: Both COMPREHENSION - STEP 1: Does the patient require help to understand complex and abstract ideas (such as current events, finan naveen, discharge planning, medical issues, relationships, etc)? No. COMPREHENSION - STEP 2: Does the patient need extra time, require an assistive device (such as glasses, hearing aids, or an a ugmentative communication system), OR does s/he have mild difficulty expressing complex and abstract ideas (including mild dysarthria or mild word-finding problems)? Yes. COMPREHENSION - SCORE: 6-SONYA EXPRESSION EXPRESSION: TYPE: Both EXPRESSION - STEP 1: Does the patient require help expressing complex and abstract ideas (such as current events, finances , discharge planning, medical issues, relationships, etc)? No. EXPRESSION - STEP 2: Does the patient need extra time, require an assistive device (such as augmentive communication syste m or a communication board), OR does s/he have mild difficulty expressing complex and abstract ideas (including mild dysarthria or mild word-find problems)? Yes. EXPRESSION - SCORE: 6-SONYA SOCIAL INTERACTION: SOCIAL INTERACTION - STEP 1: Does the patient require a helper to interact with others in social and therapeutic situations? No. SOCIAL INTERACTION - STEP 2: Does the patient need extra time in social situations, OR does s/he interact with staff, other patien ts, and family members ONLY in structured environments, OR does s/he require medication for social in teraction? No. SOCIAL INTERACTION - SCORE: 7-IND PROBLEM SOLVING: PROBLEM SOLVING - STEP 1: Does the patient need help to solve complex problems such as managing a checking account or confronti ng interpersonal problems? No. PROBLEM SOLVING - STEP 2: Does the patient require extra time to make decisions or solve problems, OR does s/he have slight dif ficulty reading, initiating, or self-correcting in unfamiliar situations? Yes, patient needs extra ti me. PROBLEM SOLVING - SCORE: 6-SONYA MEMORY: MEMORY - STEP 1: Does the patient need help to remember frequently encountered people, daily routines, and executing r equests? No. MEMORY - STEP 2: Does the patient have slight difficulty recognizing frequently encountered people, daily routines, or executing requests without the need for repetition or using self-initiated or environmental cues to remember? Yes. MEMORY - SCORE: 6-SONYA
[2018-02-03] MEDS: LEVOTHYROXINE SOD 0.05 MG TABLET PO SCH (05:14)
[2018-02-03] MEDS: CARVEDILOL 12.5 MG TAB PO SCH ×2 (05:14→17:17)
[2018-02-03] MEDS: LOSARTAN POTASSIUM 50 MG TABLET PO SCH (07:13)
[2018-02-03] MEDS: APIXABAN 5 MG TABLET PO SCH ×2 (07:13→20:09)
[2018-02-03] MEDS: FAMOTIDINE 20 MG TAB PO SCH ×2 (07:13→20:09)
[2018-02-03] MEDS: DOCUSATE NA/SENNA CONC 1 TAB PO SCH ×3 (07:13→20:00)
[2018-02-03] MEDS: FOLIC ACID 1 MG TABLET PO SCH (07:13)
[2018-02-03] MEDS: CRANBERRY FRUIT EXTRACT 200 MG CAP PO SCH ×2 (07:13→20:09)
[2018-02-03] MEDS: ASPIRIN 81 MG CHEWABLE TABLET PO SCH (07:13)
[2018-02-03] MEDS: NAMENDA 28 MG PO SCH (07:13)
--- NOTE | 2018-02-03 12:39 | FAST ---
ENCOUNTER DATE AND TIME: 02/02/2018 08:00 (CDT) NAME MAURICE SIFUENTES DATE OF : 1935 DATE OF ADMISSION: 01/29/2018 17:19 (CDT) PHONE: AGE: 82 N# [id number] GENDER: Female ENCOUNTER PHYSICIAN: Dr. Glen Davidson M.D. 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 EATING: Activity did not occur on this shift EATING - SCORE: 0-UNK GROOMING: Activity did not occur on this shift GROOMING - SCORE: 0-UNK BATHING: Activity did not occur on this shift BATHING - SCORE: 0-UNK DRESSING - UPPER BODY: Activity did not occur on this shift Patient is not dressing in public clothing ARTICLES SCORE Total number of steps: 0 DRESSING - UPPER BODY - SCORE: 0-UNK DRESSING - LOWER BODY: Activity did not occur on this shift Patient is not dressing in public clothing ARTICLES SCORE Total number of steps: 0 DRESSING - LOWER BODY - SCORE: 0-UNK TOILETING: Activity did not occur on this shift TOILETING - SCORE: 0-UNK BLADDER MANAGEMENT: Activity did not occur on this shift BLADDER MANAGEMENT - SCORE: 7-IND BOWEL MANAGEMENT: Activity did not occur on this shift BOWEL MANAGEMENT - SCORE: 7-IND TRANSFERS: BED, CHAIR, WHEELCHAIR: TRANSFERS: BED, CHAIR, WHEELCHAIR - STEP 1: Does the patient require assistance with bed, chair, or wheelchair transfers? Yes. TRANSFERS: BED, CHAIR, WHEELCHAIR - STEP 2: Does the patient require the assistance of a helper? No. Patient only requires an assistive device fo r bed, chair, wheelchair transfers such as a sliding board, grab bar, or brace, OR s/he takes more th an reasonable time, OR there is a safety concern when s/he performs the transfers TRANSFERS: BED, CHAIR, WHEELCHAIR - SCORE: 6-SONYA TRANSFERS: TOILET: Activity did not occur on this shift TRANSFERS: TOILET - SCORE: 0-UNK TRANSFERS: SHOWER: Activity did not occur on this shift TRANSFERS: SHOWER - SCORE: 0-UNK TRANSFERS: TUB: Activity did not occur on this shift TRANSFERS: TUB - SCORE: 0-UNK LOCOMOTION: WALK: LOCOMOTION: WALK - STEP 1: Does the patient need help to walk 150 feet? Yes. LOCOMOTION: WALK - STEP 2: How much assistance does the patient require to walk a minimum of 150 feet? Only supervision, cuing, or coaxing LOCOMOTION: WALK - SCORE: 5-SUP LOCOMOTION: WHEELCHAIR: Activity did not occur on this shift LOCOMOTION: WHEELCHAIR - SCORE: 0-UNK LOCOMOTION: STAIRS: Activity did not occur on this shift LOCOMOTION: STAIRS - SCORE: 0-UNK COMPREHENSION: COMPREHENSION - SCORE: 0-UNK EXPRESSION EXPRESSION - SCORE: 0-UNK SOCIAL INTERACTION: SOCIAL INTERACTION - SCORE: 0-UNK PROBLEM SOLVING: PROBLEM SOLVING - SCORE: 0-UNK MEMORY: MEMORY - SCORE: 0-UNK SIGNATURE PANEL: The following modified sections: Transfers: Bed, Chair, Wheelchair - Score, Transfers: Toilet - Score , Locomotion: Walk - Score, Locomotion: Wheelchair - Score, Locomotion: Stairs - Score were [electron ically] signed by Jan Bush PTA on Sat Feb 03 2018 11:39:04 GMT-0500 (Central Daylight Time)
--- NOTE | 2018-02-03 12:54 | FAST ---
ENCOUNTER DATE AND TIME: 02/03/2018 08:00 (CDT) NAME MAURICE SIFUENTES DATE OF : 1935 DATE OF ADMISSION: 01/29/2018 17:19 (CDT) PHONE: AGE: 82 N# [id number] GENDER: Female ENCOUNTER PHYSICIAN: Dr. Glen Davidson M.D. 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 EATING: Activity did not occur on this shift EATING - SCORE: 0-UNK GROOMING: Activity did not occur on this shift GROOMING - SCORE: 0-UNK BATHING: Activity did not occur on this shift BATHING - SCORE: 0-UNK DRESSING - UPPER BODY: Activity did not occur on this shift Patient is not dressing in public clothing ARTICLES SCORE Total number of steps: 0 DRESSING - UPPER BODY - SCORE: 0-UNK DRESSING - LOWER BODY: Activity did not occur on this shift Patient is not dressing in public clothing ARTICLES SCORE Total number of steps: 0 DRESSING - LOWER BODY - SCORE: 0-UNK TOILETING: Activity did not occur on this shift TOILETING - SCORE: 0-UNK BLADDER MANAGEMENT: Activity did not occur on this shift BLADDER MANAGEMENT - SCORE: 7-IND BOWEL MANAGEMENT: Activity did not occur on this shift BOWEL MANAGEMENT - SCORE: 7-IND TRANSFERS: BED, CHAIR, WHEELCHAIR: TRANSFERS: BED, CHAIR, WHEELCHAIR - STEP 1: Does the patient require assistance with bed, chair, or wheelchair transfers? Yes. TRANSFERS: BED, CHAIR, WHEELCHAIR - STEP 2: Does the patient require the assistance of a helper? No. Patient only requires an assistive device fo r bed, chair, wheelchair transfers such as a sliding board, grab bar, or brace, OR s/he takes more th an reasonable time, OR there is a safety concern when s/he performs the transfers TRANSFERS: BED, CHAIR, WHEELCHAIR - SCORE: 6-SONYA TRANSFERS: TOILET: Activity did not occur on this shift TRANSFERS: TOILET - SCORE: 0-UNK TRANSFERS: SHOWER: Activity did not occur on this shift TRANSFERS: SHOWER - SCORE: 0-UNK TRANSFERS: TUB: Activity did not occur on this shift TRANSFERS: TUB - SCORE: 0-UNK LOCOMOTION: WALK: LOCOMOTION: WALK - STEP 1: Does the patient need help to walk 150 feet? No. LOCOMOTION: WALK - STEP 2: Does the patient need an assistive device (such as an orthosis, prosthesis, crutches, or walker) to g o 150 feet, OR does s/he take more than reasonable time, OR is there a concern for safety? Yes, the p atient needs an assistive device LOCOMOTION: WALK - SCORE: 6-SONYA LOCOMOTION: WHEELCHAIR: LOCOMOTION: WHEELCHAIR - STEP 1: Does the patient need help to go 150 feet in a wheelchair? No. LOCOMOTION: WHEELCHAIR - SCORE: 6-SONYA LOCOMOTION: STAIRS: LOCOMOTION: STAIRS - STEP 1: Does the patient need help to go up and down 12 to 14 stairs? No. LOCOMOTION: STAIRS - STEP 2: Does the patient require an assistive device - such as handrails or cane - to go up and down one flig ht of stairs, OR does s/he take more than reasonable time, OR is there a concern for safety? Yes, the patient requires an assistive device LOCOMOTION: STAIRS - SCORE: 6-SONYA COMPREHENSION: COMPREHENSION - SCORE: 0-UNK EXPRESSION EXPRESSION - SCORE: 0-UNK SOCIAL INTERACTION: SOCIAL INTERACTION - SCORE: 0-UNK PROBLEM SOLVING: PROBLEM SOLVING - SCORE: 0-UNK MEMORY: MEMORY - SCORE: 0-UNK SIGNATURE PANEL: The following modified sections: Transfers: Bed, Chair, Wheelchair - Score, Transfers: Toilet - Score , Locomotion: Walk - Score, Locomotion: Wheelchair - Score, Locomotion: Stairs - Score were [claudio aguilar] signed by Jan Bush PTA on Sat Feb 03 2018 11:54:05 GMT-0500 (Central Daylight Time)
--- NOTE | 2018-02-03 15:36 | FAST ---
SHIFT START DATE/TIME: 02/03/2018 07:00 (CDT) SHIFT END DATE/TIME: 02/03/2018 19:00 (CDT) NAME MAURICE SIFUENTES DATE OF : 1935 DATE OF ADMISSION: 01/29/2018 17:19 (CDT) PHONE: AGE: 82 [facility]# [id number] GENDER: Female ENCOUNTER PHYSICIAN: Dr. Glen Davidson M.D. 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 EATING: EATING - STEP 1: Does the patient require assistance when eating? Yes. EATING - STEP 2: Does the patient require the assistance of a helper? Yes. EATING - STEP 3: Does the patient perform half or more of the eating tasks? Yes. EATING - STEP 4: Does the patient need only supervision, cuing, coaxing OR help to apply an orthosis OR help to cut fo od, open containers, pour liquids, or butter bread? Yes. EATING - SCORE: 5-SUP GROOMING: Comb/brush hair Oral care Wash, rinse, and dry face Wash, rinse, and dry hands GROOMING - STEP 1: Does the patient require assistance when grooming? Yes. GROOMING - STEP 2: Does the patient require the assistance of a helper? No. The patient only requires an assistive devic e, OR takes more than reasonable time to groom, OR there is a concern for safety as the patient groom s GROOMING - SCORE: 6-SONYA BATHING: Activity did not occur on this shift BATHING - SCORE: 0-UNK DRESSING - UPPER BODY: Bra (three steps) T-shirt/pullover shirt (four steps) ARTICLES SCORE Total number of steps: 7 DRESSING - UPPER BODY - STEP 1: Does the patient require help when dressing above the waist? Yes. DRESSING - UPPER BODY - STEP 2: Does the patient require the assistance of a helper? No. Patient only requires an assistive device, s uch as a button hook, velcro, or newcomer hostess. OR s/he takes more than reasonable time as s/he dresses the upper body. OR there is a concern for safety when s/he dresses the upper body DRESSING - UPPER BODY - SCORE: 6-SONYA DRESSING - LOWER BODY: Elastic waist pants (three steps) Tied or buckled shoe - Left foot (two steps) Tied or buckled shoe - Right foot (two steps) Underwear (three steps) ARTICLES SCORE Total number of steps: 10 DRESSING - LOWER BODY - STEP 1: Does the patient require help when dressing below the waist? Yes. DRESSING - LOWER BODY - STEP 2: Does the patient require the assistance of a helper? Yes. DRESSING - LOWER BODY - STEP 3: Does the helper touch the patient while dressing? No. DRESSING - LOWER BODY - SCORE: 5-SUP TOILETING: TOILETING - STEP 1: Does the patient require assistance with toileting? Yes. TOILETING - STEP 2: Does the patient require the assistance of a helper? Yes. TOILETING - STEP 3: How much assistance does the patient require from the helper? Only supervision TOILETING - SCORE: 5-SUP BLADDER MANAGEMENT: BLADDER MANAGEMENT - STEP 1: Does the patient control the bladder completely and intentionally without equipment or devices or med ications, and is always continent? No. BLADDER MANAGEMENT - STEP 2: Does the patient require the assistance of a helper? No, patient only requires extra time BLADDER MANAGEMENT - SCORE: 6-SONYA BLADDER MANAGEMENT - FREQUENCY OF ACCIDENTS: BLADDER MANAGEMENT(FA) - STEP 1: How many accidents has the patient had during the current shift? 0 BOWEL MANAGEMENT: BOWEL MANAGEMENT - STEP 1: Does the patient control bowels completely and intentionally without equipment devices or medications AND is always continent? Yes. BOWEL MANAGEMENT - SCORE: 7-IND BOWEL MANAGEMENT - FREQUENCY OF ACCIDENTS: BOWEL MANAGEMENT(FA) - STEP 1: How many accidents has the patient had during the current shift? 0 TRANSFERS: BED, CHAIR, WHEELCHAIR: TRANSFERS: BED, CHAIR, WHEELCHAIR - STEP 1: Does the patient require assistance with bed, chair, or wheelchair transfers? Yes. TRANSFERS: BED, CHAIR, WHEELCHAIR - STEP 2: Does the patient require the assistance of a helper? Yes. TRANSFERS: BED, CHAIR, WHEELCHAIR - STEP 3: How much assistance does the patient require from the helper? Only supervision TRANSFERS: BED, CHAIR, WHEELCHAIR - SCORE: 5-SUP TRANSFERS: TOILET: TRANSFERS: TOILET - STEP 1: Does the patient require assistance with toilet transfers? Yes. TRANSFERS: TOILET - STEP 2: Does the patient require the assistance of a helper? Yes. TRANSFERS: TOILET - STEP 3: How much assistance does the patient require from the helper? Patient performs half or more of the tr ansferring tasks TRANSFERS: TOILET - STEP 4: Does the patient need only incidental help such as contact guard or steadying during toilet transfer? Yes. TRANSFERS: TOILET - SCORE: 4-MIN TRANSFERS: SHOWER: Activity did not occur on this shift TRANSFERS: SHOWER - SCORE: 0-UNK TRANSFERS: TUB: Activity did not occur on this shift TRANSFERS: TUB - SCORE: 0-UNK LOCOMOTION: WALK: Activity did not occur on this shift LOCOMOTION: WALK - SCORE: 0-UNK LOCOMOTION: WHEELCHAIR: LOCOMOTION: WHEELCHAIR - STEP 1: Does the patient need help to go 150 feet in a wheelchair? Yes. LOCOMOTION: WHEELCHAIR - STEP 2: How much assistance does the patient need from the helper? Only supervision, cuing, or coaxing LOCOMOTION: WHEELCHAIR - SCORE: 5-SUP COMPREHENSION: COMPREHENSION - STEP 1: Does the patient require help to understand complex and abstract ideas (such as current events, finan naveen, discharge planning, medical issues, relationships, etc)? No. COMPREHENSION - STEP 2: Does the patient need extra time, require an assistive device (such as glasses, hearing aids, or an a ugmentative communication system), OR does s/he have mild difficulty expressing complex and abstract ideas (including mild dysarthria or mild word-finding problems)? Yes. COMPREHENSION - SCORE: 6-SONYA EXPRESSION EXPRESSION - STEP 1: Does the patient require help expressing complex and abstract ideas (such as current events, finances , discharge planning, medical issues, relationships, etc)? No. EXPRESSION - STEP 2: Does the patient need extra time, require an assistive device (such as augmentive communication syste m or a communication board), OR does s/he have mild difficulty expressing complex and abstract ideas (including mild dysarthria or mild word-find problems)? Yes. EXPRESSION - SCORE: 6-SONYA SOCIAL INTERACTION: SOCIAL INTERACTION - STEP 1: Does the patient require a helper to interact with others in social and therapeutic situations? No. SOCIAL INTERACTION - STEP 2: Does the patient need extra time in social situations, OR does s/he interact with staff, other patien ts, and family members ONLY in structured environments, OR does s/he require medication for social in teraction? No. SOCIAL INTERACTION - SCORE: 7-IND PROBLEM SOLVING: PROBLEM SOLVING - STEP 1: Does the patient need help to solve complex problems such as managing a checking account or confronti ng interpersonal problems? No. PROBLEM SOLVING - STEP 2: Does the patient require extra time to make decisions or solve problems, OR does s/he have slight dif ficulty reading, initiating, or self-correcting in unfamiliar situations? Yes, patient needs extra ti me. PROBLEM SOLVING - SCORE: 6-SONYA MEMORY: MEMORY - STEP 1: Does the patient need help to remember frequently encountered people, daily routines, and executing r equests? No. MEMORY - STEP 2: Does the patient have slight difficulty recognizing frequently encountered people, daily routines, or executing requests without the need for repetition or using self-initiated or environmental cues to remember? Yes. MEMORY - SCORE: 6-SONYA SIGNATURE PANEL: The following modified sections: Eating - Score, Grooming - Score, Bathing - Score, Dressing - Upper Body - Score, Dressing - Lower Body - Score, Toileting - Score, Bladder Management - Score, Bowel Man agement - Score, Transfers: Bed, Chair, Wheelchair - Score, Transfers: Toilet - Score, Transfers: Sara wer - Score, Transfers: Tub - Score, Locomotion: Walk - Score, Locomotion: Wheelchair - Score, Compre hension - Score, Expression - Score, Social Interaction - Score, Problem Solving - Score, Memory - Sc ore were [electronically] signed by Ana Weeks C.N.A. on Sat Feb 03 2018 14:36:10 T-0500 (Centra l Daylight Time)
--- NOTE | 2018-02-03 15:48 | FAST ---
ENCOUNTER DATE AND TIME: 02/03/2018 08:00 (CDT) NAME MAURICE SIFUENTES DATE OF : 1935 DATE OF ADMISSION: 01/29/2018 17:19 (CDT) PHONE: AGE: 82 N# [id number] GENDER: Female ENCOUNTER PHYSICIAN: Dr. Glen Davidson M.D. 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 EATING: Activity did not occur on this shift EATING - SCORE: 0-UNK GROOMING: Comb/brush hair GROOMING - STEP 1: Does the patient require assistance when grooming? No. GROOMING - SCORE: 7-IND BATHING: Abdomen Buttocks Chest Left arm Left lower leg and foot Left upper leg Perineal area Right arm Right lower leg and foot Right upper leg BATHING - STEP 1: Does the patient require assistance when bathing? Yes. BATHING - STEP 2: Does the patient require the assistance of a helper? Yes. BATHING - STEP 3: How much assistance does the patient require from the helper? Only supervision, cuing, coaxing, instr uctions, encouragement BATHING - SCORE: 5-SUP DRESSING - UPPER BODY: Bra (three steps) T-shirt/pullover shirt (four steps) ARTICLES SCORE Total number of steps: 7 DRESSING - UPPER BODY - STEP 1: Does the patient require help when dressing above the waist? No. DRESSING - UPPER BODY - SCORE: 7-IND DRESSING - LOWER BODY: Elastic waist pants (three steps) Slip-on shoe - Left foot (one step) Slip-on shoe - Right foot (one step) Underwear (three steps) ARTICLES SCORE Total number of steps: 8 DRESSING - LOWER BODY - STEP 1: Does the patient require help when dressing below the waist? Yes. DRESSING - LOWER BODY - STEP 2: Does the patient require the assistance of a helper? Yes. DRESSING - LOWER BODY - STEP 3: Does the helper touch the patient while dressing? No. DRESSING - LOWER BODY - SCORE: 5-SUP TOILETING: Activity did not occur on this shift TOILETING - SCORE: 0-UNK BLADDER MANAGEMENT: Activity did not occur on this shift BLADDER MANAGEMENT - SCORE: 7-IND BOWEL MANAGEMENT: Activity did not occur on this shift BOWEL MANAGEMENT - SCORE: 7-IND TRANSFERS: BED, CHAIR, WHEELCHAIR: Activity did not occur on this shift TRANSFERS: BED, CHAIR, WHEELCHAIR - SCORE: 0-UNK TRANSFERS: TOILET: Activity did not occur on this shift TRANSFERS: TOILET - SCORE: 0-UNK TRANSFERS: SHOWER: Activity did not occur on this shift TRANSFERS: SHOWER - SCORE: 0-UNK TRANSFERS: TUB: TRANSFERS: TUB - STEP 1: Does the patient require assistance with tub transfers? Yes. TRANSFERS: TUB - STEP 2: Does the patient require the assistance of a helper? Yes. TRANSFERS: TUB - STEP 3: How much assistance does the patient require from the helper? Only supervision, cuing, coaxing, or he lp to set out transfer equipment or to lock brakes and/or lift foot rests TRANSFERS: TUB - SCORE: 5-SUP LOCOMOTION: WALK: Activity did not occur on this shift LOCOMOTION: WALK - SCORE: 0-UNK LOCOMOTION: WHEELCHAIR: Activity did not occur on this shift LOCOMOTION: WHEELCHAIR - SCORE: 0-UNK LOCOMOTION: STAIRS: Activity did not occur on this shift LOCOMOTION: STAIRS - SCORE: 0-UNK COMPREHENSION: COMPREHENSION: TYPE: Both COMPREHENSION - STEP 1: Does the patient require help to understand complex and abstract ideas (such as current events, finan naveen, discharge planning, medical issues, relationships, etc)? No. COMPREHENSION - STEP 2: Does the patient need extra time, require an assistive device (such as glasses, hearing aids, or an a ugmentative communication system), OR does s/he have mild difficulty expressing complex and abstract ideas (including mild dysarthria or mild word-finding problems)? Yes. COMPREHENSION - SCORE: 6-SONYA EXPRESSION EXPRESSION: TYPE: Vocal EXPRESSION - STEP 1: Does the patient require help expressing complex and abstract ideas (such as current events, finances , discharge planning, medical issues, relationships, etc)? No. EXPRESSION - STEP 2: Does the patient need extra time, require an assistive device (such as augmentive communication syste m or a communication board), OR does s/he have mild difficulty expressing complex and abstract ideas (including mild dysarthria or mild word-find problems)? Yes. EXPRESSION - SCORE: 6-SONYA SOCIAL INTERACTION: SOCIAL INTERACTION - STEP 1: Does the patient require a helper to interact with others in social and therapeutic situations? No. SOCIAL INTERACTION - STEP 2: Does the patient need extra time in social situations, OR does s/he interact with staff, other patien ts, and family members ONLY in structured environments, OR does s/he require medication for social in teraction? No. SOCIAL INTERACTION - SCORE: 7-IND PROBLEM SOLVING: PROBLEM SOLVING - STEP 1: Does the patient need help to solve complex problems such as managing a checking account or confronti ng interpersonal problems? Yes. PROBLEM SOLVING - STEP 2: Does the patient solve basic routine problems half or more of the time? Yes. PROBLEM SOLVING - STEP 3: How often does the patient need help to solve basic routine problems? Less than 10% of the time PROBLEM SOLVING - SCORE: 5-SUP MEMORY: MEMORY - STEP 1: Does the patient need help to remember frequently encountered people, daily routines, and executing r equests? Yes. MEMORY - STEP 2: How often does the patient need help to remember frequently encountered people, daily routines, and e xecuting requests? Less than 10% of the time MEMORY - SCORE: 5-SUP SIGNATURE PANEL: The following modified sections: Eating - Score, Grooming - Score, Bathing - Score, Dressing - Upper Body - Score, Dressing - Lower Body - Score, Toileting - Score, Transfers: Bed, Chair, Wheelchair - S core, Transfers: Toilet - Score, Transfers: Shower - Score, Transfers: Tub - Score, Comprehension - S core, Expression - Score, Social Interaction - Score, Problem Solving - Score, Memory - Score were [e lectronically] signed by Madelaine Goncalves OT on MonFeb 03 2018 14:48:03 T-0500 ([facility])
[2018-02-03] MEDS: ATORVASTATIN 80 MG TAB PO SCH (20:09)
[2018-02-04] MEDS: CARVEDILOL 12.5 MG TAB PO SCH ×2 (05:24→16:58)
[2018-02-04] MEDS: LEVOTHYROXINE SOD 0.05 MG TABLET PO SCH (05:25)
[2018-02-04] MEDS: FOLIC ACID 1 MG TABLET PO SCH (07:56)
[2018-02-04] MEDS: ASPIRIN 81 MG CHEWABLE TABLET PO SCH (07:56)
[2018-02-04] MEDS: CRANBERRY FRUIT EXTRACT 200 MG CAP PO SCH ×2 (07:57→20:37)
[2018-02-04] MEDS: LOSARTAN POTASSIUM 50 MG TABLET PO SCH (07:57)
[2018-02-04] MEDS: FAMOTIDINE 20 MG TAB PO SCH ×2 (07:57→20:37)
[2018-02-04] MEDS: APIXABAN 5 MG TABLET PO SCH ×2 (07:57→20:37)
[2018-02-04] MEDS: NAMENDA 28 MG PO SCH (07:57)
[2018-02-04] MEDS: DOCUSATE NA/SENNA CONC 1 TAB PO SCH ×2 (08:00→20:00)
[2018-02-04] MEDS: ATORVASTATIN 80 MG TAB PO SCH (20:38)
--- NOTE | 2018-02-05 03:16 | FAST ---
SHIFT START DATE/TIME: 02/04/2018 19:00 (CDT) SHIFT END DATE/TIME: 02/05/2018 07:00 (CDT) NAME MAURICE SIFUENTES DATE OF : 1935 DATE OF ADMISSION: 01/29/2018 17:19 (CDT) PHONE: AGE: 82 [facility]# [id number] GENDER: Female ENCOUNTER PHYSICIAN: Dr. Glen Davidson M.D. 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 EATING: Activity did not occur on this shift EATING - SCORE: 0-UNK GROOMING: Oral care Wash, rinse, and dry face Wash, rinse, and dry hands GROOMING - STEP 1: Does the patient require assistance when grooming? Yes. GROOMING - STEP 2: Does the patient require the assistance of a helper? Yes. GROOMING - STEP 3: How much assistance does the patient require from the helper? Only prior equipment preparation/set up from the helper GROOMING - SCORE: 5-SUP BATHING: Activity did not occur on this shift BATHING - SCORE: 0-UNK DRESSING - UPPER BODY: Patient is not dressing in public clothing ARTICLES SCORE Total number of steps: 0 DRESSING - UPPER BODY - SCORE: 0-UNK DRESSING - LOWER BODY: Patient is not dressing in public clothing ARTICLES SCORE Total number of steps: 0 DRESSING - LOWER BODY - SCORE: 0-UNK TOILETING: TOILETING - STEP 1: Does the patient require assistance with toileting? Yes. TOILETING - STEP 2: Does the patient require the assistance of a helper? Yes. TOILETING - STEP 3: How much assistance does the patient require from the helper? Hands-on assistance from the helper TOILETING - STEP 4: Of the 3 tasks: 1) Adjusting clothing prior to use, 2) Cleansing of perineal area, 3) Adjusting clot nisha after use; How many tasks does the patient perform WITHOUT assistance of the helper? Three tasks with steadying assistance from the helper TOILETING - SCORE: 4-MIN BLADDER MANAGEMENT: BLADDER MANAGEMENT - STEP 1: Does the patient control the bladder completely and intentionally without equipment or devices or med ications, and is always continent? No. BLADDER MANAGEMENT - STEP 2: Does the patient require the assistance of a helper? Yes. BLADDER MANAGEMENT - STEP 3: How much assistance does the patient require from the helper? Patient requires contact assistance fro m the helper BLADDER MANAGEMENT - STEP 4: How much contact assistance does the patient require from the helper? Patient requires minimal assist ance to maintain an external device - by positioning, and the patient performs 75% or more of bladder management tasks, while the helper provides less than 25% of the assistance to position patient on / off bedpan BLADDER MANAGEMENT - SCORE: 4-MIN BOWEL MANAGEMENT: Activity did not occur on this shift BOWEL MANAGEMENT - SCORE: 7-IND TRANSFERS: BED, CHAIR, WHEELCHAIR: TRANSFERS: BED, CHAIR, WHEELCHAIR - STEP 1: Does the patient require assistance with bed, chair, or wheelchair transfers? Yes. TRANSFERS: BED, CHAIR, WHEELCHAIR - STEP 2: Does the patient require the assistance of a helper? Yes. TRANSFERS: BED, CHAIR, WHEELCHAIR - STEP 3: How much assistance does the patient require from the helper? Steadying/guiding assistance TRANSFERS: BED, CHAIR, WHEELCHAIR - SCORE: 4-MIN TRANSFERS: TOILET: TRANSFERS: TOILET - STEP 1: Does the patient require assistance with toilet transfers? Yes. TRANSFERS: TOILET - STEP 2: Does the patient require the assistance of a helper? Yes. TRANSFERS: TOILET - STEP 3: How much assistance does the patient require from the helper? Only supervision, cuing, coaxing, OR he lp to set out transfer equipment or to lock brakes and/or lift foot rests TRANSFERS: TOILET - SCORE: 5-SUP TRANSFERS: SHOWER: Activity did not occur on this shift TRANSFERS: SHOWER - SCORE: 0-UNK TRANSFERS: TUB: Activity did not occur on this shift TRANSFERS: TUB - SCORE: 0-UNK LOCOMOTION: WALK: Activity did not occur on this shift LOCOMOTION: WALK - SCORE: 0-UNK LOCOMOTION: WHEELCHAIR: Activity did not occur on this shift LOCOMOTION: WHEELCHAIR - SCORE: 0-UNK COMPREHENSION: COMPREHENSION: TYPE: Both COMPREHENSION - STEP 1: Does the patient require help to understand complex and abstract ideas (such as current events, finan naveen, discharge planning, medical issues, relationships, etc)? No. COMPREHENSION - STEP 2: Does the patient need extra time, require an assistive device (such as glasses, hearing aids, or an a ugmentative communication system), OR does s/he have mild difficulty expressing complex and abstract ideas (including mild dysarthria or mild word-finding problems)? Yes. COMPREHENSION - SCORE: 6-SONYA EXPRESSION EXPRESSION: TYPE: Both EXPRESSION - STEP 1: Does the patient require help expressing complex and abstract ideas (such as current events, finances , discharge planning, medical issues, relationships, etc)? No. EXPRESSION - STEP 2: Does the patient need extra time, require an assistive device (such as augmentive communication syste m or a communication board), OR does s/he have mild difficulty expressing complex and abstract ideas (including mild dysarthria or mild word-find problems)? Yes. EXPRESSION - SCORE: 6-SONYA SOCIAL INTERACTION: SOCIAL INTERACTION - STEP 1: Does the patient require a helper to interact with others in social and therapeutic situations? No. SOCIAL INTERACTION - STEP 2: Does the patient need extra time in social situations, OR does s/he interact with staff, other patien ts, and family members ONLY in structured environments, OR does s/he require medication for social in teraction? No. SOCIAL INTERACTION - SCORE: 7-IND PROBLEM SOLVING: PROBLEM SOLVING - STEP 1: Does the patient need help to solve complex problems such as managing a checking account or confronti ng interpersonal problems? No. PROBLEM SOLVING - STEP 2: Does the patient require extra time to make decisions or solve problems, OR does s/he have slight dif ficulty reading, initiating, or self-correcting in unfamiliar situations? Yes, patient needs extra ti me. PROBLEM SOLVING - SCORE: 6-SONYA MEMORY: MEMORY - STEP 1: Does the patient need help to remember frequently encountered people, daily routines, and executing r equests? No. MEMORY - STEP 2: Does the patient have slight difficulty recognizing frequently encountered people, daily routines, or executing requests without the need for repetition or using self-initiated or environmental cues to remember? Yes. MEMORY - SCORE: 6-SONYA
[2018-02-05] MEDS: CARVEDILOL 12.5 MG TAB PO SCH ×2 (05:18→17:30)
[2018-02-05] MEDS: LEVOTHYROXINE SOD 0.05 MG TABLET PO SCH (05:18)
[2018-02-05] MEDS: DOCUSATE NA/SENNA CONC 1 TAB PO SCH ×2 (08:00→20:00)
[2018-02-05] MEDS: CRANBERRY FRUIT EXTRACT 200 MG CAP PO SCH ×2 (08:02→20:13)
[2018-02-05] MEDS: FOLIC ACID 1 MG TABLET PO SCH (08:03)
[2018-02-05] MEDS: APIXABAN 5 MG TABLET PO SCH ×2 (08:03→20:13)
[2018-02-05] MEDS: FAMOTIDINE 20 MG TAB PO SCH ×2 (08:03→20:13)
[2018-02-05] MEDS: ASPIRIN 81 MG CHEWABLE TABLET PO SCH (08:03)
[2018-02-05] MEDS: LOSARTAN POTASSIUM 50 MG TABLET PO SCH (08:04)
[2018-02-05] MEDS: NAMENDA 28 MG PO SCH (08:05)
--- NOTE | 2018-02-05 13:09 | FAST ---
ENCOUNTER DATE AND TIME: 02/05/2018 08:00 (CDT) NAME MAURICE SIFUENTES DATE OF : 1935 DATE OF ADMISSION: 01/29/2018 17:19 (CDT) PHONE: AGE: 82 N# [id number] GENDER: Female ENCOUNTER PHYSICIAN: Dr. Glen Davidson M.D. 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 EATING: Activity did not occur on this shift EATING - SCORE: 0-UNK GROOMING: Comb/brush hair Wash, rinse, and dry face Wash, rinse, and dry hands GROOMING - STEP 1: Does the patient require assistance when grooming? No. GROOMING - SCORE: 7-IND BATHING: Abdomen Buttocks Chest Left arm Left lower leg and foot Left upper leg Perineal area Right arm Right lower leg and foot Right upper leg BATHING - STEP 1: Does the patient require assistance when bathing? Yes. BATHING - STEP 2: Does the patient require the assistance of a helper? No. The patient only requires an assistive devic e such as a bath donna, OR the patient takes more than reasonable time to bathe, OR there is a concern for safety such as regulating water temperature as the patient bathes. BATHING - SCORE: 6-SONYA DRESSING - UPPER BODY: Bra (three steps) T-shirt/pullover shirt (four steps) ARTICLES SCORE Total number of steps: 7 DRESSING - UPPER BODY - STEP 1: Does the patient require help when dressing above the waist? No. DRESSING - UPPER BODY - SCORE: 7-IND DRESSING - LOWER BODY: Elastic waist pants (three steps) Slip-on shoe - Left foot (one step) Slip-on shoe - Right foot (one step) Underwear (three steps) ARTICLES SCORE Total number of steps: 8 DRESSING - LOWER BODY - STEP 1: Does the patient require help when dressing below the waist? Yes. DRESSING - LOWER BODY - STEP 2: Does the patient require the assistance of a helper? No. Patient requires an assistive device such as a mold stripper. OR s/he takes more than reasonable time as s/he dresses the lower body, OR there is a con cern for safety when s/he dresses the lower body DRESSING - LOWER BODY - SCORE: 6-SONYA TOILETING: Activity did not occur on this shift TOILETING - SCORE: 0-UNK BLADDER MANAGEMENT: Activity did not occur on this shift BLADDER MANAGEMENT - SCORE: 7-IND BOWEL MANAGEMENT: Activity did not occur on this shift BOWEL MANAGEMENT - SCORE: 7-IND TRANSFERS: BED, CHAIR, WHEELCHAIR: Activity did not occur on this shift TRANSFERS: BED, CHAIR, WHEELCHAIR - SCORE: 0-UNK TRANSFERS: TOILET: Activity did not occur on this shift TRANSFERS: TOILET - SCORE: 0-UNK TRANSFERS: SHOWER: Activity did not occur on this shift TRANSFERS: SHOWER - SCORE: 0-UNK TRANSFERS: TUB: TRANSFERS: TUB - STEP 1: Does the patient require assistance with tub transfers? Yes. TRANSFERS: TUB - STEP 2: Does the patient require the assistance of a helper? Yes. TRANSFERS: TUB - STEP 3: How much assistance does the patient require from the helper? Only supervision, cuing, coaxing, or he lp to set out transfer equipment or to lock brakes and/or lift foot rests TRANSFERS: TUB - SCORE: 5-SUP LOCOMOTION: WALK: Activity did not occur on this shift LOCOMOTION: WALK - SCORE: 0-UNK LOCOMOTION: WHEELCHAIR: Activity did not occur on this shift LOCOMOTION: WHEELCHAIR - SCORE: 0-UNK LOCOMOTION: STAIRS: Activity did not occur on this shift LOCOMOTION: STAIRS - SCORE: 0-UNK COMPREHENSION: COMPREHENSION - SCORE: 0-UNK EXPRESSION EXPRESSION - SCORE: 0-UNK SOCIAL INTERACTION: SOCIAL INTERACTION - SCORE: 0-UNK PROBLEM SOLVING: PROBLEM SOLVING - SCORE: 0-UNK MEMORY: MEMORY - SCORE: 0-UNK SIGNATURE PANEL: The following modified sections: Eating - Score, Grooming - Score, Bathing - Score, Dressing - Upper Body - Score, Dressing - Lower Body - Score, Toileting - Score, Transfers: Bed, Chair, Wheelchair - S core, Transfers: Toilet - Score, Transfers: Shower - Score, Transfers: Tub - Score, Comprehension - S core, Expression - Score, Social Interaction - Score, Problem Solving - Score, Memory - Score were [e lectronically] signed by ELAINE Shepherd on MonFeb 05 2018 12:09:46 [facility]-0500 ([facility] Time)
--- NOTE | 2018-02-05 14:26 | FAST ---
ENCOUNTER DATE AND TIME: 02/05/2018 08:00 (CDT) NAME MAURICE SIFUENTES DATE OF : 1935 DATE OF ADMISSION: 01/29/2018 17:19 (CDT) PHONE: AGE: 82 N# [id number] GENDER: Female ENCOUNTER PHYSICIAN: Dr. Glen Davidson M.D. 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 EATING: Activity did not occur on this shift EATING - SCORE: 0-UNK GROOMING: Activity did not occur on this shift GROOMING - SCORE: 0-UNK BATHING: Activity did not occur on this shift BATHING - SCORE: 0-UNK DRESSING - UPPER BODY: Activity did not occur on this shift Patient is not dressing in public clothing ARTICLES SCORE Total number of steps: 0 DRESSING - UPPER BODY - SCORE: 0-UNK DRESSING - LOWER BODY: Activity did not occur on this shift Patient is not dressing in public clothing ARTICLES SCORE Total number of steps: 0 DRESSING - LOWER BODY - SCORE: 0-UNK TOILETING: Activity did not occur on this shift TOILETING - SCORE: 0-UNK BLADDER MANAGEMENT: Activity did not occur on this shift BLADDER MANAGEMENT - SCORE: 7-IND BOWEL MANAGEMENT: Activity did not occur on this shift BOWEL MANAGEMENT - SCORE: 7-IND TRANSFERS: BED, CHAIR, WHEELCHAIR: TRANSFERS: BED, CHAIR, WHEELCHAIR - STEP 1: Does the patient require assistance with bed, chair, or wheelchair transfers? Yes. TRANSFERS: BED, CHAIR, WHEELCHAIR - STEP 2: Does the patient require the assistance of a helper? No. Patient only requires an assistive device fo r bed, chair, wheelchair transfers such as a sliding board, grab bar, or brace, OR s/he takes more th an reasonable time, OR there is a safety concern when s/he performs the transfers TRANSFERS: BED, CHAIR, WHEELCHAIR - SCORE: 6-SONYA TRANSFERS: TOILET: Activity did not occur on this shift TRANSFERS: TOILET - SCORE: 0-UNK TRANSFERS: SHOWER: Activity did not occur on this shift TRANSFERS: SHOWER - SCORE: 0-UNK TRANSFERS: TUB: Activity did not occur on this shift TRANSFERS: TUB - SCORE: 0-UNK LOCOMOTION: WALK: LOCOMOTION: WALK - STEP 1: Does the patient need help to walk 150 feet? No. LOCOMOTION: WALK - STEP 2: Does the patient need an assistive device (such as an orthosis, prosthesis, crutches, or walker) to g o 150 feet, OR does s/he take more than reasonable time, OR is there a concern for safety? Yes, the p atient needs an assistive device LOCOMOTION: WALK - SCORE: 6-SONYA LOCOMOTION: WHEELCHAIR: Activity did not occur on this shift LOCOMOTION: WHEELCHAIR - SCORE: 0-UNK LOCOMOTION: STAIRS: LOCOMOTION: STAIRS - STEP 1: Does the patient need help to go up and down 12 to 14 stairs? No. LOCOMOTION: STAIRS - STEP 2: Does the patient require an assistive device - such as handrails or cane - to go up and down one flig ht of stairs, OR does s/he take more than reasonable time, OR is there a concern for safety? Yes, the patient requires an assistive device LOCOMOTION: STAIRS - SCORE: 6-SONYA COMPREHENSION: COMPREHENSION - SCORE: 0-UNK EXPRESSION EXPRESSION - SCORE: 0-UNK SOCIAL INTERACTION: SOCIAL INTERACTION - SCORE: 0-UNK PROBLEM SOLVING: PROBLEM SOLVING - SCORE: 0-UNK MEMORY: MEMORY - SCORE: 0-UNK SIGNATURE PANEL: The following modified sections: Transfers: Bed, Chair, Wheelchair - Score, Transfers: Toilet - Score , Locomotion: Walk - Score, Locomotion: Wheelchair - Score, Locomotion: Stairs - Score were [electron lauren] signed by Moises Sherman PT on MonFeb 05 2018 13:26:43 T-0500 ([facility])
--- NOTE | 2018-02-05 16:26 | FAST ---
SHIFT START DATE/TIME: 02/05/2018 07:00 (CDT) SHIFT END DATE/TIME: 02/05/2018 19:00 (CDT) NAME MAURICE SIFUENTES DATE OF : 1935 DATE OF ADMISSION: 01/29/2018 17:19 (CDT) PHONE: AGE: 82 [facility]# [id number] GENDER: Female ENCOUNTER PHYSICIAN: Dr. Glen Davidson M.D. 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 EATING: EATING - STEP 1: Does the patient require assistance when eating? Yes. EATING - STEP 2: Does the patient require the assistance of a helper? No, patient only requires an assistive device, O R s/he takes more than reasonable time to eat, OR there is a safety concern, OR s/he requires modifie d food consistency EATING - SCORE: 6-SONYA GROOMING: Comb/brush hair Oral care Wash, rinse, and dry face Wash, rinse, and dry hands GROOMING - STEP 1: Does the patient require assistance when grooming? Yes. GROOMING - STEP 2: Does the patient require the assistance of a helper? Yes. GROOMING - STEP 3: How much assistance does the patient require from the helper? Only prior equipment preparation/set up from the helper GROOMING - SCORE: 5-SUP BATHING: Activity did not occur on this shift BATHING - SCORE: 0-UNK DRESSING - UPPER BODY: Activity did not occur on this shift ARTICLES SCORE Total number of steps: 0 DRESSING - UPPER BODY - SCORE: 0-UNK DRESSING - LOWER BODY: Activity did not occur on this shift ARTICLES SCORE Total number of steps: 0 DRESSING - LOWER BODY - SCORE: 0-UNK TOILETING: TOILETING - STEP 1: Does the patient require assistance with toileting? Yes. TOILETING - STEP 2: Does the patient require the assistance of a helper? No. TOILETING - SCORE: 6-SONYA BLADDER MANAGEMENT: BLADDER MANAGEMENT - STEP 1: Does the patient control the bladder completely and intentionally without equipment or devices or med ications, and is always continent? Yes. BLADDER MANAGEMENT - SCORE: 7-IND BOWEL MANAGEMENT: Activity did not occur on this shift BOWEL MANAGEMENT - SCORE: 7-IND TRANSFERS: BED, CHAIR, WHEELCHAIR: TRANSFERS: BED, CHAIR, WHEELCHAIR - STEP 1: Does the patient require assistance with bed, chair, or wheelchair transfers? Yes. TRANSFERS: BED, CHAIR, WHEELCHAIR - STEP 2: Does the patient require the assistance of a helper? Yes. TRANSFERS: BED, CHAIR, WHEELCHAIR - STEP 3: How much assistance does the patient require from the helper? Only supervision TRANSFERS: BED, CHAIR, WHEELCHAIR - SCORE: 5-SUP TRANSFERS: TOILET: TRANSFERS: TOILET - STEP 1: Does the patient require assistance with toilet transfers? Yes. TRANSFERS: TOILET - STEP 2: Does the patient require the assistance of a helper? Yes. TRANSFERS: TOILET - STEP 3: How much assistance does the patient require from the helper? Only supervision, cuing, coaxing, OR he lp to set out transfer equipment or to lock brakes and/or lift foot rests TRANSFERS: TOILET - SCORE: 5-SUP TRANSFERS: SHOWER: Activity did not occur on this shift TRANSFERS: SHOWER - SCORE: 0-UNK TRANSFERS: TUB: Activity did not occur on this shift TRANSFERS: TUB - SCORE: 0-UNK LOCOMOTION: WALK: Activity did not occur on this shift LOCOMOTION: WALK - SCORE: 0-UNK LOCOMOTION: WHEELCHAIR: Activity did not occur on this shift LOCOMOTION: WHEELCHAIR - SCORE: 0-UNK COMPREHENSION: COMPREHENSION - SCORE: 0-UNK EXPRESSION EXPRESSION - SCORE: 0-UNK SOCIAL INTERACTION: SOCIAL INTERACTION - SCORE: 0-UNK PROBLEM SOLVING: PROBLEM SOLVING - SCORE: 0-UNK MEMORY: MEMORY - SCORE: 0-UNK SIGNATURE PANEL: The following modified sections: Eating - Score, Grooming - Score, Bathing - Score, Dressing - Upper Body - Score, Dressing - Lower Body - Score, Toileting - Score, Bladder Management - Score, Bowel Man agement - Score, Transfers: Bed, Chair, Wheelchair - Score, Transfers: Toilet - Score, Transfers: Sara wer - Score, Transfers: Tub - Score, Locomotion: Walk - Score, Locomotion: Wheelchair - Score, Compre hension - Score, Expression - Score, Social Interaction - Score, Problem Solving - Score, Memory - Sc ore were [electronically] signed by Anjel Maki on MonFeb 05 2018 15:27:02 GMT-0500 ([facility] Time)
[2018-02-05] MEDS: ATORVASTATIN 80 MG TAB PO SCH (20:13)
--- NOTE | 2018-02-06 02:19 | FAST ---
SHIFT START DATE/TIME: 02/05/2018 19:00 (CDT) SHIFT END DATE/TIME: 02/06/2018 07:00 (CDT) NAME MAURICE SIFUENTES DATE OF : 1935 DATE OF ADMISSION: 01/29/2018 17:19 (CDT) PHONE: AGE: 82 [facility]# [id number] GENDER: Female ENCOUNTER PHYSICIAN: Dr. Glen Davidson M.D. 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 EATING: Activity did not occur on this shift EATING - SCORE: 0-UNK GROOMING: Wash, rinse, and dry hands GROOMING - STEP 1: Does the patient require assistance when grooming? Yes. GROOMING - STEP 2: Does the patient require the assistance of a helper? No. The patient only requires an assistive devic e, OR takes more than reasonable time to groom, OR there is a concern for safety as the patient groom s GROOMING - SCORE: 6-SONYA BATHING: Activity did not occur on this shift BATHING - SCORE: 0-UNK DRESSING - UPPER BODY: Patient is not dressing in public clothing ARTICLES SCORE Total number of steps: 0 DRESSING - UPPER BODY - SCORE: 0-UNK DRESSING - LOWER BODY: Patient is not dressing in public clothing ARTICLES SCORE Total number of steps: 0 DRESSING - LOWER BODY - SCORE: 0-UNK TOILETING: TOILETING - STEP 1: Does the patient require assistance with toileting? Yes. TOILETING - STEP 2: Does the patient require the assistance of a helper? No. TOILETING - SCORE: 6-SONYA BLADDER MANAGEMENT: BLADDER MANAGEMENT - STEP 1: Does the patient control the bladder completely and intentionally without equipment or devices or med ications, and is always continent? No. BLADDER MANAGEMENT - STEP 2: Does the patient require the assistance of a helper? No, patient requires and independently uses an a ssistive device, such as a urinal, bedpan, bedside commode, catheter, absorbent pad, or collecting de vice BLADDER MANAGEMENT - SCORE: 6-SONYA BOWEL MANAGEMENT: Activity did not occur on this shift BOWEL MANAGEMENT - SCORE: 7-IND TRANSFERS: BED, CHAIR, WHEELCHAIR: TRANSFERS: BED, CHAIR, WHEELCHAIR - STEP 1: Does the patient require assistance with bed, chair, or wheelchair transfers? Yes. TRANSFERS: BED, CHAIR, WHEELCHAIR - STEP 2: Does the patient require the assistance of a helper? No. Patient only requires an assistive device fo r bed, chair, wheelchair transfers such as a sliding board, grab bar, or brace, OR s/he takes more th an reasonable time, OR there is a safety concern when s/he performs the transfers TRANSFERS: BED, CHAIR, WHEELCHAIR - SCORE: 6-SONYA TRANSFERS: TOILET: TRANSFERS: TOILET - STEP 1: Does the patient require assistance with toilet transfers? Yes. TRANSFERS: TOILET - STEP 2: Does the patient require the assistance of a helper? No. Patient only requires an assistive device ocasio ch as a grab bar or special seat, OR s/he takes more than reasonable time to perform toilet transfers , OR there is a safety concern when s/he performs toilet transfers. TRANSFERS: TOILET - SCORE: 6-SONYA TRANSFERS: SHOWER: Activity did not occur on this shift TRANSFERS: SHOWER - SCORE: 0-UNK TRANSFERS: TUB: Activity did not occur on this shift TRANSFERS: TUB - SCORE: 0-UNK LOCOMOTION: WALK: Activity did not occur on this shift LOCOMOTION: WALK - SCORE: 0-UNK LOCOMOTION: WHEELCHAIR: Activity did not occur on this shift LOCOMOTION: WHEELCHAIR - SCORE: 0-UNK COMPREHENSION: COMPREHENSION - STEP 1: Does the patient require help to understand complex and abstract ideas (such as current events, finan naveen, discharge planning, medical issues, relationships, etc)? No. COMPREHENSION - STEP 2: Does the patient need extra time, require an assistive device (such as glasses, hearing aids, or an a ugmentative communication system), OR does s/he have mild difficulty expressing complex and abstract ideas (including mild dysarthria or mild word-finding problems)? Yes. COMPREHENSION - SCORE: 6-SONYA EXPRESSION EXPRESSION - STEP 1: Does the patient require help expressing complex and abstract ideas (such as current events, finances , discharge planning, medical issues, relationships, etc)? No. EXPRESSION - STEP 2: Does the patient need extra time, require an assistive device (such as augmentive communication syste m or a communication board), OR does s/he have mild difficulty expressing complex and abstract ideas (including mild dysarthria or mild word-find problems)? No. EXPRESSION - SCORE: 7-IND SOCIAL INTERACTION: SOCIAL INTERACTION - STEP 1: Does the patient require a helper to interact with others in social and therapeutic situations? No. SOCIAL INTERACTION - STEP 2: Does the patient need extra time in social situations, OR does s/he interact with staff, other patien ts, and family members ONLY in structured environments, OR does s/he require medication for social in teraction? No. SOCIAL INTERACTION - SCORE: 7-IND PROBLEM SOLVING: PROBLEM SOLVING - STEP 1: Does the patient need help to solve complex problems such as managing a checking account or confronti ng interpersonal problems? No. PROBLEM SOLVING - STEP 2: Does the patient require extra time to make decisions or solve problems, OR does s/he have slight dif ficulty reading, initiating, or self-correcting in unfamiliar situations? No. PROBLEM SOLVING - SCORE: 7-IND MEMORY: MEMORY - STEP 1: Does the patient need help to remember frequently encountered people, daily routines, and executing r equests? No. MEMORY - STEP 2: Does the patient have slight difficulty recognizing frequently encountered people, daily routines, or executing requests without the need for repetition or using self-initiated or environmental cues to remember? No. MEMORY - SCORE: 7-IND SIGNATURE PANEL: The following modified sections: Eating - Score, Grooming - Score, Bathing - Score, Dressing - Upper Body - Score, Dressing - Lower Body - Score, Toileting - Score, Bladder Management - Score, Bowel Man agement - Score, Transfers: Bed, Chair, Wheelchair - Score, Transfers: Toilet - Score, Transfers: Sara wer - Score, Transfers: Tub - Score, Locomotion: Walk - Score, Locomotion: Wheelchair - Score, Compre hension - Score, Expression - Score, Social Interaction - Score, Problem Solving - Score, Memory - Sc ore were [electronically] signed by Shona Rodriguez RN on MonFeb 06 2018 01:19:27 T-0500 ([facility] Time)
[2018-02-06] MEDS: CARVEDILOL 12.5 MG TAB PO SCH ×2 (05:08→17:29)
[2018-02-06] MEDS: LEVOTHYROXINE SOD 0.05 MG TABLET PO SCH (05:08)
[2018-02-06] MEDS: DOCUSATE NA/SENNA CONC 1 TAB PO SCH ×2 (08:00→20:00)
[2018-02-06] MEDS: ASPIRIN 81 MG CHEWABLE TABLET PO SCH (08:09)
[2018-02-06] MEDS: CRANBERRY FRUIT EXTRACT 200 MG CAP PO SCH ×2 (08:09→20:45)
[2018-02-06] MEDS: FOLIC ACID 1 MG TABLET PO SCH (08:09)
[2018-02-06] MEDS: APIXABAN 5 MG TABLET PO SCH ×2 (08:09→20:45)
[2018-02-06] MEDS: LOSARTAN POTASSIUM 50 MG TABLET PO SCH (08:09)
[2018-02-06] MEDS: FAMOTIDINE 20 MG TAB PO SCH ×2 (08:09→20:45)
[2018-02-06] MEDS: NAMENDA 28 MG PO SCH (08:10)
--- NOTE | 2018-02-06 11:24 | FAST ---
SHIFT START DATE/TIME: 02/06/2018 07:00 (CDT) SHIFT END DATE/TIME: 02/06/2018 19:00 (CDT) NAME MAURICE SIFUENTES DATE OF : 1935 DATE OF ADMISSION: 01/29/2018 17:19 (CDT) PHONE: AGE: 82 N# [id number] GENDER: Female ENCOUNTER PHYSICIAN: Dr. Glen Davidson M.D. 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 EATING: EATING - STEP 1: Does the patient require assistance when eating? Yes. EATING - STEP 2: Does the patient require the assistance of a helper? No, patient only requires an assistive device, O R s/he takes more than reasonable time to eat, OR there is a safety concern, OR s/he requires modifie d food consistency EATING - SCORE: 6-SONYA GROOMING: Comb/brush hair Oral care Wash, rinse, and dry face Wash, rinse, and dry hands GROOMING - STEP 1: Does the patient require assistance when grooming? Yes. GROOMING - STEP 2: Does the patient require the assistance of a helper? No. The patient only requires an assistive devic e, OR takes more than reasonable time to groom, OR there is a concern for safety as the patient groom s GROOMING - SCORE: 6-SONYA BATHING: Activity did not occur on this shift BATHING - SCORE: 0-UNK DRESSING - UPPER BODY: Bra (three steps) T-shirt/pullover shirt (four steps) ARTICLES SCORE Total number of steps: 7 DRESSING - UPPER BODY - STEP 1: Does the patient require help when dressing above the waist? Yes. DRESSING - UPPER BODY - STEP 2: Does the patient require the assistance of a helper? No. Patient only requires an assistive device, s uch as a button hook, velcro, or supervisor joiners. OR s/he takes more than reasonable time as s/he dresses the upper body. OR there is a concern for safety when s/he dresses the upper body DRESSING - UPPER BODY - SCORE: 6-SONYA DRESSING - LOWER BODY: Slip-on shoe - Left foot (one step) Slip-on shoe - Right foot (one step) ARTICLES SCORE Total number of steps: 2 DRESSING - LOWER BODY - STEP 1: Does the patient require help when dressing below the waist? Yes. DRESSING - LOWER BODY - STEP 2: Does the patient require the assistance of a helper? No. Patient requires an assistive device such as a supervisor joiners. OR s/he takes more than reasonable time as s/he dresses the lower body, OR there is a con cern for safety when s/he dresses the lower body DRESSING - LOWER BODY - SCORE: 6-SONYA TOILETING: TOILETING - STEP 1: Does the patient require assistance with toileting? Yes. TOILETING - STEP 2: Does the patient require the assistance of a helper? No. TOILETING - SCORE: 6-SONYA BLADDER MANAGEMENT: BLADDER MANAGEMENT - STEP 1: Does the patient control the bladder completely and intentionally without equipment or devices or med ications, and is always continent? Yes. BLADDER MANAGEMENT - SCORE: 7-IND BOWEL MANAGEMENT: Activity did not occur on this shift BOWEL MANAGEMENT - SCORE: 7-IND TRANSFERS: BED, CHAIR, WHEELCHAIR: TRANSFERS: BED, CHAIR, WHEELCHAIR - STEP 1: Does the patient require assistance with bed, chair, or wheelchair transfers? Yes. TRANSFERS: BED, CHAIR, WHEELCHAIR - STEP 2: Does the patient require the assistance of a helper? No. Patient only requires an assistive device fo r bed, chair, wheelchair transfers such as a sliding board, grab bar, or brace, OR s/he takes more th an reasonable time, OR there is a safety concern when s/he performs the transfers TRANSFERS: BED, CHAIR, WHEELCHAIR - SCORE: 6-SONYA TRANSFERS: TOILET: TRANSFERS: TOILET - STEP 1: Does the patient require assistance with toilet transfers? Yes. TRANSFERS: TOILET - STEP 2: Does the patient require the assistance of a helper? No. Patient only requires an assistive device ocasio ch as a grab bar or special seat, OR s/he takes more than reasonable time to perform toilet transfers , OR there is a safety concern when s/he performs toilet transfers. TRANSFERS: TOILET - SCORE: 6-SONYA TRANSFERS: SHOWER: Activity did not occur on this shift TRANSFERS: SHOWER - SCORE: 0-UNK TRANSFERS: TUB: Activity did not occur on this shift TRANSFERS: TUB - SCORE: 0-UNK LOCOMOTION: WALK: Activity did not occur on this shift LOCOMOTION: WALK - SCORE: 0-UNK LOCOMOTION: WHEELCHAIR: Activity did not occur on this shift LOCOMOTION: WHEELCHAIR - SCORE: 0-UNK COMPREHENSION: COMPREHENSION - SCORE: 0-UNK EXPRESSION EXPRESSION - SCORE: 0-UNK SOCIAL INTERACTION: SOCIAL INTERACTION - SCORE: 0-UNK PROBLEM SOLVING: PROBLEM SOLVING - SCORE: 0-UNK MEMORY: MEMORY - SCORE: 0-UNK SIGNATURE PANEL: The following modified sections: Eating - Score, Grooming - Score, Bathing - Score, Dressing - Upper Body - Score, Dressing - Lower Body - Score, Toileting - Score, Bladder Management - Score, Bowel Man agement - Score, Transfers: Bed, Chair, Wheelchair - Score, Transfers: Toilet - Score, Transfers: Sara wer - Score, Transfers: Tub - Score, Locomotion: Walk - Score, Locomotion: Wheelchair - Score, Compre hension - Score, Expression - Score, Social Interaction - Score, Problem Solving - Score, Memory - Sc ore were [electronically] signed by Anjel Maki on MonFeb 06 2018 10:24:09 GMT-0500 (Central Daylight Time)
--- NOTE | 2018-02-06 14:54 | FAST ---
ENCOUNTER DATE AND TIME: 02/06/2018 08:00 (CDT) NAME MAURICE SIFUENTES DATE OF : 1935 DATE OF ADMISSION: 01/29/2018 17:19 (CDT) PHONE: AGE: 82 N# [id number] GENDER: Female ENCOUNTER PHYSICIAN: Dr. Glen Davidson M.D. 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 EATING: Activity did not occur on this shift EATING - SCORE: 0-UNK GROOMING: Activity did not occur on this shift GROOMING - SCORE: 0-UNK BATHING: Activity did not occur on this shift BATHING - SCORE: 0-UNK DRESSING - UPPER BODY: Activity did not occur on this shift Patient is not dressing in public clothing ARTICLES SCORE Total number of steps: 0 DRESSING - UPPER BODY - SCORE: 0-UNK DRESSING - LOWER BODY: Activity did not occur on this shift Patient is not dressing in public clothing ARTICLES SCORE Total number of steps: 0 DRESSING - LOWER BODY - SCORE: 0-UNK TOILETING: Activity did not occur on this shift TOILETING - SCORE: 0-UNK BLADDER MANAGEMENT: Activity did not occur on this shift BLADDER MANAGEMENT - SCORE: 7-IND BOWEL MANAGEMENT: Activity did not occur on this shift BOWEL MANAGEMENT - SCORE: 7-IND TRANSFERS: BED, CHAIR, WHEELCHAIR: TRANSFERS: BED, CHAIR, WHEELCHAIR - STEP 1: Does the patient require assistance with bed, chair, or wheelchair transfers? Yes. TRANSFERS: BED, CHAIR, WHEELCHAIR - STEP 2: Does the patient require the assistance of a helper? No. Patient only requires an assistive device fo r bed, chair, wheelchair transfers such as a sliding board, grab bar, or brace, OR s/he takes more th an reasonable time, OR there is a safety concern when s/he performs the transfers TRANSFERS: BED, CHAIR, WHEELCHAIR - SCORE: 6-SONYA TRANSFERS: TOILET: Activity did not occur on this shift TRANSFERS: TOILET - SCORE: 0-UNK TRANSFERS: SHOWER: Activity did not occur on this shift TRANSFERS: SHOWER - SCORE: 0-UNK TRANSFERS: TUB: Activity did not occur on this shift TRANSFERS: TUB - SCORE: 0-UNK LOCOMOTION: WALK: LOCOMOTION: WALK - STEP 1: Does the patient need help to walk 150 feet? No. LOCOMOTION: WALK - STEP 2: Does the patient need an assistive device (such as an orthosis, prosthesis, crutches, or walker) to g o 150 feet, OR does s/he take more than reasonable time, OR is there a concern for safety? Yes, the p atient needs an assistive device LOCOMOTION: WALK - SCORE: 6-SONYA LOCOMOTION: WHEELCHAIR: Activity did not occur on this shift LOCOMOTION: WHEELCHAIR - SCORE: 0-UNK LOCOMOTION: STAIRS: LOCOMOTION: STAIRS - STEP 1: Does the patient need help to go up and down 12 to 14 stairs? No. LOCOMOTION: STAIRS - STEP 2: Does the patient require an assistive device - such as handrails or cane - to go up and down one flig ht of stairs, OR does s/he take more than reasonable time, OR is there a concern for safety? Yes, the patient requires an assistive device LOCOMOTION: STAIRS - SCORE: 6-SONYA COMPREHENSION: COMPREHENSION - SCORE: 0-UNK EXPRESSION EXPRESSION - SCORE: 0-UNK SOCIAL INTERACTION: SOCIAL INTERACTION - SCORE: 0-UNK PROBLEM SOLVING: PROBLEM SOLVING - SCORE: 0-UNK MEMORY: MEMORY - SCORE: 0-UNK SIGNATURE PANEL: The following modified sections: Transfers: Bed, Chair, Wheelchair - Score, Transfers: Toilet - Score , Locomotion: Walk - Score, Locomotion: Wheelchair - Score, Locomotion: Stairs - Score were [electron lauren] signed by Mosies Sherman PT on MonFeb 06 2018 13:54:41 T-0500 (Central Daylight Time)
--- NOTE | 2018-02-06 19:53 | R.PN ---
ENCOUNTER DATE AND TIME: 02/06/2018 18:50 (CDT) NAME MAURICE SIFUENTES DATE OF : 1935 DATE OF ADMISSION: 01/29/2018 17:19 (CDT) 4 cm left cerebeller hypodensity. L Pica stroke with associated hemorrhageCHIEF COMPLAINT: Cerebellar stroke with incoordination gait deficits. SUBJECTIVE: Pt denied any Shortness of Breath. Pt denied any depression. Ambulated 850' with modified independence. Up and down 20 steps with modified independence. VITAL SIGNS Temperature: 97.8 F SBP/DBP: 144/64 Pulse: 79 Resp: 14 MEDICATION ALLERGIES: No Known Drug Allergies (NKDA) ENVIRONMENTAL ALLERGIES: - Substance Allergies None Known - Other Allergies None Known NURSING: - Shower allowing shower - Bladder care per protocol - Skin care per protocol PRECAUTIONS: - Weight Bearing Precaution WBAT right LE ACTIVITIES OOB only with supervision THERAPIES: - Occupational Therapy Evaluate and Treat. Cognitive Retraining. Visual Perceptual Training. - Speech Therapy Memory Strategies. Expressive Language Skills. Speech Intelligibility Training. Cognitive Training. R eceptive Language Skills. - Physical Therapy Evaluate and Treat. PHYSICAL EXAM - Gen Alert and awake Lying in bed No apparent distress Oriented to: person, time, and place - Skin No breakdowns No abnormalities - Eyes No abnormalities - ENMT No abnormalities - Neck No abnormalities - CVS RRR - Chest Clear - Abd + BS - GI Soft Deferred - No abnormalities - Ext no edema - MSK Right arm and leg incoordination. Drifts to the right with ambulation. Able to walk fairly well with walker covering 250'. - Neuro Mild right sided weakness and incoordination. - Psych No abnormalities ASSESSMENT: Pt. is a 82 yo Right-handed white female.On 01/22/2018 Pt. presented to [facility] with sudden onset of right-side weakness.On 01/22/2018 she was admitted to [facility] with diagnosis 4 cm left cerebeller hypodensity. L Pica stroke with associated h emorrhage.Her impairment category is Stroke 01 - Right Body (Left Brain) (01.2).Pre-morbidly, Pt. wa s independent/mod-I in Social Cognition, Self-Care, Sphincter Control, Transfers Control, Communicati on, and Locomotion; and she had good Sphincter Control.Currently, she has deficits of Social Cognitio n, Balance, Self-Care, Endurance, Safety Awareness, Transfers Control, Communication, and Locomotion. Pt. is now referred to [facility] for acute in-patient rehabilitation in order to maximize patient's functional independence in activities of daily living, strength, ROM, and mobi lity.- Rehab Goal Patient has realistic goal of being discharged at assistance level 6-Ramon to reside at Home with Fam lisa/Relatives. MDM/PLAN: - Diet Type Continue Regular for Dementia, TBI, Stroke, or others - Diet - Liquid Texture Continue Regular - Physical Therapy Gait dysfunction - to improve, our physical therapists will perform initial evaluation of pt's statu s upon admission and devise an individualized program for Gait Training, and Wheel Chair mobility Inability to transfer - to improve, our physical therapists will perform initial evaluation of pt's status upon admission and devise an individualized program for Bed mobility Need for home safety evaluation - to improve, our physical therapists will perform initial evaluatio n of pt's status upon admission and devise an individualized program for Home Evaluation Need in caregiver upon discharge - to improve, our physical therapists will perform initial evaluati on of pt's status upon admission and devise an individualized program for Caregiver Training New precaution - to improve, our physical therapists will perform initial evaluation of pt's status upon admission and devise an individualized program for Patient precaution education Poor balance - to improve, our physical therapists will perform initial evaluation of pt's status up on admission and devise an individualized program for Balance Training Poor endurance - to improve, our physical therapists will perform initial evaluation of pt's status upon admission and devise an individualized program for Endurance Training Weakness - to improve, our physical therapists will perform initial evaluation of pt's status upon a dmission and devise an individualized program for Aquatic Therapy, Neuromuscular Reeducation, and Str engthening Achieving independence - to improve, our physical therapists will perform initial evaluation of pt's status upon admission and devise an individualized program for Community Reintegration Activities - Tube Feed Continue N/A - Bladder care per protocol - Weight Bearing Precaution WBAT right LE - Skin care per protocol - Diet - Solid Texture Continue Regular - Shower allowing shower - Occupational Therapy ADL deficits - to improve, our occupation therapists will perform initial evaluation of pt's status upon admission and devise an individualized program for Bathing, Bed mobility, Community Reintegratio n, Cooking, Dressing, Eating, Fine Motor Skills, Grooming, Homemaking, Kitchen Mobility, Laundry, Pat ient Education, Safety Awareness, Splinting - Positioning, Transfers(Toilet, Tub, Shower), and Wheel Chair Management Cognitive deficits - to improve, our occupation therapists will perform initial evaluation of pt's s tatus upon admission and devise an individualized program for Cognition - orientation Need for personal care worker - to improve, our occupation therapists will perform initial evaluation of pt's status upon admission and devise an individualized program for Caregiver Training Weakness - to improve, our occupation therapists will perform initial evaluation of pt's status upon admission and devise an individualized program for Aquatic Therapy, Balance, Endurance, UE ROM, and UE strengthening FUNCTIONAL STATUS: UPDATED AT WEEKLY TEAM CONFERENCE - Bladder Same accident frequency: 7-Ind - No accidents in the past 7 days - Bowel Same accident frequency: 7-Ind - No accidents in the past 7 days - Walking Same score based on distance walked: 1(<=50ft) FUNCTIONAL STATUS: - Self-Care A. Eating modA B. Grooming modA C. Bathing modA D. Dressing - Upper modA E. Dressing - Lower modA F. Toileting modA - Sphincter Control G: Bladder control Ind H: Bowel control Ind - Transfers Control I. Bed/Chair/Wheelchair modA J. Toilet modA K. Tub/Shower modA - Locomotion L. Walk/Wheelchair (B) Dep M. Stairs ADNO - Communication N. Comprehension (B) modA O. Expression (B) Abdirizak - Social Cognition P. Social Interaction modA Q. Problem Solving modA R. Memory modA - Endurance Poor - Balance Poor - Safety Awareness Poor CURRENT FUNC. DEFICITS: Social Cognition, Balance, Self-Care, Endurance, Safety Awareness, Transfers Control, Communication, and Locomotion SIGNATURE PANEL: (CDT)
[2018-02-06] MEDS: ATORVASTATIN 80 MG TAB PO SCH (20:45)
[2018-02-07] MEDS: LEVOTHYROXINE SOD 0.05 MG TABLET PO SCH (05:01)
[2018-02-07] MEDS: CARVEDILOL 12.5 MG TAB PO SCH (05:01)
[2018-02-07 07:47] VITALS: BP 129/60; TEMP 96.4
[2018-02-07] MEDS: FAMOTIDINE 20 MG TAB PO SCH (08:07)
[2018-02-07] MEDS: ASPIRIN 81 MG CHEWABLE TABLET PO SCH (08:07)
[2018-02-07] MEDS: APIXABAN 5 MG TABLET PO SCH (08:07)
[2018-02-07] MEDS: NAMENDA 28 MG PO SCH (08:07)
[2018-02-07] MEDS: LOSARTAN POTASSIUM 50 MG TABLET PO SCH (08:07)
[2018-02-07] MEDS: CRANBERRY FRUIT EXTRACT 200 MG CAP PO SCH (08:08)
[2018-02-07] MEDS: DOCUSATE NA/SENNA CONC 1 TAB PO SCH (08:08)
[2018-02-07] MEDS: FOLIC ACID 1 MG TABLET PO SCH (08:08)
--- NOTE | 2018-02-07 15:33 | FAST ---
SHIFT START DATE/TIME: 02/07/2018 07:00 (CDT) SHIFT END DATE/TIME: 02/07/2018 19:00 (CDT) NAME MAURICE SIFUENTES DATE OF : 1935 DATE OF ADMISSION: 01/29/2018 17:19 (CDT) PHONE: AGE: 82 N# [id number] GENDER: Female ENCOUNTER PHYSICIAN: Dr. Glen Davidson M.D. 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 EATING: EATING - STEP 1: Does the patient require assistance when eating? No. EATING - SCORE: 7-IND GROOMING: GROOMING - STEP 1: Does the patient require assistance when grooming? No. GROOMING - SCORE: 7-IND BATHING: Activity did not occur on this shift BATHING - SCORE: 0-UNK DRESSING - UPPER BODY: Bra (three steps) T-shirt/pullover shirt (four steps) ARTICLES SCORE Total number of steps: 7 DRESSING - UPPER BODY - STEP 1: Does the patient require help when dressing above the waist? No. DRESSING - UPPER BODY - SCORE: 7-IND DRESSING - LOWER BODY: ARTICLES SCORE Total number of steps: 0 DRESSING - LOWER BODY - STEP 1: Does the patient require help when dressing below the waist? Yes. DRESSING - LOWER BODY - STEP 2: Does the patient require the assistance of a helper? No. Patient requires an assistive device such as a inspector hairspring. OR s/he takes more than reasonable time as s/he dresses the lower body, OR there is a con cern for safety when s/he dresses the lower body DRESSING - LOWER BODY - SCORE: 6-SONYA TOILETING: TOILETING - STEP 1: Does the patient require assistance with toileting? No. TOILETING - SCORE: 7-IND BLADDER MANAGEMENT: BLADDER MANAGEMENT - STEP 1: Does the patient control the bladder completely and intentionally without equipment or devices or med ications, and is always continent? No. BLADDER MANAGEMENT - STEP 2: Does the patient require the assistance of a helper? No, patient requires and independently uses an a ssistive device, such as a urinal, bedpan, bedside commode, catheter, absorbent pad, or collecting de vice BLADDER MANAGEMENT - SCORE: 6-SONYA BLADDER MANAGEMENT - FREQUENCY OF ACCIDENTS: BLADDER MANAGEMENT(FA) - STEP 1: How many accidents has the patient had during the current shift? 0 BOWEL MANAGEMENT: Activity did not occur on this shift BOWEL MANAGEMENT - SCORE: 7-IND BOWEL MANAGEMENT - FREQUENCY OF ACCIDENTS: BOWEL MANAGEMENT(FA) - STEP 1: How many accidents has the patient had during the current shift? 0 TRANSFERS: BED, CHAIR, WHEELCHAIR: TRANSFERS: BED, CHAIR, WHEELCHAIR - STEP 1: Does the patient require assistance with bed, chair, or wheelchair transfers? No. TRANSFERS: BED, CHAIR, WHEELCHAIR - SCORE: 7-IND TRANSFERS: TOILET: TRANSFERS: TOILET - STEP 1: Does the patient require assistance with toilet transfers? No. TRANSFERS: TOILET - SCORE: 7-IND TRANSFERS: SHOWER: Activity did not occur on this shift TRANSFERS: SHOWER - SCORE: 0-UNK TRANSFERS: TUB: Activity did not occur on this shift TRANSFERS: TUB - SCORE: 0-UNK LOCOMOTION: WALK: Activity did not occur on this shift LOCOMOTION: WALK - SCORE: 0-UNK LOCOMOTION: WHEELCHAIR: LOCOMOTION: WHEELCHAIR - STEP 1: Does the patient need help to go 150 feet in a wheelchair? No. LOCOMOTION: WHEELCHAIR - SCORE: 6-SONYA COMPREHENSION: COMPREHENSION - STEP 1: Does the patient require help to understand complex and abstract ideas (such as current events, finan naveen, discharge planning, medical issues, relationships, etc)? No. COMPREHENSION - STEP 2: Does the patient need extra time, require an assistive device (such as glasses, hearing aids, or an a ugmentative communication system), OR does s/he have mild difficulty expressing complex and abstract ideas (including mild dysarthria or mild word-finding problems)? Yes. COMPREHENSION - SCORE: 6-SONYA EXPRESSION EXPRESSION: TYPE: Both EXPRESSION - STEP 1: Does the patient require help expressing complex and abstract ideas (such as current events, finances , discharge planning, medical issues, relationships, etc)? No. EXPRESSION - STEP 2: Does the patient need extra time, require an assistive device (such as augmentive communication syste m or a communication board), OR does s/he have mild difficulty expressing complex and abstract ideas (including mild dysarthria or mild word-find problems)? Yes. EXPRESSION - SCORE: 6-SONYA SOCIAL INTERACTION: SOCIAL INTERACTION - STEP 1: Does the patient require a helper to interact with others in social and therapeutic situations? No. SOCIAL INTERACTION - STEP 2: Does the patient need extra time in social situations, OR does s/he interact with staff, other patien ts, and family members ONLY in structured environments, OR does s/he require medication for social in teraction? No. SOCIAL INTERACTION - SCORE: 7-IND PROBLEM SOLVING: PROBLEM SOLVING - STEP 1: Does the patient need help to solve complex problems such as managing a checking account or confronti ng interpersonal problems? No. PROBLEM SOLVING - STEP 2: Does the patient require extra time to make decisions or solve problems, OR does s/he have slight dif ficulty reading, initiating, or self-correcting in unfamiliar situations? Yes, patient needs extra ti me. PROBLEM SOLVING - SCORE: 6-SONYA MEMORY: MEMORY - STEP 1: Does the patient need help to remember frequently encountered people, daily routines, and executing r equests? No. MEMORY - STEP 2: Does the patient have slight difficulty recognizing frequently encountered people, daily routines, or executing requests without the need for repetition or using self-initiated or environmental cues to remember? Yes. MEMORY - SCORE: 6-SONYA SIGNATURE PANEL: The following modified sections: Eating - Score, Grooming - Score, Bathing - Score, Dressing - Upper Body - Score, Dressing - Lower Body - Score, Toileting - Score, Bladder Management - Score, Bowel Man agement - Score, Transfers: Bed, Chair, Wheelchair - Score, Transfers: Toilet - Score, Transfers: Sara wer - Score, Transfers: Tub - Score, Locomotion: Walk - Score, Locomotion: Wheelchair - Score, Compre hension - Score, Expression - Score, Social Interaction - Score, Problem Solving - Score, Memory - Sc ore were [electronically] signed by Ana Weeks C.N.A. on MonFeb 07 2018 14:33:20 T-0500 (Cent[facility] Daylight Time)
--- NOTE | 2018-02-07 16:57 | FAST ---
ENCOUNTER DATE AND TIME: 02/07/2018 08:00 (CDT) NAME MAURICE SIFUENTES DATE OF : 1935 DATE OF ADMISSION: 01/29/2018 17:19 (CDT) PHONE: AGE: 82 N# [id number] GENDER: Female ENCOUNTER PHYSICIAN: Dr. Glen Davidson M.D. 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 EATING: Activity did not occur on this shift EATING - SCORE: 0-UNK GROOMING: Comb/brush hair Wash, rinse, and dry face Wash, rinse, and dry hands GROOMING - STEP 1: Does the patient require assistance when grooming? No. GROOMING - SCORE: 7-IND BATHING: Abdomen Buttocks Chest Left arm Left lower leg and foot Left upper leg Perineal area Right arm Right lower leg and foot Right upper leg BATHING - STEP 1: Does the patient require assistance when bathing? Yes. BATHING - STEP 2: Does the patient require the assistance of a helper? No. The patient only requires an assistive devic e such as a bath donna, OR the patient takes more than reasonable time to bathe, OR there is a concern for safety such as regulating water temperature as the patient bathes. BATHING - SCORE: 6-SONYA DRESSING - UPPER BODY: T-shirt/pullover shirt (four steps) ARTICLES SCORE Total number of steps: 4 DRESSING - UPPER BODY - STEP 1: Does the patient require help when dressing above the waist? No. DRESSING - UPPER BODY - SCORE: 7-IND DRESSING - LOWER BODY: Elastic waist pants (three steps) Slip-on shoe - Left foot (one step) Slip-on shoe - Right foot (one step) Underwear (three steps) ARTICLES SCORE Total number of steps: 8 DRESSING - LOWER BODY - STEP 1: Does the patient require help when dressing below the waist? Yes. DRESSING - LOWER BODY - STEP 2: Does the patient require the assistance of a helper? No. Patient requires an assistive device such as a cupola melting supervisor. OR s/he takes more than reasonable time as s/he dresses the lower body, OR there is a con cern for safety when s/he dresses the lower body DRESSING - LOWER BODY - SCORE: 6-SONYA TOILETING: TOILETING - STEP 1: Does the patient require assistance with toileting? Yes. TOILETING - STEP 2: Does the patient require the assistance of a helper? No. TOILETING - SCORE: 6-SONYA BLADDER MANAGEMENT: Activity did not occur on this shift BLADDER MANAGEMENT - SCORE: 7-IND BOWEL MANAGEMENT: Activity did not occur on this shift BOWEL MANAGEMENT - SCORE: 7-IND TRANSFERS: BED, CHAIR, WHEELCHAIR: Activity did not occur on this shift TRANSFERS: BED, CHAIR, WHEELCHAIR - SCORE: 0-UNK TRANSFERS: TOILET: TRANSFERS: TOILET - STEP 1: Does the patient require assistance with toilet transfers? Yes. TRANSFERS: TOILET - STEP 2: Does the patient require the assistance of a helper? No. Patient only requires an assistive device ocasio ch as a grab bar or special seat, OR s/he takes more than reasonable time to perform toilet transfers , OR there is a safety concern when s/he performs toilet transfers. TRANSFERS: TOILET - SCORE: 6-SONYA TRANSFERS: SHOWER: Activity did not occur on this shift TRANSFERS: SHOWER - SCORE: 0-UNK TRANSFERS: TUB: TRANSFERS: TUB - STEP 1: Does the patient require assistance with tub transfers? Yes. TRANSFERS: TUB - STEP 2: Does the patient require the assistance of a helper? No. Only requires the assistance of an assistive device, OR takes more than reasonable time, OR there is a concern for safety when s/he performs tub transfers TRANSFERS: TUB - SCORE: 6-SONYA LOCOMOTION: WALK: Activity did not occur on this shift LOCOMOTION: WALK - SCORE: 0-UNK LOCOMOTION: WHEELCHAIR: Activity did not occur on this shift LOCOMOTION: WHEELCHAIR - SCORE: 0-UNK LOCOMOTION: STAIRS: Activity did not occur on this shift LOCOMOTION: STAIRS - SCORE: 0-UNK COMPREHENSION: COMPREHENSION - SCORE: 0-UNK EXPRESSION EXPRESSION - SCORE: 0-UNK SOCIAL INTERACTION: SOCIAL INTERACTION - SCORE: 0-UNK PROBLEM SOLVING: PROBLEM SOLVING - SCORE: 0-UNK MEMORY: MEMORY - SCORE: 0-UNK SIGNATURE PANEL: The following modified sections: Eating - Score, Grooming - Score, Bathing - Score, Dressing - Upper Body - Score, Dressing - Lower Body - Score, Toileting - Score, Transfers: Bed, Chair, Wheelchair - S core, Transfers: Toilet - Score, Transfers: Shower - Score, Transfers: Tub - Score, Comprehension - S core, Expression - Score, Social Interaction - Score, Problem Solving - Score, Memory - Score were [e lectronically] signed by ELAINE Shepherd on MonFeb 07 2018 15:56:47 [facility]-0500 ([facility] Time)
--- NOTE | 2018-02-07 17:04 | FAST ---
ENCOUNTER DATE AND TIME: 02/07/2018 08:00 (CDT) NAME MAURICE SIFUENTES DATE OF : 1935 DATE OF ADMISSION: 01/29/2018 17:19 (CDT) PHONE: AGE: 82 N# [id number] GENDER: Female ENCOUNTER PHYSICIAN: Dr. Glen Davidson M.D. 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 EATING: Activity did not occur on this shift EATING - SCORE: 0-UNK GROOMING: Activity did not occur on this shift GROOMING - SCORE: 0-UNK BATHING: Activity did not occur on this shift BATHING - SCORE: 0-UNK DRESSING - UPPER BODY: Activity did not occur on this shift Patient is not dressing in public clothing ARTICLES SCORE Total number of steps: 0 DRESSING - UPPER BODY - SCORE: 0-UNK DRESSING - LOWER BODY: Activity did not occur on this shift Patient is not dressing in public clothing ARTICLES SCORE Total number of steps: 0 DRESSING - LOWER BODY - SCORE: 0-UNK TOILETING: Activity did not occur on this shift TOILETING - SCORE: 0-UNK BLADDER MANAGEMENT: Activity did not occur on this shift BLADDER MANAGEMENT - SCORE: 7-IND BOWEL MANAGEMENT: Activity did not occur on this shift BOWEL MANAGEMENT - SCORE: 7-IND TRANSFERS: BED, CHAIR, WHEELCHAIR: TRANSFERS: BED, CHAIR, WHEELCHAIR - STEP 1: Does the patient require assistance with bed, chair, or wheelchair transfers? Yes. TRANSFERS: BED, CHAIR, WHEELCHAIR - STEP 2: Does the patient require the assistance of a helper? No. Patient only requires an assistive device fo r bed, chair, wheelchair transfers such as a sliding board, grab bar, or brace, OR s/he takes more th an reasonable time, OR there is a safety concern when s/he performs the transfers TRANSFERS: BED, CHAIR, WHEELCHAIR - SCORE: 6-SONYA TRANSFERS: TOILET: Activity did not occur on this shift TRANSFERS: TOILET - SCORE: 0-UNK TRANSFERS: SHOWER: Activity did not occur on this shift TRANSFERS: SHOWER - SCORE: 0-UNK TRANSFERS: TUB: Activity did not occur on this shift TRANSFERS: TUB - SCORE: 0-UNK LOCOMOTION: WALK: LOCOMOTION: WALK - STEP 1: Does the patient need help to walk 150 feet? No. LOCOMOTION: WALK - STEP 2: Does the patient need an assistive device (such as an orthosis, prosthesis, crutches, or walker) to g o 150 feet, OR does s/he take more than reasonable time, OR is there a concern for safety? Yes, the p atient needs an assistive device LOCOMOTION: WALK - SCORE: 6-SONYA LOCOMOTION: WHEELCHAIR: Activity did not occur on this shift LOCOMOTION: WHEELCHAIR - SCORE: 0-UNK LOCOMOTION: STAIRS: LOCOMOTION: STAIRS - STEP 1: Does the patient need help to go up and down 12 to 14 stairs? No. LOCOMOTION: STAIRS - STEP 2: Does the patient require an assistive device - such as handrails or cane - to go up and down one flig ht of stairs, OR does s/he take more than reasonable time, OR is there a concern for safety? Yes, the patient requires an assistive device LOCOMOTION: STAIRS - SCORE: 6-SONYA COMPREHENSION: COMPREHENSION - SCORE: 0-UNK EXPRESSION EXPRESSION - SCORE: 0-UNK SOCIAL INTERACTION: SOCIAL INTERACTION - SCORE: 0-UNK PROBLEM SOLVING: PROBLEM SOLVING - SCORE: 0-UNK MEMORY: MEMORY - SCORE: 0-UNK SIGNATURE PANEL: The following modified sections: Transfers: Bed, Chair, Wheelchair - Score, Transfers: Toilet - Score , Locomotion: Walk - Score, Locomotion: Wheelchair - Score, Locomotion: Stairs - Score were [electron lauren] signed by Moises Sherman PT on MonFeb 07 2018 16:03:59 T-0500 (Central Daylight Time)
--- NOTE | 2018-03-05 19:14 | R.DS ---
FACILITY [facility] MR# [id number] NAME MAURICE SIFUENTES ADDRESS [address] [place] [address] [address] [id number] PHONE DATE OF 1935 AGE 82 N# [id number] GENDER Female DEXTERITY Right-handed MARITAL STATUS RACE White ENCOUNTER PHYSICIAN Dr. Glen Davidson M.D. REFERRING DOCTOR Costa Crenshaw REFERRING FACILITY [facility] DISCHARGE DIAGNOSIS: - Stroke 01 - Right Body (Left Brain) (01.2) 4 cm left cerebeller hypodensity. L Pica stroke with associated hemorrhage. 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] - N/A a fib with RVR DATE OF ADMISSION 01/29/2018 17:19 (CDT) MEDICATION ALLERGIES: No Known Drug Allergies (NKDA) ENVIRONMENTAL ALLERGIES: - Substance Allergies None Known - Other Allergies None Known NURSING: - Shower allowing shower - Bladder care per protocol - Skin care per protocol PRECAUTIONS: - Weight Bearing Precaution WBAT right LE ACTIVITIES OOB only with supervision THERAPIES: - Occupational Therapy Evaluate and Treat Cognitive Retraining Visual Perceptual Training - Speech Therapy Memory Strategies Expressive Language Skills Speech Intelligibility Training Cognitive Training Receptive Language Skills - Physical Therapy Evaluate and Treat HISTORY OF PRESENT ILLNESS: Pt. is a 82 yo Right-handed white female.On 01/22/2018 Pt. presented to [facility] with sudden onset of right-side weakness.On 01/22/2018 she was admitted to [facility] with diagnosis 4 cm left cerebeller hypodensity. L Pica stroke with associated h emorrhage.Her impairment category is Stroke 01 - Right Body (Left Brain) (01.2).Pre-morbidly, Pt. wa s independent/mod-I in Sphincter Control; and she had good Sphincter Control.Currently, she has defic its of Social Cognition, Balance, Self-Care, Endurance, Safety Awareness, Transfers Control, Communic ation, and Locomotion.Pt. is now referred to [facility] for acute in-patient r ehabilitation in order to maximize patient's functional independence in activities of daily living, s trength, ROM, and mobility.- Rehab Goal Patient has realistic goal of being discharged at assistance level 6-Ramon to reside at Home with Fam lisa/Relatives. HOSPITAL COURSE: TUBE FEED: On 01/29/2018 Pt was changed to N/A Tube Feed. DIET - LIQUID TEXTURE: On 01/29/2018 Pt was upgraded to Regular Diet - Liquid Texture. DIET - SOLID TEXTURE: On 01/29/2018 Pt was upgraded to Regular Diet - Solid Texture. DIET TYPE: On 01/29/2018 Pt was upgraded to Regular Diet Type. WEIGHT BEARING PRECAUTION: On 01/30/2018 the following precautions were added for the patient: Weight Bearing Precaution - WBAT right LE, and Weight Bearing Precaution - WBAT right LE. On 02/06/2018 the following precautions were removed for the patient: Weight Bearing Precaution - WB AT right LE. DISCHARGE PHYSICAL EXAM - Gen Alert and awake Lying in bed No apparent distress Oriented to: person, time, and place - Skin No breakdowns No abnormalities - Eyes No abnormalities - ENMT No abnormalities - Neck No abnormalities - CVS RRR - Chest Clear - Abd + BS - GI Soft Deferred - No abnormalities - Ext no edema - MSK Right arm and leg incoordination. Drifts to the right with ambulation. Able to walk fairly well with walker covering 250'. - Neuro Mild right sided weakness and incoordination. - Psych No abnormalities FUNCTIONAL STATUS: - Self-Care A. Eating 3-modA 7-Ind B. Grooming 3-modA 6-Ramon C. Bathing 3-modA 6-Ramon D. Dressing - Upper 3-modA 7-Ind E. Dressing - Lower 3-modA 6-Ramon F. Toileting 3-modA 6-Ramon - Sphincter Control G: Bladder control 7-Ind 7-Ind H: Bowel control 7-Ind 7-Ind - Transfers Control I. Bed/Chair/Wheelchair 3-modA 6-Ramon J. Toilet 3-modA 6-Ramon K. Tub/Shower 3-modA 6-Ramon - Locomotion L. Walk/Wheelchair (B) 1-Dep 6-Ramon M. Stairs 0-ADNO 6-Ramon - Communication N. Comprehension (B) 3-modA 5-sup O. Expression (B) 4-Abdirizak 5-sup - Social Cognition P. Social Interaction 3-modA 5-sup Q. Problem Solving 3-modA 5-sup R. Memory 3-modA 5-sup - Endurance Poor - Balance Poor - Safety Awareness Poor DISCHARGE INSTRUCTIONS: - N/A Eliquis 2.5 mg twice daily. DISCHARGE PLAN, FOLLOW UP CARE PROVISIONS: - Estimated Length of Stay (days) 17. - Consensus on plan Discharge plan has been discussed with primary caregiver. Patient/Family is in agreement with the didi n. Primary caregiver is in agreement with the plan. - Patient/Family Goals Return home with assistance. - Planned Living Setting Upon Discharge Home, to live with Family/Relatives. SIGNATURE PANEL: (CDT)
== END 2018-02-07 15:15 | disposition home or self-care (01) | DRG 57 ==
LOC: 5TH 17:19
PROVIDERS: ADMIT Psychiatry & Neurology Neurology with Special Qualifications in Child Neurology; ATTEND Psychiatry & Neurology Neurology with Special Qualifications in Child Neurology
DX: I69.351 Hemiplegia and hemiparesis following cerebral infarction affecting right dominant side (principal); I48.91 Unspecified atrial fibrillation
CPT/HCPCS: 36415; 80048; 81001; 82040; 82962; 83735; 84134; 85025; 87077; 87086; 87088; 87186

== ENCOUNTER 2022-02-21 12:56 | Emergency (ER) | payer OTHER ==
--- OUTSIDE RECORDS SUMMARY | 2022-02-21 12:59 | XMS REPORT | Continuity of Care Document ---
:1935 Author Organization [facility] t Address [address] [place] [address] [address]. [address] [place] [address] Care Team Providers Name Role Phone RANGEL BENTLEY Attending Clinician Unavailable RANGEL BENTLEY Admitting Clinician Unavailable Problems This patient has no known problems. Allergies, Adverse Reactions, Alerts This patient has no known allergies or adverse reactions. Medications This patient has no known medications. Procedures This patient has no known procedures. Results Test Description Test Time Test Comments Results Result [facility] e Comments CT, BRAIN, WITHOUT 2018-01-29 FINAL REPORT PATIENT CONTRAST 13:45:00 ID: [id number] CT head without contrast. Comparisons: January 24 [...] Berger Verified Date/Time: 01/29/2018 13:45:52 Reading Location: [address] Neuro Reading Room C METABOLIC PANEL 2018-01-29 04:56:00 Test Item Value Reference Range Interpretation Comme nts SODIUM (BEAKER) (test code 133 meq/L 136-145 L = 381) POTASSIUM (BEAKER) (test 4.2 meq/L 3.5-5.1 Spe cimen slightly code = 379) hemolyzed CHLORIDE (BEAKER) (test 102 meq/L 98-107 code = 382) CO2 (BEAKER) (test code = 19 meq/L 22-29 L 355) BLOOD UREA NITROGEN 24 mg/dL 7-21 H (BEAKER) (test code = 354) CREATININE (BEAKER) (test 0.79 mg/dL 0.57-1.25 Sp ecimen slightly code = 358) hemolyzed GLUCOSE RANDOM (BEAKER) 112 mg/dL 70-105 H (test code = 652) CALCIUM (BEAKER) (test code 8.8 mg/dL 8.4-10.2 = 697) EGFR (BEAKER) (test code = 70 mL/min/1.73 sq m ESTIMATED GFR IS NOT 1092) ACCURATE CRE ATININE CLEARANCE IN TN EDICTING GLOMERULAR FILT RATION RATE. ESTIMATED GFR IS NOT APPLICABLE FOR DIALYSIS PATIENTS. CBC (HEMOGRAM ONLY)2018-01-29 04:46:00 Test Item Value Reference Range Interpretation Comments WHITE BLOOD CELL COUNT (BEAKER) 14.1 K/ L 3.5-10.5 H (test code = 775) RED BLOOD CELL COUNT (BEAKER) 4.91 M/ L 3.93-5.22 (test code = 761) HEMOGLOBIN (BEAKER) (test code = 13.8 GM/DL 11.2-15.7 410) HEMATOCRIT (BEAKER) (test code = 43.0 % 34.1-44.9 411) MEAN CORPUSCULAR VOLUME (BEAKER) 87.6 fL 79.4-94.8 (test code = 753) MEAN CORPUSCULAR HEMOGLOBIN 28.1 pg 25.6-32.2 (BEAKER) (test code = 751) MEAN CORPUSCULAR HEMOGLOBIN CONC 32.1 GM/DL 32.2-35.5 L (BEAKER) (test code = 752) RED CELL DISTRIBUTION WIDTH 14.7 % 11.7-14.4 H (BEAKER) (test code = 412) PLATELET COUNT (BEAKER) (test 222 K/CU MM 150-450 code = 756) MEAN PLATELET VOLUME (BEAKER) 9.8 fL 9.4-12.3 (test code = 754) NUCLEATED RED BLOOD CELLS 0 /100 WBC 0-0 (BEAKER) (test code = 413) BASIC METABOLIC [id number] 07:03:00 Test Item Value Reference Range Interpretation Comments SODIUM (BEAKER) 133 meq/L 136-145 L (test code = 381) POTASSIUM (BEAKER) 4.2 meq/L 3.5-5.1 (test code = 379) CHLORIDE (BEAKER) 102 meq/L 98-107 (test code = 382) CO2 (BEAKER) (test 23 meq/L 22-29 code = 355) BLOOD UREA NITROGEN 20 mg/dL 7-21 (BEAKER) (test code = 354) CREATININE (BEAKER) 0.82 mg/dL 0.57-1.25 (test code = 358) GLUCOSE RANDOM 116 mg/dL 70-105 H (BEAKER) (test code = 652) CALCIUM (BEAKER) 8.9 mg/dL 8.4-10.2 (test code = 697) EGFR (BEAKER) (test 67 mL/min/1.73 ESTIMA WALE GFR IS code = 1092) sq m NOT ACCURATE CREATININE CLEARANCE IN PREDICTING GLOMERULAR FILTRATION RATE . ESTIMATED GFR I S NOT APPLICABLE FOR DIALYSIS PATIEN TS. CBC W/PLT COUNT & AUTO [id number] 06:36:00 Test Item Value Reference Range Interpretation Comments WHITE BLOOD CELL COUNT (BEAKER) 10.6 K/ L 3.5-10.5 H (test code = 775) RED BLOOD CELL COUNT (BEAKER) 4.98 M/ L 3.93-5.22 (test code = 761) HEMOGLOBIN (BEAKER) (test code = 14.2 GM/DL 11.2-15.7 410) HEMATOCRIT (BEAKER) (test code = 43.4 % 34.1-44.9 411) MEAN CORPUSCULAR VOLUME (BEAKER) 87.1 fL 79.4-94.8 (test code = 753) MEAN CORPUSCULAR HEMOGLOBIN 28.5 pg 25.6-32.2 (BEAKER) (test code = 751) MEAN CORPUSCULAR HEMOGLOBIN CONC 32.7 GM/DL 32.2-35.5 (BEAKER) (test code = 752) RED CELL DISTRIBUTION WIDTH 14.5 % 11.7-14.4 H (BEAKER) (test code = 412) PLATELET COUNT (BEAKER) (test 235 K/CU MM 150-450 code = 756) MEAN PLATELET VOLUME (BEAKER) 9.7 fL 9.4-12.3 (test code = 754) NUCLEATED RED BLOOD CELLS 0 /100 WBC 0-0 (BEAKER) (test code = 413) NEUTROPHILS RELATIVE PERCENT 60 % (BEAKER) (test code = 429) LYMPHOCYTES RELATIVE PERCENT 23 % (BEAKER) (test code = 430) MONOCYTES RELATIVE PERCENT 13 % (BEAKER) (test code = 431) EOSINOPHILS RELATIVE PERCENT 3 % (BEAKER) (test code = 432) BASOPHILS RELATIVE PERCENT 0 % (BEAKER) (test code = 437) NEUTROPHILS ABSOLUTE COUNT 6.30 K/ L 1.56-6.13 H (BEAKER) (test code = 670) LYMPHOCYTES ABSOLUTE COUNT 2.45 K/ L 1.18-3.74 (BEAKER) (test code = 414) MONOCYTES ABSOLUTE COUNT (BEAKER) 1.38 K/ L 0.24-0.36 H (test code = 415) EOSINOPHILS ABSOLUTE COUNT 0.33 K/ L 0.04-0.36 (BEAKER) (test code = 416) BASOPHILS ABSOLUTE COUNT (BEAKER) 0.03 K/ L 0.01-0.08 (test code = 417) IMMATURE GRANULOCYTES-RELATIVE 1 % 0-1 PERCENT (BEAKER) (test code = 2801) CT, BRAIN, WITHOUT [id number] 09:53:00FINAL REPORT CT head without contrast 01/24/2018 [...] MDReport Verified Date/Time: 01/24/2018 09:53:07 Reading Location: [facility] C013V Neuro Reading Room BASIC METABOLIC [id number] 07:40:00 Test Item Value Reference Range Interpretation Comments SODIUM (BEAKER) 136 meq/L 136-145 (test code = 381) POTASSIUM (BEAKER) 4.0 meq/L 3.5-5.1 (test code = 379) CHLORIDE (BEAKER) 104 meq/L 98-107 (test code = 382) CO2 (BEAKER) (test 20 meq/L 22-29 L code = 355) BLOOD UREA NITROGEN 20 mg/dL 7-21 (BEAKER) (test code = 354) CREATININE (BEAKER) 0.80 mg/dL 0.57-1.25 (test code = 358) GLUCOSE RANDOM 126 mg/dL 70-105 H (BEAKER) (test code = 652) CALCIUM (BEAKER) 8.9 mg/dL 8.4-10.2 (test code = 697) EGFR (BEAKER) (test 69 mL/min/1.73 ESTIMA WALE GFR IS code = 1092) sq m NOT ACCURATE CREATININE CLEARANCE IN PREDICTING GLOMERULAR FILTRATION RATE . ESTIMATED GFR I S NOT APPLICABLE FOR DIALYSIS PATIEN TS. CBC W/PLT COUNT & AUTO [id number] 07:13:00 Test Item Value Reference Range Interpretation Comments WHITE BLOOD CELL COUNT (BEAKER) 9.7 K/ L 3.5-10.5 (test code = 775) RED BLOOD CELL COUNT (BEAKER) 4.46 M/ L 3.93-5.22 (test code = 761) HEMOGLOBIN (BEAKER) (test code = 12.9 GM/DL 11.2-15.7 410) HEMATOCRIT (BEAKER) (test code = 40.1 % 34.1-44.9 411) MEAN CORPUSCULAR VOLUME (BEAKER) 89.9 fL 79.4-94.8 (test code = 753) MEAN CORPUSCULAR HEMOGLOBIN 28.9 pg 25.6-32.2 (BEAKER) (test code = 751) MEAN CORPUSCULAR HEMOGLOBIN CONC 32.2 GM/DL 32.2-35.5 (BEAKER) (test code = 752) RED CELL DISTRIBUTION WIDTH 15.0 % 11.7-14.4 H (BEAKER) (test code = 412) PLATELET COUNT (BEAKER) (test 228 K/CU MM 150-450 code = 756) MEAN PLATELET VOLUME (BEAKER) 10.1 fL 9.4-12.3 (test code = 754) NUCLEATED RED BLOOD CELLS 0 /100 WBC 0-0 (BEAKER) (test code = 413) NEUTROPHILS RELATIVE PERCENT 60 % (BEAKER) (test code = 429) LYMPHOCYTES RELATIVE PERCENT 26 % (BEAKER) (test code = 430) MONOCYTES RELATIVE PERCENT 11 % (BEAKER) (test code = 431) EOSINOPHILS RELATIVE PERCENT 2 % (BEAKER) (test code = 432) BASOPHILS RELATIVE PERCENT 0 % (BEAKER) (test code = 437) NEUTROPHILS ABSOLUTE COUNT 5.81 K/ L 1.56-6.13 (BEAKER) (test code = 670) LYMPHOCYTES ABSOLUTE COUNT 2.56 K/ L 1.18-3.74 (BEAKER) (test code = 414) MONOCYTES ABSOLUTE COUNT (BEAKER) 1.07 K/ L 0.24-0.36 H (test code = 415) EOSINOPHILS ABSOLUTE COUNT 0.19 K/ L 0.04-0.36 (BEAKER) (test code = 416) BASOPHILS ABSOLUTE COUNT (BEAKER) 0.02 K/ L 0.01-0.08 (test code = 417) IMMATURE GRANULOCYTES-RELATIVE 1 % 0-1 PERCENT (BEAKER) (test code = 2801) URINALYSIS W/ REFLEX URINE [id number] 20:08:00 Test Item Value Reference Range Interpretation Comments COLOR (BEAKER) (test code = 470) Yellow CLARITY (BEAKER) (test code = 469) Clear SPECIFIC GRAVITY UA (BEAKER) (test 1.022 1.001-1.035 code = 468) PH UA (BEAKER) (test code = 467) 5.5 5.0-8.0 PROTEIN UA (BEAKER) (test code = 10 mg/dL Negative A 464) GLUCOSE UA (BEAKER) (test code = Negative Negative 365) KETONES UA (BEAKER) (test code = Negative Negative 371) BILIRUBIN UA (BEAKER) (test code = Negative Negative 462) BLOOD UA (BEAKER) (test code = 461) Negative Negative NITRITE UA (BEAKER) (test code = Negative Negative 465) LEUKOCYTE ESTERASE UA (BEAKER) Negative Negative (test code = 466) UROBILINOGEN UA (BEAKER) (test code 0.2 mg/dL 0.2-1.0 = 463) RBC UA (BEAKER) (test code = 519) < /HPF WBC UA (BEAKER) (test code = 520) < /HPF MUCUS (BEAKER) (test code = 1574) Rare SQUAMOUS EPITHELIAL (BEAKER) (test 1 /HPF code = 516) SOURCE(BEAKER) (test code = 2795) HEMOGLOBIN [id number] 10:48:00 Test Item Value Reference Range Interpretation Comments HEMOGLOBIN A1C (BEAKER) (test code = 6.4 % 4.3-6.1 H 368) FastingMR, BRAIN, WITHOUT [id number] 07:30:00Reason for exam:- >StrokeWhat is the patient's sedation requirement?->No SedationFINAL REPORT MRI brain and MRA head and neck without contrast 01/23/2018 7:26 AM CLINICAL INDICATION: Cerebral hemorrhage suspectedStroke TECHNIQUE: Multiplanar, multisequence MR imaging of the brain was performed utilizing the following imaging sequences: Axial T1, T2, FLAIR, GRE, and DWI; sagittal and coronal T1-weighted images. Two- and three-dimensional feul-dl-qdmhfw MRA images of the intra- and extracranial [...] is antegrade in both vertebral arteries. MRA [place]: There is severely attenuated flow [...] intraluminal thrombus and/or slow flow. Findings were discusse d with the [facility] neurology housestaff on 01/23/2018 at 0730. Signed: Se Patel Verified Date/Time: 01/23/2018 07:30:49 Reading Location: [address] Neuro Reading Room Electronicallysigned by: SE PATEL M.D. on 01/23/2018 07:30 AMMR, MRA, BRAIN, WITHOUT [id number] 07:30:00Reason for exam:->Ischemic Stroke EvaluationFINAL REPORT MRI brain and MRA head and neck without contrast 01/23/2018 7:26 AM CLINICAL INDICATION: Cerebral hemorrhage suspectedStroke TECHNIQUE: Multiplanar, multisequence MR imaging of the brain was performed utilizing the following imaging sequences: Axial T1, T2, FLAIR, GRE, and DWI; sagittal and coronal T1- weighted images. Two- and three-dimensional txvd-dy-wwjapk MRA images of the intra- and extracranial [...] is antegrade in both vertebral arteries. MRA [place]: There is severely attenuated flow [...] intraluminal thrombus and/or slow flow. Findings were discusse d with the [facility] neurology housestaff on 01/23/2018 at 0730. Signed: Se Patel MDReport Verified Date/Time: 01/23/2018 07:30:49 Reading Location: [facility] C013 Neuro Reading Room Electronicallysigned by: SE PATEL M.D. on 01/23/2018 07:30 AMMR, MRA, NECK, WITHOUT IV [id number] 07:30:00 Reason for exam:->Ischemic Stroke EvaluationFINAL REPORT MRI brain and MRA head and neck without contrast 01/23/2018 7:26 AM CLINICAL INDICATION: Cerebral hemorrhage suspectedStroke TECHNIQUE: Multiplanar, multisequence MR imaging of the brain was performed utilizing the following imaging sequences: Axial T1, T2, FLAIR, GRE, and DWI; sagittal and coronal T1- weighted images. Two- and three-dimensional zbhw-vd-rikjug MRA images of the intra- and extracranial [...] is antegrade in both vertebral arteries. MRA [place]: There is severely attenuated flow [...] intraluminal thrombus and/or slow flow. Findings were discusse d with the [facility] neurology housestaff on 01/23/2018 at 0730. Signed: Se Patel Verified Date/Time: 01/23/2018 07:30:49 Reading Location: [facility] C013V Neuro Reading Room Electronicallysigned by: SE PATEL M.D. on 01/23/2018 07:30 AMTSH/FREE T4 IF [id number] 02:31:00 Test Item Value Reference Range Interpretation Comments THYROID STIMULATING HORMONE 0.78 uIU/mL 0.35-4.94 (BEAKER) (test code = 772) VITAMIN B12 AND [id number] 02:31:00 Test Item Value Reference Range Interpretation Comments VITAMIN B12 (BEAKER) (test code = > pg/mL 213-816 H 774) FOLATE (BEAKER) (test code = 362) 5.4 ng/mL >=7.0 L TROPONIN [id number] 02:08:00 Test Item Value Reference Range Interpretation Comments TROPONIN I (BEAKER) (test code = 0.02 ng/mL 0.00-0.03 397) Troponin I (TnI) levels must be interpreted [...] acidosis, acute neurological disease, and persistent tachyarrhythmia.FastingLIPID [id number] 02:00:00 Test Item Value Reference Range Interpretation Comments TRIGLYCERIDES (BEAKER) (test code = 173 mg/dL 540) CHOLESTEROL (BEAKER) (test code = 180 mg/dL 631) HDL CHOLESTEROL (BEAKER) (test code 47 mg/dL = 976) LDL CHOLESTEROL CALCULATED (BEAKER) 98 mg/dL (test code = 633) Triglyceride Reference Range: Low Risk <150 Borderline 150-199 High Risk 200-499 Very High Risk >=500Cholesterol Reference Range: Low Risk <200 Borderline 200-239 High Risk >240HDL Cholesterol Reference Range: Low Risk >=60 High Risk <40LDL Cholesterol Reference Range: Optimal <100 Near Optimal 100-129 Borderline 130-159 High 160-189 Very High >=190 FastingBUN AND [id number] 02:00:00 Test Item Value Reference Range Interpretation Comments BLOOD UREA NITROGEN 20 mg/dL 7-21 (BEAKER) (test code = 354) CREATININE (BEAKER) 0.93 mg/dL 0.57-1.25 (test code = 358) EGFR (BEAKER) (test 58 mL/min/1.73 ESTIMA WALE GFR IS code = 1092) sq m NOT ACCURATE CREATININE CLEARANCE IN PREDICTING GLOMERULAR FILTRATION RATE . ESTIMATED GFR I S NOT APPLICABLE FOR DIALYSIS PATIEN TS. FastingBASIC METABOLIC [id number] 02:00:00 Test Item Value Reference Range Interpretation Comments SODIUM (BEAKER) 143 meq/L 136-145 (test code = 381) POTASSIUM (BEAKER) 4.2 meq/L 3.5-5.1 (test code = 379) CHLORIDE (BEAKER) 106 meq/L 98-107 (test code = 382) CO2 (BEAKER) (test 26 meq/L 22-29 code = 355) BLOOD UREA NITROGEN 20 mg/dL 7-21 (BEAKER) (test code = 354) CREATININE (BEAKER) 0.93 mg/dL 0.57-1.25 (test code = 358) GLUCOSE RANDOM 147 mg/dL 70-105 H (BEAKER) (test code = 652) CALCIUM (BEAKER) 9.2 mg/dL 8.4-10.2 (test code = 697) EGFR (BEAKER) (test 58 mL/min/1.73 ESTIMA WALE GFR IS code = 1092) sq m NOT ACCURATE CREATININE CLEARANCE IN PREDICTING GLOMERULAR FILTRATION RATE . ESTIMATED GFR I S NOT APPLICABLE FOR DIALYSIS PATIEN TS. FastingCBC W/PLT COUNT & AUTO [id number] 01:51:00 Test Item Value Reference Range Interpretation Comments WHITE BLOOD CELL COUNT (BEAKER) 13.8 K/ L 3.5-10.5 H (test code = 775) RED BLOOD CELL COUNT (BEAKER) 4.83 M/ L 3.93-5.22 (test code = 761) HEMOGLOBIN (BEAKER) (test code = 13.7 GM/DL 11.2-15.7 410) HEMATOCRIT (BEAKER) (test code = 42.5 % 34.1-44.9 411) MEAN CORPUSCULAR VOLUME (BEAKER) 88.0 fL 79.4-94.8 (test code = 753) MEAN CORPUSCULAR HEMOGLOBIN 28.4 pg 25.6-32.2 (BEAKER) (test code = 751) MEAN CORPUSCULAR HEMOGLOBIN CONC 32.2 GM/DL 32.2-35.5 (BEAKER) (test code = 752) RED CELL DISTRIBUTION WIDTH 14.6 % 11.7-14.4 H (BEAKER) (test code = 412) PLATELET COUNT (BEAKER) (test 233 K/CU MM 150-450 code = 756) MEAN PLATELET VOLUME (BEAKER) 9.9 fL 9.4-12.3 (test code = 754) NUCLEATED RED BLOOD CELLS 0 /100 WBC 0-0 (BEAKER) (test code = 413) NEUTROPHILS RELATIVE PERCENT 80 % (BEAKER) (test code = 429) LYMPHOCYTES RELATIVE PERCENT 11 % (BEAKER) (test code = 430) MONOCYTES RELATIVE PERCENT 8 % (BEAKER) (test code = 431) EOSINOPHILS RELATIVE PERCENT 0 % (BEAKER) (test code = 432) BASOPHILS RELATIVE PERCENT 0 % (BEAKER) (test code = 437) NEUTROPHILS ABSOLUTE COUNT 10.98 K/ L 1.56-6.13 H (BEAKER) (test code = 670) LYMPHOCYTES ABSOLUTE COUNT 1.51 K/ L 1.18-3.74 (BEAKER) (test code = 414) MONOCYTES ABSOLUTE COUNT (BEAKER) 1.11 K/ L 0.24-0.36 H (test code = 415) EOSINOPHILS ABSOLUTE COUNT 0.03 K/ L 0.04-0.36 L (BEAKER) (test code = 416) BASOPHILS ABSOLUTE COUNT (LogicTreeAKER) 0.02 K/ L 0.01-0.08 (test code = 417) IMMATURE GRANULOCYTES-RELATIVE 1 % 0-1 PERCENT (LogicTreeAKER) (test code = 2801)
--- NOTE | 2022-02-21 16:25 | RAD REPORT ---
EXAM DESCRIPTION: CT - Head Brain Wo Cont - 02/21/2022 4:06 pm CLINICAL HISTORY: Dizziness, non-specific COMPARISON: HEAD BRAIN W O CONTRAST dated 12/27/2013 TECHNIQUE: Axial 5 mm thick images of the head were obtained without IV contrast. All CT scans are performed using dose optimization technique as appropriate and may include automated exposure control or mA/KV adjustment according to patient size. FINDINGS: No intracranial hemorrhage, mass, edema or shift of mid-line structures. No acute cortical based infarction identified. No cortical edema or sulcal effacement. Atrophy changes are present wit h ventricles in proportion to volume loss. No abnormal extra-axial fluid collections. Chronic ischemi c changes are seen in cerebral hemisphere white matter and basal ganglia. Thalamus chronic ischemic c hanges are evident. 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 Mastoid air cells and visualized portions of the paranasal sinuses are clear. No acute bony findings. IMPRESSION: No acute intracranial finding identifiable. 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
--- NOTE | 2022-02-21 16:26 | RAD REPORT ---
EXAM DESCRIPTION: RAD - Chest Single View - 02/21/2022 4:13 pm CLINICAL HISTORY: SOB COMPARISON: Two view chest May 2019 TECHNIQUE: AP portable chest image was obtained 02/21/2022 4:13 pm . FINDINGS: Lung volumes are low accentuating interstitial pattern. Under penetrated film technique fu rther accentuates the interstitial pattern. No peripheral mass or consolidation. No hilar abnormality seen. Heart and vasculature are normal. No measurable pleural effusion and no pneumothorax. No acute bony abnormality seen. No acute aortic findings suspected. IMPRESSION: No acute cardiopulmonary process. Chronic interstitial lung pattern matches comparison.
[2022-02-21 16:37] LABS: Absolute Lymphocytes (CBC) 2.9 K/uL (0.7-4.9); Hematocrit 46.8 % (36.0-45.0); Lymphocytes % 45.7 % (15.3-44.8); MPV 7.7 fL (7.6-11.3); RBC Red Blood Cell Count 5.32 M/uL (3.86-4.86)
[2022-02-21 16:40] LABS: Protime INR 1.38
[2022-02-21] MEDS ORDERED: NA CHLORIDE 0.9% 500 ML ONE (16:51)
[2022-02-21 16:52] LABS: Albumin 3.2 g/dL (3.4-5.0); Bilirubin Direct 0.2 mg/dL (0-0.2); Bilirubin Total 0.4 mg/dL (0.2-1.0); Magnesium 2.1 mg/dL (1.8-2.4); Potassium 4.5 mmol/L (3.5-5.1); Protein, Total 6.9 g/dL (6.4-8.2); Troponin High Sensitivity 15.6 pg/mL (<58.9)
[2022-02-21 18:25] LABS: Urine Blood Negative (Negative); Urine Glucose Negative (Negative); Urine Protein Negative (Negative); Urine Specific Gravity 1.015 (1.005-1.030); Urine pH 6.5 (5.0-7.0)
[2022-02-21 18:36] LABS: Urine Bacteria <20 /HPF (<20); Urine Mucus 1+ /HPF (NONE SEEN); Urine RBC <5 /HPF (NONE SEEN)
[2022-02-21] MEDS ORDERED: BEBTELOVIMAB 175 MG/2 ML VIAL IV ONE (19:10)
--- NOTE | 2022-02-21 20:05 | ER ---
Nurse's Notes [facility] Name: Trisha Lovelace Age: 86 yrs Sex: Female : 1935 Arrival Date: 02/21/2022 Time: 13:05 Bed 27 Private MD: Diagnosis: SARS-associated coronavirus as the cause of diseases classified elsewhere;Chronic atrial fibrillation Presentation: 02/21 13:05 Chief complaint: EMS states: toned out for low BP, was 200/90, is COVId + since Monday iw , main complaint is BP problem -, was taking her BP all day yesterday and was getting low reading so she didn't take her carvedilol today. 13:06 Coronavirus screen: Client presents with at least one sign or symptom that may indicate iw coronavirus-19. Ebola Screen: Patient negative for fever greater than or equal to 101.5 degrees Fahrenheit, and additional compatible Ebola Virus Disease symptoms Patient denies exposure to infectious person. Patient denies travel to an Ebola-affected area in the 21 days before illness onset. No symptoms or risks identified at this time. Initial Sepsis Screen: Does the patient meet any 2 criteria? No. Patient's initial sepsis screen is negative. Does the patient have a suspected source of infection? No. Patient's initial sepsis screen is negative. Risk Assessment: Do you want to hurt yourself or someone else? Patient reports no desire to harm self or others. 13:06 Method Of Arrival: EMS: [facility] 13:06 Acuity: JUAN 3 iw Historical: - Allergies: 13:07 shrimp; iw - PMHx: 13:07 Alzheimers; High Cholesterol; Hypertension; Hypothyroidism; TIA; iw Screenin:45 Abuse screen: Denies threats or abuse. Nutritional screening: No deficits noted. jb4 Tuberculosis screening: No symptoms or risk factors identified. Fall Risk Ambulatory Aid- Crutches/Cane/Walker (15 pts). Total Murillo Fall Scale indicates No Risk (0-24 pts). Assessment: 15:20 General: Appears in no apparent distress. comfortable, Behavior is calm, cooperative, jb4 appropriate for age. Pain: Denies pain. Neuro: Level of Consciousness is awake, alert, obeys commands, Oriented to person, place, time, situation. Cardiovascular: Patient's skin is warm and dry. Respiratory: Airway is patent Respiratory effort is even, unlabored, Respiratory pattern is regular, symmetrical. Derm: Skin is intact, Skin is pink, warm \T\ dry. Musculoskeletal: Circulation, motion, and sensation intact. Range of motion: intact in all extremities. 16:30 Reassessment: Patient appears in no apparent distress at this time. Patient and/or jb4 family updated on plan of care and expected duration. Pain level reassessed. Patient is alert, oriented x 3, equal unlabored respirations, skin warm/dry/pink. 17:29 Reassessment: Patient appears in no apparent distress at this time. Patient and/or jb4 family updated on plan of care and expected duration. Pain level reassessed. Patient is alert, oriented x 3, equal unlabored respirations, skin warm/dry/pink. 18:40 Reassessment: Patient appears in no apparent distress at this time. Patient and/or jb4 family updated on plan of care and expected duration. Pain level reassessed. Patient is alert, oriented x 3, equal unlabored respirations, skin warm/dry/pink. 19:45 Reassessment: Patient appears in no apparent distress at this time. Patient and/or jb4 family updated on plan of care and expected duration. Pain level reassessed. Patient is alert, oriented x 3, equal unlabored respirations, skin warm/dry/pink. 20:44 Reassessment: Patient appears in no apparent distress at this time. Patient and/or jb4 family updated on plan of care and expected duration. Pain level reassessed. Patient is alert, oriented x 3, equal unlabored respirations, skin warm/dry/pink. Vital Signs: 13:06 BP 202 / 90; Pulse 84; Resp 18 S; Temp 98.4; Pulse Ox 97% on R/A; iw 16:25 BP 121 / 73; Pulse 87; Resp 16; Pulse Ox 97% on R/A; jb4 17:29 BP 117 / 60; Pulse 81; Resp 18; Pulse Ox 96% on R/A; jb4 18:30 BP 118 / 59; Pulse 82; Resp 16; Pulse Ox 97% on R/A; jb4 20:15 BP 150 / 90; Pulse 91; Resp 16; Pulse Ox 96% on R/A; jb4 ED Course: 13:05 Patient arrived in ED. iw 13:06 Triage completed. iw 13:08 Arm band placed on. iw 13:10 Heath Aaron PA is PHCP. cp 13:10 Kelvin Martinez MD is Attending Physician. cp 15:15 Patient has correct armband on for positive identification. Bed in low position. Call jb4 light in reach. Side rails up X 1. Client placed on continuous cardiac and pulse oximetry monitoring. NIBP monitoring applied. telemetry monitor on. 15:49 EKG done, by ED staff, reviewed by Kelvin Martinez MD. mb4 16:08 CT Head Brain wo Cont In Process Unspecified. EDMS 16:12 Perry Hurd, RN is Primary Nurse. jb4 16:14 XRAY Chest (1 view) In Process Unspecified. EDMS 20:45 No provider procedures requiring assistance completed. IV discontinued, intact, jb4 bleeding controlled, No redness/swelling at site. Pressure dressing applied. Administered Medications: 17:02 Drug: NS 0.9% 500 ml Route: IV; Rate: 100 ml/hr; Site: right wrist; jb4 19:34 Drug: bebtelovimab 1 application Route: IV; Rate: calculated rate; Site: right wrist; jb4 19:35 Follow up: IV Status: Completed infusion jb4 20:36 Follow up: Response: No adverse reaction jb4 20:18 Drug: carvedilol 12.5 mg Route: PO; jb4 20:23 Follow up: Response: Medication administered at discharge. jb4 Medication: 20:15 VIS not applicable for this client. jb4 Outcome: 20:04 Discharge ordered by MD. cp 20:45 Discharged to home via wheelchair, with family. jb4 20:45 Condition: stable 20:45 Discharge instructions given to patient, family, Instructed on discharge instructions, follow up and referral plans. Demonstrated understanding of instructions, follow-up care. 20:46 Patient left the ED. jb4 Signatures: Dispatcher [employer] EDMS Perla Mar RN RN Heath Aaron PA PA cp Perry Hurd, JOCELIN RN jb4 Gaby Luciano4 Corrections: (The following items were deleted from the chart) 13:07 13:05 Chief complaint: EMS states: toned out for low BP, was 200/90, is COVId + since iw Monday , main complaint is BP problem - iw 13:07 13:06 Coronavirus screen: Client presents with at least one sign or symptom that may iw indicate coronavirus-19. 13:06 Acuity: JUAN 2 iw 13:06 BP 202 / 90; Pulse 84bpm; Resp 18bpm; Spontaneous; Pulse Ox 97% RA; Temp 98.4F; iwiw
--- NOTE | 2022-02-21 20:05 | EDPHYS ---
Physician Documentation [facility] Name: Trisha Lovelace Age: 86 yrs Sex: Female : 1935 Arrival Date: 02/21/2022 Time: 13:05 Bed 27 Private MD: ED Physician Kelvin Martinez HPI: 02/21 15:30 This 86 yrs old Female presents to ER via EMS with complaints of High Blood Pressure. cp 15:30 The patient has elevated blood pressure and discovered this ED. Onset: The cp symptoms/episode began/occurred today, patient admits to not taking prescribed blood pressure medications. Historical: - Allergies: 13:07 shrimp; iw - PMHx: 13:07 Alzheimers; High Cholesterol; Hypertension; Hypothyroidism; TIA; iw Exam: 15:55 ECG was reviewed by the Attending Physician. cp Vital Signs: 13:06 BP 202 / 90; Pulse 84; Resp 18 S; Temp 98.4; Pulse Ox 97% on R/A; iw 16:25 BP 121 / 73; Pulse 87; Resp 16; Pulse Ox 97% on R/A; jb4 17:29 BP 117 / 60; Pulse 81; Resp 18; Pulse Ox 96% on R/A; jb4 18:30 BP 118 / 59; Pulse 82; Resp 16; Pulse Ox 97% on R/A; jb4 20:15 BP 150 / 90; Pulse 91; Resp 16; Pulse Ox 96% on R/A; jb4 MDM: 15:22 Patient medically screened. 02/21 15:33 Order name: Basic Metabolic Panel; Complete Time: 18:00 02/21 18:00 Interpretation: Normal except: NA 133; GFR 74. 02/21 15:33 Order name: CBC with Diff; Complete Time: 18:00 02/21 18:01 Interpretation: Normal except: RBC 5.32; HGB 15.4; HCT 46.8; LYM% 45.7. 02/21 15:33 Order name: LFT's; Complete Time: 18:00 02/21 15:33 Order name: Magnesium; Complete Time: 18:00 02/21 15:33 Order name: NT PRO-BNP; Complete Time: 18:00 02/21 18:01 Interpretation: Abnormal: NT PRO-BNP 2755. 02/21 15:33 Order name: PT-INR; Complete Time: 18:00 cp 02/21 15:33 Order name: Troponin HS; Complete Time: 18:00 cp 02/21 15:33 Order name: XRAY Chest (1 view); Complete Time: 16:36 cp 02/21 15:33 Order name: CT Head Brain wo Cont; Complete Time: 16:36 cp 02/21 15:33 Order name: Urine Microscopic Only; Complete Time: 18:43 cp 02/21 18:43 Interpretation: Reviewed. 02/21 16:34 Order name: COVID-19 SARS RT PCR (Document "Date of Onset" if Symptomatic); Complete cp Time: 18:58 02/21 16:34 Order name: Influenza Screen (a \\T\\ B); Complete Time: 18:00 cp 02/21 18:25 Order name: Urine Dipstick-Ancillary; Complete Time: 18:43 EDMS 02/21 18:39 Order name: Urine Culture EDMS 02/21 15:33 Order name: EKG; Complete Time: 15:33 cp 02/21 15:33 Order name: Cardiac monitoring; Complete Time: 16:13 cp 02/21 15:33 Order name: EKG - Nurse/Tech; Complete Time: 16:13 cp 02/21 15:33 Order name: IV Saline Lock; Complete Time: 16:25 02/21 15:33 Order name: Labs collected and sent; Complete Time: 16:25 cp 02/21 15:33 Order name: O2 Per Protocol; Complete Time: 16:13 02/21 15:33 Order name: O2 Sat Monitoring; Complete Time: 16:13 02/21 15:33 Order name: Urine Dipstick-Ancillary (obtain specimen); Complete Time: 18:35 cp EC:55 Rate is 103 beats/min. Rhythm is irregular. QRS interval is normal. QT interval is cp normal. T waves are Inverted in lead aVR. Interpreted by me. Reviewed by me. Administered Medications: 17:02 Drug: NS 0.9% 500 ml Route: IV; Rate: 100 ml/hr; Site: right wrist; jb4 19:34 Drug: bebtelovimab 1 application Route: IV; Rate: calculated rate; Site: right wrist; jb4 19:35 Follow up: IV Status: Completed infusion jb4 20:36 Follow up: Response: No adverse reaction jb4 20:18 Drug: carvedilol 12.5 mg Route: PO; jb4 20:23 Follow up: Response: Medication administered at discharge. jb4 Disposition Summary: 02/21/22 20:04 Discharge Ordered Location: Home cp Problem: new cp Symptoms: have improved cp Condition: Stable cp Diagnosis - SARS-associated coronavirus as the cause of diseases classified elsewhere cp - Chronic atrial fibrillation cp Followup: cp - With: Private Physician - When: 1 - 2 days - Reason: Recheck today's complaints Discharge Instructions: - Discharge Summary Sheet cp - Atrial Fibrillation cp - COVID-19 cp - COVID-19: What Your Test Results Mean - [facility] cp - Things to Know about the COVID-19 Pandemic - [facility] cp - 10 Things You Can Do to Manage Your COVID-19 Symptoms at Home - [facility] cp - COVID-19: Quarantine vs. Isolation - [facility] cp - Prevent the Spread of COVID-19 if You Are Sick - [facility] cp Forms: - Medication Reconciliation Form cp - Thank You Letter cp - Antibiotic Education cp - Prescription Opioid Use cp Signatures: Dispatcher [employer] Perla Ford, RN RN Heath Humphrey PA PA cp Bryson, James, RN RN jb4
[2022-02-21] MEDS ORDERED: carvediloL 6.25 MG TAB ONE (20:18)
[2022-02-21 22:00] VITALS: TEMP 98.4
[2022-02-21 22:07] VITALS: BP 150/90; O2SAT 96
--- NOTE | 2022-02-22 08:54 | EKG ---
Test Date: 2022-02-21 Test Time: 15:47:22 Judge: NONA MEASUREMENT RESULTS: Intervals: Rate: 103 DC: QRSD: 76 QT: 302 QTc: 395 [place]: P: DC: QRS: 9 T: 40 INTERPRETIVE STATEMENTS: Atrial fibrillation with rapid ventricular response Abnormal ECG Compared to ECG 01/22/2018 21:03:01 Sinus rhythm no longer present Electronically Signed On 02-22-22 08:52:18 CDT by Kailash Trent
== END 2022-02-21 20:46 | disposition home or self-care (01) ==
LOC: ER 12:56
DX: U07.1 COVID-19 (principal); I48.19 Other persistent atrial fibrillation; I10 Essential (primary) hypertension; G30.9 Alzheimer's disease, unspecified; F02.80 Dementia in other diseases classified elsewhere, unspecified severity, without behavioral disturbance, psychotic disturbance, mood disturbance, and anxiety; Z91.013 Allergy to seafood
CPT/HCPCS: 87088; 85025; 87086; 80048; 36415; 83735; 85610; 80076; 84484; 83880; 87804 ×2; 70450; 71045; U0003; J7040; 81003; 81015; 93005

== ENCOUNTER 2022-06-13 09:00 | Emergency (ER) | payer OTHER ==
--- OUTSIDE RECORDS SUMMARY | 2022-06-13 09:03 | XMS REPORT | Continuity of Care Document ---
:1935 Author Organization [facility] t Address [address] [place] [address] [address] [place] [address] Care Team Providers Name Role Phone NIKKI BENTLEY Attending Clinician Unavailable NIKKI BENTLEY Admitting Clinician Unavailable Problems This patient has no known problems. Allergies, Adverse Reactions, Alerts This patient has no known allergies or adverse reactions. Medications This patient has no known medications. Procedures This patient has no known procedures. Results Test Description Test Time Test Comments Results Result [facility] e Comments CT, BRAIN, WITHOUT 2018-01-29 FINAL REPORT PATIENT CONTRAST 13:45:00 ID: [id number] CT head without contrast. Comparisons: January 24 [...] Berger Verified Date/Time: 01/29/2018 13:45:52 Reading Location: [facility] C0[facility] Neuro Reading Room C METABOLIC PANEL 2018-01-29 [...] NOT 1092) ACCURATE CRE ATININE CLEARANCE IN PA EDICTING GLOMERULAR FILT RATION RATE. ESTIMATED GFR [...] (BEAKER) (test code = 413) BASIC METABOLIC [id number] 07:03:00 Test Item Value Reference Range Interpretation [...] PATIEN TS. CBC W/PLT COUNT & AUTO [id number] 06:36:00 Test Item Value Reference Range Interpretation [...] (test code = 2801) CT, BRAIN, WITHOUT [id number] 09:53:00FINAL REPORT CT head without contrast 01/24/2018 [...] There is an evolving large volume left cerebellar/ve rmian infarct with stable trace petechial hemorrhage but no parenchymal herniation or obstructive hydrocephalus. There remains no mass or extra-axial collection. There is mild microvascular ischemia inthe supratentorial white matter. There is atherosclerotic calcification of the intracranial arterial vasculature. There is generalized parenchymal volume loss. The visualized paranasal sinuses and mastoid air cells are well aerated. The skull is intact. 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 Signed: Se Patelort Verified Date/Time: 01/24/2018 09:53:07 Reading Location: [facility] C013V Neuro Reading Room BASIC METABOLIC [id number] 07:40:00 Test Item Value Reference Range Interpretation [...] PATIEN TS. CBC W/PLT COUNT & AUTO [id number] 07:13:00 Test Item Value Reference Range Interpretation [...] code = 2801) URINALYSIS W/ REFLEX URINE [id number] 20:08:00 Test Item Value Reference Range Interpretation [...] 516) SOURCE(BEAKER) (test code = 2795) HEMOGLOBIN [id number] 10:48:00 Test Item Value Reference Range Interpretation Comments HEMOGLOBIN A1C (BEAKER) (test code = 6.4 % 4.3-6.1 H 368) FastingMR, BRAIN, WITHOUT [id number] 07:30:00Reason for exam:- >StrokeWhat is the patient's sedation requirement?->No SedationFINAL REPORT MRI brain and MRA head and neck without contrast 01/23/2018 7:26 AMCLINICAL INDICATION: Cerebral hemorrhage suspectedStroke TECHNIQUE: Multiplanar, multisequence MR imaging of the brain was performed utilizing the following imaging sequences: Axial T1, T2, FLAIR, GRE,and DWI; sagittal and coronal T1-weighted images. Two- and three-dimensional [id number] MRA images of the intra- and extracranial [...] malignant hematoma, mass, or extra-axial collection. There arerare chronic microvascular changes in the supratentorial white [...] is antegrade in both vertebral arteries. MRA [place]: There is severely attenuated flow related enhancement in the left posterior inferior cerebellar artery, which may reflect intraluminal thrombus and/or slow flow. The remainder of the intracranial arterial vasculature is intact. Anterior and bilateral posterior communicating arteries are present. IMPRESSION: 1. 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 Unremarkable extracranial MRA. 3. Left PICA intraluminal thrombus and/or slow flow. Findings were discussed with the floor neurology housestaff on 01/23/2018 at 0730. Signed: Se Patel Verified Date/Time: 01/23/2018 07:30:49 Reading Location: [address] Neuro Reading Room MR, MRA, BRAIN, WITHOUT [id number] 07:30:00Reason for exam:->Ischemic Stroke EvaluationFINAL REPORT MRI brain and MRA head and neck without contrast 01/23/2018 7:26 AMCLINICAL INDICATION: Cerebral hemorrhage suspectedStroke TECHNIQUE: Multiplanar, multisequence MR karishma ging of the brain was performed utilizing the following imaging sequences: Axial T1, T2, FLAIR, GRE,and DWI; sagittal and coronal T1-weighted images. Two- and three-dimensional [id number]-yo-[id number] MRA images of the intra- and extracranial [...] malignant hematoma, mass, or extra-axial collection. There arerare chronic microvascular changes in the supratentorial white matter. There is generalized parenchymal volume loss. Normal appearing flow-voids are present in the major intracranial vascular structures. The sellar and pineal regions, craniocervical junction, orbits, face, and skull base are without wo rrisome finding. MRA neck: There is no vessel occlusion or flow-limiting stenosis. There is no NASCET-quantifiable cervical internal carotid artery stenosis. Flow is antegrade in both vertebral arteries. MRA [place]: There is severely attenuated flow related enhancement in the left posterior i nferior cerebellar artery, which may reflect intraluminal thrombus and/or slow flow. The remainder of the intracranial arterial vasculature is intact. Anterior and bilateral posterior communicating arteries are present. IMPRESSION: 1. 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 Unremarkable extracranial MRA. 3. Left PICA intraluminal thrombus and/or slow flow. Findings were discussed with the floor neurology housestaff on 01/23/2018 at 0730. Signed: Se Patel Verified Date/Time: 01/23/2018 07:30:49 Reading Location: [address] Neuro Reading Room MR, MRA, NECK, WITHOUT IV [id number] 07:30:00Reason for exam:->Ischemic Stroke EvaluationFINAL REPORT MRI brain and MRA head and neck without contrast 01/23/2018 7:26 AMCLINICAL INDICATION: Cerebral hemorrhage suspectedStroke TECHNIQUE: Multiplanar, multisequence MR imaging of the brain was performed utilizing the following imaging sequences: Axial T1, T2, FLAIR, GRE,and DWI; sagittal and coronal T1-weighted images. Two- and three-dimensional [id number]-bk-[id number] MRA images of the intra- and extracranial [...] malignant hematoma, mass, or extra-axial collection. There arerare chronic microvascular changes in the supratentorial white [...] is antegrade in both vertebral arteries. MRA [place]: There is severely attenuated flow related enhancement in the left posterior inferior cerebellar artery, which may reflect intraluminal thrombus and/or slow flow. The remainder of the intracranial arterial vasculature is intact. Anterior and bilateral posterior communicating arteries are present. IMPRESSION: 1. 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 Unremarkable extracranial MRA. 3. Left PICA intraluminal thrombus and/or slow flow. Findings were discussed with the [facility] neurology housestaff on 01/23/2018 at 0730. Signed: Se Patel Verified Date/Time: 01/23/2018 07:30:49 Reading Location: [address] Neuro Reading Room TSH/FREE T4 IF [id number] 02:31:00 Test Item Value Reference Range Interpretation Comments THYROID STIMULATING HORMONE 0.78 uIU/mL 0.35-4.94 (BEAKER) (test code = 772) VITAMIN B12 AND [id number] 02:31:00 Test Item Value Reference Range Interpretation Comments VITAMIN B12 (BEAKER) (test code = > pg/mL 213-816 H 774) FOLATE (BEAKER) (test code = 362) 5.4 ng/mL >=7.0 L TROPONIN [id number] 02:08:00 Test Item Value Reference Range Interpretation [...] acidosis, acute neurological disease, and persistent tachyarrhythmia.FastingLIPID [id number] 02:00:00 Test Item Value Reference Range Interpretation Comments TRIGLYCERIDES (BEAKER) (test code = 173 mg/dL 540) CHOLESTEROL (BEAKER) (test code = 180 mg/dL 631) HDL CHOLESTEROL (BEAKER) (test code 47 mg/dL = 976) LDL CHOLESTEROL CALCULATED (BEAKER) 98 mg/dL (test code = 633) Triglyceride Reference Range: Low Risk <150 Borderline 150-199 High Risk 200- 499 Very High Risk >=500Cholesterol Reference Range: Low Risk <200 Borderline 200-239 High Risk >240HDL Cholesterol Reference Range: Low Risk >=60 High Risk <40LDL Cholesterol Reference Range: Optimal <100 Near Optimal 100-129 Borderline 130-159 High 160-189 Very High >=190 FastingBUN AND [id number] 02:00:00 Test Item Value Reference Range Interpretation [...] APPLICABLE FOR DIALYSIS PATIEN TS. FastingBASIC METABOLIC [id number] 02:00:00 Test Item Value Reference Range Interpretation [...] PATIEN TS. FastingCBC W/PLT COUNT & AUTO [id number] 01:51:00 Test Item Value Reference Range Interpretation [...]
[2022-06-13] MEDS ORDERED: ALBUTEROL 2.5 MG/3 ML NEB SOL ONE (09:44)
[2022-06-13] MEDS ORDERED: IPRATROPIUM BROM 0.5MG/2.5ML ONE (09:44)
[2022-06-13 09:50] LABS: Absolute Lymphocytes (CBC) 2.1 K/uL (0.7-4.9); Hematocrit 44.8 % (36.0-45.0); Lymphocytes % 20.7 % (15.3-44.8); MCV 90.1 fL (80-100); MPV 7.9 fL (7.6-11.3); RBC Red Blood Cell Count 4.97 M/uL (3.86-4.86)
[2022-06-13 10:09] LABS: Albumin 3.2 g/dL (3.4-5.0); Bilirubin Total 0.5 mg/dL (0.2-1.0); Protein, Total 7.5 g/dL (6.4-8.2); Troponin High Sensitivity 13.6 pg/mL (<58.9)
--- NOTE | 2022-06-13 10:27 | RAD REPORT ---
EXAM DESCRIPTION: Alexa Single View06/13/2022 10:15 am CLINICAL HISTORY: Shortness of breath COMPARISON: January 2022 FINDINGS: The lungs appear clear of acute infiltrate. The heart is normal size IMPRESSION: No acute abnormalities displayed
--- NOTE | 2022-06-13 12:19 | EDPHYS ---
Physician Documentation [facility] Name: Trisha Lovelace Age: 86 yrs Sex: Female : 1935 Arrival Date: 06/13/2022 Time: 09: Bed 3 Private MD: Rocky Juarez C ED Physician Marian Hollins HPI: 06/13 09:22 This 86 yrs old Female presents to ER via Unassigned with complaints of Shortness Of sd2 Breath. 09:22 86-year-old female with a history of emphysema presents with chief complaint of sd2 shortness of breath ongoing since Monday. She reports it has progressively worsened since it started. She is more short of breath with exertion. She denies any associated fevers, cough, chest pain, vomiting, diarrhea or recent sick contacts. She states she has never had any issues with her emphysema in the past and has not noticed any wheezing. She did not use any inhalers or nebulizers at home. She does endorse a runny nose but otherwise has no complaints.. Historical: - Allergies: 09:23 shrimp; iw - Home Meds: 09:54 carvedilol 25 mg oral tab 1 tab 2 times per day [Active]; levothyroxine 75 mcg cap 1 iw cap once daily [Active]; memantine 28 mg oral CSpX 1 cap once daily [Active]; 09:57 folic acid 1 mg Oral tab 1 tab once daily [Active]; ezetimibe 10 mg oral tab 1 tab once iw daily [Active]; cranberry 450 mg oral tab daily [Active]; magnesium oxide 250 mg magnesium Oral tab twice a day [Active]; Vitamin D Oral twice a day [Active]; Vitamin B-12 Oral twice a day [Active]; PreserVision AREDS oral twice a day [Active]; - PMHx: 09:23 Alzheimers; Hypothyroidism; High Cholesterol; Hypertension; TIA; iw 10:01 CVA; iw - PSHx: 09:57 Tonsillectomy; cataract; hysterectomy; shoulder; TIA; iw - Immunization history:: Adult Immunizations up to date. - Social history:: Smoking status: Patient denies any tobacco usage or history of. ROS: 09:22 Constitutional: Negative for fever, chills, and weight loss, Eyes: Negative for injury, sd2 pain, redness, and discharge, Cardiovascular: Negative for chest pain, palpitations, and edema. 09:22 Abdomen/GI: Negative for abdominal pain, nausea, vomiting, diarrhea. MS/Extremity: Negative for injury and deformity, Skin: Negative for injury, rash, and discoloration, Neuro: Negative for headache, numbness, Positive for tingling to BLEs. 09:22 Respiratory: Positive for dyspnea on exertion, shortness of breath, Negative for cough, hemoptysis, wheezing. Exam: 09:22 Constitutional: This is a well developed, well nourished patient who is awake, alert, sd2 and in no acute distress. Head/Face: Normocephalic, atraumatic. Eyes: EOMI, normal conjunctiva bilaterally Chest/axilla: Normal chest wall appearance and motion. Nontender with no deformity. Cardiovascular: Tachycardic rate and regular rhythm with a normal S1 and S2. No gallops, murmurs, or rubs. 2+ distal pulses. Respiratory: Lungs have equal breath sounds bilaterally, clear to auscultation and percussion. No rales, rhonchi or wheezes noted. No increased work of breathing, no retractions or nasal flaring. Abdomen/GI: Soft, non-tender, with normal bowel sounds. No guarding or rebound. No evidence of tenderness throughout. Skin: Warm, dry with normal turgor. Normal color with no rashes, no lesions, and no evidence of cellulitis. MS/ Extremity: Pulses equal, no cyanosis. Neurovascular intact. Full, normal range of motion. Ambulatory without difficulty. Psych: Awake, alert, with orientation to person, place and time. Behavior, mood, and affect are within normal limits. 10:23 ECG was reviewed by the Attending Physician. Atrial fibrillation with rapid ventricular sd2 response, rate 108, no STEMI criteria or ST-T wave changes Vital Signs: 09:21 BP 157 / 68; Pulse 122; Resp 24; Pulse Ox 94% on R/A; iw 10:16 BP 124 / 66; Pulse 67; Resp 19; Pulse Ox 100% on Nebulizer Mask; ll1 11:15 BP 142 / 74; Pulse 99; Resp 18; Pulse Ox 92% on R/A; ll1 12:15 BP 150 / 68; Pulse 68; Resp 18; Temp 98.0; Pulse Ox 98% ; ll1 13:16 BP 136 / 75; Pulse 67; Resp 18; Pulse Ox 95% ; ll1 MDM: 09:21 Patient medically screened. sd2 09:22 Differential diagnosis: Differential diagnosis includes but is not limited to: ACS, sd2 DVT/PE, pneumothorax, dissection, musculoskeletal, anxiety, anemia, electrolyte abnormality, pneumonia, CHF, COPD among others. Data reviewed: vital signs, nurses notes. 12:17 Data reviewed: lab test result(s), EKG, radiologic studies. Counseling: I had a sd2 detailed discussion with the patient and/or guardian regarding: the historical points, exam findings, and any diagnostic results supporting the discharge/admit diagnosis, lab results, radiology results, the need for outpatient follow up, to return to the emergency department if symptoms worsen or persist or if there are any questions or concerns that arise at home. Medical screen evaluation completed. [facility] emergency medical condition absent. ED course: Labs and imaging reviewed. Labs are grossly within normal clinical limits. Troponin negative. EKG with no ischemic changes. EKG does show A. fib which has been rate controlled throughout her stay. She denies any current chest pain. She has not had any fever or infectious symptoms or sputum production. Her symptoms did significantly improve after a nebulizer treatment. She will be discharged home with an inhaler and oral steroids. She is comfortable with plan for discharge and outpatient follow-up and verbalizes understanding of strict return precautions. She will follow-up with her primary care doctor regarding getting a nebulizer machine for home.. 06/13 09:21 Order name: CBC with Diff sd2 06/13 09:21 Order name: CMP sd2 06/13 09:21 Order name: Magnesium sd2 06/13 09:21 Order name: Troponin High Sensitivity sd2 06/13 09:21 Order name: BNP sd2 06/13 09:52 Order name: CBC with Automated Diff EDMS 06/13 09:21 Order name: XRAY Chest (1 view) sd2 06/13 10:09 Order name: Comprehensive Metabolic Panel EDMS 06/13 10:09 Order name: Troponin High Sensitivity EDMS 06/13 10:09 Order name: NT PRO-BNP EDMS 06/13 10:09 Order name: Magnesium EDMS 06/13 10:27 Order name: RAD EDMS 06/13 09:21 Order name: EKG - Nurse/Tech; Complete Time: 10:15 sd2 Administered Medications: 09:50 Drug: DuoNeb (albuterol 2.5 mg, ipratropium 0.5 mg) (3:1) (2.5 mg - 0.5 mg) 3 ml Route: ll1 Nebulizer; 10:15 Follow up: Response: No adverse reaction; RASS: Alert and Calm (0) ll1 09:56 CANCELLED (Physician Discretion): Metoprolol 2.5 mg IVP once sd2 13:09 Drug: predniSONE 60 mg Route: PO; ll1 13:18 Follow up: Response: No adverse reaction ll1 Disposition Summary: 06/13/22 12:19 Discharge Ordered Location: Home sd2 Problem: new sd2 Symptoms: have improved sd2 Condition: Stable sd2 Diagnosis - COPD/ Chronic obstructive pulmonary disease with (acute) exacerbation sd2 Followup: sd2 - With: Rocky Juarez MD - When: 2 - 3 days - Reason: Recheck today's complaints, Continuance of care, Re-evaluation by your physician Discharge Instructions: - Discharge Summary Sheet sd2 - How to Use a Metered Dose Inhaler sd2 - Chronic Obstructive Pulmonary Disease Exacerbation sd2 Forms: - Medication Reconciliation Form sd2 - Thank You Letter sd2 - Antibiotic Education sd2 - Prescription Opioid Use sd2 Prescriptions: - albuterol sulfate 90 mcg/actuation Inhalation HFA aerosol inhaler - inhale 2 puff by INHALATION route every 4-6 hours As needed for shortness of sd2 breath and wheezing; 1 Inhaler; Refills: 0, Product Selection Permitted - Prednisone 20 mg Oral Tablet - take 2 tablets by ORAL route once daily for 5 days; 10 tablet; Refills: 0, sd2 Product Selection Permitted Signatures: Dispatcher [employer] Perla Ford RN RN iw Lewis, Lynsay, RN RN ll1 Marian Hollins MD MD sd2 Corrections: (The following items were deleted from the chart) 09:56 09:55 Metoprolol 2.5 mg IVP once ordered. sd2 sd2 10:01 09:57 PSHx: CVA; meli garrison
--- NOTE | 2022-06-13 12:19 | ER ---
Nurse's Notes [facility] Name: Trisha Lovelace Age: 86 yrs Sex: Female : 1935 Arrival Date: 06/13/2022 Time: 09:01 Bed 3 Private MD: Rocky Juarez C Diagnosis: COPD/ Chronic obstructive pulmonary disease with (acute) exacerbation Presentation: 06/13 09:21 Chief complaint: Patient states: SOB since Monday, hx of COPD,. no cough, no fever. iw +runny nose, SOB worse on exertion. Coronavirus screen: Client presents with at least one sign or symptom that may indicate coronavirus-19. Ebola Screen: Patient negative for fever greater than or equal to 101.5 degrees Fahrenheit, and additional compatible Ebola Virus Disease symptoms Patient denies exposure to infectious person. Patient denies travel to an Ebola-affected area in the 21 days before illness onset. No symptoms or risks identified at this time. Initial Sepsis Screen: Does the patient meet any 2 criteria? No. Patient's initial sepsis screen is negative. Does the patient have a suspected source of infection? No. Patient's initial sepsis screen is negative. Risk Assessment: Do you want to hurt yourself or someone else? Patient reports no desire to harm self or others. Onset of symptoms was June 10, 2022. 09:21 Method Of Arrival: Wheelchair iw 09:21 Acuity: JUAN 3 iw Triage Assessment: 13:17 General: Appears in no apparent distress. Respiratory: Onset: The symptoms/episode ll1 began/occurred at an unknown time. the patient has mild shortness of breath. Historical: - Allergies: 09:23 shrimp; iw - Home Meds: 09:54 carvedilol 25 mg oral tab 1 tab 2 times per day [Active]; levothyroxine 75 mcg cap 1 iw cap once daily [Active]; memantine 28 mg oral CSpX 1 cap once daily [Active]; 09:57 folic acid 1 mg Oral tab 1 tab once daily [Active]; ezetimibe 10 mg oral tab 1 tab once iw daily [Active]; cranberry 450 mg oral tab daily [Active]; magnesium oxide 250 mg magnesium Oral tab twice a day [Active]; Vitamin D Oral twice a day [Active]; Vitamin B-12 Oral twice a day [Active]; PreserVision AREDS oral twice a day [Active]; - PMHx: 09:23 Alzheimers; Hypothyroidism; High Cholesterol; Hypertension; TIA; iw 10:01 CVA; iw - PSHx: 09:57 Tonsillectomy; cataract; hysterectomy; shoulder; TIA; iw - Immunization history:: Adult Immunizations up to date. - Social history:: Smoking status: Patient denies any tobacco usage or history of. Screenin:19 Abuse screen: Denies threats or abuse. Nutritional screening: No deficits noted. ll1 Tuberculosis screening: No symptoms or risk factors identified. Fall Risk IV access (20 points). Gait- Impaired (20 pts.). Total Murillo Fall Scale indicates Low Risk Score (25-44 pts). Fall prevention measures have been instituted. Side Rails Up X 2 Placed close to Nursing Station Frequent Obs/Assesments occuring Family Present and informed to notify staff if they need to leave bedside As available Patient and Family Educated on Fall Prevention Program and strategies. Assessment: 09:35 General: Appears uncomfortable, Behavior is cooperative, appropriate for age. Pain: ll1 Denies pain. Cardiovascular: Rhythm is atrial fibrillation. Respiratory: Reports shortness of breath on exertion labored breathing Airway is patent Trachea midline Respiratory effort is even, unlabored, more SOB with any exertion, even just adjusting her position in the stretcher. 10:19 Reassessment: No changes from previously documented assessment. Patient and/or family ll1 updated on plan of care and expected duration. Pain level reassessed. Patient is alert, oriented x 3, equal unlabored respirations, skin warm/dry/pink. 11:15 Reassessment: No changes from previously documented assessment. Patient and/or family ll1 updated on plan of care and expected duration. Pain level reassessed. 12:15 Reassessment: No changes from previously documented assessment. ll1 13:17 Respiratory: Breath sounds are clear bilaterally. ll1 Vital Signs: 09:21 BP 157 / 68; Pulse 122; Resp 24; Pulse Ox 94% on R/A; iw 10:16 BP 124 / 66; Pulse 67; Resp 19; Pulse Ox 100% on Nebulizer Mask; ll1 11:15 BP 142 / 74; Pulse 99; Resp 18; Pulse Ox 92% on R/A; ll1 12:15 BP 150 / 68; Pulse 68; Resp 18; Temp 98.0; Pulse Ox 98% ; ll1 13:16 BP 136 / 75; Pulse 67; Resp 18; Pulse Ox 95% ; ll1 ED Course: 09:01 Patient arrived in ED. rg4 09:01 Rocky Juarez MD is Private Physician. rg4 09:05 Marain Hollins MD is Attending Physician. sd2 09:23 Triage completed. iw 09:23 Arm band placed on. iw 09:29 Cecelia Rodrigez RN is Primary Nurse. ll1 09:40 Patient has correct armband on for positive identification. Bed in low position. Call ll1 light in reach. Side rails up X2. Client placed on continuous cardiac and pulse oximetry monitoring. NIBP monitoring applied. 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 09:40 Inserted saline lock: 22 gauge in right wrist, using aseptic technique. Blood collected.ll1 10:44 RAD In Process Unspecified. EDMS 12:18 Rocky Juarez MD is Referral Physician. sd2 13:09 No provider procedures requiring assistance completed. IV discontinued, intact, ll1 bleeding controlled, No redness/swelling at site. Pressure dressing applied. Administered Medications: 09:50 Drug: DuoNeb (albuterol 2.5 mg, ipratropium 0.5 mg) (3:1) (2.5 mg - 0.5 mg) 3 ml Route: ll1 Nebulizer; 10:15 Follow up: Response: No adverse reaction; RASS: Alert and Calm (0) ll1 09:56 CANCELLED (Physician Discretion): Metoprolol 2.5 mg IVP once sd2 13:09 Drug: predniSONE 60 mg Route: PO; ll1 13:18 Follow up: Response: No adverse reaction ll1 Medication: 10:20 VIS not applicable for this client. ll1 Outcome: 12:19 Discharge ordered by . sd2 13:17 Discharged to home via wheelchair. ll1 13:17 Condition: stable 13:17 Discharge instructions given to patient, family, Instructed on discharge instructions, follow up and referral plans. Demonstrated understanding of instructions, follow-up care, medications, Prescriptions given X 2. 13:18 Patient left the ED. ll1 Signatures: Dispatcher [employer] EDAK Perla Mar RN RN iw Garcia, Rubi rg4 Cecelia Rodrigez RN RN ll1 Marian Hollins MD MD sd2 Corrections: (The following items were deleted from the chart) 10:01 09:57 PSHx: CVA; iw iw
[2022-06-13] MEDS ORDERED: predniSONE 20 MG TAB ONE (13:01)
[2022-06-13 14:09] VITALS: TEMP 98
[2022-06-13 14:10] VITALS: BP 136/75; O2SAT 95
--- NOTE | 2022-06-14 14:05 | EKG ---
Test Date: 2022-06-13 Test Time: 09:54:54 Supervisor Production Managing: FARZANA MEASUREMENT RESULTS: Intervals: Rate: 108 [place]: QRSD: 76 QT: 332 QTc: 444 [place]: P: [place]: QRS: 47 T: 29 INTERPRETIVE STATEMENTS: Atrial fibrillation with rapid ventricular response Low voltage QRS Abnormal ECG Compared to ECG 02/21/2022 15:47:22 Low QRS voltage now present Electronically Signed On 06-14-22 14:02:20 CDT by Simon Bernal
== END 2022-06-13 13:18 | disposition home or self-care (01) ==
LOC: ER 09:00
DX: J44.1 Chronic obstructive pulmonary disease with (acute) exacerbation (principal); E03.9 Hypothyroidism, unspecified; E78.00 Pure hypercholesterolemia, unspecified; I10 Essential (primary) hypertension; Z86.73 Personal history of transient ischemic attack (TIA), and cerebral infarction without residual deficits; G30.9 Alzheimer's disease, unspecified; F02.80 Dementia in other diseases classified elsewhere, unspecified severity, without behavioral disturbance, psychotic disturbance, mood disturbance, and anxiety
CPT/HCPCS: 93005; 85025; 36415; 83735; 84484; 80053; 83880; 71045; 94640; 99285; J7512

== ENCOUNTER 2022-06-19 16:16 | Emergency (ER) | payer OTHER ==
--- OUTSIDE RECORDS SUMMARY | 2022-06-19 16:20 | XMS REPORT | Continuity of Care Document ---
:1935 Author Organization [facility] t Address [address] [place] [address] Care Team Providers Name Role Phone Sharpless Primary Care Physician NIKKI BENTLEY Attending Clinician Unavailable NIKKI BENTLEY Admitting Clinician Unavailable Problems Condition Condition Condition Status Onset Resolution Last Treating Co mments Source Name Details Category Date Date Treatment Clinician Date Atrial Atrial Disease Active [facility] fibrillati fibrillati 01-25 Nicolasa kes on with on with 00:00: Medical RVR RVR 00 Center Benign Benign Disease Active [facility] essential essential 01-25 [facility] HTN HTN 00:00: Medical 00 [place] 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 Social History Social Habit Start Date Stop Date Quantity Comments Source Tobacco use and 2018-01-23 2018-01-[address] [facility] Nicolasa kes exposure 00:00:00 00:[facility]:00 [facility] Sex Assigned At [address] [facility] kes 00:00:00 00:00:00 [facility] Smoking Status Start Date Stop Date Source Former smoker 2018-01-23 00:00:00 2018-01-23 00:00:[address] [facility] Medications Ordered Filled Start Stop Current Ordering Indication Dosage Frequency Signature Comments Components Source Medication Medication Date Date Medication? Clinician (SIG) Name Name tiotropium Yes 18ug Inhale [address] (SPIRIVA) 6-04 mcg by [facility] 18 mcg 15:56: mouth via Medica l inhalation 06 inhaler Center capsule daily as needed. memantine Yes moderate to 28mg QD Take [address] [facility] (NAMENDA 6-04 severe by mouth [facility] XR) 28 mg 15:56: Alzheimer's daily. Medical CSpX 06 type Center dementia levothyroxi Yes 50ug Take [address] [facility] ne 6-04 mcg by [facility]ukes (SYNTHROID, 15:56: mouth Medic al LEVOTHROID) 06 Every Center 50 MCG morning on tablet an empty stomach. apixaban Yes 5mg Q.5D Take [address] [facility] (ELIQUIS) 5 6-04 tablet (5 Balta es mg Tab 00:00: mg total) Medica l tablet 00 by mouth 2 Center (two) times daily. Procedures This patient has no known procedures. Results Test Description Test Time Test Comments Results Result [facility] e Comments CT, BRAIN, WITHOUT 2018-01-29 FINAL REPORT PATIENT CONTRAST 13:45:00 ID: [id number] CT head without contrast. Comparisons: January 24 [...] Berger Verified Date/Time: 01/29/2018 13:45:52 Reading Location: [facility] C013V Neuro Reading Room C METABOLIC PANEL 2018-01-29 [...] NOT 1092) ACCURATE CRE ATININE CLEARANCE IN [place] EDICTING GLOMERULAR FILT RATION RATE. ESTIMATED GFR [...] (BEAKER) (test code = 413) BASIC METABOLIC [id number] 07:03:00 Test Item Value Reference Range Interpretation [...] PATIEN TS. CBC W/PLT COUNT & AUTO [id number] 06:36:00 Test Item Value Reference Range Interpretation [...] (test code = 2801) CT, BRAIN, WITHOUT [id number] 09:53:00FINAL REPORT CT head without contrast 01/24/2018 [...] MDReport Verified Date/Time: 01/24/2018 09:53:07 Reading Location: [address] Neuro Reading Room BASIC METABOLIC [id number] 07:40:00 Test Item Value Reference Range Interpretation [...] PATIEN TS. CBC W/PLT COUNT & AUTO [id number] 07:13:00 Test Item Value Reference Range Interpretation [...] code = 2801) URINALYSIS W/ REFLEX URINE [id number] 20:08:00 Test Item Value Reference Range Interpretation [...] 516) SOURCE(BEAKER) (test code = 2795) HEMOGLOBIN [id number] 10:48:00 Test Item Value Reference Range Interpretation Comments HEMOGLOBIN A1C (BEAKER) (test code = 6.4 % 4.3-6.1 H 368) FastingMR, BRAIN, WITHOUT [id number] 07:30:00Reason for exam:- >StrokeWhat is the patient's sedation requirement?->No SedationFINAL REPORT MRI brain and MRA head and neck without contrast 01/23/2018 7:26 AMCLINICAL INDICATION: Cerebral hemorrhage suspectedStroke TECHNIQUE: Multiplanar, multisequence MR imaging of the brain was performed utilizing the following imaging sequences: Axial T1, T2, FLAIR, GRE,and DWI; sagittal and coronal T1-weighted images. Two- and three-dimensional [id number] MRA images of the intra- and extracranial [...] is antegrade in both vertebral arteries. MRA [place]: There is severely attenuated flow [...] slow flow. Findings were discussed with the [facility] neurology housestaff on 01/23/2018 at 0730. Signed: Se Patel [facility] Verified Date/Time: 01/23/2018 07:30:49 Reading Location: [address] Neuro Reading Room MR, MRA, BRAIN, WITHOUT [id number] 07:30:00Reason for exam:->Ischemic Stroke EvaluationFINAL REPORT MRI brain and MRA head and neck without contrast 01/23/2018 7:26 AMCLINICAL INDICATION: Cerebral hemorrhage suspectedStroke TECHNIQUE: Multiplanar, multisequence MR karishma ging of the brain was performed utilizing the following imaging sequences: Axial T1, T2, FLAIR, GRE,and DWI; sagittal and coronal T1-weighted images. Two- and three-dimensional [id number] MRA images of the intra- and extracranial [...] is antegrade in both vertebral arteries. MRA [place]: There is severely attenuated flow [...] slow flow. Findings were discussed with the [facility] neurology housestaff on 01/23/2018 at 0730. Signed: Se Patelort Verified Date/Time: 01/23/2018 07:30:49 Reading Location: [address] Neuro Reading Room MR, MRA, NECK, WITHOUT IV [id number] 07:30:00Reason for exam:->Ischemic Stroke EvaluationFINAL REPORT MRI brain and MRA head and neck without contrast 01/23/2018 7:26 AMCLINICAL INDICATION: Cerebral hemorrhage suspectedStroke TECHNIQUE: Multiplanar, multisequence MR imaging of the brain was performed utilizing the following imaging sequences: Axial T1, T2, FLAIR, GRE,and DWI; sagittal and coronal T1-weighted images. Two- and three-dimensional [id number]-ct-[id number] MRA images of the intra- and extracranial [...] is antegrade in both vertebral arteries. MRA [place]: There is severely attenuated flow [...] slow flow. Findings were discussed with the [facility] neurology housestaff on 01/23/2018 at 0730. Signed: [facility] Verified Date/Time: 01/23/2018 07:30:49 Reading Location: [address] Neuro Reading Room TSH/FREE T4 IF [id number] 02:31:00 Test Item Value Reference Range Interpretation Comments THYROID STIMULATING HORMONE 0.78 uIU/mL 0.35-4.94 (BEAKER) (test code = 772) VITAMIN B12 AND [id number] 02:31:00 Test Item Value Reference Range Interpretation Comments VITAMIN B12 (BEAKER) (test code = > pg/mL 213-816 H 774) FOLATE (BEAKER) (test code = 362) 5.4 ng/mL >=7.0 L TROPONIN [id number] 02:08:00 Test Item Value Reference Range Interpretation [...] acidosis, acute neurological disease, and persistent tachyarrhythmia.FastingLIPID [id number] 02:00:00 Test Item Value Reference Range Interpretation [...] High 160-189 Very High >=190 FastingBUN AND [id number] 02:00:00 Test Item Value Reference Range Interpretation [...] APPLICABLE FOR DIALYSIS PATIEN TS. FastingBASIC METABOLIC [id number] 02:00:00 Test Item Value Reference Range Interpretation [...] PATIEN TS. FastingCBC W/PLT COUNT & AUTO [id number] 01:51:00 Test Item Value Reference Range Interpretation [...]
[2022-06-19] MEDS ORDERED: LEVALBUTEROL 1.25 MG/3 ML NEB ONE (16:41)
[2022-06-19] MEDS ORDERED: MAGNESIUM SULFATE 1 gm IVPB 1 GM/100 ML BAG IV ONE (16:41)
[2022-06-19 17:05] LABS: Absolute Lymphocytes (CBC) 4.5 K/uL (0.7-4.9); Hematocrit 43.2 % (36.0-45.0); Lymphocytes % 31.4 % (15.3-44.8); MCV 89.2 fL (80-100); MPV 7.5 fL (7.6-11.3); RBC Red Blood Cell Count 4.85 M/uL (3.86-4.86)
[2022-06-19 17:12] LABS: Protime INR 1.06
[2022-06-19 17:18] LABS: SARS-CoV-2 Antigen Rapid Res Negative (Negative)
[2022-06-19 17:29] LABS: ALT/SGPT 44 U/L (12-78); AST/SGOT 27 U/L (15-37); Albumin 3.1 g/dL (3.4-5.0); Alkaline Phosphatase 74 U/L (45-117); BUN Blood Urea Nitrogen 28 mg/dL (7-18); Bicarbonate 27 mmol/L (21-32); Bilirubin Total 0.2 mg/dL (0.2-1.0); Glomerular Filtration Rate 53 ml/min (=/>90); Glucose Level 129 mg/dL (74-106); Magnesium 2.1 mg/dL (1.8-2.4); NT PRO-BNP 4086 pg/mL (<450); Potassium 4.3 mmol/L (3.5-5.1); Protein, Total 6.7 g/dL (6.4-8.2); Sodium Level 136 mmol/L (136-145); Troponin High Sensitivity 10.7 pg/mL (<58.9)
--- NOTE | 2022-06-19 17:41 | RAD REPORT ---
EXAM DESCRIPTION: US - Extrem Venous W Compress Michael - 06/19/2022 5:34 pm CLINICAL HISTORY: SWELLING COMPARISON: EXT VENOUS W COMPRESSION MICHAEL dated 08/31/2007 TECHNIQUE: Real-time sonographic evaluation of the lower extremity deep venous systems was performed using color Doppler, grayscale, and compression. FINDINGS: Bilateral lower extremities. Normal compressibility, flow augmentation, phasic flow and spontaneous flow is identified in both the left and right lower extremity deep venous systems. No intraluminal filling defects seen. IMPRESSION: No DVT in either lower extremity.
--- NOTE | 2022-06-19 18:03 | RAD REPORT ---
EXAM DESCRIPTION: CT - Thorax Wo Con - 06/19/2022 5:46 pm CLINICAL HISTORY: worsening shortness of breath COMPARISON: Thorax Wo Con dated 02/28/2020; Thorax W/ Con dated 12/14/2015; CTANGIO CHEST FOR PE dated 08/30/2007 FINDINGS: Chest Wall: No suspicious thyroid nodules or pathologic lymphadenopathy. Lungs: 11 mm left lower lobe pulmonary nodule is only minimally increased in size since 2016. Other s cattered pulmonary nodules identified that are unchanged. Mild nonspecific airspace disease present i n the right upper lobe. Pleura: No significant effusions or pneumothorax. Mediastinum/kimberley: No pathologic lymphadenopathy. Small hiatal hernia. Pulmonary arteries/Aorta: Limited evaluation without contrast. No aortic aneurysm. Heart: No significant pericardial effusion. Normal heart size. Multi-vessel coronary artery disease. Upper abdomen: No acute abnormality. Bones: No acute abnormality. All CT scans are performed using dose optimization technique as appropriate and may include automated exposure control or mA/KV adjustment according to patient size. IMPRESSION: Mild groundglass opacities in the right upper lobe could reflect mild infection or infla mmation. No consolidative airspace disease, edema, or suspicious pulmonary nodules.
--- NOTE | 2022-06-19 18:07 | RAD REPORT ---
EXAM DESCRIPTION: RAD - Chest Single View - 06/19/2022 5:38 pm CLINICAL HISTORY: SOB COMPARISON: Chest Single View dated 06/13/2022; Chest Single View dated 02/21/2022; Chest Pa And Lat (2 Views) dated 06/27/2018; Chest Single View dated 01/22/2018 FINDINGS: Lines: None. Lungs: No evidence of edema or pneumonia. Pleural: No significant pleural effusions or pneumothorax. Cardiac: The heart size is within normal limits. Mediastinum: Within normal limits. Bones: No acute fractures. Other: None IMPRESSION: No acute cardiopulmonary disease.
[2022-06-19 18:14] LABS: Bilirubin Direct < 0.1 mg/dL (0-0.2)
[2022-06-19] MEDS ORDERED: CEFTRIAXONE 1000 MG/VIAL ONE (18:22)
--- NOTE | 2022-06-19 18:53 | EDPHYS ---
Physician Documentation [facility] Name: Trisha Lovelace Age: 86 yrs Sex: Female : 1935 Arrival Date: 06/19/2022 Time: 16:17 Bed 5 Private MD: Rocky Juarez C ED Physician Kelvin Martinez HPI: 06/19 16:27 This 86 yrs old Female presents to ER via Wheelchair with complaints of Blood Pressure jmm Problem, Shortness Of Breath. 16:27 This is an 86-year-old female the presents emerged department with complaints of jmm progressively worsening shortness of breath. Patient was evaluated approximately a week ago when diagnosed with COPD exacerbation. Patient took steroids. States having increased shortness of breath.. Historical: - Allergies: 16:29 shrimp; hb - Immunization history:: Adult Immunizations. - Social history:: Smoking status: Patient denies any tobacco usage or history of. Patient/guardian denies using alcohol. ROS: 16:27 Constitutional: Positive for fatigue. jmm 16:27 Respiratory: Positive for cough, shortness of breath. 16:27 All other systems are negative. Exam: 16:27 Constitutional: This is a well developed, well nourished patient who is awake, alert, jmm and in no acute distress. Head/Face: atraumatic. Eyes: EOMI, no conjunctival erythema appreciated ENT: Moist Mucus Membranes Neck: Trachea midline, Supple Chest/axilla: Normal chest wall appearance and motion. Cardiovascular: Regular rate and rhythm. No edema appreciated Respiratory: Normal respirations, no respiratory distress appreciated Abdomen/GI: Non distended Back: Normal ROM Skin: General appearance color normal 16:27 Musculoskeletal/extremity: ROM: intact in all extremities, Mild edema noted to the legs bilaterally. 16:27 Skin: Appearance: Color: normal in color. 16:27 Neuro: Orientation: is normal, Mentation: is normal, Memory: is normal. 16:27 Psych: Behavior/mood is pleasant, cooperative. Vital Signs: 16:28 BP 149 / 99; Pulse 106; Resp 24; Temp 99.1(TE); Pulse Ox 98% on R/A; Weight 90.72 kg; hb Height 5 ft. 7 in. (170.18 cm); Pain 0/10; 17:01 BP 149 / 88; Pulse 75; Resp 13; Pulse Ox 100% on Nebulizer Mask; ld1 17:52 BP 147 / 64; Pulse 79; Resp 16; Pulse Ox 100% on R/A; ld1 18:33 BP 131 / 74; Pulse 82; Resp 24; Pulse Ox 96% on R/A; ld1 16:28 Body Mass Index 31.32 (90.72 kg, 170.18 cm) hb MDM: 16:36 Patient medically screened. [facility] 18:46 Data reviewed: vital signs, nurses notes. Counseling: I had a detailed discussion with willem the patient and/or guardian regarding: the historical points, exam findings, and any diagnostic results supporting the discharge/admit diagnosis, lab results, radiology results, the need for outpatient follow up, to return to the emergency department if symptoms worsen or persist or if there are any questions or concerns that arise at home. Refusal of service: The patient/guardian displays adequate decision making capability and despite a detailed discussion of alternatives, benefits, risks, and consequences refuses: Admission to the hospital for further work-up and treatment. 06/19 16:27 Order name: Basic Metabolic Panel; Complete Time: 18:18 [facility] 06/19 16:27 Order name: CBC with Diff; Complete Time: 17:17 [facility] 06/19 16:27 Order name: LFT's; Complete Time: 18:18 [facility] 06/19 16:27 Order name: Magnesium; Complete Time: 18:18 [facility] 06/19 16:27 Order name: NT PRO-BNP; Complete Time: 18:18 [facility] 06/19 16:27 Order name: PT-INR; Complete Time: 17:17 [facility] 06/19 16:27 Order name: Troponin HS; Complete Time: 18:18 [facility] 06/19 16:27 Order name: XRAY Chest (1 view); Complete Time: 18:09 [facility] 06/19 16:28 Order name: SARS RAPID; Complete Time: 18:09 [facility] 06/19 16:38 Order name: US Extremity Venous W Compression Michael; Complete Time: 18:09 [facility] 06/19 16:38 Order name: Influenza Screen (a \T\ B); Complete Time: 19:31 [facility] 06/19 16:49 Order name: CT Chest Wo Con; Complete Time: 18:09 [facility] 06/19 16:27 Order name: EKG; Complete Time: 16:28 [facility] 06/19 16:27 Order name: Cardiac monitoring; Complete Time: 17:00 [facility] 06/19 16:27 Order name: EKG - Nurse/Tech; Complete Time: 17:00 [facility] 06/19 16:27 Order name: IV Saline Lock; Complete Time: 17:00 [facility] 06/19 16:27 Order name: Labs collected and sent; Complete Time: 17:00 [facility] 06/19 16:27 Order name: O2 Per Protocol; Complete Time: 17:00 [facility] 06/19 16:27 Order name: O2 Sat Monitoring; Complete Time: 17:00 [facility] Administered Medications: 17:00 Drug: Magnesium Sulfate 1 grams Route: IVPB; Infused Over: 1 hrs; Site: right wrist; ld1 17:00 Drug: Xopenex (levalbuterol) (3) 1.25 mg Route: Inhalation; ld1 18:49 Drug: Rocephin (cefTRIAXone) 1 grams Route: IV; Rate: calculated rate; Site: right ld1 forearm; Disposition Summary: 06/19/22 18:52 Discharge Ordered Location: Home [facility] Condition: Stable [facility] Diagnosis - Pneumonia [facility] Followup: [facility] - With: Rocky Juarez MD - When: 1 - 2 days - Reason: Recheck today's complaints, Continuance of care, Re-evaluation by your physician Discharge Instructions: - Discharge Summary Sheet [facility] - Community-Acquired Pneumonia, Adult [facility] Forms: - Medication Reconciliation Form [facility] - Thank You Letter [facility] - Antibiotic Education [facility] - Prescription Opioid Use [facility] Prescriptions: - albuterol sulfate 90 mcg/actuation Inhalation HFA aerosol inhaler - inhale 2 puff by INHALATION route every 4-6 hours As needed; 1 Pump; Refills: [facility] 0, Product Selection Permitted - cefdinir 300 mg Oral capsule - take 1 capsule by ORAL route every 12 hours for 10 days; 20 capsule; Refills: [facility] 0, Product Selection Permitted Addendum: 06/23/2022 00:11 Co-signature as Attending Physician, Kelvin Martinez MD. r n Signatures: Dispatcher [employer] EDLuke Milligan PA PA jm Kelvin Martinez MD MD rn Baxter, Heather, RN RN Isa Castillo RN RN ld1
--- NOTE | 2022-06-19 18:53 | ER ---
Nurse's Notes [facility] Name: Trisha Lovelace Age: 86 yrs Sex: Female : 1935 Arrival Date: 06/19/2022 Time: 16:17 Bed 5 Private MD: Rocky Juarez C Diagnosis: Pneumonia Presentation: 06/19 16:28 Chief complaint: Worsening SOB x 1 week. Denies cough/congestion/fever/pain. hb Coronavirus screen: Client presents with at least one sign or symptom that may indicate coronavirus-19. Standard/surgical mask placed on the client. Provider contacted for isolation considerations. Ebola Screen: No symptoms or risks identified at this time. Risk Assessment: Do you want to hurt yourself or someone else? Patient reports no desire to harm self or others. Onset of symptoms was June 12, 2022. 16:28 Method Of Arrival: Wheelchair hb 16:28 Acuity: JUAN 3 hb Historical: - Allergies: 16:29 shrimp; hb - Immunization history:: Adult Immunizations. - Social history:: Smoking status: Patient denies any tobacco usage or history of. Patient/guardian denies using alcohol. Screenin:01 Abuse screen: Denies threats or abuse. Denies injuries from another. Nutritional ld1 screening: No deficits noted. Tuberculosis screening: No symptoms or risk factors identified. Fall Risk None identified. Assessment: 17:01 General: Appears in no apparent distress. comfortable, Behavior is calm, cooperative, ld1 appropriate for age. Pain: Denies pain. Neuro: Level of Consciousness is awake, alert, obeys commands, Oriented to person, place, time, situation. Cardiovascular: Capillary refill < 3 seconds Patient's skin is warm and dry. Rhythm is atrial fibrillation. Respiratory: Airway is patent Respiratory effort is even, unlabored, Breath sounds are clear bilaterally. the patient has mild shortness of breath. GI: Abdomen is round non-distended. : EENT: No signs and/or symptoms were reported regarding the EENT system. Derm: No signs and/or symptoms reported regarding the dermatologic system. Musculoskeletal: No signs and/or symptoms reported regarding the musculoskeletal system. Vital Signs: 16:28 BP 149 / 99; Pulse 106; Resp 24; Temp 99.1(TE); Pulse Ox 98% on R/A; Weight 90.72 kg; hb Height 5 ft. 7 in. (170.18 cm); Pain 0/10; 17:01 BP 149 / 88; Pulse 75; Resp 13; Pulse Ox 100% on Nebulizer Mask; ld1 17:52 BP 147 / 64; Pulse 79; Resp 16; Pulse Ox 100% on R/A; ld1 18:33 BP 131 / 74; Pulse 82; Resp 24; Pulse Ox 96% on R/A; ld1 16:28 Body Mass Index 31.32 (90.72 kg, 170.18 cm) hb ED Course: 16:17 Patient arrived in ED. am2 16:17 Rocky Juarez MD is Private Physician. am2 16:24 Luke Quiñonez PA is PHCP. [facility] 16:24 Kelvin Martinez MD is Attending Physician. [facility] 16:29 Triage completed. hb 16:30 Arm band placed on. hb 16:36 Isa Castillo, JOCELIN is Primary Nurse. ld1 17:00 SARS RAPID Sent. ld1 17:01 Patient has correct armband on for positive identification. Placed in gown. Bed in low ld1 position. Call light in reach. Side rails up X2. front desk monitor on. Pulse ox on. NIBP on. Door closed. Noise minimized. Warm blanket given. 17:01 No provider procedures requiring assistance completed. Inserted saline lock: 20 gauge ld1 in right forearm, using aseptic technique. Blood collected. 17:14 Influenza Screen (a \T\ B) Sent. ld1 17:32 US Extremity Venous W Compression Michael In Process Unspecified. EDMS 17:40 XRAY Chest (1 view) In Process Unspecified. EDMS 17:48 CT Chest Wo Con In Process Unspecified. EDMS 18:52 Rocky Juarez MD is Referral Physician. jmm Administered Medications: 17:00 Drug: Magnesium Sulfate 1 grams Route: IVPB; Infused Over: 1 hrs; Site: right wrist; ld1 17:00 Drug: Xopenex (levalbuterol) (3) 1.25 mg Route: Inhalation; ld1 18:49 Drug: Rocephin (cefTRIAXone) 1 grams Route: IV; Rate: calculated rate; Site: right ld1 forearm; Medication: 17:01 VIS not applicable for this client. ld1 Outcome: 18:52 Discharge ordered by . willem 19:26 Discharged to home via wheelchair, with family. aa9 19:26 Condition: stable 19:26 Discharge instructions given to patient, family, Instructed on discharge instructions, follow up and referral plans. medication usage, Demonstrated understanding of instructions, follow-up care, medications, Prescriptions given X 2. 19:51 Patient left the ED. aa9 Signatures: Dispatcher [employer] EDMS Luke Quiñonez PA PA jmm Baxter, Heather, RN RN Nelly Fierro Isa Forrester RN RN ld1 Mackenzie Bhakta, JOCELIN RN aa9
[2022-06-19 19:55] VITALS: TEMP 99.1
[2022-06-19 19:59] VITALS: BP 131/74; O2SAT 96
--- NOTE | 2022-06-20 18:39 | EKG ---
Test Date: 2022-06-19 Test Time: 16:42:34 Director Of Clinical Education: JAIDEN MEASUREMENT RESULTS: Intervals: Rate: 92 IL: QRSD: 74 QT: 340 QTc: 420 Mathews: P: IL: QRS: 58 T: 68 INTERPRETIVE STATEMENTS: Atrial fibrillation Low voltage QRS Abnormal ECG Compared to ECG 06/13/2022 09:54:54 No significant changes Electronically Signed On 06-20-22 18:37:28 CDT by Simon Bernal
== END 2022-06-19 19:51 | disposition home or self-care (01) ==
LOC: ER 16:16
DX: J18.9 Pneumonia, unspecified organism (principal); Z20.822 Contact with and (suspected) exposure to COVID-19; Z91.013 Allergy to seafood
CPT/HCPCS: 93005; 85025; 80048; 36415; 83735; 85610; 80076; 84484; 83880; 87804 ×2; 71250; 71045; 93970; 99285; 87811; J7614; J3475

== ENCOUNTER 2022-10-09 11:41 | Inpatient (IN) | payer OTHER ==
--- OUTSIDE RECORDS SUMMARY | 2022-10-09 11:44 | XMS REPORT | Continuity of Care Document ---
:1935 Author Organization [facility] t Address [address] [place] [address] Care Team Providers Name Role Phone Sharpless [...] Luke s HTN HTN 00:00: Medical 00 [facility] Mixed Mixed Disease Active [facility] hyperlipid hyperlipid 01-25 Nicolasa kes emia emia 00:00: Medical 00 [facility] Late onset Late onset Disease Active C [...] 2018-01-23 00:00:00 2018-01-23 00:00:[address] [facility] Medications Ordered Filled Start Stop Current Ordering Indication Dosage Frequency Signature Comments Components Source Medication Medication Date Date Medication? Clinician (SIG) Name Name memantine 2018 Yes moderate to 28mg QD Take [address] [facility] (NAMENDA 6-04 severe by mouth [facility] XR) 28 mg 15:56: Alzheimer's daily. [address] dementia levothyroxi 0 Yes 50ug Take [address] [facility] [address] ne 6-04 mcg by [facility] (SYNTHROID, 15:56: mouth Medic al LEVOTHROID) 06 Every Center 50 MCG morning on tablet an empty stomach. tiotropium 2018-0 Yes 18ug Inhale [address] (SPIRIVA) 6-04 mcg by [facility] 18 mcg 15:56: mouth via Medica l inhalation 06 inhaler Center capsule daily as needed. tiotropium 2018-0 Yes 18ug Inhale [address] (SPIRIVA) 6-04 mcg by [facility] 18 mcg 15:56: mouth via Medica l inhalation 06 inhaler Center capsule daily as needed. memantine Yes moderate to 28mg QD Take [address] [facility] [facility] (NAMENDA 6-04 severe by mouth [facility] XR) 28 mg 15:56: Alzheimer's daily. [address] dementia levothyroxi 0 Yes 50ug Take [address] [facility] ne 6-04 mcg by [facility] (SYNTHROID, 15:56: mouth Medic al LEVOTHROID) 06 Every Center 50 MCG morning on tablet an empty stomach. apixaban 2018-0 Yes 5mg Q.5D Take [address] [facility] (ELIQUIS) 5 6-04 tablet (5 [facility] mg Tab 00:00: mg total) Medica l tablet 00 by mouth 2 Center (two) times daily. apixaban 2018-0 Yes 5mg Q.5D Take [address] [facility] [address] (ELIQUIS) 5 6-04 tablet (5 [facility] mg Tab 00:00: mg total) Medica l tablet 00 by mouth 2 Center (two) times daily. Procedures This patient has no known procedures. Results Test Description Test Time Test Comments Results Result [facility] e Comments CT, BRAIN, WITHOUT 2018-01-29 FINAL REPORT PATIENT CONTRAST 13:45:00 ID: [id number] CT head without contrast. Comparisons: January 24 [...] Berger Verified Date/Time: 01/29/2018 13:45:52 Reading Location: [address] Neuro Reading Room C METABOLIC PANEL [...] NOT 1092) ACCURATE CRE ATININE CLEARANCE IN CA EDICTING GLOMERULAR FILT RATION RATE. ESTIMATED GFR [...] (BEAKER) (test code = 413) BASIC METABOLIC [id number] 07:03:00 Test Item Value Reference Range Interpretation [...] PATIEN TS. CBC W/PLT COUNT & AUTO [id number] 06:36:00 Test Item Value Reference Range Interpretation [...] (test code = 2801) CT, BRAIN, WITHOUT [id number] 09:53:00FINAL REPORT CT head without contrast 01/24/2018 [...] hydrocephalus or parenchymal herniation. Signed: Se Patel Verified Date/Time: 01/24/2018 09:53:07 Reading Location: [address] Neuro Reading Room BASIC METABOLIC [id number] 07:40:00 Test Item Value Reference Range Interpretation [...] PATIEN TS. CBC W/PLT COUNT & AUTO [id number] 07:13:00 Test Item Value Reference Range Interpretation [...] code = 2801) URINALYSIS W/ REFLEX URINE [id number] 20:08:00 Test Item Value Reference Range Interpretation [...] 516) SOURCE(BEAKER) (test code = 2795) HEMOGLOBIN [id number] 10:48:00 Test Item Value Reference Range Interpretation Comments HEMOGLOBIN A1C (BEAKER) (test code = 6.4 % 4.3-6.1 H 368) FastingMR, BRAIN, WITHOUT [id number] 07:30:00Reason for exam:- >StrokeWhat is the patient's sedation requirement?->No SedationFINAL REPORT MRI brain and MRA head and neck without contrast 01/23/2018 7:26 AMCLINICAL INDICATION: Cerebral hemorrhage suspectedStroke TECHNIQUE: Multiplanar, multisequence MR imaging of the brain was performed utilizing the following imaging sequences: Axial T1, T2, FLAIR, GRE,and DWI; sagittal and coronal T1-weighted images. Two- and three-dimensional [id number] MRA images of the intra- and extracranial [...] is antegrade in both vertebral arteries. MRA [place]: There is severely attenuated flow [...] Patel Verified Date/Time: 01/23/2018 07:30:49 Reading Location: [facility] Neuro Reading Room MR, MRA, BRAIN, WITHOUT [id number] 07:30:00Reason for exam:->Ischemic Stroke EvaluationFINAL REPORT MRI brain and MRA head and neck without contrast 01/23/2018 7:26 AMCLINICAL INDICATION: Cerebral hemorrhage suspectedStroke TECHNIQUE: Multiplanar, multisequence MR karishma ging of the brain was performed utilizing the following imaging sequences: Axial T1, T2, FLAIR, GRE,and DWI; sagittal and coronal T1-weighted images. Two- and three-dimensional [id number] MRA images of the intra- and extracranial [...] is antegrade in both vertebral arteries. MRA [place]: There is severely attenuated flow [...] Verified Date/Time: 01/23/2018 07:30:49 Reading Location: [address] Neuro Reading Room MR, MRA, NECK, WITHOUT IV [id number] 07:30:00Reason for exam:->Ischemic Stroke EvaluationFINAL REPORT MRI brain and MRA head and neck without contrast 01/23/2018 7:26 AMCLINICAL INDICATION: Cerebral hemorrhage suspectedStroke TECHNIQUE: Multiplanar, multisequence MR imaging of the brain was performed utilizing the following imaging sequences: Axial T1, T2, FLAIR, GRE,and DWI; sagittal and coronal T1-weighted images. Two- and three-dimensional snjz-yh-ilfuzv MRA images of the intra- and extracranial [...] is antegrade in both vertebral arteries. MRA [place]: There is severely attenuated flow [...] Verified Date/Time: 01/23/2018 07:30:49 Reading Location: [address] Neuro Reading Room TSH/FREE T4 IF [id number] 02:31:00 Test Item Value Reference Range Interpretation Comments THYROID STIMULATING HORMONE 0.78 uIU/mL 0.35-4.94 (BEAKER) (test code = 772) VITAMIN B12 AND [id number] 02:31:00 Test Item Value Reference Range Interpretation Comments VITAMIN B12 (BEAKER) (test code = > pg/mL 213-816 H 774) FOLATE (BEAKER) (test code = 362) 5.4 ng/mL >=7.0 L TROPONIN [id number] 02:08:00 Test Item Value Reference Range Interpretation [...] acidosis, acute neurological disease, and persistent tachyarrhythmia.FastingLIPID [id number] 02:00:00 Test Item Value Reference Range Interpretation [...] High 160-189 Very High >=190 FastingBUN AND [id number] 02:00:00 Test Item Value Reference Range Interpretation [...] APPLICABLE FOR DIALYSIS PATIEN TS. FastingBASIC METABOLIC [id number] 02:00:00 Test Item Value Reference Range Interpretation [...] PATIEN TS. FastingCBC W/PLT COUNT & AUTO [id number] 01:51:00 Test Item Value Reference Range Interpretation [...] % 0-1 PERCENT (BEAKER) (test code = 5626)
[2022-10-09] MEDS ORDERED: NA CHLORIDE 0.9% 0 ML ONE (11:58)
[2022-10-09] MEDS ORDERED: NA CHLORIDE 0.9% 1,000 ML ONE (12:15)
[2022-10-09] MEDS ORDERED: NA CHLORIDE 0.9% 250 ML ONE (12:15)
[2022-10-09] MEDS ORDERED: AZITHROMYCIN 500 MG INJ IVPB ONE (12:15)
[2022-10-09] MEDS ORDERED: CEFTRIAXONE 1000 MG/VIAL ONE (12:15)
[2022-10-09] MEDS ORDERED: NA CHLORIDE 0.9% 50 ML ONE (12:15)
--- NOTE | 2022-10-09 12:18 | ER ---
Nurse's Notes [facility] Name: Trisha Lovelace Age: 86 yrs Sex: Female : 1935 Arrival Date: 10/09/2022 Time: 11:43 Bed 14 Private MD: Rocky Juarez C Diagnosis: Persistent atrial fibrillation;Moderate persistent asthma;COPD/ Chronic obstructive pulmonary disease with (acute) exacerbation;Unspecified combined systolic (congestive) and diastolic (congestive) heart failure Presentation: 10/09 11:52 Chief complaint: Patient states: SOB since Monday. Slight cough, no fever. Coronavirus ph screen: Vaccine status: Patient reports receiving the 2nd dose of the covid vaccine. Client denies travel out of the [place] in the last 14 days. cough unrelated to allergies, difficulty breathing, shortness of breath, Client presents with at least one sign or symptom that may indicate coronavirus-19. Standard/surgical mask placed on the client. Ebola Screen: Patient denies travel to an Ebola-affected area in the 21 days before illness onset. Initial Sepsis Screen: Does the patient meet any 2 criteria? RR > 20 per min. No. Patient's initial sepsis screen is negative. Does the patient have a suspected source of infection? Yes: Productive cough/pneumonia. Risk Assessment: Do you want to hurt yourself or someone else? Patient reports no desire to harm self or others. Onset of symptoms was October 07, 2022. 11:52 Method Of Arrival: Ambulatory ph 11:52 Acuity: JUAN 3 ph Triage Assessment: 11:53 General: Appears in no apparent distress. Behavior is calm, cooperative, appropriate ph for age. Pain: Denies pain. Respiratory: Reports shortness of breath cough that is labored breathing Onset: The symptoms/episode began/occurred Monday, the patient has moderate shortness of breath. Historical: - Allergies: 11:53 shrimp; ph - PMHx: 11:53 Hypertension; TIA; Hypothyroidism; Alzheimers; High Cholesterol; CVA; ph - PSHx: 11:53 hysterectomy; TIA; Shoulder; cataract; Tonsillectomy; ph - Immunization history:: Client reports receiving the 2nd dose of the Covid vaccine. - Social history:: Smoking status: Patient/guardian denies using tobacco, the patient reports quitting approximately 40 years ago. Screenin:00 [facility] Fall Risk Assessment (Adult) History of falling in the last 3 months, eh3 including since admission No falls in past 3 months (0 pts) Confusion or Disorientation No (0 pts) Intoxicated or Sedated No (0 pts) Impaired Gait Yes (1 pt) Mobility Assist Device Used Yes (1 pt) Altered Elimination No (0 pt) Score/Fall Risk Level 0 - 2 = Low Risk. Abuse screen: Denies threats or abuse. Denies injuries from another. Nutritional screening: No deficits noted. Tuberculosis screening: No symptoms or risk factors identified. Assessment: 12:00 General: Appears in no apparent distress. comfortable, Behavior is calm, cooperative, eh3 appropriate for age. Pain: Denies pain. Neuro: Level of Consciousness is awake, alert, obeys commands, Oriented to person, place, time, situation. Cardiovascular: Capillary refill < 3 seconds Patient's skin is warm and dry. Rhythm is irregular. Respiratory: Airway is patent Respiratory effort is even, unlabored, Respiratory pattern is regular, symmetrical, Breath sounds are coarse bilaterally. GI: No signs and/or symptoms were reported involving the gastrointestinal system. Abdomen is round non-distended. : No signs and/or symptoms were reported regarding the genitourinary system. EENT: No signs and/or symptoms were reported regarding the EENT system. Derm: No signs and/or symptoms reported regarding the dermatologic system. Skin is pink, warm \T\ dry. Musculoskeletal: No signs and/or symptoms reported regarding the musculoskeletal system. Circulation, motion, and sensation intact. Range of motion: intact in all extremities. 12:45 Reassessment: Patient appears in no apparent distress at this time. Patient and/or 3 family updated on plan of care and expected duration. Pain level reassessed. Patient is alert, oriented x 3, equal unlabored respirations, skin warm/dry/pink. 13:45 Reassessment: Patient appears in no apparent distress at this time. Patient and/or eh3 family updated on plan of care and expected duration. Pain level reassessed. Patient is alert, oriented x 3, equal unlabored respirations, skin warm/dry/pink. 14:45 Reassessment: Pt in CT. eh3 15:45 Reassessment: Patient appears in no apparent distress at this time. Patient and/or 3 family updated on plan of care and expected duration. Pain level reassessed. Patient is alert, oriented x 3, equal unlabored respirations, skin warm/dry/pink. 16:45 Reassessment: Patient appears in no apparent distress at this time. Patient and/or eh3 family updated on plan of care and expected duration. Pain level reassessed. Patient is alert, oriented x 3, equal unlabored respirations, skin warm/dry/pink. Vital Signs: 11:52 BP 141 / 79; Pulse 80; Resp 22; Temp 97.3; Pulse Ox 100% on R/A; Weight 92.53 kg; ph Height 5 ft. 2 in. (157.48 cm); Pain 0/10; 12:45 BP 137 / 79; Pulse 71; Resp 20; Pulse Ox 95% on R/A; eh3 13:45 BP 116 / 71; Pulse 82; Resp 14; Pulse Ox 99% on Nebulizer Mask; eh3 15:45 BP 130 / 85; Pulse 114; Resp 20; Pulse Ox 98% on R/A; eh3 16:45 BP 132 / 95; Pulse 120; Resp 18; Pulse Ox 97% on R/A; eh3 11:52 Body Mass Index 37.31 (92.53 kg, 157.48 cm) ph Vitals: 12:45 Cardiac Rhythm Assessment Irregular. eh3 ED Course: 11:43 Patient arrived in ED. mr 11:43 Rocky Juarez MD is Private Physician. mr 11:43 Heath Jennings MD is Attending Physician. mendoza 11:44 Jeri Lowery, RN is Primary Nurse. ko1 11:52 Arm band placed on Patient placed in an exam room, on a stretcher. ph 11:53 Triage completed. ph 11:56 COVID-19/FLU A+B Sent. ko1 12:00 Patient has correct armband on for positive identification. Placed in gown. Bed in low eh3 position. Call light in reach. Side rails up X2. Client placed on continuous cardiac and pulse oximetry monitoring. NIBP monitoring applied. Door closed. Noise minimized. Lights dimmed. Warm blanket given. 12:16 Rocky Juarez MD is Hospitalizing Provider. mendoza 12:30 Inserted saline lock: 20 gauge in right wrist, using aseptic technique. Blood collected.eh3 12:46 EKG done, by ED staff, reviewed by Heath Jennings MD. mm9 17:00 No provider procedures requiring assistance completed. eh3 17:00 Patient admitted, IV remains in place. eh3 Administered Medications: 13:43 Discontinued: NS 0.9% 1000 ml IV at 125 ml/hr continuous mendoza 12:40 Drug: NS 0.9% 1000 ml Route: IV; Rate: 125 ml/hr; Site: right wrist; 3 17:18 Follow up: IV Status: Order to discontinue infusion; IV Intake: 250ml eh3 12:40 Drug: Rocephin (cefTRIAXone) 1 grams Route: IV; Rate: per protocol; Site: right wrist; eh3 12:50 Follow up: Response: No adverse reaction; IV Status: Completed infusion; IV Intake: [id number] 12:40 Drug: Zithromax (azithromycin) 500 mg Route: IVPB; Infused Over: 1 hrs; Site: right eh3 wrist; 16:38 Follow up: Response: No adverse reaction; IV Status: Completed infusion; IV Intake: eh3 250ml 13:15 Drug: SOLU-Medrol (methylPrednisoLONE) 125 mg Route: IVP; Site: right wrist; eh3 15:25 Follow up: Response: No adverse reaction eh3 13:15 Drug: Xopenex (levalbuterol) 3.75 mg Route: Inhalation; eh3 15:25 Follow up: Response: Wheezing diminished eh3 13:15 Drug: AtroVENT (ipratropium) Aerosol 0.5 mg Route: Inhalation; eh3 15:26 Follow up: Response: Wheezing diminished eh3 13:15 Drug: Pepcid (famotidine) 20 mg Route: IVP; Site: right wrist; eh3 15:25 Follow up: Response: No adverse reaction eh3 15:15 Drug: Lasix (furosemide) 40 mg Route: IVP; Site: right wrist; eh3 16:38 Follow up: Response: No adverse reaction eh3 15:15 Drug: Benadryl (diphenhydrAMINE) 25 mg Route: IVP; Site: right wrist; eh3 16:38 Follow up: Response: No adverse reaction eh3 Medication: 17:00 VIS not applicable for this client. eh3 Intake: 12:50 IV: 50ml; Total: 50ml. eh3 16:38 IV: 250ml; Total: 300ml. eh3 17:18 IV: 250ml; Total: 550ml. eh3 Outcome: 12:18 Decision to Hospitalize by Provider. mendoza 17:00 Admitted to Tele accompanied by tech, via wheelchair, room 404, with chart, Report eh3 called to Mayte 17:00 Condition: stable 17:00 Instructed on the need for admit. 17:10 Patient left the ED. ll1 Signatures: Heath Jennings MD MD cha Rivera, Trisha mr Zehra Sue RN RN Cecelia Rodrigez RN RN 1 Ana Sue RN RN [facility] Jeri Lowery RN RN Tiffany Dumont mm9 Corrections: (The following items were deleted from the chart) 17:10 17:09 Reassessment: Patient appears in no apparent distress at this time. Patient eh3 and/or family updated on plan of care and expected duration. Pain level reassessed. Patient is alert, oriented x 3, equal unlabored respirations, skin warm/dry/pink. 3 17:13 14:45 BP 141 / 104; Pulse 123bpm; Resp 20bpm; Pulse Ox 97% RA; 3 3 17:15 15:45 BP 141 / 104; Pulse 123bpm; Resp 20bpm; Pulse Ox 97% RA; 3 3
--- NOTE | 2022-10-09 12:18 | EDPHYS ---
Physician Documentation [facility] Name: Trisha Lovelace Age: 86 yrs Sex: Female : 1935 Arrival Date: 10/09/2022 Time: 11:43 Bed 14 Private MD: Rocky Juarez C ED Physician Heath Jennings HPI: 10/09 12:09 This 86 yrs old Female presents to ER via Ambulatory with complaints of mendoza Shortness Of Breath. 12:09 The patient has shortness of breath with light activity. Onset: The symptoms/episode mendoza began/occurred 3 day(s) ago. Duration: The symptoms are continuous, and are steadily getting worse. The patient's shortness of breath is aggravated by exertion, light activity, supine position, is alleviated by elevating head, sitting up, application of supplemental oxygen. Severity of symptoms: At their worst the symptoms were mild moderate in the emergency department the symptoms are unchanged. The patient has experienced similar episodes in the past, multiple times. Historical: - Allergies: 11:53 shrimp; ph - PMHx: 11:53 Hypertension; TIA; Hypothyroidism; Alzheimers; High Cholesterol; CVA; ph - PSHx: 11:53 hysterectomy; TIA; Shoulder; cataract; Tonsillectomy; ph - Immunization history:: Client reports receiving the 2nd dose of the Covid vaccine. - Social history:: Smoking status: Patient/guardian denies using tobacco, the patient reports quitting approximately 40 years ago. ROS: 12:12 Constitutional: Negative for fever, chills, and weight loss, Eyes: Negative for injury, mendoza pain, redness, and discharge, ENT: Negative for injury, pain, and discharge, Neck: Negative for injury, pain, and swelling, Cardiovascular: Negative for chest pain, palpitations, and edema, Abdomen/GI: Negative for abdominal pain, nausea, vomiting, diarrhea, and constipation, Back: Negative for injury and pain, : Negative for injury, bleeding, discharge, and swelling, MS/Extremity: Negative for injury and deformity, Skin: Negative for injury, rash, and discoloration, Neuro: Negative for headache, weakness, numbness, tingling, and seizure, Psych: Negative for depression, anxiety, suicide ideation, homicidal ideation, and hallucinations, Allergy/Immunology: Negative for hives, rash, and allergies, Endocrine: Negative for neck swelling, polydipsia, polyuria, polyphagia, and marked weight changes, Hematologic/Lymphatic: Negative for swollen nodes, abnormal bleeding, and unusual bruising. 12:12 Respiratory: Positive for cough, shortness of breath, at rest. wheezing, inspiratory, expiratory. Exam: 12:12 Constitutional: This is a well developed, well nourished patient who is awake, alert, mendoza and in no acute distress. Head/Face: Normocephalic, atraumatic. Eyes: Pupils equal round and reactive to light, extra-ocular motions intact. Lids and lashes normal. Conjunctiva and sclera are non-icteric and not injected. Cornea within normal limits. Periorbital areas with no swelling, redness, or edema. ENT: Nares patent. No nasal discharge, no septal abnormalities noted. Tympanic membranes are normal and external auditory canals are clear. Oropharynx with no redness, swelling, or masses, exudates, or evidence of obstruction, uvula midline. Mucous membranes moist. Neck: Trachea midline, no thyromegaly or masses palpated, and no cervical lymphadenopathy. Supple, full range of motion without nuchal rigidity, or vertebral point tenderness. No Meningismus. Chest/axilla: Normal chest wall appearance and motion. Nontender with no deformity. No lesions are appreciated. Cardiovascular: Regular rate and rhythm with a normal S1 and S2. No gallops, murmurs, or rubs. Normal PMI, no JVD. No pulse deficits. Abdomen/GI: Soft, non-tender, with normal bowel sounds. No distension or tympany. No guarding or rebound. No evidence of tenderness throughout. Back: No spinal tenderness. No costovertebral tenderness. Full range of motion. Female : Normal external genitalia. Skin: Warm, dry with normal turgor. Normal color with no rashes, no lesions, and no evidence of cellulitis. MS/ Extremity: Pulses equal, no cyanosis. Neurovascular intact. Full, normal range of motion. Neuro: Awake and alert, GCS 15, oriented to person, place, time, and situation. Cranial nerves II-XII grossly intact. Motor strength 5/5 in all extremities. Sensory grossly intact. Cerebellar exam normal. Normal gait. Psych: Awake, alert, with orientation to person, place and time. Behavior, mood, and affect are within normal limits. 12:12 ECG was reviewed by the Attending Physician. 12:12 Respiratory: moderate respiratory distress is noted, Respirations: labored breathing, that is mild, that is moderate, Breath sounds: decreased breath sounds, that are moderate, are scattered, rhonchi, that are mild, are scattered, stridor, that is mild, Respiratory rate: 22 Vital Signs: 11:52 BP 141 / 79; Pulse 80; Resp 22; Temp 97.3; Pulse Ox 100% on R/A; Weight 92.53 kg; ph Height 5 ft. 2 in. (157.48 cm); Pain 0/10; 12:45 BP 137 / 79; Pulse 71; Resp 20; Pulse Ox 95% on R/A; eh3 13:45 BP 116 / 71; Pulse 82; Resp 14; Pulse Ox 99% on Nebulizer Mask; eh3 15:45 BP 130 / 85; Pulse 114; Resp 20; Pulse Ox 98% on R/A; eh3 16:45 BP 132 / 95; Pulse 120; Resp 18; Pulse Ox 97% on R/A; eh3 11:52 Body Mass Index 37.31 (92.53 kg, 157.48 cm) ph MDM: 11:44 Patient medically screened. mendoza 12:15 Differential diagnosis: Anemia asthma, Bronchitis CHF exacerbation, Chronic Obstructive mendoza Pulmonary Disease obstructed airway, bronchitis, flu, URI, pulmonary edema, Unstable Angina. Antibiotic administration: Rocephin and Zithromax given. Immunization status: Pneumococcal vaccine: within last 5 years. Influenza vaccine: within last 5 years. Data reviewed: vital signs, nurses notes, lab test result(s), EKG, radiologic studies, plain films. Consideration of Admission/Observation Patient was admitted/placed on observation. Escalation of care including admission/observation considered. I considered the following discharge prescriptions or medication management in the emergency department Medications were administered in the Emergency Department. See MAR. Test considered but Not performed: MRI: NO MRI CHEST. 10/09 11:45 Order name: Basic Metabolic Panel [facility] 10/09 11:45 Order name: CBC with Diff [facility] 10/09 11:45 Order name: LFT's [facility] 10/09 11:45 Order name: Magnesium [facility] 10/09 11:45 Order name: NT PRO-BNP [facility] 10/09 11:45 Order name: PT-INR [facility] 10/09 11:45 Order name: Troponin HS [facility] 10/09 11:45 Order name: Lipase [facility] 10/09 11:45 Order name: Blood Culture Adult (2) [facility] 10/09 11:45 Order name: Lactate w/ 2H reflex if indic. [facility] 10/09 11:45 Order name: COVID-19/FLU A+B [facility] 10/09 11:45 Order name: D-Dimer [facility] 10/09 13:14 Order name: Protime (+INR); Complete Time: 13:39 EDMS 10/09 13:14 Order name: CBC with Automated Diff; Complete Time: 13:39 EDMS 10/09 11:45 Order name: XRAY Chest (1 view) [facility] 10/09 13:16 Order name: COVID-19/FLU A+B; Complete Time: 13:39 EDMS 10/09 13:25 Order name: Lactate w/ 2H reflex if indic.; Complete Time: 13:39 EDMS 10/09 13:26 Order name: D-Dimer; Complete Time: 13:39 EDMS 10/09 13:38 Order name: Basic Metabolic Panel; Complete Time: 13:39 EDGA 10/09 13:38 Order name: Liver (Hepatic) Function; Complete Time: 13:39 EDMS 10/09 13:38 Order name: Troponin High Sensitivity; Complete Time: 13:39 EDMS 10/09 13:38 Order name: NT PRO-BNP; Complete Time: 13:39 EDMS 10/09 13:38 Order name: Magnesium; Complete Time: 13:39 EDMS 10/09 13:38 Order name: Lipase; Complete Time: 13:39 EDGA 10/09 13:42 Order name: RAD; Complete Time: 13:42 EDGA 10/09 13:43 Order name: CT Chest For PE Angio [facility] 10/09 13:43 Order name: US Extremity Venous W Compression Michael [facility] 10/09 14:26 Order name: CT EDGA 10/09 15:57 Order name: US EDGA 10/09 11:45 Order name: EKG; Complete Time: 11:46 [facility] 10/09 11:45 Order name: Cardiac monitoring; Complete Time: 11:58 [facility] 10/09 11:45 Order name: EKG - Nurse/Tech; Complete Time: 11:58 [facility] 10/09 11:45 Order name: IV Saline Lock; Complete Time: 12:51 [facility] 10/09 11:45 Order name: Labs collected and sent; Complete Time: 12:51 [facility] 10/09 11:45 Order name: O2 Per Protocol; Complete Time: 11:58 [facility] 10/09 11:45 Order name: O2 Sat Monitoring; Complete Time: 11:58 [facility] 10/09 11:45 Order name: Urine Dipstick-Ancillary (obtain specimen); Complete Time: 16:51 mendoza EC:12 Rate is 92 beats/min. Rhythm is irregularly irregular. QRS [place] is Normal. UT interval mendoza is normal. QRS interval is normal. QT interval is normal. No Q waves. T waves are Normal. No ST changes noted. Clinical impression: Atrial Fibrillation and No evidence of ischemia. Interpreted by me. Reviewed by me. Administered Medications: 13:43 Discontinued: NS 0.9% 1000 ml IV at 125 ml/hr continuous mendoza 12:40 Drug: NS 0.9% 1000 ml Route: IV; Rate: 125 ml/hr; Site: right wrist; 3 17:18 Follow up: IV Status: Order to discontinue infusion; IV Intake: 250ml 3 12:40 Drug: Rocephin (cefTRIAXone) 1 grams Route: IV; Rate: per protocol; Site: right wrist; eh3 12:50 Follow up: Response: No adverse reaction; IV Status: Completed infusion; IV Intake: [id number] 12:40 Drug: Zithromax (azithromycin) 500 mg Route: IVPB; Infused Over: 1 hrs; Site: right eh3 wrist; 16:38 Follow up: Response: No adverse reaction; IV Status: Completed infusion; IV Intake: eh3 250ml 13:15 Drug: SOLU-Medrol (methylPrednisoLONE) 125 mg Route: IVP; Site: right wrist; eh3 15:25 Follow up: Response: No adverse reaction eh3 13:15 Drug: Xopenex (levalbuterol) 3.75 mg Route: Inhalation; eh3 15:25 Follow up: Response: Wheezing diminished eh3 13:15 Drug: AtroVENT (ipratropium) Aerosol 0.5 mg Route: Inhalation; eh3 15:26 Follow up: Response: Wheezing diminished eh3 13:15 Drug: Pepcid (famotidine) 20 mg Route: IVP; Site: right wrist; eh3 15:25 Follow up: Response: No adverse reaction eh3 15:15 Drug: Lasix (furosemide) 40 mg Route: IVP; Site: right wrist; eh3 16:38 Follow up: Response: No adverse reaction eh3 15:15 Drug: Benadryl (diphenhydrAMINE) 25 mg Route: IVP; Site: right wrist; eh3 16:38 Follow up: Response: No adverse reaction eh3 Disposition Summary: 10/09/22 12:18 Hospitalization Ordered Hospitalization Status: Observation mendoza Provider: Rocky Juarez cha Location: Telemetry/MedSurg (observation) mendoza Condition: Fair mendoza Problem: new mendoza Symptoms: have improved mendoza Bed/Room Type: Standard mendoza Room Assignment: 404(10/09/22 15:15) dw Diagnosis - Persistent atrial fibrillation mendoza - Moderate persistent asthma mendoza - COPD/ Chronic obstructive pulmonary disease with (acute) exacerbation mendoza - Unspecified combined systolic (congestive) and diastolic (congestive) heart failure mendoza Forms: - Medication Reconciliation Form mendoza - SBAR form mendoza Signatures: Dispatcher [employer] Mehnaz Shea RN RN dw Anderson, Corey, MD MD cha Hall, Patricia, RN RN Ana Sue RN RN 3 Corrections: (The following items were deleted from the chart) 15:15 12:18 mendoza dw
[2022-10-09] MEDS ORDERED: ACETAMINOPHEN 500 MG TAB PO PRN (12:29)
[2022-10-09] MEDS ORDERED: ONDANSETRON 4 MG/2 ML VIAL IV PRN (12:29)
[2022-10-09 13:02] LABS: Absolute Lymphocytes (CBC) 2.5 K/uL (0.7-4.9); Hematocrit 43.6 % (36.0-45.0); Lymphocytes % 28.6 % (15.3-44.8); MCV 87.3 fL (80-100); MPV 7.7 fL (7.6-11.3); RBC Red Blood Cell Count 4.99 M/uL (3.86-4.86)
[2022-10-09] MEDS ORDERED: FAMOTIDINE 20 MG/2 ML VIAL IV ONE (13:05)
[2022-10-09] MEDS ORDERED: METHYLPREDNISOLONE 125 MG INJ ONE (13:05)
[2022-10-09] MEDS ORDERED: LEVALBUTEROL 1.25 MG/3 ML NEB ONE ×2 (13:05→13:29)
[2022-10-09] MEDS ORDERED: IPRATROPIUM BROM 0.5MG/2.5ML ONE ×2 (13:05→13:30)
[2022-10-09 13:14] LABS: Protime INR 1.19
[2022-10-09 13:15] LABS: SARS-COV-2 RT PCR NEGATIVE (NEGATIVE)
[2022-10-09] MEDS: IPRATROPIUM BROM 0.5MG/2.5ML NEB SCH ×2 (13:30→19:20)
[2022-10-09] MEDS: LEVALBUTEROL 1.25 MG/3 ML NEB NEB SCH ×2 (13:30→19:20)
[2022-10-09 13:38] LABS: Albumin 3.2 g/dL (3.4-5.0); Bilirubin Direct 0.1 mg/dL (0-0.2); Bilirubin Total 0.4 mg/dL (0.2-1.0); Magnesium 2.1 mg/dL (1.6-2.4); Potassium 4.2 mmol/L (3.5-5.1); Protein, Total 7.4 g/dL (6.4-8.2); Troponin High Sensitivity 8.4 pg/mL (<58.9)
--- NOTE | 2022-10-09 13:41 | RAD REPORT ---
EXAM DESCRIPTION: RAD - Chest Single View - 10/09/2022 1:07 pm CLINICAL HISTORY: DYSPNEA Chest pain. COMPARISON: Chest Single View dated 06/19/2022; Chest Single View dated 06/13/2022; Chest Single Vie w dated 02/21/2022; Chest Pa And Lat (2 Views) dated 06/27/2018 FINDINGS: Portable technique limits examination quality. Mild interstitial pulmonary edema. The heart is mildly enlarged. No displaced fractures. IMPRESSION: Mild CHF pattern.
[2022-10-09] MEDS ORDERED: DIPHENHYDRAMINE 25 MG TAB/CAP ONE (13:52)
[2022-10-09] MEDS ORDERED: FUROSEMIDE 40 MG/4 ML VIAL ONE (13:52)
--- NOTE | 2022-10-09 14:26 | RAD REPORT ---
EXAM DESCRIPTION: CT - Chest For Pe Angio - 10/09/2022 2:16 pm CLINICAL HISTORY: Chest pain. DYSPNEA COMPARISON: Thorax Wo Con dated 06/19/2022; Thorax Wo Con dated 02/28/2020 TECHNIQUE: CT angiogram of the pulmonary arteries was performed with MIP. All CT scans are performed using dose optimization technique as appropriate and may include automated exposure control or mA/KV adjustment according to patient size. FINDINGS: No evidence of pulmonary thromboembolism. No acute aortic finding demonstrated. Mild ground-glass opacities in both lung bases. Small nodules are present in both lungs, stable, larg est left lung base posteriorly, measuring 14 mm. No significant pericardial or pleural fluid. No concerning bony finding. IMPRESSION: No evidence of pulmonary thromboembolism. Mild nonspecific ground-glass opacity bilaterally can indicate alveolitis. Stable pulmonary nodules.
[2022-10-09] MEDS ORDERED: DIPHENHYDRAMINE 50 MG/ML VIAL ONE (14:54)
--- NOTE | 2022-10-09 15:56 | RAD REPORT ---
EXAM DESCRIPTION: US - Extrem Venous W Compress Michael - 10/09/2022 3:51 pm CLINICAL HISTORY: Pain Bilateral leg edema and swelling. COMPARISON: Extrem Venous W Compress Michael dated 06/19/2022 TECHNIQUE: Real-time sonographic interrogation of the left and right lower extremity deep venous sys tems was performed. FINDINGS: Normal compressibility, flow augmentation, phasic flow and spontaneous flow is identified in both the left and right lower extremity deep venous systems. IMPRESSION: No sonographic evidence of left or right lower extremity deep venous thrombosis.
[2022-10-09 17:41] VITALS: BMI 37.3
[2022-10-09 17:49] VITALS: O2SAT 97
[2022-10-09] MEDS: FUROSEMIDE 20 MG/ 2ML VIAL IV SCH (18:16)
[2022-10-09] MEDS: METHYLPREDNISOLONE 125 MG INJ IV SCH (18:21)
[2022-10-09 19:14] LABS: Urine Blood Negative (Negative); Urine Glucose Negative (Negative); Urine Protein Negative (Negative)
[2022-10-09] MEDS ORDERED: FAMOTIDINE 20 MG/2 ML VIAL IV SCH (21:00)
[2022-10-09] MEDS ORDERED: METOPROLOL TAR 50 MG TAB PO SCH (21:00)
[2022-10-09] MEDS: APIXABAN 5 MG TABLET PO SCH (21:08)
[2022-10-09] MEDS: POTASSIUM 25 MEQ EFFERV TAB PO SCH (21:09)
[2022-10-10] MEDS: METHYLPREDNISOLONE 125 MG INJ IV SCH ×2 (00:22→06:28)
[2022-10-10] MEDS: LEVALBUTEROL 1.25 MG/3 ML NEB NEB SCH ×4 (02:20→19:05)
[2022-10-10] MEDS: IPRATROPIUM BROM 0.5MG/2.5ML NEB SCH ×4 (02:20→19:05)
[2022-10-10 05:43] LABS: Absolute Lymphocytes (CBC) 1.6 K/uL (0.7-4.9); Hematocrit 42.6 % (36.0-45.0); Lymphocytes % 10.4 % (15.3-44.8); MCV 87.4 fL (80-100); MPV 8.1 fL (7.6-11.3); RBC Red Blood Cell Count 4.88 M/uL (3.86-4.86)
[2022-10-10 05:59] LABS: Bilirubin Direct 0.1 mg/dL (0-0.2); Bilirubin Total 0.4 mg/dL (0.2-1.0); Potassium 4.5 mmol/L (3.5-5.1); Protein, Total 6.9 g/dL (6.4-8.2)
[2022-10-10] MEDS ORDERED: AMIODARONE HCL 150 MG in D5W 100 ML IV SCH (08:30)
[2022-10-10] MEDS ORDERED: AMIODARONE HCL 900 MG in Dextrose 5%-Water 482 ML IV SCH (08:45)
[2022-10-10] MEDS: POTASSIUM 25 MEQ EFFERV TAB PO SCH ×2 (09:00→20:50)
[2022-10-10] MEDS ORDERED: AZITHROMYCIN IV 250 MG in NA CHLORIDE 0.9% 250 ML IVPB SCH (09:00)
[2022-10-10] MEDS: FOLIC ACID 1 MG TABLET PO SCH (09:02)
[2022-10-10] MEDS: CEFTRIAXONE 1,000 MG in NA CHLORIDE 0.9% 50 ML IVPB SCH (09:03)
[2022-10-10] MEDS: LEVOTHYROXINE SOD 0.075 MG TAB PO SCH (09:03)
[2022-10-10] MEDS: FAMOTIDINE 20 MG TAB PO SCH (09:03)
[2022-10-10] MEDS: APIXABAN 5 MG TABLET PO SCH ×2 (09:03→20:50)
[2022-10-10] MEDS: MEMANTINE HCL 10 MG TABLET PO SCH ×2 (09:03→20:50)
[2022-10-10] MEDS: FUROSEMIDE 20 MG/ 2ML VIAL IV SCH ×2 (09:07→16:29)
[2022-10-10] MEDS: METOPROLOL TAR 50 MG TAB PO SCH ×2 (09:07→20:50)
--- NOTE | 2022-10-10 14:40 | ECHO ---
HEIGHT: 5 ft 2 in WEIGHT: 204 lb 0 oz DATE OF STUDY: 10/10/[address]: Heath Jennings MD 2-DIMENSIONAL: YES M.MODE: YES DOPPLER: YES COLOR FLOW: YES TDS: NO PORTABLE: YES DEFINITY: NO BUBBLE STUDY: NO DIAGNOSIS: CONGESTIVE HEART FAILURE/ ATRIAL FIBRILLATION CARDIAC HISTORY: CATHERIZATION: SURGERY: PROSTHETIC VALVE: PACEMAKER: MEASUREMENTS (cm) DIASTOLIC (NORMALS) SYSTOLIC (NORMALS) IVSd 1.3 (0.6-1.2) LA Diam 3.3 (1.9-4.0) LVEF 56% LVIDd 3.5 (3.5-5.7) LVIDs 2.5 (2.0-3.5) %FS 28% LVPWd 1.0 (0.6-1.2) Ao Diam 2.7 (2.0-3.7) 2 DIMENSIONAL ASSESSMENT: RIGHT ATRIUM: NORMAL LEFT ATRIUM: NORMAL RIGHT VENTRICLE: NORMAL LEFT VENTRICLE: NORMAL TRICUSPID VALVE: MILD TRICUSPID REGURGITATION MITRAL VALVE: MILD MITRAL REGURGITATION PULMONIC VALVE: NORMAL AORTIC VALVE: MILD AORTIC INSUFFICIENCY PERICARDIAL EFFUSION: NONE AORTIC ROOT: NORMAL LEFT VENTRICULAR WALL MOTION: NORMAL (ATRIAL FIBRILLATION). DOPPLER/COLOR FLOW: COMMENTS: 1. NORMAL LEFT VENTRICULAR EJECTION FRACTION 55-60% 2. NORMAL WALL MOTION ( ATRIAL FIBRILLATION). 3. MILD (TRICUSPID REGURGITATION, MITRAL REGURGITATION, AORTIC INSUFFICIENCY). TECHNOLOGIST: CORETTA PARKER
--- NOTE | 2022-10-10 21:33 | HP ---
Date of Admission: 10/09/2022 Chief Complaint: Shortness of breath. History Of Present Illness: This is an 86-year-old very pleasant female patient who came into emerge ncy room with few days history of shortness of breath with activity. In last few days, she also note d that she was having trouble breathing at nighttime and her breathing was better when she was sittin g upright versus lying down. Denies any chest pain. No fever. No cough, cold, or congestion. Afte r she was evaluated in the emergency room, she was admitted to the hospital. Allergies: TO ATORVASTATIN CAUSING ABNORMAL LIVER FUNCTION TESTS. Review of Systems: Respiratory: As mentioned above. All other systems reviewed and negative. Medications: List reviewed. Past Medical History: Significant for hypertension, chronic atrial fibrillation, history of TIA in and 2012 and history of stroke January 21, 2018. Past Medical History: Also significant for hypothyroidism, impaired fasting glucose, COPD, pulmonary nodule, hypertension, hyperlipidemia, and celiac disease. Past Surgical History: Significant for cataract surgery, tonsillectomy, hysterectomy, and shoulder s urgery. Family History: Father , had myocardial infarction and stroke. Brother has diabetes. Social History: Prior history of smoking, not at present time. Use of alcohol negative. Physical Examination: Vital Signs: Temperature 97.4, pulse 113, respiratory rate 19, blood pressure 138/67, and oxygen sat uration 100%. Height 5 feet 2 inches, weight 204 pounds. General: Awake, alert, oriented, not in distress. HEENT: Head atraumatic, normocephalic. Conjunctivae nonerythematous. Sclerae white. Mouth, no thr ush or edema noted. Ears/Nose, no mass, lesion, discharge noted. Neck: Supple. No JVD, lymph nodes, bruit, thyromegaly noted. Lungs: Bilateral rales noted in the lower lung duff. Not using any accessory muscles of respirati on. Heart: Normal heart sounds, no murmur or gallop. Abdomen: Soft, bowel sounds normal. No guarding, rigidity, tenderness, mass, hepatosplenomegaly, dis tention, or bruit noted. Extremities: No leg edema. No calf tenderness. Skin: No rash, ulcer, cellulitis. Lymphatics: No lymph node enlargement in neck, supraclavicular, infraclavicular region. Neuro: No focal neurological deficit. Chest: Unremarkable. External Genitalia: Deferred. Rectal: Deferred. Laboratory Data: Yesterday white count was 8.6, hemoglobin 14.5, and platelets 225. This morning wh ite count 15.4 and this is due to IV steroid that the patient started to receive after she came to em ergency room and hemoglobin today is 13.8 and platelets 217. Yesterday sodium was 137, potassium 4.2 , chloride 103, bicarb 28, BUN 18, creatinine 1.01, and glucose 117. Lactic acid 2.5. Liver functio n tests unremarkable. ProBNP 1518 and troponin 8.4. This morning BUN 23, creatinine 1.25, sodium 13 7, potassium 4.5, chloride 101, bicarb 27, and glucose 191. Liver function tests unremarkable. Urin alysis negative. Influenza A, B, and COVID-19 test negative. Chest x-ray shows mild CHF pattern. C AT scan of the chest per PE protocol was negative for pulmonary embolism and showed a mild nonspecifi c ground-glass opacity in both lung duff. Venous Doppler of both legs was negative for DVT. Impression: 1.Atrial fibrillation with rapid ventricular rate. 2.Congestive heart failure, chronic, diastolic, with acute exacerbation. 3.Hypertension. 4.Hyperlipidemia. 5.Chronic anticoagulation therapy. 6.Chronic obstructive pulmonary disease. 7.Hypothyroidism. 8.Impaired fasting glucose. 9.Leukocytosis secondary to steroid use. Plan: We will admit the patient to hospital for further evaluation and management of this problem. The patient is appropriate for inpatient and is expected to spend 2 midnights in hospital. We will c ontinue her anticoagulation therapy. We will consult watershed program manager to get an echo with Doppler. Cont inue IV Lasix 20 mg 2 times a day. Discontinue IV steroid. Discontinue antibiotics. Continue metop rolol for her hypertension. For hypothyroidism, we will continue levothyroxine. We will get echo wi Doppler today and follow up with watershed program manager and I will see her tomorrow for followup. Repeat bl ood work tomorrow morning and details and plan of treatment discussed with the patient. SANDRA/MODL Voice ID: [id number]
--- NOTE | 2022-10-11 00:39 | CON ---
Date of Consultation: 10/10/2022 Reason For Consultation: Atrial fibrillation with rapid ventricular response. History Of Present Illness: This is an 86-year-old female with history of atrial fibrillation, COPD, dementia, dyslipidemia, CVA, and hypothyroidism who presented to the emergency room with shortness o f breath. She was found to be in atrial fibrillation with rapid ventricular response and probably co ngestive heart failure. I was consulted for atrial fibrillation and CHF management. I evaluated her at bedside. Heart rate was borderline elevated. She has no chest pain, but she has shortness of br eath on exertion. Past Medical History: As outlined above in the HPI. Medications: Refer to reconciliation sheet for detailed list. Allergies: NO KNOWN DRUG ALLERGIES. Family History: No premature coronary artery disease or cancer. Social History: She does not smoke or drink. Does not use any drugs. Review of Systems: All systems reviewed and they were negative except as mentioned in HPI. Physical Examination: Vital Signs: Temperature is 97.2, pulse is 107, breathing at 16, blood pressure is 124/78, and satur ating 97% on room air. General: A pleasant elderly female, in no distress. Head And Neck: Pupils are equal and reactive to light. Intact eye movements. No JVD. No cervical lymphadenopathy. Neck is supple. Thyroid is not enlarged. Lungs: Decreased breathing sounds bilaterally. No accessory muscle use or muscle retraction. Heart: Irregularly irregular. No extra sounds. Tachycardic. Abdomen: Soft, nontender. Bowel sounds positive. No organomegaly. No masses or hernia. No rigidi ty or rebound. Extremities: No clubbing or cyanosis. Intact pulses. Skin: No rash. Neurologic: Alert and awake. No acute focal deficits appreciated. Investigations: BUN 23, creatinine 1.25. NT-proBNP was elevated above 1000. On CTA of the chest, t here is no PE. Assessment/recommendation: 1.Atrial fibrillation with rapid ventricular response. I recommend loading with IV amiodarone. Sta rt with a bolus of 150 mg over 10 minutes and 1 mg/minute for 6 hours and then 0.5 mg/minute for 16 h ours. I also recommended to start Eliquis 5 mg twice a day for stroke prevention. 2.Congestive heart failure. This is chronic diastolic heart failure. At this point, she is on Lasi x 20 mg IV b.i.d. Recommend to switch to oral Lasix and strict low-salt diet and monitor electrolyte s while on IV diuretics. SR/MODL Voice ID: [id number] Report ID: [id number]
[2022-10-11] MEDS: LEVALBUTEROL 1.25 MG/3 ML NEB NEB SCH ×2 (01:30→07:41)
[2022-10-11] MEDS: IPRATROPIUM BROM 0.5MG/2.5ML NEB SCH ×2 (01:30→07:41)
[2022-10-11 04:01] LABS: Magnesium 2.2 mg/dL (1.6-2.4); Potassium 4.5 mmol/L (3.5-5.1)
[2022-10-11] MEDS: CEFTRIAXONE 1,000 MG in NA CHLORIDE 0.9% 50 ML IVPB SCH (07:59)
[2022-10-11] MEDS: FUROSEMIDE 20 MG/ 2ML VIAL IV SCH (08:04)
[2022-10-11] MEDS: MEMANTINE HCL 10 MG TABLET PO SCH (08:05)
[2022-10-11] MEDS: FOLIC ACID 1 MG TABLET PO SCH (08:05)
[2022-10-11] MEDS: METOPROLOL TAR 50 MG TAB PO SCH (08:05)
[2022-10-11] MEDS: FAMOTIDINE 20 MG TAB PO SCH (08:05)
[2022-10-11] MEDS: APIXABAN 5 MG TABLET PO SCH (08:05)
[2022-10-11 08:06] VITALS: BP 167/87
[2022-10-11] MEDS: LEVOTHYROXINE SOD 0.075 MG TAB PO SCH (08:06)
[2022-10-11] MEDS: POTASSIUM 25 MEQ EFFERV TAB PO SCH (08:06)
[2022-10-11] MEDS ORDERED: AMIODARONE HCL 900 MG in Dextrose 5%-Water 482 ML IV SCH (09:00)
[2022-10-11 09:26] VITALS: TEMP 97.6
--- NOTE | 2022-10-11 17:13 | EKG ---
Test Date: 2022-10-10 Test Time: 15:05:48 Art Preparator: ANASTACIA MEASUREMENT RESULTS: Intervals: Rate: 112 [place]: QRSD: 88 QT: 330 QTc: 450 [place]: P: [place]: QRS: 37 T: 26 INTERPRETIVE STATEMENTS: Atrial fibrillation with rapid ventricular response Abnormal ECG Compared to ECG 10/09/2022 11:58:59 No significant changes Electronically Signed On 10-11-22 17:09:42 DIGITAL MARKETING ASSISTANT by Simon Bernal
--- NOTE | 2022-10-11 17:20 | EKG ---
Test Date: 2022-10-09 Test Time: 11:58:59 Business Agent: CUATE MEASUREMENT RESULTS: Intervals: Rate: 92 [place]: QRSD: 76 QT: 346 QTc: 427 [place]: P: [place]: QRS: 50 T: 55 INTERPRETIVE STATEMENTS: Atrial fibrillation with a competing junctional pacemaker Low voltage QRS Abnormal ECG Compared to ECG 06/19/2022 16:42:34 No significant changes Electronically Signed On 10-11-22 17:13:59 SUPPLY OFFICER by Simon Bernal
--- NOTE | 2022-10-12 07:07 | DS ---
Date of Discharge: 10/11/2022 Disposition: Discharged to go home. Physical Examination: HEENT: Unremarkable. Lungs: Clear to auscultation. Heart: Sounds normal. Abdomen: Soft. Bowel sounds normal. No guarding, rigidity, tenderness, or distention. Extremities: No leg edema. Laboratory Data: Today; sodium 136, potassium 4.5, chloride 97, bicarb 30, BUN 34, creatinine 1.30, glucose 147, magnesium 2.2. Her first troponin 5.3, second troponin 7.3, and third troponin 7.2. Echocardiogram done during this hospitalization shows ejection fraction 56%; mild tricuspid, mitral, and aortic regurgitation. Discharge Medications And Instructions: 1.Continue all prior home medications. 2.Take following new medications: a.Amiodarone 200 mg, take 1 tablet by mouth 2 times a day. b.Furosemide 40 mg, take 1 tablet by mouth daily in morning. c.Potassium chloride 10 mEq, take 1 tablet by mouth daily in morning. 3.Follow up at my office next week. 4.Follow up with Dr. Bernal in 2 weeks. 5.Echocardiogram. Hospital Course: This is an 86-year-old female patient admitted to the hospital with complaints of s hortness of breath. Please see dictated H and P for more information. The patient has a history of atrial fibrillation. She takes Eliquis and metoprolol and when she came in, she had atrial fibrillat ion with rapid ventricular rate. Dr. Bernal was consulted from Cardiology. [facility] was ruled out by gett ing serial cardiac enzymes. We continued her metoprolol, Eliquis, and continued her other home medic ations. The patient was kept on telemetry and Dr. Bernal started her on amiodarone and she received IV amiodarone. The patient still has remained in atrial fibrillation as of today, but her rate is mu ch better controlled. The patient has some diastolic congestive heart failure and was given IV Lasix and she will definitely benefit from oral furosemide. Today, she is feeling much better. Her short ness of breath is better and patient was discharged to go home in stable condition with above-mention ed medication and instructions. Final Diagnoses: 1.Atrial fibrillation, chronic, with rapid ventricular rate. 2.Congestive heart failure, chronic, diastolic, with acute exacerbation. 3.Hypertension. 4.Hyperlipidemia. 5.Chronic anticoagulation therapy. 6.Chronic obstructive pulmonary disease. 7.Hypothyroidism. 8.Impaired fasting glucose. 9.Leukocytosis secondary to steroid use. SANDRA/MODL Voice ID: [id number] Report ID: [id number]
== END 2022-10-11 10:43 | disposition home or self-care (01) | DRG 291 ==
LOC: ER 11:41 → ERHOLD 12:27 → 4TH 17:06 → 3RD-ICU 10-10 09:50 → 4TH 10-10 18:00 → OBSVTOIN 10-10 19:20
PROVIDERS: ADMIT Internal Medicine; ATTEND Internal Medicine
DX: I11.0 Hypertensive heart disease with heart failure (principal); I50.33 Acute on chronic diastolic (congestive) heart failure; I48.19 Other persistent atrial fibrillation; J44.9 Chronic obstructive pulmonary disease, unspecified; E78.5 Hyperlipidemia, unspecified; E03.9 Hypothyroidism, unspecified; R73.01 Impaired fasting glucose; K90.0 Celiac disease; D72.829 Elevated white blood cell count, unspecified; I07.1 Rheumatic tricuspid insufficiency; I34.0 Nonrheumatic mitral (valve) insufficiency; I35.1 Nonrheumatic aortic (valve) insufficiency; J45.40 Moderate persistent asthma, uncomplicated; G30.9 Alzheimer's disease, unspecified; F02.80 Dementia in other diseases classified elsewhere, unspecified severity, without behavioral disturbance, psychotic disturbance, mood disturbance, and anxiety; Z20.822 Contact with and (suspected) exposure to COVID-19; Z79.01 Long term (current) use of anticoagulants; Z79.52 Long term (current) use of systemic steroids; Z88.8 Allergy status to other drugs, medicaments and biological substances; Z91.013 Allergy to seafood; Z86.73 Personal history of transient ischemic attack (TIA), and cerebral infarction without residual deficits; Z87.891 Personal history of nicotine dependence; Z90.710 Acquired absence of both cervix and uterus; Z82.49 Family history of ischemic heart disease and other diseases of the circulatory system; Z82.3 Family history of stroke; Z83.3 Family history of diabetes mellitus
CPT/HCPCS: 0240U; 36415; 71045; 71275; 80048; 80076; 81003; 83605; 83690; 83735; 83880; 84132; 84484; 85025; 85379; 85610; 87040; 93005; 93306; 93970; 94640; 96361; 96365; 96366; 96375; 99285; G0378; J0282; J0456; J1200; J1940; J2930; J7030; J7050; J7060; J7614; J7644; Q9967

== ENCOUNTER 2023-02-26 20:57 | Inpatient (IN) | payer OTHER ==
--- OUTSIDE RECORDS SUMMARY | 2023-02-26 21:01 | XMS REPORT | Continuity of Care Document ---
:1935 Author Organization [facility] t Address [address] [place] [address] Care Team Providers Name Role Phone Sharpless Primary Care Physician NIKKI BENTLEY Attending Clinician Unavailable NIKKI BENTLEY Admitting Clinician Unavailable Problems Condition Condition Condition Status Onset Resolution Last Treating Co mments Source Name Details Category Date Date Treatment Clinician Date Late onset Late onset Disease Active [facility] Alzheimer' Alzheimer' 01-25 Nicolasa kes s disease s disease 00:00: Medi stephon without without 00 Center behavioral behavioral disturbanc disturbanc e e Atrial Atrial Disease Recurre [facility] fibrillati fibrillati nce 01-25 Nicolasa kes on with on with 00:00: Medical RVR RVR 00 Center 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 Social History Social Habit Start Date Stop Date Quantity Comments Source History of tobacco Current smoker [facility] Tobacco use and 2018-01-23 2018-01-[address] [facility] [address] Nicolasa kes exposure 00:00:00 00:00:00 [facility] Center Sex Ass[birth year] At [birth year] RADHA Finch kes 00:00:00 [facility]:00 [facility] Smoking Status Start Date Stop Date Source Former smoker 2018-01-23 00:00:00 2018-01-23 00:00:[address] [facility] Medications Ordered Filled Start Stop Current Ordering Indication Dosage Frequency Signature Comments Components Source Medication Medication Date Date Medication? Clinician (SIG) Name Name memantine Yes moderate to 28mg QD Take [address] [facility] [address] (NAMENDA 6-04 severe by mouth [facility] X[facility]) 28 mg 15:56[facility] dementia levothyroxi 2017-0 Yes 50ug Take [address] [facility] [address] ne 6-04 mcg by [facility] (SYNTHROID, 15:56: mouth Medic al LEVOTHROID) 06 Every Center 50 MCG morning on tablet an empty stomach. tiotropium 2017-0 Yes 18ug Inhale [address] (SPIRIVA) 6-04 mcg by [facility] 18 mcg 15:56: mouth via Medica l inhalation 06 inhaler Center capsule daily as needed. memantine 2017-0 Yes moderate to 28mg QD Take [address] (NAMENDA 6-04 severe by mouth [facility] XR) 28 mg 15:56: [facility] dementia levothyroxi 2017-0 Yes 50ug Take [address] [facility] ne [...] inhaler Center capsule daily as needed. memantine 2017-0 Yes moderate to 28mg QD Take [address] (NAMENDA 6-04 severe by mouth [facility] XR) 28 mg 15:56: [facility]'s [facility] dementia levothyroxi 2017-0 Yes 50ug Take [address] [facility] ne [...] Description Test Time Test Comments Results Result [facility] e Comments CT, BRAIN, WITHOUT 2018-01-29 FINAL REPORT PATIENT CONTRAST 13:45:00 ID: [id number] CT head without contrast. Comparisons: January 24 [...] tahir hematoma or mass effect.. Signed: Cheyenne Bergereport Verified Date/Time: 01/29/2018 13:45:52 Reading Location: [facility] C013V Neuro Reading Room C METABOLIC PANEL [...] NOT 1092) ACCURATE CRE ATININE CLEARANCE IN NE EDICTING GLOMERULAR FILT RATION RATE. ESTIMATED GFR [...] (BEAKER) (test code = 413) BASIC METABOLIC [id number] 07:03:00 Test Item Value Reference Range Interpretation [...] PATIEN TS. CBC W/PLT COUNT & AUTO [id number] 06:36:00 Test Item Value Reference Range Interpretation [...] (test code = 2801) CT, BRAIN, WITHOUT [id number] 09:53:00FINAL REPORT CT head without contrast 01/24/2018 [...] obstructive hydrocephalus or parenchymal herniation. Signed: Se [place] Verified Date/Time: 01/24/2018 09:53:07 Reading Location: [facility] C013V Neuro Reading Room BASIC METABOLIC [id number] 07:40:00 Test Item Value Reference Range Interpretation [...] PATIEN TS. CBC W/PLT COUNT & AUTO [id number] 07:13:00 Test Item Value Reference Range Interpretation [...] code = 2801) URINALYSIS W/ REFLEX URINE [id number] 20:08:00 Test Item Value Reference Range Interpretation [...] 516) SOURCE(BEAKER) (test code = 2795) HEMOGLOBIN [id number] 10:48:00 Test Item Value Reference Range Interpretation Comments HEMOGLOBIN A1C (BEAKER) (test code = 6.4 % 4.3-6.1 H 368) FastingMR, BRAIN, WITHOUT [id number] 07:30:00Reason for exam:- >StrokeWhat is the patient's sedation requirement?->No SedationFINAL REPORT MRI brain and MRA head and neck without contrast 01/23/2018 7:26 AMCLINICAL INDICATION: Cerebral hemorrhage suspectedStroke TECHNIQUE: Multiplanar, multisequence MR imaging of the brain was performed utilizing the following imaging sequences: Axial T1, T2, FLAIR, GRE,and DWI; sagittal and coronal T1-weighted images. Two- and three-dimensional [id number] MRA images of the intra- and extracranial [...] is antegrade in both vertebral arteries. MRA [place]: There is severely attenuated flow [...] Patel Verified Date/Time: 01/23/2018 07:30:49 Reading Location: [address] Neuro Reading Room MR, MRA, BRAIN, WITHOUT [id number] 07:30:00Reason for exam:->Ischemic Stroke EvaluationFINAL REPORT MRI brain and MRA head and neck without contrast 01/23/2018 7:26 AMCLINICAL INDICATION: Cerebral hemorrhage suspectedStroke TECHNIQUE: Multiplanar, multisequence MR karishma ging of the brain was performed utilizing the following imaging sequences: Axial T1, T2, FLAIR, GRE,and DWI; sagittal and coronal T1-weighted images. Two- and three-dimensional [id number] MRA images of the intra- and extracranial [...] is antegrade in both vertebral arteries. MRA [place]: There is severely attenuated flow [...] Patel Verified Date/Time: 01/23/2018 07:30:49 Reading Location: [address] Neuro Reading Room MR, MRA, NECK, WITHOUT IV [id number] 07:30:00Reason for exam:->Ischemic Stroke EvaluationFINAL REPORT MRI brain and MRA head and neck without contrast 01/23/2018 7:26 AMCLINICAL INDICATION: Cerebral hemorrhage suspectedStroke TECHNIQUE: Multiplanar, multisequence MR imaging of the brain was performed utilizing the following imaging sequences: Axial T1, T2, FLAIR, GRE,and DWI; sagittal and coronal T1-weighted images. Two- and three-dimensional [id number]-vi-[id number] MRA images of the intra- and extracranial [...] is antegrade in both vertebral arteries. MRA [place]: There is severely attenuated flow [...] slow flow. Findings were discussed with the [facility] neurology housestaff on 01/23/2018 at 0730. Signed: Se Patel Verified Date/Time: 01/23/2018 07:30:49 Reading Location: [address] Neuro Reading Room TSH/FREE T4 IF [id number] 02:31:00 Test Item Value Reference Range Interpretation Comments THYROID STIMULATING HORMONE 0.78 uIU/mL 0.35-4.94 (BEAKER) (test code = 772) VITAMIN B12 AND [id number] 02:31:00 Test Item Value Reference Range Interpretation Comments VITAMIN B12 (BEAKER) (test code = > pg/mL 213-816 H 774) FOLATE (BEAKER) (test code = 362) 5.4 ng/mL >=7.0 L TROPONIN [id number] 02:08:00 Test Item Value Reference Range Interpretation [...] acidosis, acute neurological disease, and persistent tachyarrhythmia.FastingLIPID [id number] 02:00:00 Test Item Value Reference Range Interpretation [...] High 160-189 Very High >=190 FastingBUN AND [id number] 02:00:00 Test Item Value Reference Range Interpretation [...] APPLICABLE FOR DIALYSIS PATIEN TS. FastingBASIC METABOLIC [id number] 02:00:00 Test Item Value Reference Range Interpretation [...] PATIEN TS. FastingCBC W/PLT COUNT & AUTO [id number] 01:51:00 Test Item Value Reference Range Interpretation [...]
[2023-02-26] MEDS ORDERED: NA CHLORIDE 0.9% 1,000 ML ONE (21:41)
[2023-02-26] MEDS ORDERED: CEFTRIAXONE 1000 MG/VIAL ONE (21:41)
[2023-02-26 22:16] LABS: Absolute Lymphocytes (CBC) 2.4 K/uL (0.7-4.9); Hematocrit 44.7 % (36.0-45.0); Lymphocytes % 21.4 % (15.3-44.8); MCV 90.9 fL (80-100); RBC Red Blood Cell Count 4.92 M/uL (3.86-4.86)
[2023-02-26 22:23] LABS: SARS-CoV-2 Antigen Rapid Res Negative (Negative)
[2023-02-26 22:32] LABS: ALT/SGPT 29 U/L (13-56); AST/SGOT 29 U/L (15-37); Alkaline Phosphatase 112 U/L (45-117); BUN Blood Urea Nitrogen 32 mg/dL (7-18); Bicarbonate 29 mEq/L (21-32); Bilirubin Direct < 0.1 mg/dL (0-0.2); Bilirubin Total 0.3 mg/dL (0.2-1.0); Glomerular Filtration Rate 33 ml/min (=/>90); Glucose Level 126 mg/dL (74-106); Lipase 50 U/L (13-75); Magnesium 2.1 mg/dL (1.6-2.4); NT PRO-BNP 1687 pg/mL (<450); Potassium 4.2 mEq/L (3.5-5.1); Protein, Total 8.3 g/dL (6.4-8.2); Sodium Level 132 mEq/L (136-145); Troponin High Sensitivity 6.5 pg/mL (<58.9)
[2023-02-26 22:33] LABS: Bilirubin Indirect, Calculated ND mg/dL (0.2-0.8)
--- NOTE | 2023-02-26 22:35 | RAD REPORT ---
EXAM DESCRIPTION: Alexa Single View02/26/2023 10:18 pm CLINICAL HISTORY: Cough COMPARISON: September 2022 FINDINGS: Left lung base is mildly hazy Right lung appears clear Heart is normal size IMPRESSION: Left lung base is mildly hazy which may indicate a mild pneumonia
[2023-02-26 23:20] LABS: Protime INR 1.25
[2023-02-26 23:35] LABS: Specific Gravity 1.009 (1.005-1.030); Urine Bilirubin NEGATIVE (Negative); Urine Blood Negative (Negative); Urine Clarity Clear (Clear); Urine Color Colorless (Yellow); Urine Glucose NEGATIVE (Negative); Urine Protein NEGATIVE (Negative); Urine Urobilinogen Normal (Normal); Urine pH 5.5 (5.0-7.0)
--- NOTE | 2023-02-27 00:26 | ER ---
Nurse's Notes [facility] Name: Trisha Lovelace Age: 87 yrs Sex: Female : 1935 Arrival Date: 02/26/2023 Time: 20:57 Bed 16 Private MD: Diagnosis: Pneumonia due to other specified bacteria-leftr lower lobe;COPD/ Chronic obstructive pulmonary disease with (acute) exacerbation;Chronic atrial fibrillation;Obesity, unspecified;correction (current) use of anticoagulants Presentation: 02/26 21:13 Chief complaint: Patient states: I am short of breath and i have been coughing. I went kd3 to my doctor on Monday and they listened to my lungs but they said i was not sick. Coronavirus screen: Vaccine status: Patient reports receiving the 2nd dose of the covid vaccine. Ebola Screen: No symptoms or risks identified at this time. Initial Sepsis Screen: Does the patient meet any 2 criteria? No. Patient's initial sepsis screen is negative. Does the patient have a suspected source of infection? No. Patient's initial sepsis screen is negative. Risk Assessment: Do you want to hurt yourself or someone else? Patient reports no desire to harm self or others. Onset of symptoms was February 26, 2023. 21:13 Method Of Arrival: Wheelchair kd3 21:13 Acuity: JUAN 3 kd3 Triage Assessment: 21:13 General: Appears in no apparent distress. Behavior is calm, cooperative. Pain: Denies kd3 pain. Respiratory: Reports shortness of breath at rest Onset: The symptoms/episode began/occurred gradually, the patient has mild shortness of breath. Historical: - Allergies: 21:11 shrimp; mb9 - Home Meds: 02/27 00:15 memantine 28 mg Oral CSpX 1 cap once daily [Active]; levothyroxine 75 mcg cap 1 cap as6 once daily [Active]; folic acid 1 mg Oral tab 1 tab once daily [Active]; albuterol sulfate 90 mcg/actuation Inhl HFA Aerosol Inhaler [Active]; metoprolol tartrate 100 mg Oral tablet 1 tab daily [Active]; Eliquis 5 mg oral tablet 1 tab 2 times per day [Active]; potassium chloride 10 mEq Oral capsule, extended release 1 cap daily [Active]; amiodarone 200 mg Oral tablet 1 tab daily [Active]; Lasix 40 mg Oral tablet 1 tab daily [Active]; - PMHx: 02/26 21:11 Alzheimers; CVA; High Cholesterol; Hypertension; Hypothyroidism; TIA; mb9 - PSHx: 21:11 cataract; Shoulder; hysterectomy; TIA; Tonsillectomy; mb9 - Immunization history:: Adult Immunizations up to date. - Social history:: Smoking status: Patient/guardian denies using tobacco, but has a distant history of tobacco abuse. Screenin:17 [facility] ED Fall Risk Assessment (Adult) History of falling in the last 3 months, mb9 including since admission No falls in past 3 months (0 pts) Confusion or Disorientation No (0 pts) Intoxicated or Sedated No (0 pts) Impaired Gait No (0 pts) Mobility Assist Device Used No (0 pt) Altered Elimination No (0 pt) Score/Fall Risk Level 0 - 2 = Low Risk Oriented to surroundings, Maintained a safe environment, Educated pt \T\ family on fall prevention, incl call for assistance when getting out of bed. Abuse screen: Denies threats or abuse. Nutritional screening: No deficits noted. Tuberculosis screening: No symptoms or risk factors identified. Assessment: 22:16 General: Appears in no apparent distress. Neuro: Verdin Agitation-Sedation Scale mb9 (RASS): 0 - Alert and Calm Level of Consciousness is awake, alert, obeys commands, Oriented to person, place, time, situation, Appropriate for age. Cardiovascular: Denies chest pain, Heart tones S1 S2 present Rhythm is atrial fibrillation. Respiratory: Reports shortness of breath at rest cough that is non-productive, Airway is patent Respiratory effort is even, unlabored, Respiratory pattern is regular, agonal Breath sounds are coarse bilaterally. GI: Abdomen is round non-distended, Bowel sounds present X 4 quads. Abd is soft and non tender X 4 quads. Patient currently denies diarrhea. Derm: Skin is pink, warm \T\ dry. Musculoskeletal: Range of motion: intact in all extremities. 23:26 Reassessment: No changes from previously documented assessment. Patient and/or family mb9 updated on plan of care and expected duration. Pain level reassessed. Patient is alert, oriented x 3, equal unlabored respirations, skin warm/dry/pink. Vital Signs: 21:13 Pulse 103; Resp 19; Temp 98(O); Pulse Ox 94% on R/A; Weight 95.25 kg; Height 5 ft. 3 kd3 in. ; 21:16 BP 157 / 96; kd3 23:00 BP 142 / 92; Pulse 83; Resp 17; Pulse Ox 96% on R/A; mb9 02/27 00:50 BP 132 / 64; Pulse 82; Resp 19; Pulse Ox 100% on Nebulizer Mask; kd3 02/26 21:13 Body Mass Index 37.20 (95.25 kg, 160.02 cm) kd3 ED Course: 02/26 20:58 Patient arrived in ED. kj1 21:11 Trisha Harry, RN is Primary Nurse. mb9 21:11 Arm band placed on. mb9 21:16 Triage completed. kd3 21:19 Heath Jennings MD is Attending Physician. mendoza 21:45 EKG done, by ED staff, reviewed by Heath Jennings MD. Inserted saline lock: 22 gauge in mb9 left antecubital area, using aseptic technique. 22:04 Blood Culture Adult (2) Sent. mb9 22:04 SARS RAPID Sent. mb9 22:04 Flu Sent. mb9 22:04 Basic Metabolic Panel Sent. mb9 22:04 CBC with Diff Sent. mb9 22:04 D-Dimer Sent. mb9 22:04 LFT's Sent. mb9 22:04 Magnesium Sent. mb9 22:04 PT-INR Sent. mb9 22:04 NT PRO-BNP Sent. mb9 22:04 Troponin HS Sent. mb9 22:17 Placed in gown. Bed in low position. Call light in reach. Side rails up X 1. Client mb9 placed on continuous cardiac and pulse oximetry monitoring. NIBP monitoring applied. mincing machine operator on. 22:17 No provider procedures requiring assistance completed. mb9 22:19 XRAY Chest (1 view) In Process Unspecified. EDMS 02/27 00:22 Jeremie Juarez MD is Hospitalizing Provider. mendoza 01:20 Patient admitted, IV remains in place. kd3 Administered Medications: 02/26 22:03 Drug: NS 0.9% IV 500 ml Route: IV; Rate: bolus; Site: left antecubital; mb9 23:27 Follow up: Response: No adverse reaction; IV Status: Completed infusion mb9 22:04 Drug: NS 0.9% IV 1000 ml Route: IV; Rate: 125 ml/hr; Site: left antecubital; mb9 02/27 01:19 Follow up: IV Status: Infusion continued kd3 02/26 22:26 Drug: Rocephin IV 1 grams Route: IV; Rate: per protocol; Site: left antecubital; mb9 23:27 Follow up: Response: No adverse reaction; IV Status: Completed infusion mb9 02/27 00:17 CANCELLED (Duplicate Order): Zithromax IVPB 500 mg IVPB once over 1 hrs; mix in 250 mL [facility] NS 00:38 Drug: Piperacillin-Tazobactam IVPB 3.375 grams Route: IVPB; Infused Over: 60 mins; kd3 Site: left antecubital; 01:19 Follow up: IV Status: Completed infusion; IV Intake: 100ml kd3 00:39 Drug: MethylPrednisoLONE IVP 125 mg Route: IVP; Site: left antecubital; kd3 01:19 Follow up: Response: No adverse reaction kd3 00:39 Drug: Levalbuterol Inhalation 3.75 mg Route: Inhalation; kd3 00:39 Drug: Ipratropium Inhalation Aerosol 0.5 mg Route: Inhalation; kd3 Medication: 02/26 22:17 VIS not applicable for this client. mb9 Intake: 02/27 01:19 IV: 100ml; Total: 100ml. kd3 Outcome: 00:25 Decision to Hospitalize by Provider. [facility] 01:19 Admitted to Med/surg accompanied by tech. kd3 01:19 Condition: stable 01:19 Discharge instructions given to patient, Instructed on discharge instructions, follow up and referral plans. Demonstrated understanding of instructions, follow-up care. 01:24 Patient left the ED. kd3 Signatures: Dispatcher [employer] EDOH Heath Jennings MD MD cha Jackson, Kandis kj1 Cesar Fisher RN RN as6 Margo Mathis RN RN kd3 Trisha Harry RN RN mb9 Corrections: (The following items were deleted from the chart) 00:21 00:15 Home Meds: levothyroxine 50 mcg tab 1 tab once daily; as6 as6
--- NOTE | 2023-02-27 00:26 | EDPHYS ---
Physician Documentation [facility] Name: Trisha Lovelace Age: 87 yrs Sex: Female : 1935 Arrival Date: 02/26/2023 Time: 20:57 Bed 16 Private MD: ED Physician Heath Jennings HPI: 02/27 00:13 This 87 yrs old Female presents to ER via Wheelchair with complaints of mendoza Shortness Of Breath - /COUGHING. 00:13 The patient has shortness of breath at rest, with light activity. Onset: The mendoza symptoms/episode began/occurred 3 day(s) ago. Duration: The symptoms are continuous, and are steadily getting worse. The patient's shortness of breath has no apparent modifying factors. Associated signs and symptoms: Pertinent positives: non-productive cough. Severity of symptoms: At their worst the symptoms were mild in the emergency department the symptoms are unchanged. The patient has experienced similar episodes in the past, several times. Historical: - Allergies: 02/26 21:11 shrimp; mb9 - Home Meds: 02/27 00:15 memantine 28 mg Oral CSpX 1 cap once daily [Active]; levothyroxine 75 mcg cap 1 cap as6 once daily [Active]; folic acid 1 mg Oral tab 1 tab once daily [Active]; albuterol sulfate 90 mcg/actuation Inhl HFA Aerosol Inhaler [Active]; metoprolol tartrate 100 mg Oral tablet 1 tab daily [Active]; Eliquis 5 mg oral tablet 1 tab 2 times per day [Active]; potassium chloride 10 mEq Oral capsule, extended release 1 cap daily [Active]; amiodarone 200 mg Oral tablet 1 tab daily [Active]; Lasix 40 mg Oral tablet 1 tab daily [Active]; - PMHx: 02/26 21:11 Alzheimers; CVA; High Cholesterol; Hypertension; Hypothyroidism; TIA; mb9 - PSHx: 21:11 cataract; Shoulder; hysterectomy; TIA; Tonsillectomy; mb9 - Immunization history:: Adult Immunizations up to date. - Social history:: Smoking status: Patient/guardian denies using tobacco, but has a distant history of tobacco abuse. ROS: 02/27 00:16 Constitutional: Negative for fever, chills, and weight loss, Eyes: Negative for injury, mendoza pain, redness, and discharge, ENT: Negative for injury, pain, and discharge, Neck: Negative for injury, pain, and swelling. Exam: 00:17 Constitutional: This is a well developed, well nourished patient who is awake, alert, mendoza and in no acute distress. Head/Face: Normocephalic, atraumatic. Eyes: Pupils equal round and reactive to light, extra-ocular motions intact. Lids and lashes normal. Conjunctiva and sclera are non-icteric and not injected. Cornea within normal limits. Periorbital areas with no swelling, redness, or edema. ENT: Nares patent. No nasal discharge, no septal abnormalities noted. Tympanic membranes are normal and external auditory canals are clear. Oropharynx with no redness, swelling, or masses, exudates, or evidence of obstruction, uvula midline. Mucous membranes moist. Neck: Trachea midline, no thyromegaly or masses palpated, and no cervical lymphadenopathy. Supple, full range of motion without nuchal rigidity, or vertebral point tenderness. No Meningismus. Chest/axilla: Normal chest wall appearance and motion. Nontender with no deformity. No lesions are appreciated. Abdomen/GI: Soft, non-tender, with normal bowel sounds. No distension or tympany. No guarding or rebound. No evidence of tenderness throughout. Back: No spinal tenderness. No costovertebral tenderness. Full range of motion. Female : Normal external genitalia. Skin: Warm, dry with normal turgor. Normal color with no rashes, no lesions, and no evidence of cellulitis. MS/ Extremity: Pulses equal, no cyanosis. Neurovascular intact. Full, normal range of motion. Neuro: Awake and alert, GCS 15, oriented to person, place, time, and situation. Cranial nerves II-XII grossly intact. Motor strength 5/5 in all extremities. Sensory grossly intact. Cerebellar exam normal. Normal gait. Psych: Awake, alert, with orientation to person, place and time. Behavior, mood, and affect are within normal limits. 00:17 Cardiovascular: Rate: normal, actual rate is 86 bpm, Rhythm: irregularly irregular, Pulses: Pulses are 4+ in bilateral radial, brachial, femoral, popliteal, posterior tibial and and dorsalis pedis arteries.. Heart sounds: normal, Edema: is not appreciated, JVD: is not appreciated. 00:17 ECG was reviewed by the Attending Physician. 00:17 Respiratory: the patient does not display signs of respiratory distress, Respirations: labored breathing, that is mild, Breath sounds: decreased breath sounds, that are mild, rhonchi, that are mild, are scattered, stridor, is not appreciated, wheezing: inspiratory expiratory Vital Signs: 02/26 21:13 Pulse 103; Resp 19; Temp 98(O); Pulse Ox 94% on R/A; Weight 95.25 kg; Height 5 ft. 3 kd3 in. ; 21:16 BP 157 / 96; kd3 23:00 BP 142 / 92; Pulse 83; Resp 17; Pulse Ox 96% on R/A; mb9 02/27 00:50 BP 132 / 64; Pulse 82; Resp 19; Pulse Ox 100% on Nebulizer Mask; kd3 02/26 21:13 Body Mass Index 37.20 (95.25 kg, 160.02 cm) kd3 MDM: 02/26 21:19 Patient medically screened. [facility] 02/27 00:19 Differential diagnosis: Anxiety Reaction asthma, Bronchitis CHF exacerbation, Chronic mendoza Obstructive Pulmonary Disease pneumonia, pulmonary edema, Pulmonary Embolism reactive airway disease, Sepsis Unstable Angina. Antibiotic administration: zosyn. Differential Diagnosis: Obstructed Airway Bronchitis Influenza Upper Respiratory Infection Sinusitis Pharyngitis Asthma Exacerbation Viral Syndrome Pneumonia. Immunization status: Pneumococcal vaccine: within last 5 years. Influenza vaccine: within last 5 years. Data reviewed: vital signs, nurses notes, EMS record, lab test result(s), EKG, radiologic studies, plain films. Consideration of Admission/Observation Escalation of care including admission/observation considered. Management of patient was discussed with the following: Primary Care Provider: dr cronin. Independent interpretation of the following test(s) in the Emergency Department EKG: See my EKG interpretation above. Test considered but Not performed: CT: no ct chest. Historians other than the Patient: Daughter/Son: daughter. Care significantly affected by the following chronic conditions: Hypertension, Obesity, cva, renal , a fib. Counseling: I had a detailed discussion with the patient and/or guardian regarding: the historical points, exam findings, and any diagnostic results supporting the discharge/admit diagnosis, the presence of at least one elevated blood pressure reading (>120/80) during this emergency department visit, lab results, radiology results, the need for further work-up and treatment in the hospital. 02/26 21:22 Order name: Basic Metabolic Panel; Complete Time: 00:03 [facility] 02/26 21:22 Order name: CBC with Diff; Complete Time: 00:03 [facility] 02/26 21:22 Order name: D-Dimer; Complete Time: 00:03 [facility] 02/26 21:22 Order name: LFT's; Complete Time: 00:03 [facility] 02/26 21:22 Order name: Magnesium; Complete Time: 00:03 [facility] 02/26 21:22 Order name: NT PRO-BNP; Complete Time: 00:03 [facility] 02/26 21:22 Order name: PT-INR; Complete Time: 00:03 [facility] 02/26 21: Order name: Troponin HS; Complete Time: 00:03 [facility] 02/26 21: Order name: Lipase; Complete Time: 00:03 [facility] 02/26 21:22 Order name: Blood Culture Adult (2) [facility] 02/26 21: Order name: Lactate w/ 2H reflex if indic.; Complete Time: 00:03 [facility] 02/26 21:22 Order name: Flu; Complete Time: 00:03 [facility] 02/26 21:22 Order name: SARS RAPID; Complete Time: 00:03 [facility] 02/26 21:22 Order name: Urinalysis w/ reflexes; Complete Time: 00:03 [facility] 02/26 21: Order name: XRAY Chest (1 view); Complete Time: 00:03 [facility] 02/26 21:22 Order name: EKG; Complete Time: 21:24 [facility] 02/27 00:33 Order name: CONS Physician Consult EDDC 02/26 21:22 Order name: Cardiac monitoring; Complete Time: 22:04 [facility] 02/26 21:22 Order name: EKG - Nurse/Tech; Complete Time: 22:04 [facility] 02/26 21:22 Order name: IV Saline Lock; Complete Time: 22:04 [facility] 02/26 21:22 Order name: Labs collected and sent; Complete Time: 22:04 [facility] 02/26 21:22 Order name: O2 Per Protocol; Complete Time: 22:04 [facility] 02/26 21:22 Order name: O2 Sat Monitoring; Complete Time: 22:04 [facility] EC:17 Rate is 86 beats/min. Rhythm is irregularly irregular. QRS [place] is Normal. CO interval mendoza is normal. QRS interval is normal. QT interval is normal. No Q waves. T waves are Normal. No ST changes noted. Clinical impression: Atrial Flutter and No evidence of ischemia. Interpreted by me. Reviewed by me. Administered Medications: 02/26 22:03 Drug: NS 0.9% IV 500 ml Route: IV; Rate: bolus; Site: left antecubital; mb9 23:27 Follow up: Response: No adverse reaction; IV Status: Completed infusion mb9 22:04 Drug: NS 0.9% IV 1000 ml Route: IV; Rate: 125 ml/hr; Site: left antecubital; 9 02/27 01:19 Follow up: IV Status: Infusion continued kd3 02/26 22:26 Drug: Rocephin IV 1 grams Route: IV; Rate: per protocol; Site: left antecubital; 9 23:27 Follow up: Response: No adverse reaction; IV Status: Completed infusion 9 02/27 00:17 CANCELLED (Duplicate Order): Zithromax IVPB 500 mg IVPB once over 1 hrs; mix in 250 mL [facility] NS 00:38 Drug: Piperacillin-Tazobactam IVPB 3.375 grams Route: IVPB; Infused Over: 60 mins; kd3 Site: left antecubital; 01:19 Follow up: IV Status: Completed infusion; IV Intake: 100ml kd3 00:39 Drug: MethylPrednisoLONE IVP 125 mg Route: IVP; Site: left antecubital; kd3 01:19 Follow up: Response: No adverse reaction kd3 00:39 Drug: Levalbuterol Inhalation 3.75 mg Route: Inhalation; kd3 00:39 Drug: Ipratropium Inhalation Aerosol 0.5 mg Route: Inhalation; kd3 Disposition Summary: 02/27/23 00:25 Hospitalization Ordered Hospitalization Status: Inpatient Admission mendoza Provider: Jeremie Cronin cha Location: Telemetry/MedSurg (Inpatient) mendoza Condition: Fair mendoza Problem: new mendoza Symptoms: have improved mendoza Bed/Room Type: Standard mendoza Room Assignment: 205(02/27/23 00:48) mw Diagnosis - Pneumonia due to other specified bacteria - leftr lower lobe mendoza - COPD/ Chronic obstructive pulmonary disease with (acute) exacerbation mendoza - Chronic atrial fibrillation mendoza - Obesity, unspecified mendoza - FDC (current) use of anticoagulants mendoza Forms: - Medication Reconciliation Form mendoza - SBAR form mendoza Signatures: Dispatcher [employer] EDAsha Patel RN RN mw Anderson, Corey, MD MD cha Slawson, Ashby, RN RN as6 aMrgo Mathis RN RN kd3 Trisha Harry RN RN mb9 Corrections: (The following items were deleted from the chart) 00:17 00:13 Zithromax IVPB 500 mg IVPB once over 1 hrs; mix in 250 mL NS ordered. mendoza donaldson 00:21 00:15 Home Meds: levothyroxine 50 mcg tab 1 tab once daily; as6 as6 00:36 00:25 Coagulation defect, unspecified mendoza [facility] 00:48 00:25 mendoza villarreal
[2023-02-27] MEDS ORDERED: METHYLPREDNISOLONE 125 MG INJ ONE (00:33)
[2023-02-27] MEDS ORDERED: NA CHLORIDE 0.9% 100 ML ONE (00:34)
[2023-02-27] MEDS ORDERED: IPRATROPIUM BROM 0.5MG/2.5ML ONE (00:34)
[2023-02-27] MEDS ORDERED: LEVALBUTEROL 1.25 MG/3 ML NEB ONE (00:34)
[2023-02-27] MEDS ORDERED: PIPERACIL/TAZO 3.375 GM VIAL IV ONE (00:35)
[2023-02-27] MEDS ORDERED: ONDANSETRON 4 MG/2 ML VIAL IV PRN (01:34)
[2023-02-27] MEDS ORDERED: SODIUM CHLORIDE 0.9% 10ML INJ IV PRN (01:34)
[2023-02-27] MEDS ORDERED: ALBUTEROL 2.5 MG/3 ML NEB SOL NEB PRN (01:34)
[2023-02-27] MEDS ORDERED: ACETAMINOPHEN 325 MG TABLET PO PRN (01:34)
[2023-02-27 02:33] LABS: Troponin High Sensitivity 6.8 pg/mL (<58.9)
[2023-02-27] MEDS ORDERED: IPRATROPIUM BROM 0.5MG/2.5ML NEB PRN (04:30)
[2023-02-27] MEDS ORDERED: PANTOPRAZOLE 40 MG INJ IVP SCH (09:00)
[2023-02-27] MEDS ORDERED: PIPER TAZO 3.375 GM in NA CHLORIDE 0.9% 100 ML IV SCH (09:00)
[2023-02-27] MEDS ORDERED: METOPROLOL TAR 50 MG TAB PO SCH (09:00)
[2023-02-27] MEDS ORDERED: METHYLPREDNISOLONE 40 MG INJ IV SCH (09:00)
[2023-02-27] MEDS ORDERED: FUROSEMIDE 20 MG/ 2ML VIAL IV SCH ×2 (09:00)
[2023-02-27] MEDS: POTASSIUM 25 MEQ EFFERV TAB PO SCH ×2 (10:27→20:23)
[2023-02-27] MEDS: FUROSEMIDE 40 MG/4 ML VIAL IV SCH ×2 (10:28→20:26)
[2023-02-27] MEDS: FOLIC ACID 1 MG TABLET PO SCH (10:28)
[2023-02-27] MEDS: PANTOPRAZOLE 40MG TABLET PO SCH ×2 (10:29→17:53)
[2023-02-27] MEDS: predniSONE 20 MG TAB PO SCH ×2 (10:29→20:26)
[2023-02-27] MEDS: APIXABAN 5 MG TABLET PO SCH ×2 (10:29→20:26)
[2023-02-27] MEDS: AMIODARONE HCL 200 MG TAB PO SCH (10:29)
[2023-02-27] MEDS: POTASSIUM CL SA 10 MEQ TAB PO SCH (10:29)
[2023-02-27] MEDS: DULERA 200/5 (MOMETASONE/FORMOTEROL) INHALER IH SCH ×2 (10:30→20:22)
[2023-02-27] MEDS: LEVOTHYROXINE SOD 0.075 MG TAB PO SCH (10:30)
[2023-02-27] MEDS: METOPROLOL TAR 50 MG TAB PO SCH ×2 (11:07→21:39)
--- NOTE | 2023-02-27 12:04 | P.CNS ---
Date of Consult: 02/27/23 Reason for Consult: Shortness of breath and cough Chief Complaint: Shortness of breath and cough History of Present Illness: She is 87 years of age has been had a chronic cough for a number of years 3 of chronic shortness of breath on exertion got worse recently unable to ambulate history of A-fib prior history of COPD quit smoking 50 years ago has any productive cough has a slight postnasal drainage no history of GERD and using some albuterol at home patient is anticoagulated Allergies shrimp Adverse Reaction (Verified 01/31/18 11:19) Nausea/Vomiting Home Medications: Apixaban [Eliquis] 5 mg PO BID #60 tablet 02/07/18 Folic Acid 1 mg PO DAILY #30 tablet 02/07/18 Metoprolol Tartrate 100 mg PO BID 10/09/22 Amiodarone HCl [Cordarone*] 200 mg PO DAILY 02/27/23 Furosemide [Lasix*] 40 mg PO DAILY 02/27/23 Levothyroxine Sodium 75 mcg PO DAILY 02/27/23 Memantine HCl [Namenda Xr] 28 mg PO BEDTIME 02/27/23 Potassium Chloride [Klor-Con 10] 10 meq PO DAILY 02/27/23 - Past Medical/Surgical History Diabetic: No -: Dementia -: HTN -: HLD -: Hypothyroidism -: TIA -: cva -: EARLY ALZHEIMERS -: TIA -: TOTAL HYSTERECTOMY -: BILATERAL CATARACT REMOVAL -: RIGHT SHOULDER ROTATOR CUFF REPAIR -: TONSILECTOMY - Family History Father Medical History: Stroke Notes: Father had history of stroke when she was young. - Social History Smoking Status: Former smoker Alcohol use: No CD- Drugs: No Caffeine use: No Place of Residence: Home Review of Systems 10-point ROS is otherwise unremarkable General: Weakness Respiratory: Cough, Shortness of Breath Physical Examination Temp Pulse Resp BP Pulse Ox 96.8 F 110 H 16 144/76 H 92 02/27/23 08:00 02/27/23 11:07 02/27/23 08:00 02/27/23 11:07 02/27/23 08:00 General: Alert, In no apparent distress, Oriented x3 HEENT: Atraumatic Neck: Supple Respiratory: Clear to auscultation bilaterally Cardiovascular: No edema, Normal S1 S2, Irregular heart rate/rhythm Gastrointestinal: Normal bowel sounds, Soft and benign Musculoskeletal: No clubbing, No warmth Integumentary: No breakdown Laboratory Data (last 24 hrs) 02/26/23 21:58: PT 13.8 H, INR 1.25 02/26/23 21:58: WBC 11.20 H, Hgb 14.6, Hct 44.7, Plt Count 279 02/26/23 21:58: Sodium 132 L, Potassium 4.2, BUN 32 H, Creatinine 1.55 H, Glucose 126 H, Magnesium 2.1, Total Bilirubin 0.3, AST 29, ALT 29, Alkaline Phosphatase 112, Lipase 50 - Problems (1) Shortness of breath on exertion Current Visit: Yes Status: Acute Plan: Patient is 87 years of age admitted with acute on chronic shortness of breath on exertion history of A-fib complains of a chronic cough x-ray shows some minor interstitial changes recent echogram cardiogram showed normal left ventricular function function renal function is also abnormal oxygenation satisfactory patient is in atrial flutter 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
--- NOTE | 2023-02-27 12:13 | HP ---
Date of Admission: 02/27/2023 Chief Complaint: Shortness of breath, cough, chest congestion. History Of Present Illness: This is an 87-year-old very pleasant female patient, who came into emerg ency room yesterday with few days history of increasing cough with chest congestion. The patient fee ls like that she has some mucus buildup in her chest, but not able to cough up. Denies any fever or chills. No nausea, no vomiting. In the last few days, she is having increasing shortness of breath with any activity. So with all these complaints, she came into ER and after she was evaluated, she w as admitted to the hospital. I saw her, she was lying in bed, sleeping, easily arousable, not in dis tress at rest. Allergies: TO ATORVASTATIN CAUSING ABNORMAL LIVER FUNCTION TEST. Review of Systems: All other systems reviewed and negative. Medications: List reviewed. 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 Past Surgical History: Cataract surgery, tonsillectomy, hysterectomy, and shoulder surgery. Family History: Father , had myocardial infarction and stroke. Brother has diabetes. Social History: Prior history of smoking, not at present time. Use of alcohol negative. Advanced Directives: I did talk to the patient today regarding her advanced directives and in the ev ent of cardiopulmonary arrest, she does not want any heroic measures like CPR, defibrillation, or jacqueline tilator support, and DNR order will be written in the chart. Physical Examination: Vital Signs: Height 5 feet 3 inches, weight 210 pounds, temperature 97.5, pulse 107, respiratory rat e 17, blood pressure 143/82, oxygen saturation 93% on room air. General: Awake, alert, oriented, not in distress. HEENT: Head atraumatic, normocephalic. Conjunctivae nonerythematous. Sclerae white. Mouth, no thr ush or edema noted. Ears/Nose, no mass, lesion, discharge noted. Neck: Supple. No JVD, lymph nodes, bruit, thyromegaly noted. Lungs: Presence of rales noted in lower 1/3 to 1/4 of both lung duff. Not using any accessory mus cles of respiration. Heart: Normal heart sounds, no murmur or gallop. Abdomen: Soft, bowel sounds normal. No guarding, rigidity, tenderness, mass, hepatosplenomegaly, dis tention, or bruit noted. Extremities: No leg edema. No calf tenderness. Skin: No rash, ulcer, cellulitis. Lymphatics: No lymph node enlargement in neck, supraclavicular, infraclavicular region. Neuro: No focal neurological deficit. Chest: Unremarkable. External Genitalia: Deferred. Rectal: Deferred. Laboratory Data: Urinalysis normal. COVID-19 test negative. White count 11.2, hemoglobin 14.6, didi telets 279. Sodium 132, potassium 4.2, chloride 95, bicarb 29, BUN 32, creatinine 1.55, glucose 126. Lactic acid 2.5, repeat lactic acid 1.8. Liver function tests unremarkable. Troponin 6.5 on the f irst set and 6.8 on the second set. ProBNP 1687. Lipase 50. Chest x-ray showing infiltrate in the left lung base. Impression: 1.Acute exacerbation of chronic obstructive pulmonary disease. 2.Pneumonia, left lower lobe. 3.Congestive heart failure, chronic, diastolic, with acute exacerbation. 4.Paroxysmal atrial fibrillation. 5.Chronic anticoagulation therapy. 6.Acute kidney injury. 7.Hypertension. 8.Chronic anticoagulation therapy. 9.Hyperlipidemia. 10.Hypothyroidism. 11.Impaired fasting glucose. Plan: We will go ahead and admit the patient to the hospital for further evaluation and management o f this problem. The patient is appropriate for inpatient and is expected to spend 2 midnights in [facility]. For her COPD exacerbation, we will give her steroid and antibiotics and nebulizer treatment p er order. For atrial fibrillation, we will continue her home medication which is amiodarone and also continue metoprolol per order, we will continue her chronic anticoagulation therapy which is Eliquis 5 mg 2 times a day. For her hypertension, we will monitor blood pressure if necessary, adjust antih ypertensive medication and she takes metoprolol 50 mg 2 times a day, which will be continued. For he r hypothyroidism, we will continue her usual dose of levothyroxine. Details and plan of treatment di scussed with her. We will repeat blood work tomorrow morning and I will see her tomorrow for followu p. SANDRA/VIOLETA Voice ID: [id number]
[2023-02-27] MEDS: PIPER TAZO 3.375 GM in NA CHLORIDE 0.9% 100 ML IV SCH ×2 (12:30→17:53)
[2023-02-27] MEDS: IPRATROPIUM BROM 0.5MG/2.5ML IH SCH ×2 (14:25→19:55)
--- NOTE | 2023-02-27 19:30 | EKG ---
Test Date: 2023-02-26 Test Time: 21:44:44 Ware Tester: MB MEASUREMENT RESULTS: Intervals: Rate: 86 GA: QRSD: 76 QT: 366 QTc: 437 Pandora: P: GA: QRS: 59 T: 54 INTERPRETIVE STATEMENTS: Atrial flutter with variable AV block Abnormal ECG Compared to ECG 10/10/2022 15:05:48 Atrial fibrillation no longer present Electronically Signed On 02-27-23 19:28:47 CDT by Kailash Trent
[2023-02-27] MEDS: HOME MED 1 EA UNK (Memantine Hcl [Namenda Xr] 28 MG Cap.Spr.24) PO SCH (20:28)
[2023-02-28] MEDS: PIPER TAZO 3.375 GM in NA CHLORIDE 0.9% 100 ML IV SCH ×3 (00:34→16:59)
[2023-02-28] MEDS: IPRATROPIUM BROM 0.5MG/2.5ML IH SCH ×4 (01:20→19:20)
[2023-02-28 03:44] LABS: Absolute Lymphocytes (CBC) 1.8 K/uL (0.7-4.9); Hematocrit 41.2 % (36.0-45.0); Lymphocytes % 9.4 % (15.3-44.8); MCV 90.6 fL (80-100); MPV 8.1 fL (7.6-11.3); RBC Red Blood Cell Count 4.54 M/uL (3.86-4.86)
[2023-02-28 04:19] LABS: Potassium 4.5 mEq/L (3.5-5.1)
[2023-02-28] MEDS: LEVOTHYROXINE SOD 0.075 MG TAB PO SCH (05:16)
[2023-02-28] MEDS: PANTOPRAZOLE 40MG TABLET PO SCH ×2 (08:47→16:59)
[2023-02-28] MEDS: AMIODARONE HCL 200 MG TAB PO SCH (08:47)
[2023-02-28] MEDS: FOLIC ACID 1 MG TABLET PO SCH (08:47)
[2023-02-28] MEDS: POTASSIUM 25 MEQ EFFERV TAB PO SCH ×2 (08:48→20:05)
[2023-02-28] MEDS: DULERA 200/5 (MOMETASONE/FORMOTEROL) INHALER IH SCH ×2 (08:48→20:07)
[2023-02-28] MEDS: POTASSIUM CL SA 10 MEQ TAB PO SCH (08:48)
[2023-02-28] MEDS: predniSONE 20 MG TAB PO SCH ×2 (08:49→20:05)
[2023-02-28] MEDS: METOPROLOL TAR 50 MG TAB PO SCH ×2 (08:49→20:04)
[2023-02-28] MEDS: APIXABAN 5 MG TABLET PO SCH ×2 (08:50→20:04)
[2023-02-28] MEDS: FUROSEMIDE 40 MG/4 ML VIAL IV SCH ×2 (08:50→20:06)
--- NOTE | 2023-02-28 09:40 | PN ---
Date of Progress Note: 02/28/2023 Subjective: Patient was seen this morning for followup. She was sitting at the bedside, eating becca kfast. Reports that yesterday she did ambulate with physical therapy in the hallway. She did get li ttle short of breath, but overall doing better than before. Objective: Vital Signs: Reviewed. HEENT: Unremarkable. Lungs: Bilateral good equal air entry with presence of rales in the left lower lung region and rales noted in lower right 2/3 lung region. Not using any accessory muscles of respiration. Heart: Normal. Abdomen: Soft. Bowel sounds normal. No guarding, rigidity, tenderness, distention. Extremities: No leg edema. Laboratory Data: White count 19.2, hemoglobin 13.7, platelets 299. Sodium 134, potassium 4.5, chlor shay 98, bicarb 28, BUN 37, creatinine 1.37, glucose 162. Impression: 1.Pneumonia. 2.Chronic diastolic heart failure, with acute exacerbation. 3.Leukocytosis, due to steroid. 4.Atrial fibrillation. 5.Chronic anticoagulation therapy. Plan: We will go ahead and continue current IV Lasix 40 mg 2 times a day. Continue steroids, nebuli zer treatment, oxygen, and current antibiotics. Continue current anticoagulation therapy and metoprolol. Ambulation was encouraged. I will see her tomorrow for followup. SANDRA/MODL Voice ID: [id number] Report ID: [id number]
[2023-02-28] MEDS: HOME MED 1 EA UNK (Memantine Hcl [Namenda Xr] 28 MG Cap.Spr.24) PO SCH (20:06)
[2023-03-01] MEDS: PIPER TAZO 3.375 GM in NA CHLORIDE 0.9% 100 ML IV SCH (01:04)
[2023-03-01] MEDS: IPRATROPIUM BROM 0.5MG/2.5ML IH SCH ×2 (01:05→07:30)
[2023-03-01 02:04] VITALS: BMI 37.2
[2023-03-01] MEDS: LEVOTHYROXINE SOD 0.075 MG TAB PO SCH (05:32)
[2023-03-01 08:07] VITALS: BP 163/85; TEMP 97.5
[2023-03-01] MEDS: POTASSIUM 25 MEQ EFFERV TAB PO SCH (08:13)
[2023-03-01] MEDS: FUROSEMIDE 40 MG/4 ML VIAL IV SCH (08:14)
[2023-03-01] MEDS: METOPROLOL TAR 50 MG TAB PO SCH (08:15)
[2023-03-01] MEDS: APIXABAN 5 MG TABLET PO SCH (08:15)
[2023-03-01] MEDS: FOLIC ACID 1 MG TABLET PO SCH (08:15)
[2023-03-01] MEDS: predniSONE 20 MG TAB PO SCH (08:16)
[2023-03-01] MEDS: AMIODARONE HCL 200 MG TAB PO SCH (08:16)
[2023-03-01] MEDS: DULERA 200/5 (MOMETASONE/FORMOTEROL) INHALER IH SCH (08:16)
[2023-03-01] MEDS: PANTOPRAZOLE 40MG TABLET PO SCH (08:16)
[2023-03-01 08:42] VITALS: O2SAT 95
[2023-03-01] MEDS: POTASSIUM CL SA 10 MEQ TAB PO SCH (08:47)
--- NOTE | 2023-03-01 20:01 | DS ---
Date of Discharge: 03/01/2023 Disposition: Discharged to go home. Physical Examination: Vital Signs: Reviewed. HEENT: Unremarkable. Lungs: Clear to auscultation. No rhonchi. No rales. Not in respiratory distress. Heart: Sounds normal. Abdomen: Soft. Bowel sounds normal. No guarding, rigidity, tenderness, distention. Extremities: No leg edema. Laboratory Data: Upon admission, white count 11, hemoglobin 14.6, platelets 279. Yesterday, white c ount 19.2 and this was due to steroid with hemoglobin 13.7, platelets 219. On admission, sodium 132, potassium 4.2, chloride 95, bicarb 29, BUN 32, creatinine 1.55, glucose 126. Liver function tests u nremarkable. Initial troponin 6.5, second troponin 6.8. Yesterday, sodium 134, potassium 4.5, chlor shay 98, bicarb 28, BUN 37, creatinine 1.37, glucose 162. ProBNP 3430. Discharge Medications And Instructions: Continue all prior home medications except following changes ; 1.Change furosemide 40 mg, take 1 tablet by mouth 2 times a day. 2.Change potassium chloride 10 mEq, take 1 tablet by mouth 2 times a day. Start following new medications; 1.Augmentin 500 mg, take 1 tablet by mouth 2 times a day with food for 1 week. 2.Prednisone 10 mg, take 2 tablets daily for 4 days, then 1 tablet daily for 4 days, then half table t daily for 4 days, then stop, take it with food. Follow up at my office next week. Hospital Course: An 87-year-old very pleasant female patient admitted to the hospital with cough, co ngestion, and shortness of breath. Please see dictated H and P for more information. After the elda ent was evaluated in the ER, she was admitted to the hospital and she was treated for acute exacerbat ion of COPD and acute exacerbation of chronic diastolic heart failure. The patient also had left low er lobe pneumonia. She was started on antibiotic, IV steroid, oxygen, nebulizer treatment . She did require oxygen replacement therapy in the beginning and we were able to subsequently disco ntinue it and now she is able to maintain normal oxygenation on room air. Overall, her condition has improved and she is ambulating well now, using her walker. Pulmonary consultation was requested fro audra Hill. Today, the patient was discharged to go home in stable and improved condition with a ana paula-mentioned medications and instructions. Final Diagnoses: 1.Acute exacerbation of chronic obstructive pulmonary disease. 2.Pneumonia, left lower lobe. 3.Congestive heart failure, chronic, diastolic, with acute exacerbation. 4.Paroxysmal atrial fibrillation. 5.Chronic anticoagulation therapy. 6.Acute kidney injury. 7.Hypertension. 8.Hyperlipidemia. 9.Hypothyroidism. 10.Impaired fasting glucose. SANDRA/MODL Voice ID: [id number] Report ID: [id number]
== END 2023-03-01 09:21 | disposition home or self-care (01) | DRG 193 ==
LOC: ER 20:57 → ERHOLD 02-27 00:28 → 2ND 02-27 00:54
PROVIDERS: ADMIT Internal Medicine; ATTEND Internal Medicine
DX: J18.9 Pneumonia, unspecified organism (principal); I50.33 Acute on chronic diastolic (congestive) heart failure; E87.20 Acidosis, unspecified; J44.1 Chronic obstructive pulmonary disease with (acute) exacerbation; I48.20 Chronic atrial fibrillation, unspecified; N17.9 Acute kidney failure, unspecified; J44.0 Chronic obstructive pulmonary disease with (acute) lower respiratory infection; I11.0 Hypertensive heart disease with heart failure; E03.9 Hypothyroidism, unspecified; I48.0 Paroxysmal atrial fibrillation; E66.9 Obesity, unspecified; E78.00 Pure hypercholesterolemia, unspecified; R73.01 Impaired fasting glucose; Z79.01 Long term (current) use of anticoagulants; Z86.73 Personal history of transient ischemic attack (TIA), and cerebral infarction without residual deficits; Z68.38 Body mass index [BMI] 38.0-38.9, adult; Z98.42 Cataract extraction status, left eye; Z98.41 Cataract extraction status, right eye; Z79.899 Other long term (current) drug therapy; Z91.013 Allergy to seafood; Z87.891 Personal history of nicotine dependence; Z79.890 Hormone replacement therapy; Z90.710 Acquired absence of both cervix and uterus; Z20.822 Contact with and (suspected) exposure to COVID-19
CPT/HCPCS: 36415; 71045; 80048; 80076; 81003; 83605; 83690; 83735; 83880; 84132; 84484; 85025; 85379; 85610; 87040; 87804; 87811; 93005; 94760; 96361; 96365; 96367; 96375; 97110; 97116; 97161; 99285; J0696; J1940; J2543; J2930; J3535; J7030; J7512; J7614; J7644

== ENCOUNTER 2023-06-24 09:20 | Inpatient (IN) | payer OTHER ==
--- OUTSIDE RECORDS SUMMARY | 2023-06-24 09:26 | XMS REPORT | Continuity of Care Document ---
:1935 Author Organization [facility] t Address [address] [place] [place] [address] Care Team Providers Name Role Phone Chaparro Primary Care Physician NIKKI BENTLEY Attending Clinician [...] Stop Date Quantity Comments Source History of Current smoker [facility] Tobacco use and 2018-01-23 2018-01-23 Smok[facility] [address] [facility]user [facility] Sex Assigned At [address] [facility] Smoking Status Start Date Stop Date Source Ex-smoker 2018-01-23 00:00:00 2018-01-23 00:00:00 [facility] Medications Ordered Filled Start Stop Current Ordering Indication Dosage Frequency Signature Comments Components Source Medication Medication Date Date Medication? Clinician (SIG) Name Name memantine 2018 Yes moderate to 28mg QD Take [address] [address] (NAMENDA 6-04 severe by mouth [facility] XR) 28 mg 15:56: Alzheimer's daily. [facility] [place] dementia levothyroxi 0 Yes 50ug Take [address] ne 6-04 mcg by Lukes (SYNTHROID, 15:56: mouth Medic al LEVOTHROID) 06 Every Center 50 MCG morning on tablet an empty stomach. tiotropium 2018-0 Yes 18ug Inhale [address] (SPIRIVA) 6-04 mcg by Lukes 18 mcg 15:56: mouth via Medica l inhalation 06 inhaler Center capsule daily as needed. memantine 0 Yes moderate to 28mg QD Take [address] (NAMENDA 6-04 severe by mouth [facility] XR) 28 mg 15:56: [facility] [place] [facility] levothyroxi 2017-0 Yes 50ug Take [address] ne 6-04 mcg by [facility]ukes (SYNTHROID, 15:56: mouth Medic al LEVOTHROID) 06 Every Center 50 MCG morning on tablet an empty stomach. tiotropium 2018-0 Yes 18ug Inhale [address] (SPIRIVA) 6-04 mcg by [facility]ukes 18 mcg 15:56: mouth via Medica l inhalation 06 inhaler Center capsule daily as needed. memantine 2018-0 Yes moderate to 28mg QD Take [address] (NAMENDA 6-04 severe by mouth [facility]ukes XR) 28 mg 15:56: [facility]'s [facility]. [facility] [place] dementia levothyroxi 2017-0 Yes 50ug Take [address] ne 6-04 mcg by Lukes (SYNTHROID, 15:56: mouth Medic al LEVOTHROID) 06 Every Center 50 MCG morning on tablet an empty stomach. tiotropium 2018-0 Yes 18ug Inhale [address] (SPIRIVA) 6-04 mcg by [facility]ukes 18 mcg 15:56: mouth via Medica l inhalation 06 inhaler Center capsule daily as needed. memantine 2018-0 Yes moderate to 28mg QD Take [address] (NAMENDA 6-04 severe by mouth [facility]ukes XR) 28 mg 15:56: Alzheimer's daily. [facility] dementia levothyroxi 2018-0 Yes 50ug Take [address] [...] inhaler Center capsule daily as needed. memantine 2018-0 Yes moderate to 28mg QD Take [address] (NAMENDA 6-04 severe by mouth [facility]ukes XR) 28 mg 15:56: Alzheimer's daily. [facility] dementia levothyroxi 2018-0 Yes 50ug Take [address] [facility] ne [...] Description Test Time Test Comments Results Result [facility] e Comments CT, BRAIN, WITHOUT 2018-01-29 FINAL REPORT PATIENT CONTRAST 13:45:00 ID: [id number] CT head without contrast. Comparisons: January 24 [...] Berger Verified Date/Time: 01/29/2018 13:45:52 Reading Location: [address] Neuro Reading Room C METABOLIC [...] NOT 1092) ACCURATE CRE ATININE CLEARANCE IN [place] EDICTING GLOMERULAR FILT RATION RATE. ESTIMATED GFR [...] (BEAKER) (test code = 413) BASIC METABOLIC [id number] 07:03:00 Test Item Value Reference Range Interpretation [...] PATIEN TS. CBC W/PLT COUNT & AUTO [id number] 06:36:00 Test Item Value Reference Range Interpretation [...] (test code = 2801) CT, BRAIN, WITHOUT [id number] 09:53:00FINAL REPORT CT head without contrast 01/24/2018 [...] Patel Verified Date/Time: 01/24/2018 09:53:07 Reading Location: [address] Neuro Reading Room BASIC METABOLIC [id number] 07:40:00 Test Item Value Reference Range Interpretation [...] PATIEN TS. CBC W/PLT COUNT & AUTO [id number] 07:13:00 Test Item Value Reference Range Interpretation [...] code = 2801) URINALYSIS W/ REFLEX URINE [id number] 20:08:00 Test Item Value Reference Range Interpretation [...] 516) SOURCE(BEAKER) (test code = 2795) HEMOGLOBIN [id number] 10:48:00 Test Item Value Reference Range Interpretation Comments HEMOGLOBIN A1C (BEAKER) (test code = 6.4 % 4.3-6.1 H 368) FastingMR, BRAIN, WITHOUT [id number] 07:30:00Reason for exam:- >StrokeWhat is the patient's sedation requirement?->No SedationFINAL REPORT MRI brain and MRA head and neck without contrast 01/23/2018 7:26 AMCLINICAL INDICATION: Cerebral hemorrhage suspectedStroke TECHNIQUE: Multiplanar, multisequence MR imaging of the brain was performed utilizing the following imaging sequences: Axial T1, T2, FLAIR, GRE,and DWI; sagittal and coronal T1-weighted images. Two- and three-dimensional vubt-hf-[id number] MRA images of the intra- and extracranial [...] is antegrade in both vertebral arteries. MRA [place]: There is severely attenuated flow [...] Patel Verified Date/Time: 01/23/2018 07:30:49 Reading Location: [address] Neuro Reading Room MR, MRA, BRAIN, WITHOUT [id number] 07:30:00Reason for exam:->Ischemic Stroke EvaluationFINAL REPORT MRI brain and MRA head and neck without contrast 01/23/2018 7:26 AMCLINICAL INDICATION: Cerebral hemorrhage suspectedStroke TECHNIQUE: Multiplanar, multisequence MR karishma ging of the brain was performed utilizing the following imaging sequences: Axial T1, T2, FLAIR, GRE,and DWI; sagittal and coronal T1-weighted images. Two- and three-dimensional kigv-wb-ofkoyy MRA images of the intra- and extracranial [...] is antegrade in both vertebral arteries. MRA [place]: There is severely attenuated flow [...] slow flow. Findings were discussed with the [facility] neurology housestaff on 01/23/2018 at 0730. Signed: Se Patel Verified Date/Time: 01/23/2018 07:30:49 Reading Location: [address] Neuro Reading Room MR, MRA, NECK, WITHOUT IV [id number] 07:30:00Reason for exam:->Ischemic Stroke EvaluationFINAL REPORT MRI brain and MRA head and neck without contrast 01/23/2018 7:26 AMCLINICAL INDICATION: Cerebral hemorrhage suspectedStroke TECHNIQUE: Multiplanar, multisequence MR imaging of the brain was performed utilizing the following imaging sequences: Axial T1, T2, FLAIR, GRE,and DWI; sagittal and coronal T1-weighted images. Two- and three-dimensional innj-fb-pbpddu MRA images of the intra- and extracranial [...] is antegrade in both vertebral arteries. MRA [place]: There is severely attenuated flow [...] Patel Verified Date/Time: 01/23/2018 07:30:49 Reading Location: [address] Neuro Reading Room TSH/FREE T4 IF [id number] 02:31:00 Test Item Value Reference Range Interpretation Comments THYROID STIMULATING HORMONE 0.78 uIU/mL 0.35-4.94 (BEAKER) (test code = 772) VITAMIN B12 AND [id number] 02:31:00 Test Item Value Reference Range Interpretation Comments VITAMIN B12 (BEAKER) (test code = > pg/mL 213-816 H 774) FOLATE (BEAKER) (test code = 362) 5.4 ng/mL >=7.0 L TROPONIN [id number] 02:08:00 Test Item Value Reference Range Interpretation [...] acidosis, acute neurological disease, and persistent tachyarrhythmia.FastingLIPID [id number] 02:00:00 Test Item Value Reference Range Interpretation [...] High 160-189 Very High >=190 FastingBUN AND [id number] 02:00:00 Test Item Value Reference Range Interpretation [...] APPLICABLE FOR DIALYSIS PATIEN TS. FastingBASIC METABOLIC [id number] 02:00:00 Test Item Value Reference Range Interpretation [...] PATIEN TS. FastingCBC W/PLT COUNT & AUTO [id number] 01:51:00 Test Item Value Reference Range Interpretation [...] % 0-1 PERCENT (BEAKER) (test code = 1633)
[2023-06-24 09:42] LABS: Absolute Lymphocytes (CBC) 1.8 K/uL (0.7-4.9); Hematocrit 44.5 % (36.0-45.0); Lymphocytes % 13.3 % (15.3-44.8); MCV 92.2 fL (80-100); MPV 7.8 fL (7.6-11.3); Platelets 193 thou/uL (152-406); RBC Red Blood Cell Count 4.83 M/uL (3.86-4.86)
[2023-06-24] MEDS ORDERED: MORPHINE 4 MG/ML SYR ONE (09:53)
[2023-06-24] MEDS ORDERED: ONDANSETRON 4 MG/2 ML VIAL ONE (09:53)
[2023-06-24 09:59] LABS: Albumin 2.9 g/dL (3.4-5.0); Bilirubin Total 0.8 mg/dL (0.2-1.0); Potassium 3.9 mEq/L (3.5-5.1); Protein, Total 6.9 g/dL (6.4-8.2)
[2023-06-24 10:17] LABS: Specific Gravity 1.015 (1.005-1.030); Urine Bacteria None Seen /HPF (<20); Urine Bilirubin NEGATIVE (Negative); Urine Blood Negative (Negative); Urine Clarity Clear (Clear); Urine Color Light-Yellow (Yellow); Urine Glucose NEGATIVE (Negative); Urine Mucus Slight /HPF (None Seen); Urine Protein NEGATIVE (Negative); Urine RBC <5 /HPF (None Seen); Urine Urobilinogen Normal (Normal); Urine pH 6.5 (5.0-7.0)
--- NOTE | 2023-06-24 10:54 | RAD REPORT ---
EXAM DESCRIPTION: CTAbdomen Pelvis W Contrast - 06/24/2023 10:33 am CLINICAL HISTORY: ABD PAIN COMPARISON: Chest For Pe Angio dated 10/09/2022; Abdomen Exam Complete dated 09/24/2021 TECHNIQUE: CT of the abdomen and pelvis was performed. All CT scans are performed using dose optimization technique as appropriate and may include automated exposure control or mA/KV adjustment according to patient size. FINDINGS: Lower chest: Coronary artery calcifications. 9 mm left lower lobe pulmonary nodule is unch anged and presumably benign. Liver: No acute abnormality or suspicious lesions. Biliary: No biliary ductal dilatation. Stomach: No significant focal abnormality. Duodenum: No significant focal abnormality. Pancreas: No significant abnormality. Spleen: No significant abnormality. Adrenal: No suspicious lesions. Kidney/ureter: No hydronephrosis. No renal calculi. Too small to characterize and/or benign appearing renal lesions are noted. Renal scarring bilaterally. Indeterminate right lower pole renal lesion ifrah suring 1.5 cm with Hounsfield units of 78. 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 Retroperitoneum: No retroperitoneal adenopathy. Vascular: No aneurysm. Atherosclerosis. Bowel: Sigmoid diverticulitis. No perforation or abscess.. Peritoneum: No ascites or free air. Bladder: Grossly unremarkable. Reproductive: No adnexal masses. Hysterectomy. Bones: No acute fracture. Osteopenia . Other: n/a IMPRESSION: Non perforated sigmoid diverticulitis. Indeterminate 1.5 cm right lower pole renal lesion. Nonemergent renal protocol CT or MRI could furthe r assess exclude a neoplasm if clinically indicated.
--- NOTE | 2023-06-24 11:06 | EDPHYS ---
Physician Documentation [facility] Name: Trisha Lovelace Age: 87 yrs Sex: Female : 1935 Arrival Date: 06/24/2023 Time: 09:20 Bed 19 Private MD: ED Physician Willian Zazueta HPI: 06/24 09:48 This 87 yrs old Female presents to ER via Unassigned with complaints of abdominal pain. sb4 09:48 The patient presents with abdominal pain in the lower abdomen. Onset: The sb4 symptoms/episode began/occurred last night. The symptoms do not radiate. Associated signs and symptoms: none. Modifying factors: The symptoms are alleviated by pressure to area. Severity of pain: in the emergency department the pain is a 10 / 10. The patient has not experienced similar symptoms in the past. The patient has been recently seen by a physician: the patient's primary care provider. Historical: - Allergies: 09:20 shrimp; ko1 - Home Meds: 09:20 albuterol sulfate 90 mcg/actuation Inhl HFA Aerosol Inhaler [Active]; Eliquis 5 mg Oral ko1 tablet 1 tab 2 times per day [Active]; amiodarone 200 mg Oral tablet 1 tab daily [Active]; Lasix 40 mg Oral tablet 1 tab daily [Active]; levothyroxine 50 mcg tab 1 tab once daily [Active]; levothyroxine 75 mcg cap 1 cap once daily [Active]; memantine 28 mg Oral CSpX 1 cap once daily [Active]; metoprolol tartrate 100 mg Oral tablet 1 tab daily [Active]; folic acid 1 mg Oral tab 1 tab once daily [Active]; potassium chloride 10 mEq Oral capsule 1 cap daily [Active]; - PMHx: 09:20 Alzheimers; CVA; High Cholesterol; Hypertension; Hypothyroidism; TIA; ko1 - PSHx: 09:20 cataract; Shoulder; hysterectomy; TIA; Tonsillectomy; ko1 - Immunization history:: Adult Immunizations up to date. - Social history:: Smoking status: Patient denies any tobacco usage or history of. ROS: 10:03 Constitutional: Negative for fever, chills, and weight loss, sb4 10:03 Abdomen/GI: Positive for abdominal pain, 10:03 All other systems are negative, Exam: 10:03 Constitutional: This is a well developed, well nourished patient who is awake, alert, sb4 and in no acute distress. Head/Face: Normocephalic, atraumatic. Eyes: Extra-ocular motions intact. Periorbital areas with no swelling, redness, or edema. ENT: Mucous membranes moist. Cardiovascular: Regular rate and rhythm with a normal S1 and S2. Respiratory: Lungs have equal breath sounds bilaterally, clear to auscultation and percussion. No rales, rhonchi or wheezes noted. No increased work of breathing, no retractions or nasal flaring. Skin: Warm, dry with normal turgor. Normal color with no rashes, no lesions, and no evidence of cellulitis. MS/ Extremity: Pulses equal, no cyanosis. Neurovascular intact. Full, normal range of motion. Neuro: Awake and alert, GCS 15, oriented to person, place, time, and situation. Motor strength 5/5 in all extremities. Sensory grossly intact. 10:03 Abdomen/GI: Inspection: abdomen appears normal, obese Bowel sounds: normal, Palpation: moderate abdominal tenderness, in the left upper quadrant and left lower quadrant, involuntary guarding, is elicited in the left upper quadrant, Vital Signs: 09:20 BP 117 / 76; Pulse 94; Resp 16; Temp 98; Pulse Ox 97% ; ko1 10:30 BP 112 / 64; Pulse 86; Resp 16; Pulse Ox 98% ; ko1 11:30 BP 118 / 72; Pulse 98; Resp 16; Pulse Ox 97% ; ko1 12:30 BP 114 / 72; Pulse 92; Resp 16; Pulse Ox 99% ; ko1 MDM: 09:21 Patient medically screened. sb4 10:03 Differential diagnosis: gastritis, non-specific abd pain, pancreatitis, Peptic Ulcer sb4 Disease, colitis. 11:05 Data reviewed: vital signs, nurses notes, lab test result(s), radiologic studies, and sb4 as a result, I will admit patient. Consideration of Admission/Observation Patient was admitted/placed on observation. Management of patient was discussed with the following: Primary Care Provider: Dr. Juarez. Historians other than the Patient: Daughter/Son: daughter. Care significantly affected by the following chronic conditions: Hypertension. Counseling: I had a detailed discussion with the patient and/or guardian regarding the historical points, exam findings, and any diagnostic results supporting the discharge/admit diagnosis, lab results, radiology results, the need for further work-up and treatment in the hospital. 06/24 09:22 Order name: CBC with Diff; Complete Time: 09:47 sb4 06/24 09:22 Order name: CMP; Complete Time: 10:00 sb4 06/24 09:22 Order name: Lipase; Complete Time: 10:00 sb4 06/24 09:22 Order name: UAM; Complete Time: 10:19 sb4 06/24 09:22 Order name: CT Abd/Pelvis - IV Contrast Only; Complete Time: 10:54 sb4 06/24 09:22 Order name: IV Saline Lock; Complete Time: 09:38 sb4 06/24 09:22 Order name: Labs collected and sent; Complete Time: :38 sb4 Administered Medications: 09:40 Drug: Ondansetron IVP 4 mg IVP once; over 2 minutes Route: IVP; Site: left antecubital; ko1 09:55 Drug: morphine IVP or IV 4 mg IVP once over 4 mins Route: IVP; Infused Over: 4 mins; ko1 Site: left antecubital; 11:07 Drug: Piperacillin-Tazobactam IVPB 3.375 grams IVPB once over 60 mins; (mix in NS 100 ko1 mL) Route: IVPB; Infused Over: 60 mins; Site: left antecubital; Disposition Summary: 06/24/23 11:06 Hospitalization Ordered Notes: Hospitalization Status: Inpatient Admission sb4 Provider: Rocky Juarez4 Condition: Stable sb4 Problem: new sb4 Symptoms: are unchanged sb4 Bed/Room Type: Standard sb4 Location: Telemetry/MedSurg (Inpatient)(06/25/23 19:45) eb1 Room Assignment: 220(06/25/23 19:45) eb1 Diagnosis - Diverticulitis of large intestine without perforation or abscess without bleeding sb4 Forms: - Medication Reconciliation Form sb4 - SBAR form sb4 - Leadership Thank You Letter sb4 Addendum: 06/28/2023 10:23 I was immediately available for consultation during this patient's visit. I did not e c2 personally see the patient or guide the patient's care.. Signatures: Dispatcher [employer] EDCydney Ruvalcaba Emily RN RN eb1 Jeri Lowery, RN RN ko1 Gracie Rutherford, NEVILLE PAShailesh sb4 Willian Zazueta MD MD ec2 Corrections: (The following items were deleted from the chart) 06/24 11:13 11:06 Telemetry/MedSurg (Inpatient) sb4 eb 11: 11:06 sb4 eb 06/25 19:45 06/24 11:13 [facility] ER HOLD eb eb1 06/25 19:45 06/24 11:13 ERHOLD- eb eb1
--- NOTE | 2023-06-24 11:06 | ER ---
Nurse's Notes [facility] Name: Trisha Lovelace Age: 87 yrs Sex: Female : 1935 Arrival Date: 06/24/2023 Time: 09:20 Bed 19 Private MD: Diagnosis: Diverticulitis of large intestine without perforation or abscess without bleeding Presentation: 06/24 09:20 Chief complaint: EMS states: patient called for complaints of lower abdominal pain ko1 since last night. Coronavirus screen: At this time, the client does not indicate any symptoms associated with coronavirus-19. Ebola Screen: No symptoms or risks identified at this time. Initial Sepsis Screen: Does the patient meet any 2 criteria? No. Patient's initial sepsis screen is negative. Does the patient have a suspected source of infection? No. Patient's initial sepsis screen is negative. Risk Assessment: Do you want to hurt yourself or someone else? Patient reports no desire to harm self or others. Onset of symptoms was June 24, 2023. Care prior to arrival: None. 09:20 Method Of Arrival: EMS: [facility] ko1 09:20 Acuity: JUAN 3 ko1 Triage Assessment: 09:20 General: Appears in no apparent distress. Behavior is calm, cooperative, appropriate ko1 for age. Pain: Complains of pain in left lower quadrant and left upper quadrant. Historical: - Allergies: 09:20 shrimp; ko1 - Home Meds: 09:20 albuterol sulfate 90 mcg/actuation Inhl HFA Aerosol Inhaler [Active]; Eliquis 5 mg Oral ko1 tablet 1 tab 2 times per day [Active]; amiodarone 200 mg Oral tablet 1 tab daily [Active]; Lasix 40 mg Oral tablet 1 tab daily [Active]; levothyroxine 50 mcg tab 1 tab once daily [Active]; levothyroxine 75 mcg cap 1 cap once daily [Active]; memantine 28 mg Oral CSpX 1 cap once daily [Active]; metoprolol tartrate 100 mg Oral tablet 1 tab daily [Active]; folic acid 1 mg Oral tab 1 tab once daily [Active]; potassium chloride 10 mEq Oral capsule 1 cap daily [Active]; - PMHx: 09:20 Alzheimers; CVA; High Cholesterol; Hypertension; Hypothyroidism; TIA; ko1 - PSHx: 09:20 cataract; Shoulder; hysterectomy; TIA; Tonsillectomy; ko1 - Immunization history:: Adult Immunizations up to date. - Social history:: Smoking status: Patient denies any tobacco usage or history of. Screenin:30 [facility] ED Fall Risk Assessment (Adult) History of falling in the last 3 months, ko1 including since admission No falls in past 3 months (0 pts) Confusion or Disorientation No (0 pts) Intoxicated or Sedated No (0 pts) Impaired Gait Yes (1 pt) Mobility Assist Device Used Yes (1 pt) Altered Elimination No (0 pt) Score/Fall Risk Level 0 - 2 = Low Risk Oriented to surroundings, Maintained a safe environment, Educated pt \T\ family on fall prevention, incl call for assistance when getting out of bed, Assessed \T\ reinforced patient's understanding of fall precautions, Provided non-skid footwear, Hourly rounding (assess needs \T\ fall precautionary measures) done, Used ambulatory aids as needed (educated on \T\ assisted with), Used gait belt as appropriate. Abuse screen: Denies threats or abuse. Denies injuries from another. Nutritional screening: No deficits noted. Tuberculosis screening: No symptoms or risk factors identified. Assessment: 09:30 Neuro: No deficits noted. Cardiovascular: Reports afib. Respiratory: No deficits noted. ko1 GI: Reports lower abdominal pain. : No deficits noted. EENT: No deficits noted. Derm: No deficits noted. Musculoskeletal: No deficits noted. Vital Signs: 09:20 BP 117 / 76; Pulse 94; Resp 16; Temp 98; Pulse Ox 97% ; ko1 10:30 BP 112 / 64; Pulse 86; Resp 16; Pulse Ox 98% ; ko1 11:30 BP 118 / 72; Pulse 98; Resp 16; Pulse Ox 97% ; ko1 12:30 BP 114 / 72; Pulse 92; Resp 16; Pulse Ox 99% ; ko1 ED Course: 09:20 Arm band placed on right wrist. Patient placed in an exam room, on a stretcher, on ko1 inspecting machine adjuster, on pulse oximetry, Patient notified of wait time. 09:21 Patient arrived in ED. eb 09:21 Gracie Rutherford PA-C is PHCP. sb4 09:21 Willian Zazueta MD is Attending Physician. sb4 09:26 Jeri Lowery, RN is Primary Nurse. ko1 09:30 Inserted saline lock: 22 gauge in left antecubital area, using aseptic technique. Blood ko1 collected. 09:38 CBC with Diff Sent. ko1 09:38 CMP Sent. ko1 09:38 Lipase Sent. ko1 09:55 UAM Sent. ko1 10:03 Triage completed. ko1 10:34 CT Abd/Pelvis - IV Contrast Only In Process Unspecified. EDMS 11:06 Rocky Juarez MD is Hospitalizing Provider. sb4 12:30 No provider procedures requiring assistance completed. ko1 12:30 Patient has correct armband on for positive identification. Bed in low position. Call ko1 light in reach. Side rails up X 1. Provided Education on: na. Client placed on continuous cardiac and pulse oximetry monitoring. NIBP monitoring applied. rn baby on. Door closed. Administered Medications: 09:40 Drug: Ondansetron IVP 4 mg IVP once; over 2 minutes Route: IVP; Site: left antecubital; ko1 09:55 Drug: morphine IVP or IV 4 mg IVP once over 4 mins Route: IVP; Infused Over: 4 mins; ko1 Site: left antecubital; 11:07 Drug: Piperacillin-Tazobactam IVPB 3.375 grams IVPB once over 60 mins; (mix in NS 100 ko1 mL) Route: IVPB; Infused Over: 60 mins; Site: left antecubital; Medication: 12:30 VIS not applicable for this client. ko1 Outcome: 11:06 Decision to Hospitalize by Provider. sb4 06/25 21:28 Admitted to Med/surg me1 Admitted to Med/surg accompanied by tech, room 220, with chart, Report called to JOCELIN Alejandro Condition: stable Instructed on the need for admit, 21:29 Patient left the ED. me1 Signatures: Dispatcher [employer] EDCydney Ruvalcaba Kathy, RN RN ko1 Gracie Rutherford PA-C PA-C sb4 Bria Muniz RN RN me1
[2023-06-24] MEDS ORDERED: NA CHLORIDE 0.9% 250 ML ONE (11:17)
[2023-06-24] MEDS ORDERED: PIPERACIL/TAZO 3.375 GM VIAL IV ONE ×2 (11:17→21:26)
[2023-06-24] MEDS ORDERED: ONDANSETRON 4 MG/2 ML VIAL IV PRN (11:58)
[2023-06-24 12:13] VITALS: BMI 39.3
--- NOTE | 2023-06-24 16:22 | HP ---
Date of Admission: 06/24/2023 Chief Complaint: Abdominal pain. History Of Present Illness: An 87-year-old very pleasant female patient who came into emergency room today with complaints of left-sided abdominal pain in the lower abdomen. The patient says the pain started sometime last night and all throughout the night her pain continued off and on. This morning since she was not getting any better, she decided to come to emergency room. Denies any fever, chil ls, nausea, vomiting. No rash. No urinary complaints. No constipation or diarrhea. No blood in ur ine or stool. After she was evaluated in the ER, she was admitted to the hospital with acute diverti culitis problem. Allergies: TO SHRIMP, ATORVASTATIN CAUSING ABNORMAL LIVER FUNCTION TEST. Medications: Medication list reviewed. Review of Systems: GI: As mentioned above. All other systems reviewed and negative. Past Medical History: Significant for chronic atrial fibrillation, hypertension, history of TIA in and 2012 as well as history of stroke, January 21, 2019, hypothyroidism, impaired fasting glucose, CO PD, pulmonary nodule, hyperlipidemia, hypertension, celiac disease. Past Surgical History: Cataract surgery, tonsillectomy, hysterectomy, shoulder surgery. Family History: Father , had myocardial infarction and stroke and brother had diabetes. Social History: Prior history of smoking, not at present time. Use of alcohol negative. Physical Examination: Vital Signs: Height 5 feet 2 inches, weight 215 pounds, blood pressure 117/76, pulse 94, respiratory rate 16, temperature 98, oxygen saturation 97%. General: Awake, alert, oriented, not in distress. HEENT: Head atraumatic, normocephalic. Conjunctivae nonerythematous. Sclerae white. Mouth, no thr ush or edema noted. Ears/Nose, no mass, lesion, discharge noted. Neck: Supple. No JVD, lymph nodes, bruit, thyromegaly noted. Lungs: Bilateral good equal air entry. Clear to auscultation. No rhonchi. No rales. Heart: Normal heart sounds, no murmur or gallop. Abdomen: Soft. No guarding, rigidity, distention. No rebound tenderness. No hepatosplenomegaly or bruit. The patient does have tenderness in left upper quadrant and moderate tenderness in left lowe r quadrant. No rebound tenderness. Extremities: No leg edema. No calf tenderness. Skin: No rash, ulcer, cellulitis. Lymphatics: No lymph node enlargement in neck, supraclavicular, infraclavicular region. Neuro: No focal neurological deficit. Chest: Unremarkable. External Genitalia: Deferred. Rectal: Deferred. Laboratory Data: White count 13.6, hemoglobin 14.6, platelets 193. Sodium 138, potassium 3.9, chlor shay 101, bicarb 31, BUN 22, creatinine 1.34, glucose 145. Liver function tests unremarkable. Lipase 35. CAT scan of the abdomen and pelvis done in emergency room shows evidence of sigmoid diverticuli tis and 1.5 cm right kidney lower pole lesion and this is new compared to multiple prior imaging. I have reviewed multiple prior CAT scans of abdomen, abdominal ultrasound, and renal ultrasound and so far there has not been any mention of right kidney lesion. 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 Impression: 1.Acute diverticulitis. 2.Chronic atrial fibrillation, on anticoagulation therapy. 3.Hypertension. 4.Hyperlipidemia. 5.Hypothyroidism. 6.Impaired fasting glucose. 7.Chronic obstructive pulmonary disease. 8.Chronic anticoagulation therapy. Plan: We will go ahead and admit the patient to hospital for further evaluation and management of th is problem. The patient is appropriate for inpatient and is expected to spend 2 midnights in [facility]. For acute diverticulitis, we will go ahead and start her on Zosyn as per order. We will start he r on clear liquid diet. Pain medication and nausea medication will be ordered for p.r.n. use. The p atient is on amiodarone at home for atrial fibrillation and Eliquis, and we will continue both of tho se medications. Considering amiodarone and possibility of drug interaction, we will not use any anti biotic like Levaquin. For hypertension, we will continue her antihypertensive medication per order. For hypothyroidism, we will continue her levothyroxine per order. Ambulation was encouraged. I june macdonald see her tomorrow morning for followup. We will repeat blood work tomorrow and depending on her con dition tomorrow, we will decide if we can advance her diet tomorrow or not. Details on plan of treat ment discussed with her. I also discussed with her regarding advance directives in the emergency brayden m and in the event of cardiopulmonary arrest, the patient informed me that she does not want any hero ic measures like CPR, defibrillation, or ventilator support and DNR order written in the chart. SANDRA/MODL Voice ID: [id number]
[2023-06-24] MEDS ORDERED: APIXABAN 5 MG TABLET ONE (21:26)
[2023-06-24] MEDS ORDERED: NA CHLORIDE 0.9% 100 ML ONE (21:31)
[2023-06-24] MEDS: APIXABAN 5 MG TABLET PO SCH (21:34)
[2023-06-24] MEDS: PIPER TAZO 3.375 GM in NA CHLORIDE 0.9% 100 ML IV SCH (21:34)
[2023-06-25] MEDS: PIPER TAZO 3.375 GM in NA CHLORIDE 0.9% 100 ML IV SCH ×3 (04:00→20:26)
[2023-06-25] MEDS ORDERED: NA CHLORIDE 0.9% 0 ML ONE (04:24)
[2023-06-25] MEDS ORDERED: PIPERACIL/TAZO 3.375 GM VIAL IV ONE ×4 (04:25→20:59)
[2023-06-25] MEDS ORDERED: MORPHINE 4 MG/ML SYR ONE ×2 (04:41→18:04)
[2023-06-25] MEDS: MORPHINE 4 MG/ML SYR IV PRN ×2 (04:46→17:54)
[2023-06-25] MEDS: APIXABAN 5 MG TABLET PO SCH ×2 (09:36→21:47)
[2023-06-25] MEDS: AMIODARONE HCL 200 MG TAB PO SCH (09:36)
[2023-06-25] MEDS ORDERED: APIXABAN 5 MG TABLET ONE (09:42)
[2023-06-25] MEDS ORDERED: AMIODARONE HCL 200 MG TAB ONE (09:43)
--- NOTE | 2023-06-25 09:59 | PN ---
Date of Progress Note: 06/25/2023 Subjective: Patient was seen this morning for followup. She was lying in bed, not in any distress. She is able to ambulate well with her walker and reports that her abdominal pain is still present, bu t better today than yesterday. She is tolerating clear liquid diet well. Physical Examination: Vital Signs: Reviewed. Last temperature this morning 98.2, pulse 73, respiratory rate 18, blood pre ssure 114/54, oxygen saturation 98%. HEENT: Unremarkable. Lungs: Clear to auscultation. Heart: Sounds normal. Abdomen: Soft. Bowel sounds normal. No guarding or rigidity. No rebound tenderness. The patient has mild tenderness in left lower quadrant, which is overall better today than yesterday. Bowel soun ds normoactive. Extremities: No leg edema. Impression: 1.Acute diverticulitis. 2.Chronic atrial fibrillation. 3.Hypertension. 4.Chronic anticoagulation therapy. Plan: We will go ahead and continue current antibiotics. The patient is on clear liquid diet and to lerating well. We will advance it to soft diet today. Ambulation was encouraged. Continue current anticoagulation therapy and we will see her tomorrow for followup, possible discharge to go home hector rrbernie. SANDRA/MODL Voice ID: [id number] Report ID: [id number]
[2023-06-25] MEDS ORDERED: NA CHLORIDE 0.9% 100 ML ONE ×3 (12:39→20:59)
[2023-06-26] MEDS: PIPER TAZO 3.375 GM in NA CHLORIDE 0.9% 100 ML IV SCH ×3 (03:28→21:15)
[2023-06-26] MEDS: AMIODARONE HCL 200 MG TAB PO SCH (08:42)
[2023-06-26] MEDS: APIXABAN 5 MG TABLET PO SCH ×2 (08:43→21:15)
[2023-06-26] MEDS ORDERED: MAGNESIUM HYDROXIDE 8% 30 ML PO ONE (10:01)
--- NOTE | 2023-06-26 19:47 | PN ---
Date of Progress Note: 06/26/2023 Subjective: Patient was seen this morning for followup. No new complaints or problems reported by h er. Her abdominal pain is better. She is ambulating using her walker as she reported. She is padmini ating diet very well. Objective: Vital Signs: Reviewed. Her oxygen saturation was 90% on room air without using any oxyg en. HEENT: Unremarkable. Lungs: Clear to auscultation. Heart: Sounds normal. Abdomen: Soft. Bowel sounds normal. No guarding, rigidity, tenderness, distention. Extremities: No leg edema. Impression: 1.Acute diverticulitis. 2.Atrial fibrillation. 3.Generalized weakness. 4.Osteoarthritis, multiple sites. Plan: After I saw her, plan was to discharge her to go home with oral antibiotics and I explained he r all those details when I saw her this morning and she was okay with the discharge plan and later on , nurse contacted me and informed me that patient and her family did not feel comfortable going home and she wanted to stay in the hospital initially until tomorrow as she was scheduled to have elective transesophageal echo with cardioversion tomorrow by media buyer and considering current infection g oing on with acute diverticulitis, I suggested that it may not be best idea to proceed with such elec tive procedure, but nurse was advised to communicate with media buyer to get his recommendation and Dr. Bernal suggested same thing which is to postpone her transesophageal echo and cardioversion proce dure. So at that time patient and her family did report to nursing staff that they did not feel comf ortable going home because she lives alone. She has generalized weakness, complaining of bilateral h ip pain and they did not want to go home. So discharge order was canceled. I will re-evaluate her t omorrow and after I talked to her, we will decide about appropriate radiological testing to be ordere d. If she is not able to go home and does not feel comfortable going home, then we will recommend he r to go to halfway facility. SANDRA/MODL Voice ID: [id number] Report ID: [id number]
[2023-06-26] MEDS: MORPHINE 4 MG/ML SYR IV PRN (21:22)
[2023-06-27] MEDS: PIPER TAZO 3.375 GM in NA CHLORIDE 0.9% 100 ML IV SCH (03:24)
[2023-06-27] MEDS: MORPHINE 4 MG/ML SYR IV PRN ×2 (03:39→09:37)
[2023-06-27 05:56] LABS: Absolute Lymphocytes (CBC) 1.1 K/uL (0.7-4.9); Hematocrit 35.8 % (36.0-45.0); Lymphocytes % 9.4 % (15.3-44.8); MCV 92.9 fL (80-100); MPV 8.1 fL (7.6-11.3); Platelets 154 thou/uL (152-406); RBC Red Blood Cell Count 3.86 M/uL (3.86-4.86)
[2023-06-27 06:09] LABS: Albumin 1.9 g/dL (3.4-5.0); Bilirubin Total 0.8 mg/dL (0.2-1.0); Magnesium 2.3 mg/dL (1.6-2.4); Protein, Total 6.2 g/dL (6.4-8.2)
[2023-06-27] MEDS ORDERED: METHYLPREDNISOLONE 40 MG INJ IV ONE (07:02)
--- NOTE | 2023-06-27 08:14 | RAD REPORT ---
EXAM DESCRIPTION: RAD - Hip Bilateral With Pelvis - 06/27/2023 8:03 am CLINICAL HISTORY: back pain COMPARISON: No comparisons FINDINGS/IMPRESSION: No acute fracture. No dislocation. Mild bilateral acetabular degenerative falcon es. Mild rightward pelvic tilt.
--- NOTE | 2023-06-27 08:16 | RAD REPORT ---
EXAM DESCRIPTION: RAD - Lumbar Spine 3 Views - 06/27/2023 8:04 am CLINICAL HISTORY: back pain COMPARISON: LUMBAR SPINE 3 VIEWS dated 12/27/2013; Abdomen Pelvis W Contrast dated 06/24/2023 FINDINGS/IMPRESSION: No acute fracture. Mild thoracolumbar curvature that is only partially imaged. Trace retrolisthesis L1 on L2. Multilevel degenerate disc disease with disc height loss endplate spur ring that is overall mild to moderate. Facet degenerative changes also noted. This is more pronounced at L3-4, L4-5, and L5-S1. Bridging osteophytes in the thoracic spine.
[2023-06-27] MEDS: AMIODARONE HCL 200 MG TAB PO SCH (09:36)
[2023-06-27] MEDS: APIXABAN 5 MG TABLET PO SCH ×2 (09:37→20:15)
[2023-06-27] MEDS: GABAPENTIN 100 MG CAP PO SCH ×2 (09:37→20:15)
[2023-06-27] MEDS: AMOX/K CLAV 500 MG TAB PO SCH ×2 (09:37→20:15)
[2023-06-27] MEDS: ACETAMINOPHEN 500 MG TAB PO PRN (16:36)
--- NOTE | 2023-06-27 18:49 | PN ---
Date of Progress Note: 06/27/2023 Subjective: Patient was seen this morning for followup. She was lying in bed, not in distress and w shakira I asked her where she was complaining of pain in her hip or pelvis area, she was pointing towards her lower back and reports that the pain goes down to her both posterior leg. No fall. No injury. No abdominal pain, nausea, vomiting. Objective: Vital Signs: Reviewed. HEENT: Unremarkable. Lungs: Clear to auscultation. Heart: Sounds normal. Abdomen: Soft. Bowel sounds normal. No guarding, rigidity, tenderness, distention. Extremities: No leg edema. Laboratory Data: White count 11.2, hemoglobin 11.9, platelets 150. Sodium 132, potassium 4, chlorid e 98, bicarb 31, BUN 13, creatinine 0.92, glucose 107. AST 103. Rest of the liver function tests we re normal. X-ray of lumbar spine and bilateral hip and pelvis done today shows changes of osteoarthr itis of hip. No fracture and lumbar spondylosis changes noted on the lumbar spine x-ray, no fracture . Impression: 1.Acute diverticulitis. 2.Osteoarthritis, multiple sites. 3.Lumbar radiculopathy. 4.Hypertension. 5.Chronic anticoagulation therapy. 6.Chronic atrial fibrillation. Plan: We will go ahead and consult Physical Therapy to help ambulate the patient. Consult Social Se holly for discharge planning and I did discuss with the patient this morning. She lives at home by h erself and she does not feel like she can return back home at this point and she is willing to go to long term facility, so Social Service will assist us with the discharge planning. We will go a head and advance her diet to 2 g sodium diet. Continue antibiotic, but we will change it from IV Zos yn to oral Augmentin 500 mg 2 times a day. Continue amiodarone and Eliquis per order. We will start her on gabapentin 100 mg 2 times a day and 1 dose of Solu-Medrol 40 mg IV was ordered this morning. I will see her tomorrow for followup. SANDRA/MODL Voice ID: [id number] Report ID: [id number]
[2023-06-28] MEDS ORDERED: predniSONE 10 MG TAB PO ONE (06:59)
[2023-06-28] MEDS: APIXABAN 5 MG TABLET PO SCH (08:09)
[2023-06-28] MEDS: AMIODARONE HCL 200 MG TAB PO SCH (08:09)
[2023-06-28] MEDS: GABAPENTIN 100 MG CAP PO SCH (08:09)
[2023-06-28] MEDS: AMOX/K CLAV 500 MG TAB PO SCH (08:10)
[2023-06-28] MEDS: ACETAMINOPHEN 500 MG TAB PO PRN (08:10)
[2023-06-28 08:51] VITALS: BP 168/78; TEMP 97
[2023-06-28 10:03] VITALS: O2SAT 93
--- NOTE | 2023-06-28 20:16 | DS ---
Date of Discharge: 06/28/2023 Disposition: Discharged to go home. Physical Examination: HEENT: Unremarkable. Lungs: Clear to auscultation. Heart: Sounds normal. Abdomen: Soft. Bowel sounds normal. No guarding, rigidity, tenderness, or distention. Extremities: No leg edema. Laboratory Data: Upon admission, white count 13.6, hemoglobin 14.6, platelets 193. Yesterday, white count 11.2, hemoglobin 11.9, platelets 154. Chemistry upon admission; sodium 138, potassium 3.9, ch loride 101, bicarb 31, BUN 22, creatinine 1.34, glucose 145. Liver functions unremarkable. Yesterda y, sodium 132, potassium 4, chloride 98, bicarb 31, BUN 13, creatinine 0.92, glucose 107. AST 103. Rest of the liver function tests normal. Final Diagnoses: 1.Acute diverticulitis. 2.Lumbar radiculopathy. 3.Anemia, unspecified. 4.Volume depletion. 5.Hyponatremia. 6.Chronic atrial fibrillation. 7.Chronic anticoagulation therapy. 8.Hypertension. 9.Hyperlipidemia. 10.Hypothyroidism. 11.Impaired fasting glucose. 12.Chronic obstructive pulmonary disease. Hospital Course: This is an 87-year-old pleasant female patient who came into emergency room with co mplaints of lower abdominal pain. Please see dictated H and P for more information. After the patie nt was evaluated in the ER, she was admitted to the hospital with acute diverticulitis problem. CAT scan of the abdomen and pelvis done in the emergency room showed changes of acute diverticulitis invo lving sigmoid colon without any complications. The patient was started on IV antibiotic which was IV Zosyn. She tolerated that very well and responded very well to antibiotics. Her abdominal pain and tenderness problem has improved now. She was ambulating using her walker, and day before yesterday, our plan was to discharge her to go home, but the patient refused to go home because she was having significant lower back pain and weakness and she lives at home by herself. So she did not feel comfo rtable going home and when I talked to her yesterday, she was agreeable [facility]. We did order x-ray of lumbar spine and bilateral hip and pelvis, and it showed evidence of osteoarthritis, but no evidence of fracture. Yesterday, we started her on IV Solu-Medrol 40 mg, one time dose was given and gabapentin 100 mg 2 times a day was started, and this morning whe n I saw her, she reported significant improvement in her pain and reported that she is ambulating aylin y well and she does not need to go to custodial and she feels like she is able to go back home on her own. So with that she was discharged to go home today with following discharge medications and i nstructions: 1.Continue all prior home medications. 2.New medications as below. 3.Augmentin 500 mg 2 times a day for 10 days, take it with food. 4.Gabapentin 100 mg 2 times a day. 5.Prednisone 10 mg take 3 tablets daily for 3 days, then 2 tablets daily for 3 days, then 1 tablet d aily for 3 days, then stop. 6.Follow up at my office next week. 7.Follow up with Dr. Bernal next week. 8.The patient was advised not to eat popcorn, nuts, strawberries, or tomatoes. SANDRA/MODL Voice ID: [id number] Report ID: [id number]
== END 2023-06-28 09:45 | disposition home or self-care (01) | DRG 392 ==
LOC: ER 09:20 → ERHOLD 11:07 → 2ND 06-25 19:53
PROVIDERS: ADMIT Internal Medicine; ATTEND Internal Medicine
DX: K57.32 Diverticulitis of large intestine without perforation or abscess without bleeding (principal); I48.20 Chronic atrial fibrillation, unspecified; E87.1 Hypo-osmolality and hyponatremia; I10 Essential (primary) hypertension; E03.9 Hypothyroidism, unspecified; E86.9 Volume depletion, unspecified; D64.9 Anemia, unspecified; E78.00 Pure hypercholesterolemia, unspecified; M19.09 Primary osteoarthritis, other specified site; M54.16 Radiculopathy, lumbar region; J44.9 Chronic obstructive pulmonary disease, unspecified; R73.01 Impaired fasting glucose; Z66 Do not resuscitate; Z60.2 Problems related to living alone; Z88.8 Allergy status to other drugs, medicaments and biological substances; Z86.73 Personal history of transient ischemic attack (TIA), and cerebral infarction without residual deficits; Z79.01 Long term (current) use of anticoagulants; Z79.890 Hormone replacement therapy; Z79.899 Other long term (current) drug therapy; Z91.013 Allergy to seafood; Z90.710 Acquired absence of both cervix and uterus
CPT/HCPCS: 36415; 72100; 73521; 74177; 80053; 81001; 83690; 83735; 85025; 96374; 96375; 97116; 97162; 97530; 99285; J2405; J2543; J2920; J7050; J7512; Q9967

== ENCOUNTER 2023-06-29 19:35 | Inpatient (IN) | payer OTHER ==
--- OUTSIDE RECORDS SUMMARY | 2023-06-29 19:39 | XMS REPORT | Continuity of Care Document ---
:1935 Author Organization [facility] t Address [address] [place] [address] Care Team Providers Name Role Phone Chaparro [...] Date Source Ex-smoker 2018-01-23 00:00:00 2018-01-23 00:00:[address] [facility] Medications Ordered Filled Start Stop Current Ordering Indication Dosage Frequency Signature Comments Components Source Medication Medication Date Date Medication? Clinician (SIG) Name Name memantine 2018 Yes moderate to 28mg QD Take [address] [facility] (NAMENDA 6-04 severe by mouth [facility]) 28 mg 15:56: [facility] levothyroxi 0 Yes 50ug Take 50 [...] [facility]) 28 [facility] 15[facility]56[facility] 2017-0 Yes 50ug Take 50 [...] [facility]) 28 mg 15:56: [facility] dementia levothyroxi 2017-0 Yes 50ug Take 50 [...] XR) 28 mg 15:56: [facility]'s daily. [facility] [...] XR) 28 mg 15:56: Alzheimer's daily. [facility]xi [...] XR) 28 mg 15:56: [facility] [...] Description Test Time Test Comments Results Result [facility] e Comments CT, BRAIN, WITHOUT 2018-01-29 FINAL REPORT PATIENT CONTRAST 13:45:00 ID: [id number] CT head without contrast. Comparisons: January 24 [...] No tahir hematoma or mass effect.. Signed: [place], [place] Verified Date/Time: 01/29/2018 13:45:52 Reading Location: [facility] C013V Neuro Reading Room C METABOLIC PANEL [...] NOT 1092) ACCURATE CRE ATININE CLEARANCE IN HI EDICTING GLOMERULAR FILT RATION RATE. ESTIMATED GFR [...] (BEAKER) (test code = 413) BASIC METABOLIC [id number] 07:03:00 Test Item Value Reference Range Interpretation [...] PATIEN TS. CBC W/PLT COUNT & AUTO [id number] 06:36:00 Test Item Value Reference Range Interpretation [...] (test code = 2801) CT, BRAIN, WITHOUT [id number] 09:53:00FINAL REPORT CT head without contrast 01/24/2018 [...] MDReport Verified Date/Time: 01/24/2018 09:53:07 Reading Location: [address] Neuro Reading Room BASIC METABOLIC [id number] 07:40:00 Test Item Value Reference Range Interpretation [...] PATIEN TS. CBC W/PLT COUNT & AUTO [id number] 07:13:00 Test Item Value Reference Range Interpretation [...] code = 2801) URINALYSIS W/ REFLEX URINE [id number] 20:08:00 Test Item Value Reference Range Interpretation [...] 516) SOURCE(BEAKER) (test code = 2795) HEMOGLOBIN [id number] 10:48:00 Test Item Value Reference Range Interpretation Comments HEMOGLOBIN A1C (BEAKER) (test code = 6.4 % 4.3-6.1 H 368) FastingMR, BRAIN, WITHOUT [id number] 07:30:00Reason for exam:- >StrokeWhat is the patient's sedation requirement?->No SedationFINAL REPORT MRI brain and MRA head and neck without contrast 01/23/2018 7:26 AMCLINICAL INDICATION: Cerebral hemorrhage suspectedStroke TECHNIQUE: Multiplanar, multisequence MR imaging of the brain was performed utilizing the following imaging sequences: Axial T1, T2, FLAIR, GRE,and DWI; sagittal and coronal T1-weighted images. Two- and three-dimensional ioya-ro-jgezmw MRA images of the intra- and extracranial [...] is antegrade in both vertebral arteries. MRA [place]: There is severely attenuated flow [...] slow flow. Findings were discussed with the [facility] neurology housestaff on 01/23/2018 at 0730. Signed: Se Patel [facility] Verified Date/Time: 01/23/2018 07:30:49 Reading Location: [address] Neuro Reading Room MR, MRA, BRAIN, WITHOUT [id number] 07:30:00Reason for exam:->Ischemic Stroke EvaluationFINAL REPORT MRI brain and MRA head and neck without contrast 01/23/2018 7:26 AMCLINICAL INDICATION: Cerebral hemorrhage suspectedStroke TECHNIQUE: Multiplanar, multisequence MR karishma ging of the brain was performed utilizing the following imaging sequences: Axial T1, T2, FLAIR, GRE,and DWI; sagittal and coronal T1-weighted images. Two- and three-dimensional haui-eu-wuwowt MRA images of the intra- and extracranial [...] is antegrade in both vertebral arteries. MRA [place]: There is severely attenuated flow [...] Patel Verified Date/Time: 01/23/2018 07:30:49 Reading Location: [address] Neuro Reading Room MR, MRA, NECK, WITHOUT IV [id number] 07:30:00Reason for exam:->Ischemic Stroke EvaluationFINAL REPORT MRI brain and MRA head and neck without contrast 01/23/2018 7:26 AMCLINICAL INDICATION: Cerebral hemorrhage suspectedStroke TECHNIQUE: Multiplanar, multisequence MR imaging of the brain was performed utilizing the following imaging sequences: Axial T1, T2, FLAIR, GRE,and DWI; sagittal and coronal T1-weighted images. Two- and three-dimensional xmbt-lk-dxckxk MRA images of the intra- and extracranial [...] is antegrade in both vertebral arteries. MRA [place]: There is severely attenuated flow [...] Patel Verified Date/Time: 01/23/2018 07:30:49 Reading Location: [address] Neuro Reading Room TSH/FREE T4 IF [id number] 02:31:00 Test Item Value Reference Range Interpretation Comments THYROID STIMULATING HORMONE 0.78 uIU/mL 0.35-4.94 (BEAKER) (test code = 772) VITAMIN B12 AND [id number] 02:31:00 Test Item Value Reference Range Interpretation Comments VITAMIN B12 (BEAKER) (test code = > pg/mL 213-816 H 774) FOLATE (BEAKER) (test code = 362) 5.4 ng/mL >=7.0 L TROPONIN [id number] 02:08:00 Test Item Value Reference Range Interpretation [...] acidosis, acute neurological disease, and persistent tachyarrhythmia.FastingLIPID [id number] 02:00:00 Test Item Value Reference Range Interpretation [...] High 160-189 Very High >=190 FastingBUN AND [id number] 02:00:00 Test Item Value Reference Range Interpretation [...] APPLICABLE FOR DIALYSIS PATIEN TS. FastingBASIC METABOLIC [id number] 02:00:00 Test Item Value Reference Range Interpretation [...] PATIEN TS. FastingCBC W/PLT COUNT & AUTO [id number] 01:51:00 Test Item Value Reference Range Interpretation [...] % 0-1 PERCENT (BEAKER) (test code = 2806)
[2023-06-29 20:17] LABS: Absolute Lymphocytes (CBC) 1.2 K/uL (0.7-4.9); Lymphocytes % 11.9 % (15.3-44.8); MCV 94.2 fL (80-100); MPV 7.6 fL (7.6-11.3); Platelets 284 thou/uL (152-406); RBC Red Blood Cell Count 4.24 M/uL (3.86-4.86)
[2023-06-29 20:34] LABS: Albumin 2.2 g/dL (3.4-5.0); Bilirubin Total 0.3 mg/dL (0.2-1.0); Potassium 4.8 mEq/L (3.5-5.1); Protein, Total 6.8 g/dL (6.4-8.2); Troponin High Sensitivity 6.8 pg/mL (<58.9)
[2023-06-29] MEDS ORDERED: CEFTRIAXONE 1000 MG/VIAL ONE (20:40)
[2023-06-29] MEDS ORDERED: ONDANSETRON 4 MG/2 ML VIAL ONE (20:40)
[2023-06-29] MEDS ORDERED: MORPHINE 4 MG/ML SYR ONE (20:40)
[2023-06-29] MEDS ORDERED: NA CHLORIDE 0.9% 500 ML ONE (20:40)
[2023-06-29] MEDS ORDERED: NA CHLORIDE 0.9% 1,000 ML ONE (20:41)
[2023-06-29] MEDS ORDERED: NA CHLORIDE 0.9% 100 ML ONE ×2 (20:41→22:45)
[2023-06-29 20:47] LABS: Blood Morphology Comment NOT SEEN (NOT SEEN); Platelet Estimate ADEQ; White Blood Cell Scan OK (OK)
[2023-06-29] MEDS ORDERED: METHYLPREDNISOLONE 125 MG INJ ONE (21:06)
[2023-06-29] MEDS ORDERED: DIPHENHYDRAMINE 50 MG/ML VIAL ONE (21:07)
[2023-06-29] MEDS ORDERED: FAMOTIDINE 20 MG/2 ML VIAL IV ONE (21:07)
[2023-06-29 21:45] LABS: Specific Gravity 1.026 (1.005-1.030); Urine Bilirubin NEGATIVE (Negative); Urine Blood Negative (Negative); Urine Clarity Clear (Clear); Urine Color Light-Yellow (Yellow); Urine Glucose NEGATIVE (Negative); Urine Protein NEGATIVE (Negative); Urine Urobilinogen Normal (Normal); Urine pH 5.5 (5.0-7.0)
[2023-06-29 21:52] LABS: Protime INR 1.37
--- NOTE | 2023-06-29 21:55 | RAD REPORT ---
EXAM DESCRIPTION: CT - Abdomen Pelvis W Contrast - 06/29/2023 9:11 pm CLINICAL HISTORY: ABD PAIN COMPARISON: Abdomen Pelvis W Contrast dated 06/24/2023 TECHNIQUE: Thin cut axial CT imaging of the abdomen and pelvis was performed following intravenous a dministration of 100 mL Isovue 300. Multiplanar reformats were generated and reviewed. All CT scans are performed using dose optimization technique as appropriate and may include automated exposure control or mA/KV adjustment according to patient size. FINDINGS: Small peripheral solid pulmonary nodules bilaterally, largest measuring 1.3 cm on the left , stable. The liver, spleen, adrenal glands, and pancreas show no suspicious findings. Gallbladder and biliary tree are also without suspicious finding. 1.7 cm right lower pole mildly hyperdense lesion with overlying cortical thinning is stable. Other ar eas of cortical scarring and left lower pole fluid density cysts are stable. Symmetric renal function is seen with no hydronephrosis or other suspicious renal mass. Mild sigmoid diverticulosis. Contained collection of gas and debris within minimal fluid adjacent to the lateral wall of the proximal sigmoid colon, measuring 4.6 x 2.7 cm in greatest dimension. The deg ree of adjacent inflammation and fat stranding has improved since the prior exam. No dilated bowel lo ops or other bowel wall thickening. No free air, or free fluid. No hernia, mass or bulky lymphadenopa thy. Moderate atherosclerotic calcifications. The urinary bladder is without significant finding. No suspicious bony findings. IMPRESSION: Contained collection of gas and debris within minimal fluid, compatible with a contained leak, adjacent to the lateral sigmoid wall with otherwise interval improvement of the adjacent infla mmatory changes seen on the 06/24/2023 study. No evidence of free air or free fluid. Other stable incidental findings as above. The findings were communicated to Heath Jennings on 06/29/2023 at 21:47 hours.
--- NOTE | 2023-06-29 22:08 | ER ---
Nurse's Notes [facility] Name: Trisha Lovelace Age: 87 yrs Sex: Female : 1935 Arrival Date: 06/29/2023 Time: 19:35 Bed 16 Private MD: Diagnosis: Abdominal tenderness;Diverticulitis of large intestine with perforation and abscess without bleeding-contained, 4.6 cm sigmoid;correction (current) use of anticoagulants;Chronic atrial fibrillation;Obesity, unspecified Presentation: 06/29 19:38 Chief complaint: Patient states: to have suprapubic pain with mild diarrhea that jw7 started tonight. Coronavirus screen: At this time, the client does not indicate any symptoms associated with coronavirus-19. Ebola Screen: No symptoms or risks identified at this time. Initial Sepsis Screen: Does the patient meet any 2 criteria? No. Patient's initial sepsis screen is negative. Does the patient have a suspected source of infection? No. Patient's initial sepsis screen is negative. Risk Assessment: Do you want to hurt yourself or someone else? Patient reports no desire to harm self or others. Onset of symptoms was June 29, 2023. 19:38 Acuity: JUAN 3 jw7 19:38 Method Of Arrival: EMS: [facility] jw7 Triage Assessment: 19:41 General: Appears in no apparent distress. uncomfortable, Behavior is calm, cooperative, jw7 restless. Pain: Complains of pain in suprapubic area Pain does not radiate. Pain currently is 10 out of 10 on a pain scale. Quality of pain is described as crampy, sharp, Pain began suddenly, Is continuous, Noted to be guarding, moaning. EENT: No deficits noted. No signs and/or symptoms were reported regarding the EENT system. Neuro: Verdin Agitation-Sedation Scale (RASS): +1 Restless Level of Consciousness is awake, alert, obeys commands, Oriented to person, place, time, situation. Cardiovascular: Capillary refill < 3 seconds Clubbing of nail beds is absent JVD is absent Patient's skin is warm and dry. Respiratory: Airway is patent Trachea midline Respiratory effort is even, unlabored, Respiratory pattern is regular, symmetrical. GI: Abdomen is round distended, Abd is soft X 4 quads Abdomen is tender to palpation X 4 quads. Guarding noted in suprapubic area Reports lower abdominal pain, diarrhea. : No deficits noted. No signs and/or symptoms were reported regarding the genitourinary system. Derm: Skin is intact, is healthy with good turgor, Skin is dry, Skin is normal, Skin temperature is warm. Musculoskeletal: Circulation, motion, and sensation intact. Range of motion: intact in all extremities. Historical: - Allergies: 19:41 shrimp; jw7 - Home Meds: 19:41 albuterol sulfate 90 mcg/actuation Inhl HFA Aerosol Inhaler [Active]; amiodarone 200 mg jw7 Oral tablet 1 tab daily [Active]; Eliquis 5 mg Oral tablet 1 tab 2 times per day [Active]; folic acid 1 mg Oral tab 1 tab once daily [Active]; Lasix 40 mg Oral tablet 1 tab daily [Active]; levothyroxine 50 mcg tab 1 tab once daily [Active]; levothyroxine 75 mcg cap 1 cap once daily [Active]; memantine 28 mg Oral CSpX 1 cap once daily [Active]; metoprolol tartrate 100 mg Oral tablet 1 tab daily [Active]; potassium chloride 10 mEq Oral capsule 1 cap daily [Active]; - PMHx: 19:41 Alzheimers; CVA; High Cholesterol; Hypothyroidism; Hypertension; TIA; jw7 - PSHx: 19:41 cataract; Shoulder; TIA; hysterectomy; Tonsillectomy; jw7 - Immunization history:: Adult Immunizations up to date, Client reports receiving the 2nd dose of the Covid vaccine, Pneumococcal vaccine is up to date, Flu vaccine is up to date. - Social history:: Smoking status: Patient denies any tobacco usage or history of. Screenin:38 [facility] ED Fall Risk Assessment (Adult) History of falling in the last 3 months, jw7 including since admission No falls in past 3 months (0 pts) Confusion or Disorientation No (0 pts) Intoxicated or Sedated No (0 pts) Impaired Gait Yes (1 pt) Mobility Assist Device Used No (0 pt) Altered Elimination Yes (1 pt) Score/Fall Risk Level 0 - 2 = Low Risk Oriented to surroundings, Maintained a safe environment. Abuse screen: Denies threats or abuse. Denies injuries from another. Nutritional screening: No deficits noted. Tuberculosis screening: No symptoms or risk factors identified. Assessment: 19:46 General: see triage assessment. jw7 21:09 Reassessment: Patient appears in no apparent distress at this time. No changes from jw7 previously documented assessment. Patient and/or family updated on plan of care and expected duration. Pain level reassessed. Patient is alert, oriented x 3, equal unlabored respirations, skin warm/dry/pink. 22:00 Reassessment: Patient appears in no apparent distress at this time. Patient and/or jw7 family updated on plan of care and expected duration. Pain level reassessed. Patient is alert, oriented x 3, equal unlabored respirations, skin warm/dry/pink. Patient states feeling better. 23:24 Reassessment: Patient appears in no apparent distress at this time. No changes from jw7 previously documented assessment. Patient and/or family updated on plan of care and expected duration. Pain level reassessed. Patient is alert, oriented x 3, equal unlabored respirations, skin warm/dry/pink. 23:34 General: Report given to JOCELIN Salcedo. jw7 Vital Signs: 19:38 BP 157 / 83; Pulse 76; Resp 17; Temp 97.8; Pulse Ox 97% on R/A; Weight 97.52 kg; Height jw7 5 ft. 2 in. ; Pain 10/10; 20:45 BP 126 / 77; Pulse 77; Resp 18 S; Pulse Ox 97% on R/A; jw7 21:44 BP 170 / 87; Pulse 88; Resp 23 S; Pulse Ox 96% on R/A; jw7 22:30 BP 132 / 79; Pulse 79; Resp 12 S; Pulse Ox 96% on R/A; jw7 23:27 BP 142 / 72; Pulse 78; Resp 15 S; Pulse Ox 95% on R/A; jw7 19:38 Body Mass Index 39.32 (97.52 kg, 157.48 cm) jw7 19:38 Pain Scale: Adult jw7 ED Course: 19:37 Patient arrived in ED. as6 19:38 Consuelo Collazo RN is Primary Nurse. jw7 19:38 Patient has correct armband on for positive identification. Bed in low position. Call [facility] light in reach. Side rails up X2. 19:41 Triage completed. jw7 19:41 Arm band placed on. jw7 20:07 Initial lab(s) drawn, by me, sent to lab. EKG done, by ED staff. Inserted saline lock: jw7 22 gauge in left forearm, using aseptic technique. Blood collected. 20:07 CBC with Diff Sent. jw7 20:07 Lipase Sent. jw7 20:10 Heath Jennings MD is Attending Physician. [facility] 20:19 Radiology exam delayed due to lab results not completed at this time. (BUN/Creatinine). nj 21:[address] via stretcher. iv 21:12 CT completed. Patient tolerated procedure well. iv 21:12 Patient moved back from CT. iv 21:13 CT Abd/Pelvis - IV Contrast Only In Process Unspecified. EDMS 21:46 PT-INR Sent. kmf 22:04 CXR XRAY In Process Unspecified. EDMS 22:04 Jeremie Juarez MD is Hospitalizing Provider. [facility] 23:23 Provided Education on: need for admit. [facility] 23:23 No provider procedures requiring assistance completed. Patient admitted, IV remains in jw7 place. Administered Medications: 22:41 Discontinued: ns 0.9% 1000 ml IV at 125 ml/hr continuous [facility] 20:45 Drug: NS 0.9% IV 500 ml IV at bolus once Route: IV; Rate: bolus; Site: left forearm; jw7 23:20 Follow up: Response: No adverse reaction; IV Status: Completed infusion; IV Intake: jw7 500ml 20:45 Drug: NS 0.9% IV 1000 ml IV at 125 ml/hr continuous Route: IV; Rate: 125 ml/hr; Site: [facility] left forearm; 23:21 Follow up: Response: No adverse reaction; IV Status: Order to discontinue infusion; IV jw7 Intake: 200ml 20:45 Drug: Rocephin IV 1 grams IV at per protocol once; Given slow IV push per pharmacy jw7 instructions Route: IV; Rate: per protocol; Site: left forearm; 23:21 Follow up: Response: No adverse reaction; IV Status: Completed infusion; IV Intake: jw7 100ml 20:46 Drug: morphine IVP or IV 4 mg IVP once over 4 mins Route: IVP; Infused Over: 4 mins; jw7 Site: left forearm; 23:22 Follow up: Response: No adverse reaction; Marked relief of symptoms jw7 20:46 Drug: Ondansetron IVP 4 mg IVP once; over 2 minutes Route: IVP; Site: left forearm; jw7 23:22 Follow up: Response: No adverse reaction jw7 21:11 Drug: MethylPrednisoLONE IVP 125 mg IVP once Route: IVP; Site: left forearm; jw7 23:22 Follow up: Response: No adverse reaction jw7 21:11 Drug: Famotidine IVP 20 mg IVP once; dilute with 10 mL 0.9% NaCl; give over 2 minutes jw7 Route: IVP; Site: left forearm; 23:22 Follow up: Response: No adverse reaction jw7 21:11 Drug: diphenhydrAMINE IVP 25 mg IVP once Route: IVP; Site: left forearm; jw7 23:22 Follow up: Response: No adverse reaction jw7 22:47 Drug: Ertapenem IVPB 1 grams IVPB once over 30 mins; (mix in 100 mL NS) Route: IVPB; jw7 Infused Over: 30 mins; Site: left forearm; 23:20 Follow up: Response: No adverse reaction; IV Status: Completed infusion; IV Intake: jw7 100ml 23:19 Drug: Furosemide IVP 20 mg IVP once; give over 2 minutes Route: IVP; Site: left forearm;jw7 23:40 Follow up: Response: No adverse reaction jw7 Medication: 23:24 VIS not applicable for this client. jw7 Intake: 23:20 IV: 100ml; Total: 100ml. jw7 23:20 IV: 500ml; Total: 600ml. jw7 23:21 IV: 200ml; Total: 800ml. jw7 23:21 IV: 100ml; Total: 900ml. jw7 Outcome: 22:07 Decision to Hospitalize by Provider. mendoza 23:23 Admitted to Med/surg accompanied by nurse, via wheelchair, room 228, jw7 23:23 Condition: stable 23:23 Instructed on the need for admit, Demonstrated understanding of instructions, 23:40 Patient left the ED. jw7 Signatures: Dispatcher [employer] EDMS Heath Jennings MD MD cha Jordan, Cesar Payne RN RN as6 Consuelo Collazo RN RN jw7 Perla Hutchins iv, Kelsey Maroul [facility] Corrections: (The following items were deleted from the chart) 21:09 19:41 GI: Abdomen is round non-distended, Abd is soft X 4 quads Abdomen is tender to jw7 palpation in suprapubic area Guarding noted in suprapubic area Reports lower abdominal pain, diarrhea, jw7 21:10 20:[address] via stretcher. iv iv
--- NOTE | 2023-06-29 22:08 | EDPHYS ---
Physician Documentation [facility] Name: Trisha Lovelace Age: 87 yrs Sex: Female : 1935 Arrival Date: 06/29/2023 Time: 19:35 Bed 16 Private MD: ANNA Physician Heath Jennings HPI: 06/29 21:06 This 87 yrs old Female presents to ER via EMS with complaints of abd pain, mendoza diverticulitis. 21:06 The patient presents with abdominal pain in the upper abdomen, in the lower abdomen, mendoza abdominal distention in the upper abdomen, in the lower abdomen. Onset: The symptoms/episode began/occurred today. The symptoms do not radiate. Associated signs and symptoms: Pertinent positives: nausea. Modifying factors: The symptoms are alleviated by remaining still, the symptoms are aggravated by pressure, touching the area, walking. Severity of pain: At its worst the pain was moderate in the emergency department the pain is unchanged. The patient has experienced similar episodes in the past, several times. Historical: - Allergies: 19:41 shrimp; jw7 - Home Meds: 19:41 albuterol sulfate 90 mcg/actuation Inhl HFA Aerosol Inhaler [Active]; amiodarone 200 mg jw7 Oral tablet 1 tab daily [Active]; Eliquis 5 mg Oral tablet 1 tab 2 times per day [Active]; folic acid 1 mg Oral tab 1 tab once daily [Active]; Lasix 40 mg Oral tablet 1 tab daily [Active]; levothyroxine 50 mcg tab 1 tab once daily [Active]; levothyroxine 75 mcg cap 1 cap once daily [Active]; memantine 28 mg Oral CSpX 1 cap once daily [Active]; metoprolol tartrate 100 mg Oral tablet 1 tab daily [Active]; potassium chloride 10 mEq Oral capsule 1 cap daily [Active]; - PMHx: 19:41 Alzheimers; CVA; High Cholesterol; Hypothyroidism; Hypertension; TIA; jw7 - PSHx: 19:41 cataract; Shoulder; TIA; hysterectomy; Tonsillectomy; jw7 - Immunization history:: Adult Immunizations up to date, Client reports receiving the 2nd dose of the Covid vaccine, Pneumococcal vaccine is up to date, Flu vaccine is up to date. - Social history:: Smoking status: Patient denies any tobacco usage or history of. ROS: 21:11 Constitutional: Negative for fever, chills, and weight loss, Eyes: Negative for injury, mendoza pain, redness, and discharge, ENT: Negative for injury, pain, and discharge, Neck: Negative for injury, pain, and swelling, Cardiovascular: Negative for chest pain, palpitations, and edema, Respiratory: Negative for shortness of breath, cough, wheezing, and pleuritic chest pain, Back: Negative for injury and pain, : Negative for injury, bleeding, discharge, and swelling, MS/Extremity: Negative for injury and deformity, Skin: Negative for injury, rash, and discoloration, Neuro: Negative for headache, weakness, numbness, tingling, and seizure, 21:11 Abdomen/GI: Positive for abdominal pain, nausea, of the epigastric area, right lower quadrant and left lower quadrant, Exam: 21:11 Constitutional: This is a well developed, well nourished patient who is awake, alert, mendoza and in no acute distress. Head/Face: Normocephalic, atraumatic. Eyes: Pupils equal round and reactive to light, extra-ocular motions intact. Lids and lashes normal. Conjunctiva and sclera are non-icteric and not injected. Cornea within normal limits. Periorbital areas with no swelling, redness, or edema. ENT: Nares patent. No nasal discharge, no septal abnormalities noted. Tympanic membranes are normal and external auditory canals are clear. Oropharynx with no redness, swelling, or masses, exudates, or evidence of obstruction, uvula midline. Mucous membranes moist. Neck: Trachea midline, no thyromegaly or masses palpated, and no cervical lymphadenopathy. Supple, full range of motion without nuchal rigidity, or vertebral point tenderness. No Meningismus. Chest/axilla: Normal chest wall appearance and motion. Nontender with no deformity. No lesions are appreciated. Cardiovascular: Regular rate and rhythm with a normal S1 and S2. No gallops, murmurs, or rubs. Normal PMI, no JVD. No pulse deficits. Respiratory: Lungs have equal breath sounds bilaterally, clear to auscultation and percussion. No rales, rhonchi or wheezes noted. No increased work of breathing, no retractions or nasal flaring. Back: No spinal tenderness. No costovertebral tenderness. Full range of motion. Female : Normal external genitalia. Skin: Warm, dry with normal turgor. Normal color with no rashes, no lesions, and no evidence of cellulitis. MS/ Extremity: Pulses equal, no cyanosis. Neurovascular intact. Full, normal range of motion. Neuro: Awake and alert, GCS 15, oriented to person, place, time, and situation. Cranial nerves II-XII grossly intact. Motor strength 5/5 in all extremities. Sensory grossly intact. Cerebellar exam normal. Normal gait. Psych: Awake, alert, with orientation to person, place and time. Behavior, mood, and affect are within normal limits. 21:11 Abdomen/GI: Inspection: distension, Bowel sounds: active, Palpation: moderate abdominal tenderness, in the epigastric area, right lower quadrant and left lower quadrant, voluntary guarding, Liver: no appreciated palpable abnormalities, Hernia: not appreciated, 21:24 ECG was reviewed by the Attending Physician. [facility] Vital Signs: 19:38 BP 157 / 83; Pulse 76; Resp 17; Temp 97.8; Pulse Ox 97% on R/A; Weight 97.52 kg; Height jw7 5 ft. 2 in. ; Pain 10/10; 20:45 BP 126 / 77; Pulse 77; Resp 18 S; Pulse Ox 97% on R/A; jw7 21:44 BP 170 / 87; Pulse 88; Resp 23 S; Pulse Ox 96% on R/A; 7 22:30 BP 132 / 79; Pulse 79; Resp 12 S; Pulse Ox 96% on R/A; jw7 23:27 BP 142 / 72; Pulse 78; Resp 15 S; Pulse Ox 95% on R/A; 7 19:38 Body Mass Index 39.32 (97.52 kg, 157.48 cm) [facility] 19:38 Pain Scale: Adult [facility] MDM: 20:[address] [facility] 21:21 Differential diagnosis: gastritis, pancreatitis, appendicitis, viral gastroenteritis, mendoza gastroenteritis, bowel obstruction, diverticulitis, gastritis, non-specific abd pain, pancreatitis, Ureterolithiasis, urinary tract infection. Data reviewed: vital signs, nurses notes, lab test result(s), EKG, radiologic studies, CT scan, plain films. Consideration of Admission/Observation Patient was admitted/placed on observation. Escalation of care including admission/observation considered. I considered the following discharge prescriptions or medication management in the emergency department Medications were administered in the Emergency Department. See MAR. Independent interpretation of the following test(s) in the Emergency Department EKG: See my EKG interpretation above. Test considered but Not performed: Ultrasound no abd us. Care significantly affected by the following chronic conditions: Hypertension, Obesity, alxheimers, hypothyroid, a fib, amiodarone, eliquis. 06/29 19:39 Order name: CBC with Diff; Complete Time: 21:03 [facility] 06/29 19:39 Order name: CMP; Complete Time: 20:44 [facility] 06/29 19:39 Order name: Lipase; Complete Time: 20:44 [facility] 06/29 19:39 Order name: Urinalysis w/ reflexes; Complete Time: 22:40 [facility] 06/29 19:39 Order name: Troponin High Sensitivity; Complete Time: 20:44 [facility] 06/29 20:13 Order name: Urine Culture [facility] 06/29 20:13 Order name: Lactate w/ 2H reflex if indic.; Complete Time: 22:40 [facility] 06/29 20:23 Order name: CBC Smear Scan; Complete Time: 21:03 [facility] 06/29 21:11 Order name: Magnesium; Complete Time: 22:40 06/29 21:11 Order name: PT-INR; Complete Time: 22:40 06/29 20:13 Order name: CT Abd/Pelvis - IV Contrast Only; Complete Time: 22:40 [facility] 06/29 21:11 Order name: CXR XRAY; Complete Time: 22:40 06/29 19:39 Order name: EKG; Complete Time: 19:40 [facility] 06/29 22:15 Order name: CONS Physician Consult [facility] 06/29 22:15 Order name: CONS Physician Consult [facility] 06/29 19:39 Order name: IV Saline Lock; Complete Time: 20:07 [facility] 06/29 19:39 Order name: Labs collected and sent; Complete Time: 20:07 [facility] 06/29 19:39 Order name: EKG - Nurse/Tech; Complete Time: 20:07 3 EC:24 Rate is 79 beats/min. Rhythm is irregularly irregular. QRS [place] is Normal. ME interval mendoza is normal. QRS interval is normal. QT interval is normal. No Q waves. T waves are Normal. No ST changes noted. Clinical impression: Atrial Fibrillation. Interpreted by me. Reviewed by me. Administered Medications: 22:41 Discontinued: ns 0.9% 1000 ml IV at 125 ml/hr continuous mendoza 20:45 Drug: NS 0.9% IV 500 ml IV at bolus once Route: IV; Rate: bolus; Site: left forearm; jw7 23:20 Follow up: Response: No adverse reaction; IV Status: Completed infusion; IV Intake: jw7 500ml 20:45 Drug: NS 0.9% IV 1000 ml IV at 125 ml/hr continuous Route: IV; Rate: 125 ml/hr; Site: [facility] left forearm; 23:21 Follow up: Response: No adverse reaction; IV Status: Order to discontinue infusion; IV jw7 Intake: 200ml 20:45 Drug: Rocephin IV 1 grams IV at per protocol once; Given slow IV push per pharmacy jw7 instructions Route: IV; Rate: per protocol; Site: left forearm; 23:21 Follow up: Response: No adverse reaction; IV Status: Completed infusion; IV Intake: jw7 100ml 20:46 Drug: morphine IVP or IV 4 mg IVP once over 4 mins Route: IVP; Infused Over: 4 mins; jw7 Site: left forearm; 23:22 Follow up: Response: No adverse reaction; Marked relief of symptoms jw7 20:46 Drug: Ondansetron IVP 4 mg IVP once; over 2 minutes Route: IVP; Site: left forearm; jw7 23:22 Follow up: Response: No adverse reaction jw7 21:11 Drug: MethylPrednisoLONE IVP 125 mg IVP once Route: IVP; Site: left forearm; jw7 23:22 Follow up: Response: No adverse reaction jw7 21:11 Drug: Famotidine IVP 20 mg IVP once; dilute with 10 mL 0.9% NaCl; give over 2 minutes jw7 Route: IVP; Site: left forearm; 23:22 Follow up: Response: No adverse reaction jw7 21:11 Drug: diphenhydrAMINE IVP 25 mg IVP once Route: IVP; Site: left forearm; jw7 23:22 Follow up: Response: No adverse reaction jw7 22:47 Drug: Ertapenem IVPB 1 grams IVPB once over 30 mins; (mix in 100 mL NS) Route: IVPB; jw7 Infused Over: 30 mins; Site: left forearm; 23:20 Follow up: Response: No adverse reaction; IV Status: Completed infusion; IV Intake: jw7 100ml 23:19 Drug: Furosemide IVP 20 mg IVP once; give over 2 minutes Route: IVP; Site: left forearm;jw7 23:40 Follow up: Response: No adverse reaction jw7 Disposition Summary: 06/29/23 22:07 Hospitalization Ordered Notes: Hospitalization Status: Inpatient Admission mendoza Provider: Jeremie Juarez cha Location: Telemetry/MedSurg (Inpatient) mendoza Condition: Fair mendoza Problem: new mendoza Symptoms: have improved mendoza Bed/Room Type: Standard mendoza Room Assignment: 228(06/29/23 22:21) mw Diagnosis - Abdominal tenderness mendoza - Diverticulitis of large intestine with perforation and abscess without bleeding - mendoza contained, 4.6 cm sigmoid - terminal carman (current) use of anticoagulants mendoza - Chronic atrial fibrillation mendoza - Obesity, unspecified mendoza Forms: - Medication Reconciliation Form mendoza - SBAR form mendoza - Leadership Thank You Letter mendoaz Signatures: Dispatcher [employer] Asha Gleason RN RN Heath Ceja MD MD cha Patel, Setul, MD MD sp3 Consuelo Collazo RN RN jw7 Corrections: (The following items were deleted from the chart) 22:21 22:07 mendoza
--- NOTE | 2023-06-29 22:21 | RAD REPORT ---
EXAM DESCRIPTION: RADChest Single View06/29/2023 10:02 pm CLINICAL HISTORY: ABDOMINAL DISTENTION COMPARISON: Chest Single View dated 06/06/2023; Chest Single View dated 02/26/2023; Chest Single View dated 10/09/2022; Chest Single View dated 06/19/2022 TECHNIQUE: Portable AP view of the chest. FINDINGS: The lungs shows no focal consolidation central interstitial prominence stable to mildly im proved since the prior exam. No pneumothorax or effusion. The cardiomediastinal contours are unremar kable. IMPRESSION: Central interstitial prominence, stable to mildly improved, may represent mild congestio n or early pulmonary edema.
[2023-06-29] MEDS ORDERED: ERTAPENEM SODIUM 1 GM VIAL ONE (22:30)
[2023-06-29] MEDS ORDERED: FUROSEMIDE 20 MG/ 2ML VIAL ONE (23:26)
[2023-06-30] MEDS ORDERED: ACETAMINOPHEN 500 MG TAB PO PRN (00:19)
[2023-06-30] MEDS ORDERED: ONDANSETRON 4 MG/2 ML VIAL IV PRN (00:19)
[2023-06-30] MEDS ORDERED: ERTAPENEM SODIUM 1 GM VIAL IVPB SCH (00:30)
[2023-06-30 00:58] VITALS: BMI 39.3
[2023-06-30] MEDS ORDERED: NA CHLORIDE 0.9% 500 ML IV ONE (01:08)
[2023-06-30 03:31] LABS: Absolute Lymphocytes (CBC) 0.7 K/uL (0.7-4.9); Lymphocytes % 6.9 % (15.3-44.8); MCV 93.5 fL (80-100); MPV 7.7 fL (7.6-11.3); Platelets 230 thou/uL (152-406); RBC Red Blood Cell Count 4.06 M/uL (3.86-4.86)
[2023-06-30 03:57] LABS: ALT/SGPT 48 U/L (13-56); Albumin 1.9 g/dL (3.4-5.0); Alkaline Phosphatase 72 U/L (45-117); BUN Blood Urea Nitrogen 35 mg/dL (7-18); Bicarbonate 26 mEq/L (21-32); Bilirubin Total 0.2 mg/dL (0.2-1.0); Glomerular Filtration Rate 51 ml/min (=/>90); Glucose Level 174 mg/dL (74-106); Lipase 32 U/L (13-75); Sodium Level 137 mEq/L (136-145)
[2023-06-30 04:05] LABS: AST/SGOT 63 U/L (15-37); Bilirubin Direct < 0.1 mg/dL (0-0.2); Bilirubin Indirect, Calculated ND mg/dL (0.2-0.8); Potassium 4.2 mEq/L (3.5-5.1)
[2023-06-30] MEDS: LEVOTHYROXINE SOD 0.075 MG TAB PO SCH (05:15)
[2023-06-30] MEDS: MORPHINE 2 MG/ML SYR IV PRN ×3 (07:37→20:04)
[2023-06-30] MEDS ORDERED: NA CHLORIDE 0.9% 1,000 ML IV SCH (08:00)
[2023-06-30] MEDS: APIXABAN 5 MG TABLET PO SCH ×2 (08:45→20:04)
[2023-06-30] MEDS: METOPROLOL TAR 50 MG TAB PO SCH (08:45)
[2023-06-30] MEDS: FUROSEMIDE 40 MG TABLET PO SCH (08:46)
[2023-06-30] MEDS: AMIODARONE HCL 200 MG TAB PO SCH (08:46)
[2023-06-30] MEDS: FOLIC ACID 1 MG TABLET PO SCH (08:46)
[2023-06-30] MEDS: FAMOTIDINE 20 MG/2 ML VIAL IV SCH (08:47)
[2023-06-30] MEDS: D5 0.9 NS 1,000 ML IV SCH (09:06)
[2023-06-30] MEDS: Meropenem 1,000 MG in NA CHLORIDE 0.9% 100 ML IV SCH ×2 (09:07→20:04)
--- NOTE | 2023-06-30 13:59 | CON ---
Date of Consultation: 06/30/2023 Reason For Service: Diverticulitis with abscess and microperforation. History Of Present Illness: This is a case of an 87-year-old person who comes to the hospital with a bdominal pain. She has been dealing with diverticulitis for the last several weeks. She has been on antibiotics. She even got to go home. She was eating normal, then felt the pain yesterday on the l eft side again. When she was seen in ER, she was found to have a diverticulitis, but a small contain ed abscess nearby. So the patient was admitted to the hospital and a surgical consult was obtained. She denies any dysuria, hematuria, hematochezia, melena. Denies any recent traveling out of [facility]. Denies any family member sick at home. Past Medical History: Hypertension. Family History: Noncontributory. Allergies: REVIEWED. Social History: She does not smoke. She does not drink alcohol. Review of Systems: Abdominal pain mainly in the left lower quadrant. No nausea, no vomiting and no fever. No shortness of breath. No chest pain. Once again, no hematochezia, no melena. She does not recall exactly the last colonoscopy. We are going to be working on that. I am trying to find out. Physical Examination: General: Patient is awake, alert. HEENT: Pupils are equal and reactive. Anicteric. Neck: Supple. Chest: Clear. Heart: S1, S2. Abdomen: There is left lower quadrant tenderness, but the rest of the abdomen is soft and depressibl e. No rebound. Pelvic/Rectal/Genitalia: Deferred. Extremities: Good capillary refill. Laboratory Data: Blood work reviewed. CAT scan also reviewed showing the findings of diverticulitis with an about 3 to 4 cm area of fluid collection with small amount of air contained on the left side near the sigmoid region. Assessment: Acute diverticulitis with abscess. She understands the options of emergent laparotomy, possible resection, possible ostomy with benefits, alternatives, and risks explained. Obviously, she preferred not to use those options at this moment. She understand her condition, understands that w e might give it a try to conservative treatment. In the meantime, we would continue antibiotics. Ke ep her in bowel rest. The length of antibiotics may vary from a week to 2 weeks, depends on how her clinical response. We going to give her some hydration at this moment, ambulation. About diet, we w ill see in the next day to two if we get safe enough to use that gastrointestinal tract. Whenever th is is over and she gets better, if we have the opportunity once again we have to verify her previous colonoscopy to make sure there is only diverticulum seen in that region and not any neoplastic pathol ogy. At the same time, we discussed with her that since she is having this episode more than once an d if she does not need emergent surgery during this admission, then we may consider discussing the ca se with the Colorectal for elective bowel resection. JAIDA/VIOLETA Voice ID: [id number] Report ID: [id number]
[2023-06-30] MEDS ORDERED: predniSONE 20 MG TAB PO ONE (15:01)
--- NOTE | 2023-06-30 18:37 | HP ---
Date of Admission: 06/30/2023 Chief Complaint: Abdominal pain. History Of Present Illness: This is an 87-year-old very pleasant female patient who was discharged to go home day before yesterday with oral antibiotic, Augmentin, prednisone, and gabapentin. She was in the hospital with acute diverticulitis and she received IV Zosyn. She responded very well, tolerated diet very well, started to ambulate well and her antibiotics were changed from Zosyn to oral Augmentin and she was discharged to go home. Her abdominal pain had improved with appropriate antibiotics. She had lumbar radiculopathy symptoms during last hospital admission so she received 1 dose of Solu-Medrol 40 mg IV and then she was discharged next day to go home with oral steroid and her gabapentin. She was doing fine taking all her medications regularly and yesterday she had her normal uneventful day. She had 1 bowel movement yesterday morning and she had second bowel movement yesterday evening and during that time, she said that she noted little blood in the stool and she started to have sudden onset of left lower quadrant abdominal pain while she was having bowel movement. Subsequently, she came to emergency room. She reports that this abdominal pain was more or less similar like the way it was when she was admitted during her last hospital admission and with appropriate antibiotic, her abdominal pain had resolved until yesterday and after this recurrence of pain, she came into the ER, was evaluated in the ER, and admitted to the hospital with perforation from this acute diverticulitis problem. Patient denies any fever, but states she was sweating yesterday when she started having this abdominal pain. This morning when I saw her, she was feeling better, comfortable, lying in bed, not in any distress. Allergies: TO SHRIMP, ATORVASTATIN CAUSING ABNORMAL LIVER FUNCTION TEST. Medications: Medication list reviewed. Review of Systems: GI: As mentioned above. All other systems reviewed and negative. Past Medical History: Significant for chronic atrial fibrillation, hypertension, history of TIA in 2011 and 2012 as well as history of stroke, January 21, 2019, hypothyroidism, impaired fasting glucose, COPD, pulmonary nodule, hyperlipidemia, hypertension, celiac disease. Past Surgical History: Cataract surgery, tonsillectomy, hysterectomy, shoulder surgery. Family History: Father , had myocardial infarction and stroke and brother had diabetes. Social History: Prior history of smoking, not at present time. Use of alcohol negative Physical Examination: Vital Signs: Height 5 feet 2 inches, weight 215 pounds. Temperature 97.8, pulse 64, respiratory rate 14, blood pressure 169/80, oxygen saturation 94%. General: Awake, alert, oriented, not in distress. HEENT: Head atraumatic, normocephalic. Conjunctivae nonerythematous. Sclerae white. Mouth, no thrush or edema noted. Ears/Nose, no mass, lesion, discharge noted. Neck: Supple. No JVD, lymph nodes, bruit, thyromegaly noted. Lungs: Bilateral good equal air entry. Clear to auscultation. No rhonchi. No rales. Heart: Normal heart sounds, no murmur or gallop. Abdomen: Soft, bowel sounds normal. No guarding, no rigidity, no rebound tenderness. Bowel sounds normoactive. No hepatosplenomegaly, no bruit. Patient has mild tenderness in left lower quadrant. Extremities: No leg edema. No calf tenderness. Skin: No rash, ulcer, cellulitis. Lymphatics: No lymph node enlargement in neck, supraclavicular, infraclavicular region. Neuro: No focal neurological deficit. Chest: Unremarkable. External Genitalia: Deferred. Rectal: Deferred. Laboratory Data: Yesterday, white count 10, hemoglobin 13, platelets 284. This morning, white count 9.7, hemoglobin 12.5, platelets 236. Yesterday, sodium 133, potassium 4.8, chloride 98, bicarb 27, BUN 38, creatinine 1.27, glucose 192. Lactic acid 3, repeat lactic acid 5.1. AST 85, ALT 58, alkaline phosphatase 85. Troponin 6.8. Lipase 60. This morning, sodium 137, potassium 4.2, chloride 102, bicarb 26, BUN 35, creatinine 1.07, glucose 174. AST 63, ALT 48, alkaline phosphatase 72. Lipase 32. Urinalysis normal. CAT scan of the abdomen and pelvis done in the emergency room last night shows a contained collection of gas and debris with a minimal fluid compatible with contained leak adjacent to lateral sigmoid wall with otherwise interval improvement of the inflammatory changes seen on prior CAT scan. No evidence of free fluid or free air. Chest x-ray shows prominent interstitial markings in the central portion, otherwise no acute changes. Impression: 1. Acute diverticulitis with perforation, with peridiverticular abscess. 2. Chronic atrial fibrillation. 3. Chronic anticoagulation therapy. 4. Hypertension. 5. Hyperlipidemia. 6. Hypothyroidism. 7. Lumbar radiculopathy. 8. Osteoarthritis, multiple sites. 9. Impaired fasting glucose. 10. Chronic obstructive pulmonary disease. Plan: Admit patient to hospital for further evaluation and management of this problem. Patient is appropriate for inpatient and is expected to spend 2 midnights in hospital. We will go ahead and keep her n.p.o. right now except medications. Consult general surgeon, Dr. Mark, who has already evaluated the patient. I have discussed details with him. He will follow up on the patient again tomorrow and at this point he is suggesting IV antibiotics for about 2 weeks and then may be 1 or 2 more weeks of either oral or IV antibiotics depending on her condition. He will evaluate her tomorrow and then he will decide whether patient can have clear liquid diet tomorrow or not, but meanwhile we will keep her n.p.o., give her IV fluid. We will continue her anticoagulation therapy, which is Eliquis. Continue her amiodarone for her atrial fibrillation. She takes prednisone and gabapentin, which was prescribed during her last hospital admission. We will continue that. Today is her last day of 30 mg prednisone and starting tomorrow, we will start to wean off. Physical therapy was consulted. Ambulation was encouraged. For her hypothyroidism, we will continue her levothyroxine per order and for hyperlipidemia, no need for any further intervention at this point. Details and plan of treatment discussed with her. I have discussed with her regarding advance directives and in the event of cardiopulmonary arrest, patient has informed me that she does not want any heroic measures done and DNR order will be placed in the chart. On an elective outpatient basis, patient should visit colorectal surgeon to get his recommendation. Considering her age and other comorbidities, I am not sure if colorectal surgeon will recommend any elective to surgical procedure or not in the form of partial colectomy or conservative management and all these details were discussed with the patient. SANDRA/VIOLETA Voice ID: [id number] JESSICA
[2023-06-30] MEDS: GABAPENTIN 100 MG CAP PO SCH (20:04)
[2023-06-30] MEDS: Mupirocin NASAL 2 APPL/1 GM TUBE NAS SCH (20:05)
[2023-07-01] MEDS: D5 0.9 NS 1,000 ML IV SCH ×2 (04:31→17:34)
[2023-07-01] MEDS: LEVOTHYROXINE SOD 0.075 MG TAB PO SCH (05:31)
[2023-07-01] MEDS: METOPROLOL TAR 50 MG TAB PO SCH (08:35)
[2023-07-01] MEDS: AMIODARONE HCL 200 MG TAB PO SCH (08:36)
[2023-07-01] MEDS: GABAPENTIN 100 MG CAP PO SCH ×2 (08:36→20:19)
[2023-07-01] MEDS: FOLIC ACID 1 MG TABLET PO SCH (08:36)
[2023-07-01] MEDS: APIXABAN 5 MG TABLET PO SCH ×2 (08:36→20:19)
[2023-07-01] MEDS: FUROSEMIDE 40 MG TABLET PO SCH (08:36)
[2023-07-01] MEDS: Mupirocin NASAL 2 APPL/1 GM TUBE NAS SCH ×2 (08:37→20:20)
[2023-07-01] MEDS: predniSONE 20 MG TAB PO SCH (08:37)
[2023-07-01] MEDS: FAMOTIDINE 20 MG/2 ML VIAL IV SCH (08:37)
[2023-07-01] MEDS: Meropenem 1,000 MG in NA CHLORIDE 0.9% 100 ML IV SCH ×2 (08:37→20:19)
[2023-07-01] MEDS: MORPHINE 2 MG/ML SYR IV PRN (10:24)
--- NOTE | 2023-07-01 10:50 | PN ---
Date of Progress Note: 07/01/2023 Subjective: Patient was seen this morning for followup. She was lying in bed, reported that she slept very well last night. Denies any abdominal pain. No nausea, no vomiting and yesterday, she ambulated very well with the physical therapy. Denies having any bowel movement and patient remains n.p.o. Objective: Vital Signs: Reviewed. HEENT: Examination unremarkable. Lungs: Clear to auscultation. Heart: Sounds normal. Abdomen: Soft. Bowel sounds normal. No guarding, rigidity, tenderness, distention. Extremities: No leg edema. Impression: 1. Acute diverticulitis with perforation and peridiverticular abscess. 2. Chronic atrial fibrillation. 3. Chronic anticoagulation therapy. 4. COPD. 5. Hypertension. Plan: We will go ahead and continue current medications. Continue current IV antibiotic. We are waiting on PICC line. Hopefully, we will get that placed this weekend. Continue to follow up with Dr. Mark, who will see her today for followup and make recommendation if we can start her on clear liquid diet or not. Patient to continue to ambulate with Physical Therapy and I will see her tomorrow for followup. SANDRA/MODL Voice ID: [id number] Report ID: [id number] JESSICA
[2023-07-01 11:30] LABS: Absolute Lymphocytes (CBC) 0.9 K/uL (0.7-4.9); Hematocrit 37.1 % (36.0-45.0); Lymphocytes % 8.7 % (15.3-44.8); MCV 93.1 fL (80-100); MPV 7.2 fL (7.6-11.3); Platelets 318 thou/uL (152-406); RBC Red Blood Cell Count 3.98 M/uL (3.86-4.86)
[2023-07-01 11:52] LABS: Magnesium 2.1 mg/dL (1.6-2.4); Potassium 3.9 mEq/L (3.5-5.1)
--- NOTE | 2023-07-02 00:41 | PN ---
Date of Progress Note: 07/01/2023 Diagnosis: Diverticulitis with abscess. History: The patient is doing better. She feels no pain today. Vital signs seems to be stable. No fever. No shortness of breath. No chest pain. Passing flatus. Physical Examination: Chest: Clear. Abdomen: Still has left lower quadrant tenderness, but no guarding or rebound. Extremities: Good capillary refill. Laboratory Data: Blood work shows WBC count of 10.6 with hemoglobin of 12.5. INR is 1.37. Chloride is 108. Creatinine is 1.03. Plan: We are going to give her clear liquid diet tomorrow. She understands it is just a trial and i f she feels sick to put her once again. Ambulation is encouraged as DVT prophylaxis. Garcia gonzáles serial abdominal examination. JAIDA/VIOLETA Voice ID: [id number] Report ID: [id number]
[2023-07-02] MEDS: LEVOTHYROXINE SOD 0.075 MG TAB PO SCH (05:46)
[2023-07-02] MEDS: AMIODARONE HCL 200 MG TAB PO SCH (08:11)
[2023-07-02] MEDS: FAMOTIDINE 20 MG/2 ML VIAL IV SCH (08:11)
[2023-07-02] MEDS: D5 0.9 NS 1,000 ML IV SCH (08:11)
[2023-07-02] MEDS: FUROSEMIDE 40 MG TABLET PO SCH (08:12)
[2023-07-02] MEDS: APIXABAN 5 MG TABLET PO SCH ×2 (08:12→20:00)
[2023-07-02] MEDS: GABAPENTIN 100 MG CAP PO SCH ×2 (08:12→20:00)
[2023-07-02] MEDS: METOPROLOL TAR 50 MG TAB PO SCH (08:12)
[2023-07-02] MEDS: Mupirocin NASAL 2 APPL/1 GM TUBE NAS SCH ×2 (08:13→20:00)
[2023-07-02] MEDS: predniSONE 20 MG TAB PO SCH (08:13)
[2023-07-02] MEDS: FOLIC ACID 1 MG TABLET PO SCH (08:13)
[2023-07-02] MEDS: Meropenem 1,000 MG in NA CHLORIDE 0.9% 100 ML IV SCH ×2 (08:14→20:00)
--- NOTE | 2023-07-02 09:09 | PN ---
Date of Progress Note: 07/02/2023 Subjective: Patient was seen this morning for followup. She was lying in bed. Denies any abdominal pain. No nausea. No vomiting. Has not had a bowel movement since her admission and as of this mor wu, she is on clear liquid diet. She is ambulating well. Yesterday, she ambulated very well in e hallway, had to stop for a minute or so, but did not have to sit down and she was able to continue to walk and was able to make the whole tangirnaq outside her room in the hallway. Objective: Vital Signs: Reviewed. HEENT: Examination unremarkable. Lungs: Clear to auscultation. Heart: Sounds normal. Abdomen: Soft. Bowel sounds normal. No guarding, rigidity, tenderness, distention except very mini mal tenderness in suprapubic and right lower quadrant region. Extremities: No leg edema. Impression: 1.Acute diverticulitis with perforation and abscess, margo-diverticular. 2.Chronic atrial fibrillation. 3.Chronic anticoagulation therapy. 4.Hypertension. Plan: We will go ahead and continue current antibiotics. PICC line is in place in the right arm. A mbulation was encouraged. We will continue IV fluid, but reduce rate to 40 cc/hour. Repeat blood wo rk tomorrow morning and if she does not have any bowel movement by tomorrow, we will consider some la xative tomorrow. We will continue to follow up with Dr. Mark. Continue current anticoagulation therapy and metoprolol as well as a miodarone. SANDRA/MODL Voice ID: [id number] Report ID: [id number]
--- NOTE | 2023-07-02 13:07 | RAD REPORT ---
EXAM DESCRIPTION: RAD - Chest Single View - 07/02/2023 6:41 am CLINICAL HISTORY: 87 years Female, PICC placement COMPARISON: Prior chest x-ray report from 06/29/2023. The image was not available for review. TECHNIQUE: Single portable x-ray view of the chest performed on 07/02/2023 at 1:34 AM FINDINGS: The lungs are well-expanded. Again demonstrated is mild prominence of the central intersti tial markings which is nonspecific . No focal airspace consolidation is identified. There is no evide nce of a pneumothorax. The cardiac silhouette is normal in size and configuration. The mediastinal contours are normal. No acute osseous abnormality is identified. There are degenerative changes of the right shoulder. No acute soft tissue abnormalities are seen. Lines and tubes: The right upper extremity PICC line catheter tip terminates in the region of the s uperior vena cava. There are multiple overlying monitoring tech leads. Free air: None IMPRESSION: 1. The tip of the right upper extremity PICC line catheter terminates in the region of the superior vena cava. 2. Mild nonspecific prominence of the central interstitial markings. Electronically signed by: Clarissa Dickey DO 07/02/2023 2:03 AM [employer] Due to temporary technical issues with the PACS/Fluency reporting system, reports are being signed by the in house radiologists without review as a courtesy to insure prompt reporting. The interpreting radiologist is fully responsible for the content of the report.
[2023-07-03 03:04] LABS: Absolute Lymphocytes (CBC) 1.7 K/uL (0.7-4.9); MCV 93.6 fL (80-100); MPV 7.4 fL (7.6-11.3); Platelets 351 thou/uL (152-406); RBC Red Blood Cell Count 3.85 M/uL (3.86-4.86)
[2023-07-03 03:16] LABS: Potassium 3.6 mEq/L (3.5-5.1)
[2023-07-03] MEDS: LEVOTHYROXINE SOD 0.075 MG TAB PO SCH (05:48)
[2023-07-03] MEDS: APIXABAN 5 MG TABLET PO SCH ×2 (09:27→20:02)
[2023-07-03] MEDS: Meropenem 1,000 MG in NA CHLORIDE 0.9% 100 ML IV SCH ×2 (09:27→20:01)
[2023-07-03] MEDS: predniSONE 20 MG TAB PO SCH (09:28)
[2023-07-03] MEDS: METOPROLOL TAR 50 MG TAB PO SCH (09:28)
[2023-07-03] MEDS: FOLIC ACID 1 MG TABLET PO SCH (09:28)
[2023-07-03] MEDS: AMIODARONE HCL 200 MG TAB PO SCH (09:28)
[2023-07-03] MEDS: FAMOTIDINE 20 MG/2 ML VIAL IV SCH (09:28)
[2023-07-03] MEDS: FUROSEMIDE 40 MG TABLET PO SCH (09:28)
[2023-07-03] MEDS: GABAPENTIN 100 MG CAP PO SCH ×2 (09:28→20:02)
[2023-07-03] MEDS: Mupirocin NASAL 2 APPL/1 GM TUBE NAS SCH ×2 (09:29→20:01)
[2023-07-03] MEDS: D5 0.9 NS 1,000 ML IV SCH (09:30)
--- NOTE | 2023-07-03 11:40 | P.PN ---
Subjective Date of Service: 07/03/23 Subjective: Ambulating, Improving, Doing well Review of Systems General: Fever (no) Cardiovascular: Unremarkable Gastrointestinal: Nausea (no), Vomiting (no), Distention, As per HPI Genitourinary: Dysuria (no) Physical Examination - Vital Signs Temperature: 98.2 F Blood Pressure: 140/62 Pulse: 71 Respirations: 18 Pulse Ox (%): 95 - Physical Exam General: Alert, In no apparent distress, Oriented x3, Cooperative HEENT: PERRLA, EOMI Neck: Supple Respiratory: Normal air movement Cardiovascular: Normal pulses Gastrointestinal: Normal bowel sounds, No rebound, No guarding, Tenderness (LLQ minimal) Musculoskeletal: No swelling, No erythema, No tenderness, No warmth Integumentary: No rashes, No breakdown, No erythema, No warmth, No cyanosis Neurological: Normal speech - Studies reviewed with patient Microbiology Data (last 24 hrs): 06/29/23 21:35 Clean Catch Urine Luna Count - Final BETWEEN 10,000 & 100,000 CFU/ML 06/29/23 21:35 Clean Catch Urine - Final MIXED JB. Assessment And Plan - Plan Full liquid diett cont IV abx OOB CT scan repeat monday to see progress of intrabdominal abscess
[2023-07-03] MEDS ORDERED: ACETAMINOPHEN 325 MG TABLET ONE (20:17)
[2023-07-04] MEDS: LEVOTHYROXINE SOD 0.075 MG TAB PO SCH (06:04)
--- NOTE | 2023-07-04 06:17 | PN ---
Date of Progress Note: 07/03/2023 Subjective: Patient was seen this morning for followup. No new complaints, problems reported by duarte peña. Lying in bed, not in distress. Her PICC line is in place. Denies any chest pain, shortness o f breath, nausea, vomiting. Objective: Vital Signs: Reviewed. HEENT: Unremarkable. Lungs: Clear to auscultation. Heart: Sounds normal. Abdomen: Soft. Bowel sounds normal. No guarding, rigidity, tenderness, distention. Extremities: No leg edema. Laboratory Data: White count 13.2, hemoglobin 11.9, and a platelet count 351 today. Sodium 142, pot assium 3.6, chloride 109, bicarb 30, BUN 22, creatinine 0.89, glucose 109. Impression: 1.Acute diverticulitis with perforation and peridiverticular abscess. 2.Lumbar radiculopathy. 3.Chronic atrial fibrillation. 4.Chronic anticoagulation therapy. 5.Chronic obstructive pulmonary disease. Plan: We will go ahead and continue current prednisone which is 20 mg daily, starting tomorrow we wi ll reduce dose to 10 mg daily for 3 days, then discontinue. Continue current antibiotic. Physical t herapy to continue to work with the patient and we will continue current Eliquis and amiodarone. Leigh vated WBC count is due to oral steroid use which is being given for lumbar radiculopathy and that actually has helped to improve her symptoms very well. We will continue gabapentin as well. SANDRA/MODL Voice ID: [id number] Report ID: [id number]
[2023-07-04] MEDS: Meropenem 1,000 MG in NA CHLORIDE 0.9% 100 ML IV SCH ×2 (09:46→21:11)
[2023-07-04] MEDS: MORPHINE 2 MG/ML SYR IV PRN (09:46)
[2023-07-04] MEDS: METOPROLOL TAR 50 MG TAB PO SCH (09:47)
[2023-07-04] MEDS: FAMOTIDINE 20 MG/2 ML VIAL IV SCH (09:47)
[2023-07-04] MEDS: predniSONE 10 MG TAB PO SCH (09:47)
[2023-07-04] MEDS: APIXABAN 5 MG TABLET PO SCH ×2 (09:47→21:11)
[2023-07-04] MEDS: AMIODARONE HCL 200 MG TAB PO SCH (09:47)
[2023-07-04] MEDS: Mupirocin NASAL 2 APPL/1 GM TUBE NAS SCH ×2 (09:47→21:11)
[2023-07-04] MEDS: GABAPENTIN 100 MG CAP PO SCH ×2 (09:48→21:11)
[2023-07-04] MEDS: FOLIC ACID 1 MG TABLET PO SCH (09:48)
[2023-07-04] MEDS: FUROSEMIDE 40 MG TABLET PO SCH (09:48)
[2023-07-04] MEDS: D5 0.9 NS 1,000 ML IV SCH (09:58)
[2023-07-04] MEDS ORDERED: ACETAMINOPHEN 325 MG TABLET PO PRN (10:17)
--- NOTE | 2023-07-04 12:33 | PN ---
Date of Progress Note: 07/04/2023 Reason For Service: Perforated diverticulitis with intraabdominal abscess. Subjective: The patient is doing better. Still have some pain in the left lower quadrant, although it is better. No nausea. No vomiting. No fever. No shortness of breath. No chest pain. Review of Systems: Ten points otherwise unremarkable. Objective: Chest: Clear. Abdomen: Soft and depressible. Left lower quadrant mild tenderness. No rebound. Extremities: Good capillary refill. Laboratory Data: Blood work is still pending. Plan: We are going to repeat the CAT scan tomorrow. This will help us evaluate diverticulitis and a lso the intraabdominal abscess and see how much progress we make or no progress at all and that will dictate the length of stay in this institution. JAIDA/VIOLETA Voice ID: [id number] Report ID: [id number]
--- NOTE | 2023-07-04 21:51 | PN ---
Date of Progress Note: 07/04/2023 Subjective: Patient was seen this morning for followup. She was lying in bed, not in distress. Rep orts having bowel movement and no more abdominal pain. Ambulating well with the physical therapy. Objective: Vital Signs: Reviewed. HEENT: Unremarkable. Lungs: Clear to auscultation. Heart: Sounds normal. Abdomen: Soft. Bowel sounds normal. No guarding, no rigidity, tenderness, or distention. Extremities: No leg edema. Impression: 1.Acute diverticulitis with perforation, with peridiverticular abscess. 2.Chronic atrial fibrillation. 3.Chronic anticoagulation therapy. 4.Hypertension. 5.Chronic obstructive pulmonary disease. Plan: We will go ahead and continue current medication. Patient is on prednisone [address] daily for [address] 3 days for lumbar radiculopathy pain and that actually has improved very well with use of predniso ne. So, starting today, we will reduce dose down to 10 mg daily for next 3 days and then discontinue . Continue gabapentin. Continue current antibiotic. She is on full liquid diet and will continue t o follow with Dr. Mark. Continue current IV meropenem. I will see her tomorrow for followup. SANDRA/MODL Voice ID: [id number] Report ID: [id number]
[2023-07-05 03:34] LABS: Hematocrit 37.7 % (36.0-45.0); Lymphocytes % 11.3 % (15.3-44.8); MPV 7.2 fL (7.6-11.3); Platelets 416 thou/uL (152-406); RBC Red Blood Cell Count 4.09 M/uL (3.86-4.86)
[2023-07-05 03:59] LABS: Potassium 3.6 mEq/L (3.5-5.1)
[2023-07-05 04:44] LABS: Blood Morphology Comment NOT SEEN (NOT SEEN); Platelet Estimate ADEQ
[2023-07-05] MEDS: LEVOTHYROXINE SOD 0.075 MG TAB PO SCH (06:32)
[2023-07-05] MEDS: Mupirocin NASAL 2 APPL/1 GM TUBE NAS SCH (09:00)
--- NOTE | 2023-07-05 09:05 | RAD REPORT ---
EXAM DESCRIPTION: CT - Abdomen Pelvis Wo Contrast - 07/05/2023 8:08 am CLINICAL HISTORY: f/u intrabdominal abscess/diverticulitis COMPARISON: Abdomen Pelvis W Contrast dated 06/29/2023; Abdomen Pelvis W Contrast dated 3; Abdomen Pelvis Wo Contrast dated 12/03/2015; CT ABD PELVIS W CONTRAST dated 06/26/2007 TECHNIQUE: Thin cut axial CT imaging of the abdomen and pelvis was performed without IV contrast. Mu ltiplanar reformats were generated and reviewed. All CT scans are performed using dose optimization technique as appropriate and may include automated exposure control or mA/KV adjustment according to patient size. FINDINGS: Progressive trace bilateral pleural effusions larger on the right. . The liver, adrenal glands, spleen, and pancreas show no suspicious findings. Gallbladder shows excret ed layering contrast, but no stones. Stable bilateral renal cysts, with the right lower pole 1.7 cm cyst demonstrating intrinsic hyperdens ity on noncontrast images suggestive of a hemorrhagic cyst. No other suspicious parenchymal findings within limits of noncontrast technique. No evidence of radiopaque calculi or hydroureteronephrosis. Stable lower pelvis inflammatory changes related to known proximal sigmoid diverticulitis. A small co llection of fluid and gas again seen just lateral to the sigmoid measuring 4.1 x 1.7 cm, previously m easured 4.6 x 2.7 cm. Interval development of a lenticular mildly hyperdense collection just superior to the bladder dome centered right of midline, measuring 5.4 x 3.4 cm. No dilated bowel loops or bow el wall thickening. No hernia, mass or bulky lymphadenopathy. The urinary bladder is without signific ant finding. No suspicious bony findings. IMPRESSION: Interval development of a lenticular mildly hyperdense fluid collection just superior to the bladder dome centered to the right of the midline, measuring 5.4 x 3.4 cm. Other known sequelae of proximal sigmoid diverticulitis with stable to slightly reduced size of colle ction of fluid and gas just lateral to the area of involvement, today measuring 4.1 x 1.7 cm.
[2023-07-05] MEDS: METOPROLOL TAR 50 MG TAB PO SCH (09:18)
[2023-07-05] MEDS: predniSONE 10 MG TAB PO SCH (09:19)
[2023-07-05] MEDS: FUROSEMIDE 40 MG TABLET PO SCH (09:19)
[2023-07-05] MEDS: APIXABAN 5 MG TABLET PO SCH ×2 (09:19→20:09)
[2023-07-05] MEDS: GABAPENTIN 100 MG CAP PO SCH ×2 (09:19→20:09)
[2023-07-05] MEDS: FAMOTIDINE 20 MG/2 ML VIAL IV SCH (09:20)
[2023-07-05] MEDS: FOLIC ACID 1 MG TABLET PO SCH (09:20)
[2023-07-05] MEDS: Meropenem 1,000 MG in NA CHLORIDE 0.9% 100 ML IV SCH ×2 (09:20→20:09)
[2023-07-05] MEDS: AMIODARONE HCL 200 MG TAB PO SCH (09:20)
[2023-07-05] MEDS: D5 0.9 NS 1,000 ML IV SCH (20:09)
--- NOTE | 2023-07-05 20:21 | PN ---
Date of Progress Note: 07/05/2023 Subjective: The patient was seen this morning for followup. Denies any new complaints. Her abdomin al pain is better. No chest pain. No shortness of breath. Objective: Vital signs: Reviewed. HEENT: Unremarkable. Lungs: Clear to auscultation. Heart: Sounds normal. Abdomen: Soft. Bowel sounds normal. No guarding, rigidity, distention. Presence of very mild tend erness in left lower quadrant. No rebound tenderness. Extremities: No leg edema. Laboratory Data: White count 17.5, hemoglobin 12.4, platelets 416. Sodium 137, potassium 3.6, chlor shay 102, bicarb 32, BUN 18, creatinine 0.91, glucose 93. Impression: 1.Acute diverticulitis with perforation and peridiverticular abscess. 2.Chronic atrial fibrillation. 3.Chronic anticoagulation therapy. 4.Lumbar radiculopathy. Plan: The patient is on IV antibiotic, meropenem. We will continue that. Dr. Mark ordered repe at CAT scan of the abdomen today and he called and discussed results with me and he recommended for t he patient to have evaluation done for surgical intervention, whether that is percutaneous drainage o r any other surgical intervention, and after we discussed, we both feel like the patient will benefit from higher level of care and he will communicate with colorectal surgeon, Dr. Wilson, or someone else who might be available to help assist with this patient's care and once that is arranged, the patien t will be transferred to [place] for higher level of care. She is on prednisone for lumbar radiculop athy every 3 days. We are reducing dose and this elevated white blood cell count could be due to thaddeus roid use. Starting tomorrow, we will discontinue her prednisone as she will complete her 9 days of therapy. SANDRA/MODL Voice ID: [id number] Report ID: [id number]
[2023-07-06] MEDS: LEVOTHYROXINE SOD 0.075 MG TAB PO SCH (05:13)
[2023-07-06] MEDS: APIXABAN 5 MG TABLET PO SCH ×2 (09:31→20:31)
[2023-07-06] MEDS: FOLIC ACID 1 MG TABLET PO SCH (09:31)
[2023-07-06] MEDS: FUROSEMIDE 40 MG TABLET PO SCH (09:31)
[2023-07-06] MEDS: GABAPENTIN 100 MG CAP PO SCH ×2 (09:31→20:31)
[2023-07-06] MEDS: FAMOTIDINE 20 MG/2 ML VIAL IV SCH (09:31)
[2023-07-06] MEDS: AMIODARONE HCL 200 MG TAB PO SCH (09:31)
[2023-07-06] MEDS: METOPROLOL TAR 50 MG TAB PO SCH (09:31)
[2023-07-06] MEDS: Meropenem 1,000 MG in NA CHLORIDE 0.9% 100 ML IV SCH ×2 (09:32→20:31)
--- NOTE | 2023-07-06 16:48 | PN ---
Date of Progress Note: 07/06/2023 Reason For Service: Diverticulitis with intra-abdominal abscess. Objective: Vital Signs: Stable. Chest: Clear. Abdomen: Soft and depressible. Plan: I discussed the case with Dr. Juarez last night, this morning with the Colorectal, Dr. Alaniz. We discussed the blood work, the 2 CT scans she had. We do not see any improvement in her. We discuss ed the possibility of transfer and after seeing the pros and cons, we believe this is right way to pr oceed. The patient did agree, and we wish her the best. JAIDA/VIOLETA Voice ID: [id number] Report ID: [id number]
--- NOTE | 2023-07-06 19:25 | DS ---
Date of Discharge: 07/06/2023 Disposition: Patient was transferred via ground ambulance to [facility]. Physical Examination: HEENT: Unremarkable. Lungs: Clear to auscultation. Heart: Sounds normal. Abdomen: Soft. Bowel sounds normal. No guarding, rigidity, tenderness, distention. Extremities: No leg edema. Final Diagnoses: 1.Acute diverticulitis with perforation and peridiverticular abscess. 2.Chronic anticoagulation therapy. 3.Chronic atrial fibrillation. 4.Anemia, chronic, unspecified. 5.Hypertension. Discharge Medications And Instructions: See copy of transfer order for more details. Hospital Course: This is an 87-year-old pleasant female patient admitted to the hospital with perfor ation from acute diverticulitis and peridiverticular abscess. Please see dictated H and P for more i nformation. After patient was evaluated, admitted to the hospital, she was initially kept n.p.o. Ge neral surgeon, Dr. Mark, was consulted and the patient was started on IV meropenem and initially she was kept n.p.o. Subsequently Dr. Mark started her on clear liquid diet over the weekend and then advanced her to full liquid diet over period of this hospitalization. The patient also had lumb ar radiculopathy during her recent hospital admission, and at that time, she was started on oral ster oid therapy and during this hospitalization, we continued her oral steroid therapy and every 3 days w e reduced dose of her prednisone. Prednisone dose was started at 30 mg daily for 3 days, then 20 mg daily for 3 days, then 10 mg daily for 3 days, and as of today, her prednisone was discontinued after completion of such therapy. Her white count was normal, but then it started going up and we believe that elevated white count could have been due to her steroid use, but at the same time we worry abou t this infectious etiology also as underlying possible explanation for her elevated white count as no fransisco for last couple of days. The patient was seen by physical therapist and she started ambulating v aureliano well with therapies. Her abdominal pain complaint has resolved and overall clinically she is sta ble. Repeat CAT scan of the abdomen and pelvis done yesterday by Dr. Mark, and after that he con tacted and informed me regarding need for further intervention in terms of either percutaneous draina ge or surgical procedure for this peridiverticular abscess. The patient will need a higher level of care for all this and Dr. Mark was able to communicate details with Dr. Tyrone Wilson and he accepted the patient and today patient was transferred via ground ambulance to [facility]. When I saw the patient this morning all these details were discussed with her regarding her CAT scan finding as well as need to go to [place] for further management and she understood and was agreeable. The patient was advised that once she is able to come home from [place], she should call my office and come see me within 2-3 days after she comes home from [place]. SANDRA/MODL Voice ID: [id number] Report ID: [id number]
[2023-07-06] MEDS: D5 0.9 NS 1,000 ML IV SCH (21:56)
[2023-07-07 02:43] LABS: Absolute Lymphocytes (CBC) 2.1 K/uL (0.7-4.9); Hematocrit 37.6 % (36.0-45.0); Lymphocytes % 16.2 % (15.3-44.8); MCV 92.5 fL (80-100); MPV 7.2 fL (7.6-11.3); Platelets 374 thou/uL (152-406); RBC Red Blood Cell Count 4.07 M/uL (3.86-4.86)
[2023-07-07 03:02] LABS: Magnesium 2.1 mg/dL (1.6-2.4); Potassium 3.4 mEq/L (3.5-5.1)
[2023-07-07] MEDS: LEVOTHYROXINE SOD 0.075 MG TAB PO SCH (05:58)
[2023-07-07] MEDS: Meropenem 1,000 MG in NA CHLORIDE 0.9% 100 ML IV SCH ×2 (10:05→20:41)
[2023-07-07] MEDS: FOLIC ACID 1 MG TABLET PO SCH (10:06)
[2023-07-07] MEDS: FUROSEMIDE 40 MG TABLET PO SCH (10:06)
[2023-07-07] MEDS: APIXABAN 5 MG TABLET PO SCH ×2 (10:06→20:41)
[2023-07-07] MEDS: AMIODARONE HCL 200 MG TAB PO SCH (10:06)
[2023-07-07] MEDS: METOPROLOL TAR 50 MG TAB PO SCH (10:06)
[2023-07-07] MEDS: GABAPENTIN 100 MG CAP PO SCH ×2 (10:07→20:41)
[2023-07-07] MEDS: FAMOTIDINE 20 MG/2 ML VIAL IV SCH (10:07)
--- NOTE | 2023-07-07 12:28 | PN ---
Date of Progress Note: 07/06/2023 Subjective: Patient was seen this morning for followup. Denies any abdominal pain. No nausea, no v omiting. She is ambulating well with her walker. Objective: Vital Signs: Reviewed. Remains afebrile. HEENT: Unremarkable. Lungs: Clear to auscultation. Heart: Sounds normal. Abdomen: Soft. Bowel sounds normal. No guarding, rigidity, tenderness, distention. Extremities: No leg edema. Laboratory Data: There were no new labs today. CAT scan results reviewed with her. Impression: 1.Acute diverticulitis with perforation, with peridiverticular abscess. 2.Chronic atrial fibrillation. 3.Hypertension. 4.Chronic anticoagulation therapy. Plan: We will go ahead and continue current IV antibiotic, which is meropenem. Continue maintenance IV fluid. Continue current amiodarone and anticoagulation therapy and patient was encouraged to con tinue to ambulate. Dr. Mark has initiated transfer process to [place] with colorectal surgeon, Phuong iWlson, and he has accepted the patient and we have initiated the transfer process. Once patient ge ts accepted, patient will be transferred via ground ambulance and I have discussed all the details with the patient. She understands and agrees with the treatment plan. SANDRA/MODL Voice ID: [id number] Report ID: [id number]
[2023-07-07] MEDS: D5 0.9 NS 1,000 ML IV SCH (12:58)
--- NOTE | 2023-07-07 20:13 | PN ---
Date of Progress Note: 07/07/2023 Reason For Service: Diverticulitis with abscess. Subjective: Patient is doing better. Vital signs stable. No shortness of breath. No chest pain. No fever. Tolerating liquid diet. Objective: Chest: Clear. Abdomen: Soft and depressible. Left lower quadrant tenderness. Assessment: Diverticulitis with abscess. Plan: We initiated transfer yesterday. We discussed the case with Dr. Tyrone Wilson. She is pending to be transferred to [facility] because of high level of care. She needs colorectal surgeon. They agreed, we are waiting for the transfer. In the meantime, we will continue the antibiotics. Co ntinue same diet, ambulation. HM/MODL Voice ID: [id number] Report ID: [id number]
[2023-07-08 00:55] VITALS: O2SAT 95
[2023-07-08] MEDS: D5 0.9 NS 1,000 ML IV SCH (01:44)
[2023-07-08] MEDS: LEVOTHYROXINE SOD 0.075 MG TAB PO SCH (06:18)
[2023-07-08] MEDS: Meropenem 1,000 MG in NA CHLORIDE 0.9% 100 ML IV SCH (08:24)
[2023-07-08] MEDS: FUROSEMIDE 40 MG TABLET PO SCH (08:25)
[2023-07-08] MEDS: AMIODARONE HCL 200 MG TAB PO SCH (08:25)
[2023-07-08] MEDS: APIXABAN 5 MG TABLET PO SCH (08:25)
[2023-07-08] MEDS: METOPROLOL TAR 50 MG TAB PO SCH (08:25)
[2023-07-08] MEDS: GABAPENTIN 100 MG CAP PO SCH (08:25)
[2023-07-08] MEDS: FOLIC ACID 1 MG TABLET PO SCH (08:25)
[2023-07-08] MEDS: FAMOTIDINE 20 MG/2 ML VIAL IV SCH (08:25)
[2023-07-08 09:28] LABS: Absolute Lymphocytes (CBC) 1.3 K/uL (0.7-4.9); Hematocrit 41.4 % (36.0-45.0); Lymphocytes % 10.7 % (15.3-44.8); MCV 92.5 fL (80-100); MPV 6.8 fL (7.6-11.3); Platelets 349 thou/uL (152-406); RBC Red Blood Cell Count 4.47 M/uL (3.86-4.86)
[2023-07-08 09:43] LABS: Magnesium 2.2 mg/dL (1.6-2.4); Potassium 3.6 mEq/L (3.5-5.1)
[2023-07-08 11:04] LABS: Blood Morphology Comment NOT SEEN (NOT SEEN); Platelet Estimate ADEQ
[2023-07-08 11:57] VITALS: BP 100/48; TEMP 97.3
[2023-07-08] MEDS: ALBUTEROL INHALER 60 PUFF/8 GM IH SCH ×2 (13:20→13:22)
--- NOTE | 2023-07-08 14:50 | EKG ---
Test Date: 2023-06-29 Test Time: 20:02:39 [place]: MEASUREMENT RESULTS: Intervals: Rate: 79 NE: QRSD: 70 QT: 380 QTc: 435 [place]: P: NE: QRS: 76 T: 66 INTERPRETIVE STATEMENTS: Atrial fibrillation Low voltage QRS Nonspecific ST abnormality, probably digitalis effect Abnormal ECG Compared to ECG 06/23/2023 13:50:57 ST (T wave) deviation now present Electronically Signed On 07-08-23 14:24:47 ACUPRESSURIST by Simon Bernal
--- NOTE | 2023-07-08 19:40 | PN ---
Date of Progress Note: 07/08/2023 Diagnosis: Diverticulitis with intra-abdominal abscess. Subjective: The patient is improving. We still pending the transfer to the [facility]. We check on them yesterday. They still have issues with their room. The patient feels better. She is tolerating diet, although not completely full diet, but at least getting some calories on her. Her a bdominal pain is still stable, not getting worse. She has sometimes some discomfort when she urinate , but she also have a CAT scan finding of abscess near that area. The WBC count is 12.5 with hemoglo bin of 13.8, so the plan will be once again transfer to Colorectal Surgery. She might need surgical intervention. JAIDA/VIOLETA Voice ID: [id number] Report ID: [id number]
--- NOTE | 2023-07-08 20:30 | PN ---
Date of Progress Note: 07/07/2023 Subjective: Patient was seen this morning for followup. No new complaints or problems reported. Sh e was lying in bed, not in any distress. Objective: Vital Signs: Reviewed. HEENT: Unremarkable. Extremities: No leg edema. Laboratory Data: White count 13.1, hemoglobin 12.3, platelets 374. Sodium 142, potassium 3.4, chlor shay 103, bicarb 35, BUN 19, creatinine 0.99, glucose 80, magnesium 3.1. Impression: 1.Acute diverticulitis with perforation and with peridiverticular abscess. 2.Chronic atrial fibrillation. 3.Chronic anticoagulation therapy. 4.Hypokalemia. Plan: We will go ahead and continue current medication. Continue current antibiotic which is merope nem and continue current maintenance IV fluid. Patient is on amiodarone and Eliquis for atrial fibri llation. We will continue that. Ambulation was encouraged. We are waiting on bed availability at [facility] where patient will be transferred via ground ambulance once bed becomes available. SANDRA/MODL Voice ID: [id number] Report ID: [id number]
--- NOTE | 2023-07-09 02:16 | DS ---
Date of Discharge: 07/08/2023 Disposition: The patient was discharged to go to [facility] in [place] via ground ambulance. SANDRA/MODL Voice ID: [id number] Report ID: [id number]
== END 2023-07-08 14:10 | disposition short-term general hospital (02) | DRG 392 ==
LOC: ER 19:35 → ERHOLD 22:34 → 2ND 23:29
PROVIDERS: ADMIT Internal Medicine; ATTEND Internal Medicine
PROC: 02HV33Z Insertion of Infusion Device into Superior Vena Cava, Percutaneous Approach (ICD-10-PCS; principal; 2023-07-02)
DX: K57.20 Diverticulitis of large intestine with perforation and abscess without bleeding (principal); I48.20 Chronic atrial fibrillation, unspecified; E78.00 Pure hypercholesterolemia, unspecified; I10 Essential (primary) hypertension; D64.9 Anemia, unspecified; E87.6 Hypokalemia; M54.16 Radiculopathy, lumbar region; M19.09 Primary osteoarthritis, other specified site; J44.9 Chronic obstructive pulmonary disease, unspecified; G30.9 Alzheimer's disease, unspecified; F02.80 Dementia in other diseases classified elsewhere, unspecified severity, without behavioral disturbance, psychotic disturbance, mood disturbance, and anxiety; E66.9 Obesity, unspecified; R73.01 Impaired fasting glucose; Z68.39 Body mass index [BMI] 39.0-39.9, adult; Z86.73 Personal history of transient ischemic attack (TIA), and cerebral infarction without residual deficits; Z79.01 Long term (current) use of anticoagulants; Z79.899 Other long term (current) drug therapy; Z90.710 Acquired absence of both cervix and uterus; Z91.013 Allergy to seafood; Z79.890 Hormone replacement therapy
CPT/HCPCS: 36415; 36569; 71045; 74176; 74177; 80048; 80053; 80076; 81003; 83605; 83690; 83735; 84484; 85025; 85610; 87086; 87088; 93005; 96365; 96366; 96375; 97116; 97161; 97530; 99285; J0696; J1200; J1335; J1940; J2185; J2270; J2405; J2930; J7030; J7040; J7042; J7512; Q9967

== ENCOUNTER 2023-08-05 10:08 | Emergency (ER) | payer OTHER ==
[2023-08-05 12:19] LABS: Specific Gravity 1.008 (1.005-1.030); Transitional Epithelial <5 /HPF (None Seen); Urine Bacteria 20-50 /HPF (<20); Urine Bilirubin NEGATIVE (Negative); Urine Blood 3+ (Negative); Urine Clarity Extremely Turbid (Clear); Urine Color Colorless (Yellow); Urine Glucose NEGATIVE (Negative); Urine Mucus Slight /HPF (None Seen); Urine Protein 1+ (Negative); Urine Urobilinogen Normal (Normal)
--- NOTE | 2023-08-05 12:40 | ER ---
Nurse's Notes [facility] Name: Trisha Lovelace Age: 87 yrs Sex: Female : 1935 Arrival Date: 08/05/2023 Time: 10:08 Bed IW1 Private MD: Diagnosis: UTI/ Urinary tract infection, site not specified Presentation: 08/05 10:16 Chief complaint: Burning with urination x 2-3 days. Coronavirus screen: At this time, hb the client does not indicate any symptoms associated with coronavirus-19. Ebola Screen: No symptoms or risks identified at this time. Initial Sepsis Screen: Does the patient meet any 2 criteria? No. Patient's initial sepsis screen is negative. Does the patient have a suspected source of infection? No. Patient's initial sepsis screen is negative. Risk Assessment: Do you want to hurt yourself or someone else? Patient reports no desire to harm self or others. Onset of symptoms was August 04, 2023. 10:16 Method Of Arrival: Ambulatory hb 10:16 Acuity: JUAN 4 hb Historical: - Allergies: 10:18 shrimp; hb - PMHx: 10:18 High Cholesterol; Hypothyroidism; Hypertension; CVA; TIA; Alzheimers; hb - PSHx: 10:18 cataract; hysterectomy; Shoulder; TIA; Tonsillectomy; hb Assessment: 10:25 Reassessment: Pt provided urine specimen cup, unable to urinate at this time. hb 11:00 Reassessment: Pt unable to provide urine specimen at this time. PEÑA parikh hb 12:01 Reassessment: Urine specimen provided, sent to lab. PEÑA Polanco updated. hb Vital Signs: 10:16 BP 127 / 72; Pulse 88; Resp 18; Temp 97.5(TE); Pulse Ox 100% on R/A; Weight 91.63 kg; hb Height 5 ft. 2 in. ; Pain 0/10; 10:16 Body Mass Index 36.95 (91.63 kg, 157.48 cm) hb 10:16 Pain Scale: Adult hb ED Course: 10:10 Patient arrived in ED. mg5 10:13 Gracie Rutherford PA-C is PHCP. sb4 10:13 Charlotte Nolasco is Attending Physician. sb4 10:18 Triage completed. hb 10:19 Arm band placed on. hb Administered Medications: No medications were administered Outcome: 12:39 Discharge ordered by MD. vaughn 13:03 Patient left the ED. hb Addendum: 08/07/2023 12:28 Addendum: Culture Results: Positive urine culture. Phone call Attempt #1 VOICEMAIL h b [phone]. 08/08/2023 11:18 Addendum: Culture Results: Positive urine culture. Phone call Attempt #2 VOICEMAIL. h b 08/09/2023 13:46 Addendum: Culture Results: Positive urine culture. Phone call Attempt #3 Left voicemail.mateus l7 13:59 Addendum: Other Pt called back, HEB LJ 500 mg Cipro PO x 5 days. j l7 Signatures: Kaitlyn Luciano, RN RN Britt Courtney RN RN jl7 Gracie Rutherford, PA-C PAShailesh sb4 Anusha Stratton mg5
--- NOTE | 2023-08-05 12:40 | EDPHYS ---
Physician Documentation [facility] Name: Trisha Lovelace Age: 87 yrs Sex: Female : 1935 Arrival Date: 08/05/2023 Time: 10:08 Bed IW1 Private MD: ED Physician Charlotte Nolasco HPI: 08/05 10:29 This 87 yrs old Female presents to ER via Ambulatory with complaints of UTI symptoms. sb4 10:29 The patient presents with urinary symptoms, dysuria, frequency, urgency. Onset: The sb4 symptoms/episode began/occurred 3 day(s) ago. Associated signs and symptoms: Pertinent positives: dysuria, Pertinent negatives: fever, hematuria. Severity of symptoms: At their worst the symptoms were mild. The patient has not experienced similar symptoms in the past. Historical: - Allergies: 10:18 shrimp; hb - PMHx: 10:18 High Cholesterol; Hypothyroidism; Hypertension; CVA; TIA; Alzheimers; hb - PSHx: 10:18 cataract; hysterectomy; Shoulder; TIA; Tonsillectomy; hb ROS: 10:29 Positive for urinary frequency, burning with urination, sb4 10:29 Constitutional: Negative for fever, chills, and weight loss, Eyes: Negative for injury, pain, redness, and discharge, 10:29 All other systems are negative, Exam: 10:29 Constitutional: This is a well developed, well nourished patient who is awake, alert, sb4 and in no acute distress. Head/Face: Normocephalic, atraumatic. Eyes: Extra-ocular motions intact. Periorbital areas with no swelling, redness, or edema. ENT: Mucous membranes moist. Skin: Warm, dry with normal turgor. Normal color with no rashes, no lesions, and no evidence of cellulitis. MS/ Extremity: Pulses equal, no cyanosis. Neurovascular intact. Full, normal range of motion. Neuro: Awake and alert, GCS 15, oriented to person, place, time, and situation. Motor strength 5/5 in all extremities. Sensory grossly intact. Vital Signs: 10:16 BP 127 / 72; Pulse 88; Resp 18; Temp 97.5(TE); Pulse Ox 100% on R/A; Weight 91.63 kg; hb Height 5 ft. 2 in. ; Pain 0/10; 10:16 Body Mass Index 36.95 (91.63 kg, 157.48 cm) hb 10:16 Pain Scale: Adult hb MDM: 10:22 Patient medically screened. sb4 10:29 Differential diagnosis: urinary tract infection, vaginosis. sb4 12:38 Data reviewed: vital signs, nurses notes, lab test result(s), and as a result, I will sb4 discharge patient. Counseling: I had a detailed discussion with the patient and/or guardian regarding the historical points, exam findings, and any diagnostic results supporting the discharge/admit diagnosis, lab results, to return to the emergency department if symptoms worsen or persist or if there are any questions or concerns that arise at home. 08/05 10:23 Order name: UAM; Complete Time: 12:37 sb4 08/05 10:23 Order name: Urine Culture sb4 Administered Medications: No medications were administered Disposition Summary: 08/05/23 12:39 Discharge Ordered Notes: Location: Home sb4 Problem: new sb4 Symptoms: are unchanged sb4 Condition: Stable sb4 Diagnosis - UTI/ Urinary tract infection, site not specified sb4 Followup: sb4 - With: Emergency Department - When: As needed - Reason: Trouble breathing, Worsening of condition Discharge Instructions: - Discharge Summary Sheet sb4 - Urinary Tract Infection, Adult, [id number] sb4 Forms: - Medication Reconciliation Form sb4 - Thank You Letter sb4 - Antibiotic Education sb4 - Prescription Opioid Use sb4 - Patient Portal Instructions sb4 - Leadership Thank You Letter sb4 Prescriptions: - cefpodoxime 100 mg Oral Tablet - take 1 tablet ORAL route every 12 hours for 10 days take with food; 20 tablet; sb4 Refills: 0, Product Selection Permitted Addendum: 08/14/2023 09:16 I reviewed the patient's care provided by the Advanced Practice Provider and agree with khalida peterson the diagnosis and treatment plan. Signatures: Dispatcher [employer] Kaitlyn Colmenares RN RN Gracie Dwyer PA-C PA-C sb4 KristineunekCharlotte perez
[2023-08-05 13:07] VITALS: BP 127/72; TEMP 97.5; O2SAT 100
== END 2023-08-05 13:03 | disposition home or self-care (01) ==
LOC: ER 10:08
DX: N39.0 Urinary tract infection, site not specified (principal); I10 Essential (primary) hypertension; E03.9 Hypothyroidism, unspecified; E78.00 Pure hypercholesterolemia, unspecified; G30.9 Alzheimer's disease, unspecified; F02.80 Dementia in other diseases classified elsewhere, unspecified severity, without behavioral disturbance, psychotic disturbance, mood disturbance, and anxiety; Z91.013 Allergy to seafood; Z86.73 Personal history of transient ischemic attack (TIA), and cerebral infarction without residual deficits
CPT/HCPCS: 81001; 87077; 87086; 87088; 87186; 99281

== ENCOUNTER 2023-08-18 10:12 | Inpatient (IN) | payer OTHER ==
[2023-08-18] MEDS ORDERED: METHYLPREDNISOLONE 125 MG INJ ONE (11:04)
[2023-08-18] MEDS ORDERED: LEVALBUTEROL 1.25 MG/3 ML NEB ONE (11:04)
--- NOTE | 2023-08-18 11:26 | RAD REPORT ---
EXAM DESCRIPTION: Alexa Single View08/18/2023 11:03 am CLINICAL HISTORY: Cough COMPARISON: August 11, 2023 FINDINGS: Mild bilateral interstitial lung opacities unchanged. I suspect most if not all of this is chronic The heart is normal size. PICC line with its tip in the SVC
[2023-08-18 11:29] LABS: Absolute Lymphocytes (CBC) 2.7 K/uL (0.7-4.9); Hematocrit 37.4 % (36.0-45.0); MCV 91.7 fL (80-100); MPV 7.4 fL (7.6-11.3); Platelets 327 thou/uL (152-406); RBC Red Blood Cell Count 4.08 M/uL (3.86-4.86)
[2023-08-18 11:36] LABS: Protime INR 1.63
[2023-08-18 11:46] LABS: Albumin 2.7 g/dL (3.4-5.0); Bilirubin Total 0.3 mg/dL (0.2-1.0); Protein, Total 7.7 g/dL (6.4-8.2)
[2023-08-18] MEDS ORDERED: NA CHLORIDE 0.9% 500 ML ONE (12:13)
--- NOTE | 2023-08-18 13:25 | RAD REPORT ---
EXAM DESCRIPTION: CT - Thorax Wo Con - 08/18/2023 12:33 pm CLINICAL HISTORY: DYSPNEA COMPARISON: Chest For Pe Angio dated 10/09/2022; Thorax Wo Con dated 06/19/2022; Thorax Wo Con dated 02/28/2020; Thorax W/ Con dated 12/14/2015 TECHNIQUE: Axial thin cut images of the chest were obtained without IV contrast. Multiplanar reforma ts were generated and reviewed. All CT scans are performed using dose optimization technique as appropriate and may include automated exposure control or mA/KV adjustment according to patient size. FINDINGS: Right arm PICC in place. Progressive central predominant patchy ground-glass opacities. Somewhat progressive tiny centrilobula r nodules as well. Other bilateral larger nodules, largest measuring 12 mm in the posterior left lowe r lobe, and 6 mm in the right lower lobe are stable. No pleural thickening or pleural effusion. No pn eumothorax. No abnormal mediastinal or hilar masses or lymphadenopathy seen. Moderately advanced atherosclerotic calcific plaque along the aorta particularly at the arch. No significant aortic or pulmonary artery f indings. Assessment is limited in the absence of IV contrast. No chest wall mass or abnormal axillary lymphadenopathy. Evaluation of the solid abdominal structures reveals no suspicious findings. Syndesmophytes throughou t the thoracic spine, may relate to ankylosing spondylitis. IMPRESSION: Progressive pattern of patchy central predominant ground-glass opacities as well as tiny centrilobular nodules. Other more sizable bilateral pulmonary nodules are stable. The findings are n ot entirely specific but are suggestive of hypersensitivity pneumonitis versus interstitial lung dise ase, possibly associated with connective tissue disease, if patient satisfy criteria for a diagnosis of ankylosing spondylitis given the spine findings.
[2023-08-18] MEDS ORDERED: AZITHROMYCIN 500 MG INJ IVPB ONE (13:41)
[2023-08-18] MEDS ORDERED: CEFTRIAXONE 1000 MG/VIAL ONE (13:41)
[2023-08-18] MEDS ORDERED: NA CHLORIDE 0.9% 250 ML ONE (13:42)
--- NOTE | 2023-08-18 13:47 | ER ---
Nurse's Notes [facility] Name: Trisha Lovelace Age: 87 yrs Sex: Female : 1935 Arrival Date: 08/18/2023 Time: 10:12 Bed 20 Private MD: Diagnosis: Acute interstitial pneumonitis;COPD/ Chronic obstructive pulmonary disease with acute lower respiratory infection Presentation: 08/18 10:46 Chief complaint: Feeling shaky x 3 days and SOB since this morning. On Cefepime IV for hb UTI. Coronavirus screen: At this time, the client does not indicate any symptoms associated with coronavirus-19. Ebola Screen: No symptoms or risks identified at this time. Initial Sepsis Screen: Does the patient meet any 2 criteria? No. Patient's initial sepsis screen is negative. Does the patient have a suspected source of infection? No. Patient's initial sepsis screen is negative. Risk Assessment: Do you want to hurt yourself or someone else? Patient reports no desire to harm self or others. Onset of symptoms was August 16, 2023. 10:46 Method Of Arrival: Ambulatory 10:46 Acuity: JUAN 3 hb Triage Assessment: 10:49 General: Appears in no apparent distress. Behavior is calm, cooperative. Pain: Denies hb pain. Neuro: Level of Consciousness is awake, alert, obeys commands, Oriented to person, place, time, situation. Cardiovascular: Patient's skin is warm and dry. Respiratory: Reports shortness of breath Respiratory effort is mildly labored Respiratory pattern is regular, symmetrical. 17:12 Respiratory: Onset: The symptoms/episode began/occurred gradually, the patient has mild ap3 shortness of breath. Historical: - Allergies: 10:48 shrimp; hb - Home Meds: 10:50 albuterol sulfate 90 mcg/actuation Inhl HFA Aerosol Inhaler [Active]; Eliquis 5 mg Oral hb tablet 1 tab 2 times per day [Active]; amiodarone 200 mg Oral tablet 1 tab daily [Active]; folic acid 1 mg Oral tab 1 tab once daily [Active]; Lasix 40 mg Oral tablet 1 tab daily [Active]; levothyroxine 50 mcg tab 1 tab once daily [Active]; levothyroxine 75 mcg cap 1 cap once daily [Active]; memantine 28 mg Oral CSpX 1 cap once daily [Active]; metoprolol tartrate 100 mg Oral tablet 1 tab daily [Active]; potassium chloride 10 mEq Oral capsule 1 cap daily [Active]; - PMHx: 10:48 CVA; Hypothyroidism; TIA; High Cholesterol; Hypertension; Alzheimers; hb - PSHx: 10:48 cataract; hysterectomy; TIA; Shoulder; Tonsillectomy; hb - Immunization history:: Adult Immunizations up to date. - Social history:: Smoking status: Patient denies any tobacco usage or history of. - Family history:: not pertinent. - Hospitalizations: : The patient was recently seen at [facility]. Screenin:15 [facility] ED Fall Risk Assessment (Adult) History of falling in the last 3 months, kc6 including since admission No falls in past 3 months (0 pts) Confusion or Disorientation No (0 pts) Intoxicated or Sedated No (0 pts) Impaired Gait Yes (1 pt) Mobility Assist Device Used Yes (1 pt) Altered Elimination No (0 pt) Score/Fall Risk Level 0 - 2 = Low Risk. Abuse screen: Denies threats or abuse. Denies injuries from another. Nutritional screening: No deficits noted. Tuberculosis screening: No symptoms or risk factors identified. Assessment: 11:15 General: Appears in no apparent distress. comfortable, well groomed, well developed, kc6 Behavior is calm, cooperative, appropriate for age. Pain: Denies pain. Neuro: Level of Consciousness is awake, alert, obeys commands, Oriented to person, place, time, situation, Appropriate for age. Cardiovascular: Denies chest pain, Heart tones S1 S2 present Capillary refill < 3 seconds Rhythm is sinus rhythm. Respiratory: Reports shortness of breath at rest on exertion Airway is patent Trachea midline Respiratory effort is even, labored, pursed lip, Respiratory pattern is regular, symmetrical, Breath sounds are clear bilaterally. GI: No signs and/or symptoms were reported involving the gastrointestinal system. : No signs and/or symptoms were reported regarding the genitourinary system. EENT: No signs and/or symptoms were reported regarding the EENT system. Derm: No signs and/or symptoms reported regarding the dermatologic system. Skin is intact, is healthy with good turgor, Skin is pink, warm \T\ dry. Musculoskeletal: No signs and/or symptoms reported regarding the musculoskeletal system. Circulation, motion, and sensation intact. Capillary refill < 3 seconds, Range of motion: intact in all extremities. 12:15 Reassessment: Patient appears in no apparent distress at this time. No changes from kc6 previously documented assessment. Patient and/or family updated on plan of care and expected duration. Pain level reassessed. Patient is alert, oriented x 3, equal unlabored respirations, skin warm/dry/pink. 13:20 Reassessment: Patient appears in no apparent distress at this time. No changes from kc6 previously documented assessment. Patient and/or family updated on plan of care and expected duration. Pain level reassessed. Patient is alert, oriented x 3, equal unlabored respirations, skin warm/dry/pink. 14:20 Reassessment: Patient appears in no apparent distress at this time. No changes from kc6 previously documented assessment. Patient and/or family updated on plan of care and expected duration. Pain level reassessed. Patient is alert, oriented x 3, equal unlabored respirations, skin warm/dry/pink. 15:20 Reassessment: Patient appears in no apparent distress at this time. No changes from kc6 previously documented assessment. Patient and/or family updated on plan of care and expected duration. Pain level reassessed. Patient is alert, oriented x 3, equal unlabored respirations, skin warm/dry/pink. 16:20 Reassessment: attempted to call report to 4th floor. JOCELIN Royal states she will have the kc6 nurse call me back. Vital Signs: 10:46 BP 113 / 110; Pulse 94; Resp 18; Temp 97.7(O); Pulse Ox 99% ; Weight 91.63 kg; Height 5 hb ft. 2 in. ; Pain 0/10; 11:34 BP 125 / 73; Pulse 87; Resp 14 S; Pulse Ox 100% on R/A; kc6 13:20 BP 142 / 62; Pulse 92; Resp 17 S; Pulse Ox 100% on R/A; kc6 15:20 BP 138 / 69; Pulse 94; Resp 14 S; Pulse Ox 98% on R/A; kc6 10:46 Body Mass Index 36.95 (91.63 kg, 157.48 cm) hb 10:46 Pain Scale: Adult hb ED Course: 10:20 Patient arrived in ED. ts1 10:29 Kelvin Martinez MD is Attending Physician. rn 10:48 Triage completed. hb 10:49 Arm band placed on. hb 10:56 Lima Guzmán, RN is Primary Nurse. kc6 11:04 X-ray completed. Portable x-ray completed in exam room. Patient tolerated procedure mh1 well. 11:05 Chest Single View XRAY In Process Unspecified. EDMS 11:15 Patient has correct armband on for positive identification. Bed in low position. Call kc6 light in reach. Side rails up X2. Adult w/ patient. Client placed on continuous cardiac and pulse oximetry monitoring. NIBP monitoring applied. gambling monitor on. 11:15 Accessed PICC line. Blood collected. Clean \T\ dry. Dressing intact. Good blood return. kc6 Flushes easily. 11:15 Patient maintains SpO2 saturation greater than 95% on room air. kc6 12:34 CT Chest Wo Con In Process Unspecified. EDMS 13:46 Bruno Martinez MD is Hospitalizing Provider. rn 17:12 Provided Education on: admission . ap3 17:12 No provider procedures requiring assistance completed. Patient admitted, IV remains in ap3 place. Administered Medications: 11:31 Drug: MethylPrednisoLONE IVP 125 mg IVP once Route: IVP; Site: right upper arm; kc6 12:07 Follow up: Response: No adverse reaction kc6 11:31 Drug: Levalbuterol Inhalation 1.25 mg Inhalation once Route: Inhalation; kc6 12:07 Follow up: Response: No adverse reaction kc6 12:20 Drug: NS 0.9% IV 500 ml IV at bolus once Route: IV; Rate: bolus; Site: right upper arm; kc6 13:39 Follow up: Response: No adverse reaction; IV Status: Completed infusion; IV Intake: kc6 500ml 13:50 Drug: Rocephin IV 1 grams IV at calculated rate once; Given slow IV push per pharmacy kc6 instructions Route: IV; Rate: calculated rate; Site: right upper arm; 15:20 Follow up: Response: No adverse reaction; IV Status: Completed infusion; IV Intake: [id number] 13:50 Drug: Zithromax IVPB 500 mg IVPB once over 1 hrs; mix in 250 mL NS Route: IVPB; Infused kc6 Over: 1 hrs; Site: right upper arm; 15:20 Follow up: Response: No adverse reaction; IV Status: Completed infusion; IV Intake: kc6 250ml Medication: 17:13 VIS not applicable for this client. ap3 Intake: 13:39 IV: 500ml; Total: 500ml. kc6 15:20 IV: 10ml; Total: 510ml. kc6 15:20 IV: 250ml; Total: 760ml. kc6 Outcome: 13:46 Decision to Hospitalize by Provider. rn 17:12 Admitted to ap3 17:12 Condition: good 17:12 Instructed on the need for admit, 17:13 Patient left the ED. ap3 Signatures: Dispatcher [employer] EDMS Asha Parker 1 Kelvin Martinez MD MD rn Baxter, Heather, RN RN hb Prokisch, Amanda, RN RN ap3 Lima Guzmán RN RN [id number] Makenna Anderson PAS PAS ts1 Corrections: (The following items were deleted from the chart) 10:53 10:46 BP 113 / 110; Pulse 94bpm; Resp 18bpm; Pulse Ox 99%; Temp 97.7F Oral; Pain 0/10, hb Adult; hb
--- NOTE | 2023-08-18 13:47 | EDPHYS ---
Physician Documentation [facility] Name: Trisha Lovelace Age: 87 yrs Sex: Female : 1935 Arrival Date: 08/18/2023 Time: 10:12 Bed 20 Private MD: ED Physician Kelvin Martinez HPI: 08/18 11:04 This 87 yrs old Female presents to ER via Ambulatory with complaints of Shortness Of rn Breath. 11:04 The patient has shortness of breath at rest, with light activity. rn 11:04 Onset: The symptoms/episode began/occurred 3 day(s) ago. Duration: The symptoms are rn intermittent. The patient's shortness of breath is aggravated by light activity, is alleviated by rest. Associated signs and symptoms: Pertinent positives: non-productive cough, Pertinent negatives: chest pain, fever, hemoptysis. Severity of symptoms: At their worst the symptoms were mild in the emergency department the symptoms are unchanged. The patient has experienced similar episodes in the past. The patient has been recently seen by a physician:. Historical: - Allergies: 10:48 shrimp; hb - Home Meds: 10:50 albuterol sulfate 90 mcg/actuation Inhl HFA Aerosol Inhaler [Active]; Eliquis 5 mg Oral hb tablet 1 tab 2 times per day [Active]; amiodarone 200 mg Oral tablet 1 tab daily [Active]; folic acid 1 mg Oral tab 1 tab once daily [Active]; Lasix 40 mg Oral tablet 1 tab daily [Active]; levothyroxine 50 mcg tab 1 tab once daily [Active]; levothyroxine 75 mcg cap 1 cap once daily [Active]; memantine 28 mg Oral CSpX 1 cap once daily [Active]; metoprolol tartrate 100 mg Oral tablet 1 tab daily [Active]; potassium chloride 10 mEq Oral capsule 1 cap daily [Active]; - PMHx: 10:48 CVA; Hypothyroidism; TIA; High Cholesterol; Hypertension; Alzheimers; hb - PSHx: 10:48 cataract; hysterectomy; TIA; Shoulder; Tonsillectomy; hb - Immunization history:: Adult Immunizations up to date. - Social history:: Smoking status: Patient denies any tobacco usage or history of. - Family history:: not pertinent. - Hospitalizations: : The patient was recently seen at [facility]. ROS: 11:04 Constitutional: Negative for fever, chills, and weight loss, Eyes: Negative for injury, rn pain, redness, and discharge, Neck: Negative for injury, pain, and swelling, Cardiovascular: Negative for chest pain, palpitations, and edema, Respiratory: Negative for wheezing, and pleuritic chest pain, Abdomen/GI: Negative for abdominal pain, nausea, vomiting, diarrhea, and constipation, Back: Negative for injury and pain, MS/Extremity: Negative for injury and deformity, Skin: Negative for injury, rash, and discoloration, Neuro: Negative for headache, numbness, tingling, and seizure, Exam: 11:04 Constitutional: This is a well developed, well nourished patient who is awake, alert, rn and in no acute distress. Head/Face: Normocephalic, atraumatic. ENT: No stridor Cardiovascular: Regular rate and rhythm with a normal S1 and S2. No gallops, murmurs, or rubs. Normal PMI, no JVD. No pulse deficits. Respiratory: Diminished breath sounds left lung base, faint wheezing noted, no retractions Skin: Warm, dry MS/ Extremity: Pulses equal, no cyanosis. Neuro: Awake and alert, GCS 15. Occasional tremor that comes and goes, coarse, worse with intention. Vital Signs: 10:46 BP 113 / 110; Pulse 94; Resp 18; Temp 97.7(O); Pulse Ox 99% ; Weight 91.63 kg; Height 5 hb ft. 2 in. ; Pain 0/10; 11:34 BP 125 / 73; Pulse 87; Resp 14 S; Pulse Ox 100% on R/A; kc6 13:20 BP 142 / 62; Pulse 92; Resp 17 S; Pulse Ox 100% on R/A; kc6 15:20 BP 138 / 69; Pulse 94; Resp 14 S; Pulse Ox 98% on R/A; kc6 10:46 Body Mass Index 36.95 (91.63 kg, 157.48 cm) hb 10:46 Pain Scale: Adult hb MDM: 10:29 Patient medically screened. rn 13:44 Differential diagnosis: Anxiety Reaction Bronchitis Chronic Obstructive Pulmonary rn Disease Myocardial Infarction pneumonia, Pneumothorax pulmonary edema. Data reviewed: vital signs, nurses notes, lab test result(s), EKG, radiologic studies, CT scan, plain films, and as a result, I will admit patient. Consideration of Admission/Observation Patient was admitted/placed on observation. Escalation of care including admission/observation considered. Independent interpretation of the following test(s) in the Emergency Department X-Ray: My interpretation is Chest x-ray images show interstitial infiltrate per my interpretation. Care significantly affected by the following chronic conditions: Hypertension, Chronic Obstructive Pulmonary Disease. Counseling: I had a detailed discussion with the patient and/or guardian regarding the historical points, exam findings, and any diagnostic results supporting the discharge/admit diagnosis, lab results, radiology results, the need for further work-up and treatment in the hospital. Response to treatment: the patient's symptoms have mildly improved after treatment, and as a result, I will admit patient. 08/18 10:56 Order name: Blood Culture Adult (2) rn 08/18 10:56 Order name: CBC with Diff; Complete Time: 12:02 rn 08/18 10:56 Order name: CMP; Complete Time: 12:02 rn 08/18 10:56 Order name: Lactate w/ 2H reflex if indic.; Complete Time: 12:02 rn 08/18 10:56 Order name: Protime (+inr); Complete Time: 12:02 rn 08/18 10:56 Order name: Ptt, Activated; Complete Time: 12:02 rn 08/18 15:14 Order name: NT PRO-BNP EDHI 08/18 15:14 Order name: T4 Free EDHI 08/18 15:14 Order name: Thyroid Stimulating Hormone EDHI 08/18 15:14 Order name: Basic Metabolic Panel EDMS 08/18 15:14 Order name: Basic Metabolic Panel EDMS 08/18 15:14 Order name: Basic Metabolic Panel EDMS 08/18 15:14 Order name: Basic Metabolic Panel EDMS 08/18 15:14 Order name: Basic Metabolic Panel EDMS 08/18 15:14 Order name: Basic Metabolic Panel EDMS 08/18 15:14 Order name: Basic Metabolic Panel EDMS 08/18 15:14 Order name: Basic Metabolic Panel EDMS 08/18 15:14 Order name: CBC with Automated Diff EDMS 08/18 15:14 Order name: CBC with Automated Diff EDMS 08/18 15:14 Order name: CBC with Automated Diff EDMS 08/18 15:14 Order name: CBC with Automated Diff EDMS 08/18 15:14 Order name: CBC with Automated Diff EDMS 08/18 15:14 Order name: CBC with Automated Diff EDMS 08/18 15:14 Order name: CBC with Automated Diff EDMS 08/18 15:14 Order name: CBC with Automated Diff EDMS 08/18 15:14 Order name: Magnesium EDMS 08/18 15:14 Order name: Magnesium EDMS 08/18 15:14 Order name: Magnesium EDMS 08/18 15:14 Order name: Magnesium EDMS 08/18 15:14 Order name: Magnesium EDMS 08/18 15:14 Order name: Magnesium EDMS 08/18 15:14 Order name: Magnesium EDMS 08/18 15:14 Order name: Magnesium EDMS 08/18 15:14 Order name: Phosphorus EDMS 08/18 15:14 Order name: Phosphorus EDMS 08/18 15:14 Order name: Phosphorus EDMS 08/18 15:14 Order name: Phosphorus EDMS 08/18 15:14 Order name: Phosphorus EDMS 08/18 15:14 Order name: Phosphorus EDMS 08/18 15:14 Order name: Phosphorus EDMS 08/18 15:14 Order name: Phosphorus EDMS 08/18 15:25 Order name: Urinalysis w/ reflexes EDMS 08/18 10:56 Order name: Chest Single View XRAY; Complete Time: 11:27 rn 08/18 12:05 Order name: CT Chest Wo Con; Complete Time: 13:32 rn 08/18 10:56 Order name: EKG; Complete Time: 10:56 rn 08/18 15:14 Order name: Physical Therapy Consult EDMS 08/18 10:56 Order name: Accucheck; Complete Time: 11:21 rn 08/18 10:56 Order name: Cardiac monitoring; Complete Time: 11:21 rn 08/18 10:56 Order name: EKG - Nurse/Tech; Complete Time: 11:21 rn 08/18 10:56 Order name: IV Saline Lock - Large Bore; Complete Time: 11:21 rn 08/18 10:56 Order name: Labs collected and sent; Complete Time: 11:31 rn 08/18 10:56 Order name: O2 Per Protocol; Complete Time: 11:21 rn 08/18 10:56 Order name: O2 Sat Monitoring; Complete Time: 11: rn 08/18 10:56 Order name: Vital Signs; Complete Time: 11:21 rn Administered Medications: 11:31 Drug: MethylPrednisoLONE IVP 125 mg IVP once Route: IVP; Site: right upper arm; kc6 12:07 Follow up: Response: No adverse reaction kc6 11:31 Drug: Levalbuterol Inhalation 1.25 mg Inhalation once Route: Inhalation; kc6 12:07 Follow up: Response: No adverse reaction kc6 12:20 Drug: NS 0.9% IV 500 ml IV at bolus once Route: IV; Rate: bolus; Site: right upper arm; kc6 13:39 Follow up: Response: No adverse reaction; IV Status: Completed infusion; IV Intake: kc6 500ml 13:50 Drug: Rocephin IV 1 grams IV at calculated rate once; Given slow IV push per pharmacy kc6 instructions Route: IV; Rate: calculated rate; Site: right upper arm; 15:20 Follow up: Response: No adverse reaction; IV Status: Completed infusion; IV Intake: [id number] 13:50 Drug: Zithromax IVPB 500 mg IVPB once over 1 hrs; mix in 250 mL NS Route: IVPB; Infused kc6 Over: 1 hrs; Site: right upper arm; 15:20 Follow up: Response: No adverse reaction; IV Status: Completed infusion; IV Intake: kc6 250ml Disposition Summary: 08/18/23 13:46 Hospitalization Ordered Notes: Hospitalization Status: Observation rn Provider: Bruno Martinez [facility]n [facility] rn Condition: Stable rn Problem: new rn Symptoms: are unchanged rn Bed/Room Type: Standard rn Room Assignment: 406(08/18/23 16:12) sp Diagnosis - Acute interstitial pneumonitis rn - COPD/ Chronic obstructive pulmonary disease with acute lower respiratory infection rn Forms: - Medication Reconciliation Form rn - SBAR form rn - Leadership Thank You Letter rn Signatures: Dispatcher [employer] [place] Russ Roman, MD MD rn Baxter, Heather, RN RN hb Campbell, Kaitlyn, RN RN kc6 Corrections: (The following items were deleted from the chart) 16:12 13:46 rn sp
[2023-08-18] MEDS ORDERED: ALBUTEROL 2.5 MG/3 ML NEB SOL NEB PRN (15:06)
[2023-08-18] MEDS: INSULIN REGULAR (HUMAN) 100 UNIT/ML SQ SCH ×2 (16:30→20:44)
[2023-08-18] MEDS: HEPARIN 5000 UNIT/ML 1 ML VIAL SQ SCH (17:00)
--- NOTE | 2023-08-18 17:01 | P.HP ---
Certification for Inpatient Patient admitted to: Observation With expected LOS: <2 Midnights Patient will require the following post-hospital care: None Practitioner: I am a practitioner with admitting privileges, knowledge of patient current condition, hospital course, and medical plan of care. Services: Services provided to patient in accordance with Admission requirements found in Title 42 Section 412.3 of the Code of Federal Regulations Patient History Date of Service: 08/19/23 Reason for admission: Shortness of breath History of Present Illness: Trsiha Lovelace is an 87-year-old female with past medical history of hypertension, hyperlipidemia, hypothyroidism, CVA (5 years ago), paroxysmal Afib, COPD, celiac disease, chronic anticoagulation who presents to the ED with complaints of shortness of breath at rest and with light activity. Onset of symptoms are 3 days ago and associated with nonproductive cough. Trisha is a patient of Dr. Juarez who sent her to the ED with concerns of shortness of breath. PICC line was placed at prior admission for treatment of Pseudomonas found in the urinalysis. The plan was to complete 10 days of cefepime. Pseudomonas was sensitive to Cipro but Cipro interacted with one of her drugs and cefepime was chosen to treat the Pseudomonas. Trisha reports not feeling well once she started the home IV cefepime. Chest x-ray shows PICC line is in appropriate placement. Trisha complains of right-sided neck pain, on evaluation her muscle is tight. Will evaluate further with ultrasound of the right upper extremity to rule out DVT. Initial vitals BP 113 / 110; Pulse 94; Resp 18; Temp 97.7(O); Pulse Ox 99% on RA. Laboratory evaluation WBC slightly elevated at 13, H&H 12.4/37, sodium 138, potassium 4.0, BUN/creatinine 55/1.53, GFR 33, lactic acid 2.4. Chest x-ray reports "Mild bilateral interstitial lung opacities unchanged. I suspect most if not all of this is chronic. The heart is normal size. PICC line with its tip in the SVC." CT chest without contrast reports "Progressive pattern of patchy central predominant ground-glass opacities as well as tiny centrilobular nodules. Other more sizable bilateral pulmonary nodules are stable. The findings are not entirely specific but are suggestive of hypersensitivity pneumonitis versus interstitial lung disease, possibly associated with connective tissue disease, if patient satisfy criteria for a diagnosis of ankylosing spondylitis given the spine findings." Trisha will be admitted to hospitalist service for further evaluation and treatment of shortness of breath. Allergies shrimp Adverse Reaction (Verified 08/10/23 20:25) Nausea/Vomiting Home Medications: Amiodarone HCl [Cordarone*] 200 mg PO DAILY 08/10/23 Apixaban [Eliquis] 5 mg PO BID 08/10/23 Furosemide [Lasix*] 60 mg PO BID 08/10/23 Levothyroxine Sodium [Synthroid] 75 mcg PO DAILY 08/10/23 Memantine HCl [Namenda Xr] 28 mg PO BEDTIME 08/10/23 Metoprolol Tartrate [Lopressor*] 25 mg PO BID 08/10/23 Potassium Chloride 10 meq PO TID 08/10/23 Rosuvastatin [Crestor*] 5 mg PO Q7D 08/10/23 Ascorbic Acid [Vitamin C*] 2 tab PO DAILY 08/18/23 Cholecalciferol (Vitamin D3) [Vitamin D 5,000 IU Cap*] 1 tab PO BID 08/18/23 Cranberry Fruit [Cranberry] 450 mg PO BID 08/18/23 Magnesium Oxide [Magnesium] 1 tab PO BID 08/18/23 Mecobalamin [B12 Active] 2,500 mg PO BID 08/18/23 Vit A/Vit C/Vit E/Zinc/Copper [Preservision Areds Softgel] 1 tab PO BID 08/18/23 Gabapentin [Neurontin*] 100 mg PO BID 08/19/23 - Past Medical/Surgical History Diabetic: No -: Dementia -: HTN -: HLD -: Hypothyroidism -: TIA -: cva -: EARLY ALZHEIMERS -: TIA -: Afib -: TOTAL HYSTERECTOMY -: BILATERAL CATARACT REMOVAL -: RIGHT SHOULDER ROTATOR CUFF REPAIR -: TONSILECTOMY - Family History Mother -: Heart disease Father -: Stroke Notes: Father had history of stroke when she was young. - Social History Alcohol use: No CD- Drugs: No Caffeine use: No Review of Systems General: Unremarkable Eyes: Unremarkable ENT: Unremarkable Respiratory: Shortness of Breath Cardiovascular: Unremarkable Gastrointestinal: Unremarkable Genitourinary: Unremarkable Musculoskeletal: Other (neck pain) Neurological: Other (tremors) Lymphatics: Unremarkable Physical Examination - Physical Exam General: Alert, In no apparent distress, Oriented x3 HEENT: Atraumatic, Normocephalic, PERRLA Neck: Supple, 2+ carotid pulse no bruit, JVD not distended Respiratory: Clear to auscultation bilaterally, Normal air movement Cardiovascular: No edema, Normal pulses, Regular rate/rhythm, Normal S1 S2 Capillary refill: <2 Seconds Gastrointestinal: Normal bowel sounds, Soft and benign Musculoskeletal: No clubbing, No swelling Integumentary: No rashes, No breakdown, No significant lesion Neurological: Normal speech, Normal strength at 5/5 x4 extr, Normal tone - Studies Laboratory Data (last 24 hrs) 08/18/23 08/18/23 08/18/23 11:17 11:17 11:17 WBC 13.60 H Hgb 12.4 Hct 37.4 Plt Count 327 PT 17.7 H INR 1.63 APTT 35.3 Sodium 138 Potassium 4.0 BUN 55 H Creatinine 1.53 H Glucose 122 H Total Bilirubin 0.3 AST 24 ALT 24 Alkaline Phosphatase 79 Assessment and Plan - Plan Assessment and plan Shortness of breath likely due to COPD versus pneumonitis versus progressive interstitial disease in a patient with pulmonary fibrosis Lactic acidosis Leukocytosis -CT chest without contrast reports "Progressive pattern of patchy central predominant ground-glass opacities as well as tiny centrilobular nodules. Other more sizable bilateral pulmonary nodules are stable. The findings are not entirely specific but are suggestive of hypersensitivity pneumonitis versus interstitial lung disease, possibly associated with connective tissue disease, if patient satisfy criteria for a diagnosis of ankylosing spondylitis given the spine findings." -Chest x-ray reports "Mild bilateral interstitial lung opacities unchanged. I suspect most if not all of this is chronic. The heart is normal size. PICC line with its tip in the SVC." -On room air sating 96% -Procalcitonin pending -US bilateral upper extremities pending, r/o DVT -Lactic acid 2.4 -WBC 13 -Rocephin and Azithromycin given in ED -continue Empiric Rocephin Paroxsymal Atrial fibrillation Restart home medications ANNA vs CKD BUN/creatinine 55/1.53, GFR 33 Consult nephrology History of UTI Urinalysis pending completed cefepime therapy Right sided Neck pain lidocaine patch DVT PPx continue home Eliquis DNR LOS 24 hours Discharge Plan: Home Plan to discharge in: 24 Hours - Advance Directives Does patient have a Living Will: No Does patient have a Durable POA for Healthcare: No Time Spent Managing Pts Care (In Minutes): 55
[2023-08-18 17:19] VITALS: BMI 39.1
[2023-08-18 18:52] VITALS: O2SAT 98
[2023-08-18] MEDS ORDERED: METOPROLOL TARTRATE 5 MG/5 ML INJ IV PRN (20:13)
[2023-08-18] MEDS ORDERED: LEVALBUTEROL 0.63 MG/3 ML NEB NEB PRN (20:21)
--- NOTE | 2023-08-18 20:31 | RAD REPORT ---
EXAM DESCRIPTION: US - UPPER EXTREMITY VENOUS UNILATE - 08/18/2023 8:09 pm CLINICAL HISTORY: Decline, R/O DVT COMPARISON: None. TECHNIQUE: Real-time sonographic evaluation of the right upper extremity deep venous system was perf ormed. FINDINGS: Normal compressibility, flow augmentation, phasic flow and spontaneous flow is identified in the right upper extremity deep venous system. Flow along the visualized veins containing the PICC line. No intraluminal filling defects seen. IMPRESSION: No evidence of DVT in the right upper extremity.
--- NOTE | 2023-08-18 20:33 | RAD REPORT ---
EXAM DESCRIPTION: US - Upper Ext Artery Uni Michael - 08/18/2023 8:09 pm CLINICAL HISTORY: pain COMPARISON: UPPER EXTREMITY VENOUS UNILATE dated 08/18/2023; Thorax Wo Con dated 08/18/2023 TECHNIQUE: Right upper extremity arterial Doppler examination was performed with waveform tracing. FINDINGS: Triphasic flow along the subclavian Biphasic waveforms are seen throughout the remainder of the right upper extremity arterial system to the level of the radial and ulnar arteries. IMPRESSION: Right upper extremity mild peripheral vascular disease.
[2023-08-18] MEDS ORDERED: LIDOCAINE 4% PATCH TOP ONE (21:00)
[2023-08-19] MEDS: HEPARIN 5000 UNIT/ML 1 ML VIAL SQ SCH (00:27)
[2023-08-19] MEDS: INSULIN REGULAR (HUMAN) 100 UNIT/ML SQ SCH ×4 (07:30→21:00)
[2023-08-19 08:41] LABS: Absolute Lymphocytes (CBC) 2.3 K/uL (0.7-4.9); Hematocrit 34.4 % (36.0-45.0); MCV 91.4 fL (80-100); MPV 7.3 fL (7.6-11.3); Platelets 346 thou/uL (152-406); RBC Red Blood Cell Count 3.76 M/uL (3.86-4.86)
[2023-08-19 09:01] LABS: Magnesium 2.3 mg/dL (1.6-2.4); Phosphorus 2.8 mg/dL (2.5-4.9); Potassium 4.1 mEq/L (3.5-5.1); Thyroid Stimulating Hormone 0.985 uIU/mL (0.358-3.740)
[2023-08-19] MEDS: MAGNESIUM OXIDE 400 MG TAB PO SCH (10:00)
[2023-08-19] MEDS: CYANOCOBALAMIN 1,000 MCG TAB PO SCH ×2 (10:36→21:24)
[2023-08-19] MEDS: ASCORBIC ACID 500 MG TABLET PO SCH (10:36)
[2023-08-19] MEDS: AMIODARONE HCL 200 MG TAB PO SCH (10:36)
[2023-08-19] MEDS: METOPROLOL TAR 25 MG TAB PO SCH ×2 (10:36→21:00)
[2023-08-19] MEDS: VITAMIN D 5,000 UNIT CAP PO SCH ×2 (10:36→21:23)
[2023-08-19] MEDS: POTASSIUM CL SA 10 MEQ TAB PO SCH ×3 (10:36→21:24)
[2023-08-19] MEDS: LIDOCAINE 4% PATCH TOP SCH (10:37)
[2023-08-19] MEDS: MEMANTINE HCL 10 MG TABLET PO SCH ×2 (10:37→21:24)
[2023-08-19] MEDS: APIXABAN 5 MG TABLET PO SCH ×2 (10:37→21:23)
[2023-08-19] MEDS: CEFTRIAXONE 1,000 MG in NA CHLORIDE 0.9% 50 ML IVPB SCH (10:37)
[2023-08-19] MEDS: FUROSEMIDE 40 MG TABLET PO SCH ×2 (10:37→21:23)
[2023-08-19] MEDS: LEVOTHYROXINE SOD 0.075 MG TAB PO SCH (10:37)
[2023-08-19] MEDS ORDERED: NA CHLORIDE 0.9% 1,000 ML IV SCH (13:00)
--- NOTE | 2023-08-19 14:21 | P.PN ---
Date of Service: 08/19/23 Subjective: Awake and feeling much better this morning. Elevated lactic acid to 3.3 with WBC 19.3, blood cultures resulting with Gram positive cocci in clusters ROS: 10 point ROS as noted above, otherwise negative Physical Exam General: Alert, In no apparent distress, Oriented x3 HEENT: Atraumatic, Normocephalic, PERRLA Neck: Supple, 2+ carotid pulse no bruit, JVD not distended Respiratory: Clear to auscultation bilaterally, Normal air movement Cardiovascular: No edema, Normal pulses, Regular rate/rhythm, Normal S1 S2 Capillary refill: <2 Seconds Gastrointestinal: Normal bowel sounds, Soft and benign Musculoskeletal: No clubbing, No swelling Integumentary: No rashes, No breakdown, No significant lesion Vitals reviewed Diagnosis Shortness of breath likely due to COPD versus pneumonitis versus progressive interstitial disease in a patient with pulmonary fibrosis Lactic acidosis Leukocytosis ANNA vs CKD Right sided Neck pain - Plan Shortness of breath likely due to COPD versus pneumonitis versus progressive interstitial disease in a patient with pulmonary fibrosis Lactic acidosis Leukocytosis -CT chest without contrast reports "Progressive pattern of patchy central predominant ground-glass opacities as well as tiny centrilobular nodules. Other more sizable bilateral pulmonary nodules are stable. The findings are not entirely specific but are suggestive of hypersensitivity pneumonitis versus interstitial lung disease, possibly associated with connective tissue disease, if patient satisfy criteria for a diagnosis of ankylosing spondylitis given the spine findings." -Chest x-ray reports "Mild bilateral interstitial lung opacities unchanged. I suspect most if not all of this is chronic. The heart is normal size. PICC line with its tip in the SVC." -On room air sating 96% -Procalcitonin 0.15 -US bilateral upper extremities pending, r/o DVT -Lactic acid 2.4/ 2.8/ 3.3 -WBC 13 now 19.3 -Rocephin and Azithromycin given in ED -continue Empiric Rocephin changed to vancomycin -blood cultures resulting with Gram positive cocci in clusters Paroxsymal Atrial fibrillation Restart home medications ANNA vs CKD BUN/creatinine 48/1.35, GFR 39 Consult nephrology History of UTI Urinalysis pending Completed cefepime therapy Right sided Neck pain lidocaine patch DVT PPx continue home Eliquis DNR LOS 24 hours Time Spent Managing Pts Care (In Minutes): 35 <Keith,Ese - Last Filed: 08/19/23 17:29> Patient reports feeling better afebrile ROS negative except for mild dyspnea on exertion no new/worsening symptoms leukocytosis worse today, suspect secondary to steroid given in ED lactic acidosis pt without any symptoms of infection no clear source UA ordered, but no results - recent UTI, s/p 1 week of IV antibiotics asymptomatic for several days, if UA negative; no longer needs cefepime (completed 7--8 days, and can pull PICC) CT chest with b/l lower lobe opacities / GGOs possibly secondary to inhaled steroids / medications / hypoxia clinically / on exam does not appear toxic / septic prelim blood cultures - aerobic bottle with GPC in clusters; suspect contaminant, but follow cultures <Bruno Martinez - Last Filed: 08/19/23 20:30>
[2023-08-19 15:22] LABS: Specific Gravity 1.019 (1.005-1.030); Urine Bacteria <20 /HPF (<20); Urine Bilirubin NEGATIVE (Negative); Urine Blood 2+ (Negative); Urine Clarity Extremely Turbid (Clear); Urine Color Light-Orange (Yellow); Urine Glucose NEGATIVE (Negative); Urine Mucus Slight /HPF (None Seen); Urine Protein 1+ (Negative); Urine RBC <5 /HPF (None Seen); Urine Urobilinogen Normal (Normal); Urine pH 5.5 (5.0-7.0)
[2023-08-19] MEDS ORDERED: VANCOMYCIN 1.75 GM in NA CHLORIDE 0.9% 500 ML IVPB SCH (18:00)
[2023-08-19] MEDS ORDERED: VANCOMYCIN 1 GM in NA CHLORIDE 0.9% 250 ML IVPB SCH (18:00)
[2023-08-19] MEDS: GABAPENTIN 100 MG CAP PO SCH (21:24)
[2023-08-20 06:25] LABS: Hematocrit 35.7 % (36.0-45.0); Lymphocytes % 23.9 % (15.3-44.8); MCV 92.2 fL (80-100); MPV 7.3 fL (7.6-11.3); Platelets 359 thou/uL (152-406); RBC Red Blood Cell Count 3.87 M/uL (3.86-4.86)
[2023-08-20 06:33] LABS: Magnesium 2.1 mg/dL (1.6-2.4); Phosphorus 2.7 mg/dL (2.5-4.9); Potassium 3.7 mEq/L (3.5-5.1)
[2023-08-20] MEDS: INSULIN REGULAR (HUMAN) 100 UNIT/ML SQ SCH ×4 (07:30→21:00)
[2023-08-20] MEDS: MAGNESIUM OXIDE 400 MG TAB PO SCH (09:00)
[2023-08-20] MEDS ORDERED: ROSUVASTATIN 5 MG TAB PO SCH (09:00)
[2023-08-20] MEDS: AMIODARONE HCL 200 MG TAB PO SCH (09:18)
[2023-08-20] MEDS: APIXABAN 5 MG TABLET PO SCH ×2 (09:18→22:17)
[2023-08-20] MEDS: METOPROLOL TAR 25 MG TAB PO SCH ×2 (09:18→22:19)
[2023-08-20] MEDS: POTASSIUM CL SA 10 MEQ TAB PO SCH ×3 (09:18→22:18)
[2023-08-20] MEDS: GABAPENTIN 100 MG CAP PO SCH ×2 (09:18→22:19)
[2023-08-20] MEDS: VITAMIN D 5,000 UNIT CAP PO SCH ×2 (09:18→22:18)
[2023-08-20] MEDS: ASCORBIC ACID 500 MG TABLET PO SCH (09:19)
[2023-08-20] MEDS: CYANOCOBALAMIN 1,000 MCG TAB PO SCH ×2 (09:19→22:18)
[2023-08-20] MEDS: FUROSEMIDE 40 MG TABLET PO SCH ×2 (09:20→22:15)
[2023-08-20] MEDS: LEVOTHYROXINE SOD 0.075 MG TAB PO SCH (09:21)
[2023-08-20] MEDS: LIDOCAINE 4% PATCH TOP SCH (09:22)
[2023-08-20] MEDS: CEFTRIAXONE 1,000 MG in NA CHLORIDE 0.9% 50 ML IVPB SCH (09:22)
--- NOTE | 2023-08-20 10:04 | P.PN ---
Date of Service: 08/20/23 Subjective: She is AAOx3, aware of the blood culture finding and the need for continued antibiotics. Hemodyncamically stable, no complaints ROS: 10 point ROS as noted above, otherwise negative Physical Exam General: Alert, In no apparent distress, Oriented x3 HEENT: Atraumatic, Normocephalic, PERRLA Neck: Supple, 2+ carotid pulse no bruit, JVD not distended Respiratory: Clear to auscultation bilaterally, Normal air movement Cardiovascular: No edema, Normal pulses, Regular rate/rhythm, Normal S1 S2 Capillary refill: <2 Seconds Gastrointestinal: Normal bowel sounds, Soft and benign Musculoskeletal: No clubbing, No swelling Integumentary: No rashes, No breakdown, No significant lesion Vitals reviewed Diagnosis Shortness of breath likely due to COPD versus pneumonitis versus progressive interstitial disease in a patient with pulmonary fibrosis Lactic acidosis Leukocytosis ANNA vs CKD Right sided Neck pain - Plan Shortness of breath likely due to COPD versus pneumonitis versus progressive interstitial disease in a patient with pulmonary fibrosis Lactic acidosis Leukocytosis -CT chest without contrast reports "Progressive pattern of patchy central predominant ground-glass opacities as well as tiny centrilobular nodules. Other more sizable bilateral pulmonary nodules are stable. The findings are not entirely specific but are suggestive of hypersensitivity pneumonitis versus interstitial lung disease, possibly associated with connective tissue disease, if patient satisfy criteria for a diagnosis of ankylosing spondylitis given the spine findings." -Chest x-ray reports "Mild bilateral interstitial lung opacities unchanged. I suspect most if not all of this is chronic. The heart is normal size. PICC line with its tip in the SVC." -On room air sating 96% -Procalcitonin 0.15 -US bilateral upper extremities pending, r/o DVT -Lactic acid 2.4/ 2.8/ 3.3/2.5 -WBC 13 now 16.6 -Rocephin and Azithromycin given in ED -continue Empiric Rocephin changed to vancomycin -blood cultures resulting with Gram positive cocci in clusters Paroxsymal Atrial fibrillation Restart home medications ANNA vs CKD BUN/creatinine 53/1.5, GFR 34 Consult nephrology History of UTI Urinalysis reports blood 2+ and extremely turbid in color Completed cefepime therapy outpatient Right sided Neck pain lidocaine patch DVT PPx continue home Eliquis DNR LOS 24 hours Time Spent Managing Pts Care (In Minutes): 35
[2023-08-20] MEDS ORDERED: NA CHLORIDE 0.9% 1,000 ML IV SCH (11:00)
[2023-08-20] MEDS ORDERED: POTASSIUM 25 MEQ EFFERV TAB PO ONE (11:45)
[2023-08-20] MEDS ORDERED: CEFEPIME 1 GM in NA CHLORIDE 0.9% 100 ML IV SCH ×2 (12:52→21:00)
[2023-08-20 13:17] LABS: Specific Gravity 1.007 (1.005-1.030); Urine Bacteria None Seen /HPF (<20); Urine Bilirubin NEGATIVE (Negative); Urine Blood 1+ (Negative); Urine Clarity Clear (Clear); Urine Color Colorless (Yellow); Urine Glucose NEGATIVE (Negative); Urine Protein NEGATIVE (Negative); Urine Urobilinogen Normal (Normal); Urine pH 6.5 (5.0-7.0)
[2023-08-20] MEDS: Meropenem 1,000 MG in NA CHLORIDE 0.9% 100 ML IV SCH ×2 (14:44→22:03)
--- NOTE | 2023-08-20 17:06 | RAD REPORT ---
EXAM DESCRIPTION: CT - Abdomen Pelvis Wo Contrast - 08/20/2023 3:52 pm CLINICAL HISTORY: r/o bladder fistula COMPARISON: Abdomen Pelvis Wo Contrast dated 08/11/2023; Abdomen Pelvis Wo Contrast dated 023; Abdomen Pelvis W Contrast dated 06/29/2023; Abdomen Pelvis W Contrast dated 06/24/2023; Thora x Wo Con dated 08/18/2023 TECHNIQUE: Thin cut axial CT imaging of the abdomen and pelvis was performed without IV contrast. Mu ltiplanar reformats were generated and reviewed. All CT scans are performed using dose optimization technique as appropriate and may include automated exposure control or mA/KV adjustment according to patient size. FINDINGS: Stable small bilateral pleural effusions and nodules as well as geographic ground-glass op acities in the lower lungs. The liver, spleen, adrenal glands, and pancreas show no suspicious findings. Gallbladder and biliary tree are also without suspicious finding. Symmetric renal contour, without suspicious parenchymal findings within limits of noncontrast techniq ue. Stable benign-appearing bilateral cortical lesions. No evidence of radiopaque calculi or hydroure teronephrosis. No dilated bowel loops. Re- demonstration of contained collection versus outpouching arising from the lateral wall of the proximal sigmoid colon, measuring 3.2 cm in greatest axial dimension, previously measured 2.7 cm. A small tract extends along the left pelvic sidewall caudally from this region, con taining a locule of gas, see axial image 72/95, extending towards the anterior aspect of the bladder dome. This does not clearly communicate with the bladder. No free air, free fluid or new inflammatory stranding. No hernia, mass or bulky lymphadenopathy. The urinary bladder is without significant find ing. No suspicious bony findings. IMPRESSION: Mild interval increase in size of the contained collection or outpouching arising from t he proximal sigmoid colon. Small elongated gas containing tract extends caudally along the left pelvi c sidewall, not clearly communicate with the bladder, suggesting a small sinus. No other acute findings. No gas is visualized within the bladder. Other stable findings as above.
[2023-08-20] MEDS: MEMANTINE HCL 10 MG TABLET PO SCH (22:19)
[2023-08-21 05:42] LABS: Absolute Lymphocytes (CBC) 2.5 K/uL (0.7-4.9); Hematocrit 33.8 % (36.0-45.0); Lymphocytes % 20.6 % (15.3-44.8); MCV 91.5 fL (80-100); MPV 7.3 fL (7.6-11.3); Platelets 293 thou/uL (152-406)
[2023-08-21 05:54] LABS: Magnesium 2.1 mg/dL (1.6-2.4); Phosphorus 2.9 mg/dL (2.5-4.9); Potassium 3.7 mEq/L (3.5-5.1)
[2023-08-21] MEDS ORDERED: VANCOMYCIN 1.5 GM in NA CHLORIDE 0.9% 500 ML IVPB SCH (06:00)
[2023-08-21] MEDS: INSULIN REGULAR (HUMAN) 100 UNIT/ML SQ SCH ×2 (07:27→11:30)
[2023-08-21] MEDS: POTASSIUM CL SA 10 MEQ TAB PO SCH ×2 (08:37→13:21)
[2023-08-21] MEDS: APIXABAN 5 MG TABLET PO SCH (08:37)
[2023-08-21] MEDS: ASCORBIC ACID 500 MG TABLET PO SCH (08:38)
[2023-08-21] MEDS: VITAMIN D 5,000 UNIT CAP PO SCH (08:38)
[2023-08-21] MEDS: CYANOCOBALAMIN 1,000 MCG TAB PO SCH (08:38)
[2023-08-21] MEDS: GABAPENTIN 100 MG CAP PO SCH (08:39)
[2023-08-21] MEDS: METOPROLOL TAR 25 MG TAB PO SCH (08:39)
[2023-08-21] MEDS: LEVOTHYROXINE SOD 0.075 MG TAB PO SCH (08:39)
[2023-08-21] MEDS: MAGNESIUM OXIDE 400 MG TAB PO SCH (08:39)
[2023-08-21] MEDS: AMIODARONE HCL 200 MG TAB PO SCH (08:40)
[2023-08-21] MEDS: FUROSEMIDE 40 MG TABLET PO SCH (08:40)
[2023-08-21] MEDS: LIDOCAINE 4% PATCH TOP SCH (08:41)
[2023-08-21 10:52] VITALS: BP 114/62; TEMP 97.1
--- NOTE | 2023-08-21 15:14 | P.DS ---
Admission Date: 08/19/23 Discharge Date: 08/21/23 Disposition: ROUTINE DISCHARGE Discharge Condition: GOOD Reason for Admission: Shortness of breath Brief History of Present Illness: Diagnosis Shortness of breath likely due to COPD versus pneumonitis versus progressive interstitial disease in a patient with pulmonary fibrosis Lactic acidosis Leukocytosis ANNA vs CKD Right sided Neck pain Hospital Course: Trisha Lovelace is a pleasant 87-year-old female with a past medical history significant for hypertension, hyperlipidemia, hypothyroidism, CVA (5 years ago), paroxysmal Afib, COPD, celiac disease, chronic anticoagulation who was admitted to the [facility] on 08/18/2023 for shortness of breath and lactic acidosis. Trisha Lovelace presented to the ED with complaints of shortness of breath at rest and with light activity. 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 She reported being treated for Pseudomonas with a PICC line and cefepime expecting 10 days of therapy. She believes she started having side effects of the cefepime which started making her out of breath and weak. She is also stated that there is a foam substance on the top of her urine, Dr. Gomez was concerned for fistula in the bladder and ordered a CT abdomen/pelvis reporting "A small tract extends along the left pelvic sidewall caudally from this region, containing a locule of gas, see axial image 72/95, extending towards the anterior aspect of the bladder dome." Consult to Dr. Mark with recommendation to follow-up as outpatient. She is tolerating p.o. diet, ambulating independently with a walker, urinating without difficulty, and hemodynamically stable. She is ready for discharge. On 08/21/2023, Trisha Lovelace was seen on morning rounds and deemed medically stable for discharge. Trisha was discharged with instructions to schedule follow- up appointments with Dr. Mark and PCP. Trisha was provided a lidocaine patch prescription for complaints of her right-sided neck pain. The patient and family members were given the opportunity to ask questions and reported no further questions. Furthermore, all questions were answered to the best of my ability. A copy of this discharge summary will be sent to the above providers to facilitate continuity of care. Today, I personally spent 55 minutes with Trisha, of which greater than 50% of the time was spent in patient education, counseling, and coordination of care as described above. Vital Signs/Physical Exam: Temp Pulse Resp BP Pulse Ox 97.1 F 81 17 114/62 93 08/21/23 08:00 08/21/23 08:00 08/21/23 08:00 08/21/23 08:00 08/21/23 08:00 Laboratory Data at Discharge: WBC 11.90 thou/uL (4.3-10.9) H 08/21/23 05:25 Hgb 11.2 g/dL (12.0-15.0) L 08/21/23 05:25 Hct 33.8 % (36.0-45.0) L 08/21/23 05:25 Plt Count 293 thou/uL (152-406) 08/21/23 05:25 PT 17.7 SECONDS (9.5-12.5) H 08/18/23 11:17 INR 1.63 08/18/23 11:17 APTT 35.3 SECONDS (24.3-36.9) 08/18/23 11:17 Sodium 142 mEq/L (136-145) 08/21/23 05:25 Potassium 3.7 mEq/L (3.5-5.1) 08/21/23 05:25 BUN 43 mg/dL (7-18) H 08/21/23 05:25 Creatinine 1.32 mg/dL (0.55-1.02) H 08/21/23 05:25 Glucose 99 mg/dL (74-106) 08/21/23 05:25 Phosphorus 2.9 mg/dL (2.5-4.9) 08/21/23 05:25 Magnesium 2.1 mg/dL (1.6-2.4) 08/21/23 05:25 Total Bilirubin 0.3 mg/dL (0.2-1.0) 08/18/23 11:17 AST 24 U/L (15-37) 08/18/23 11:17 ALT 24 U/L (13-56) 08/18/23 11:17 Alkaline Phosphatase 79 U/L (45-117) 08/18/23 11:17 Home Medications: Amiodarone HCl [Cordarone*] 200 mg PO DAILY 08/10/23 Apixaban [Eliquis] 5 mg PO BID 08/10/23 Furosemide [Lasix*] 60 mg PO BID 08/10/23 Levothyroxine Sodium [Synthroid] 75 mcg PO DAILY 08/10/23 Memantine HCl [Namenda Xr] 28 mg PO BEDTIME 08/10/23 Metoprolol Tartrate [Lopressor*] 25 mg PO BID 08/10/23 Potassium Chloride 10 meq PO TID 08/10/23 Rosuvastatin [Crestor*] 5 mg PO Q7D 08/10/23 Ascorbic Acid [Vitamin C*] 2 tab PO DAILY 08/18/23 Cholecalciferol (Vitamin D3) [Vitamin D 5,000 IU Cap*] 1 tab PO BID 08/18/23 Cranberry Fruit [Cranberry] 450 mg PO BID 08/18/23 Magnesium Oxide [Magnesium] 1 tab PO BID 08/18/23 Mecobalamin [B12 Active] 2,500 mg PO BID 08/18/23 Vit A/Vit C/Vit E/Zinc/Copper [Preservision Areds Softgel] 1 tab PO BID 08/18/23 Gabapentin [Neurontin*] 100 mg PO BID 08/19/23 Lidocaine 4% Patch [Lidoderm 5% Patch*] 1 patch TOP DAILY PRN 10 Days #5 pat 08/21/23 New Medications: Lidocaine 4% Patch [Lidoderm 5% Patch*] 1 patch TOP DAILY PRN 10 Days #5 pat PRN Reason: pain to right side of neck Physician Discharge Instructions: Physical Exam General: Alert, In no apparent distress, Oriented x3 HEENT: Atraumatic, Normocephalic, PERRLA Neck: Supple, 2+ carotid pulse no bruit, JVD not distended Respiratory: Clear to auscultation bilaterally, Normal air movement Cardiovascular: No edema, Normal pulses, Regular rate/rhythm, Normal S1 S2 Capillary refill: <2 Seconds Gastrointestinal: Normal bowel sounds, Soft and benign Musculoskeletal: No clubbing, No swelling Integumentary: No rashes, No breakdown, No significant lesion 1. Please call and schedule a follow-up appointment with your PCP, Dr. Juarez, in 3-5 days - Please follow-up with your PCP for medication refills/adjustments 2. Please call and schedule a follow-up appointment with Dr. Mark in 1-2 weeks for follow up of suggestive bladder fistula 3. Continue diabetic diet 4. Walk using walker and with assistance, use caution New medication Lidocaine patch to be applied to right side of neck as needed, apply for 12 hours then remove for 12 hours before reapplication Diet: ADA Activity: with caution Followup: Jeremie Juarez MD [Primary Care Provider] - Salvador Mark MD [ACTIVE - CAN ADMIT] -
--- NOTE | 2023-08-24 13:41 | EKG ---
Test Date: 2023-08-18 Test Time: 11:14:09 [employer]ane Crew Supervisor: DAVIDE MEASUREMENT RESULTS: Intervals: Rate: 91 [place]: QRSD: 60 QT: 368 QTc: 452 [place]: P: [place]: QRS: 36 T: 52 INTERPRETIVE STATEMENTS: Atrial fibrillation Cannot rule out Anterior infarct, age undetermined Abnormal ECG Compared to ECG 06/29/2023 20:02:39 Myocardial infarct finding now present ST (T wave) deviation no longer present Electronically Signed On 08-24-23 13:28:19 SUPERVISOR PAINT by Simon Bernal
== END 2023-08-21 14:03 | disposition home or self-care (01) | DRG 197 ==
LOC: ER 10:12 → ERHOLD 15:25 → 4TH 16:31 → OBSVTOIN 08-19 15:17
PROVIDERS: ADMIT Hospitalist; ATTEND Hospitalist
DX: J67.9 Hypersensitivity pneumonitis due to unspecified organic dust (principal); E87.20 Acidosis, unspecified; N17.9 Acute kidney failure, unspecified; J84.9 Interstitial pulmonary disease, unspecified; J44.9 Chronic obstructive pulmonary disease, unspecified; I48.0 Paroxysmal atrial fibrillation; G30.9 Alzheimer's disease, unspecified; F02.80 Dementia in other diseases classified elsewhere, unspecified severity, without behavioral disturbance, psychotic disturbance, mood disturbance, and anxiety; I12.9 Hypertensive chronic kidney disease with stage 1 through stage 4 chronic kidney disease, or unspecified chronic kidney disease; N18.9 Chronic kidney disease, unspecified; J84.10 Pulmonary fibrosis, unspecified; M54.2 Cervicalgia; E78.5 Hyperlipidemia, unspecified; E03.9 Hypothyroidism, unspecified; K90.0 Celiac disease; Z79.01 Long term (current) use of anticoagulants; Z86.73 Personal history of transient ischemic attack (TIA), and cerebral infarction without residual deficits
CPT/HCPCS: 36415; 71045; 71250; 74176; 80048; 80053; 80202; 81001; 82947; 83036; 83605; 83735; 83880; 84100; 84145; 84439; 84443; 85025; 85610; 85730; 87040; 87205; 93005; 93931; 93971; 94010; 96361; 96365; 96368; 96375; 97161; 99285; G0378; J0696; J1644; J1815; J2001; J2185; J2930; J7030; J7040; J7050; J7614

== ENCOUNTER 2024-02-13 08:46 | Emergency (ER) | payer OTHER ==
[2024-02-13 09:37] LABS: Absolute Eosinophils 0.2 K/uL (0-0.5); Absolute Lymphocytes (CBC) 1.8 K/uL (0.7-4.9); Absolute Monocytes 1.1 K/uL (0.1-1.3); Absolute Neutrophil 5.1 K/uL (1.8-8.0); Basophils % 0.6 % (0-1.3); Eosinophils % 2.8 % (0-4.4); Hematocrit 39.6 % (36.0-45.0); Hemoglobin 13.2 g/dL (12.0-15.0); Lymphocytes % 21.4 % (15.3-44.8); MCH 29.9 pg (27.0-35.0); MCHC 33.4 g/dL (32.0-36.0); MCV 89.6 fL (80-100); Monocytes % 12.9 % (3.3-12.3); Neutrophils % 62.3 % (41.7-73.7); Nucleated Red Blood Cells % 0.1 % (0-0); Platelets 299 thou/uL (152-406); RBC Red Blood Cell Count 4.42 M/uL (3.86-4.86); Red Cell Distribution Width 16.6 % (12.1-15.2)
[2024-02-13 09:55] LABS: ALT/SGPT 34 U/L (13-56); AST/SGOT 33 U/L (15-37); Albumin 2.9 g/dL (3.4-5.0); Albumin/Globulin Ratio 0.6 (1.1-1.8); Alkaline Phosphatase 109 U/L (45-117); Anion Gap 9.7 mEq/L (5.0-15.0); BUN Blood Urea Nitrogen 30 mg/dL (7-18); Bicarbonate 31 mEq/L (21-32); Bilirubin Total 0.4 mg/dL (0.2-1.0); Globulin 4.5 g/dL (2.3-3.5); Glomerular Filtration Rate 34 ml/min (=/>90); Glucose Level 120 mg/dL (74-106); NT PRO-BNP 447 pg/mL (<450); Potassium 3.7 mEq/L (3.5-5.1); Protein, Total 7.4 g/dL (6.4-8.2); Sodium Level 140 mEq/L (136-145); Troponin High Sensitivity 10.6 pg/mL (<58.9)
[2024-02-13 09:56] LABS: Bilirubin Direct < 0.2 mg/dL (0-0.2); Bilirubin Indirect, Calculated 0.2 mg/dL (0.2-0.8)
--- NOTE | 2024-02-13 11:07 | RAD REPORT ---
EXAM DESCRIPTION: CT - Chest For Pe Angio - 02/13/2024 10:15 am CLINICAL HISTORY: mid scapular pain with deep breath COMPARISON: Thorax Wo Con dated 08/18/2023; Chest For Pe Angio dated 10/09/2022; Thorax Wo Con dated 06/19/2022; Thorax Wo Con dated 02/28/2020 TECHNIQUE: Thin axial CT images of the chest were obtained following administration of 100 mL Isovue 370 IV contrast. Multiplanar reconstructions, and maximum intensity projection reconstructions were generated and reviewed. Exam utilizes a protocol for optimal evaluation of pulmonary arterial tree. All CT scans are performed using dose optimization technique as appropriate and may include automated exposure control or mA/KV adjustment according to patient size. FINDINGS: Pulmonary arteries are normal. No emboli or other suspicious finding. No acute or signific ant aorta findings. No mass or focal infiltrate in the lung parenchyma. Pattern of ground-glass opacities has improved, a lthough some residual mosaic attenuation remains, may relate to under aeration. Stable bilateral pulmonary nodules, largest on the left is in the lower lobe peripherally measuring 1 3 mm, and on the right is in the lower lobe measuring 6 mm. No pleural thickening or pleural effusion . No pneumothorax. No abnormal mediastinal or hilar masses or lymphadenopathy seen. No chest wall mass or abnormal axill iary lymphadenopathy. IMPRESSION: No evidence of acute central pulmonary emboli. Partial improvement of ground-glass opacities as above, nonspecific, and may relate to improving inte rstitial or hypersensitivity pneumonitis. Multiple stable pulmonary nodules as above.
--- NOTE | 2024-02-13 12:30 | RAD REPORT ---
EXAM DESCRIPTION: RADChest Single View02/13/2024 10:05 am CLINICAL HISTORY: mid scapular pain COMPARISON: Chest Single View dated 08/18/2023; Chest Single View dated 08/11/2023; Chest Single Vie w dated 07/02/2023; Chest Single View dated 06/29/2023 TECHNIQUE: Portable AP view of the chest. FINDINGS: Mild central interstitial prominence. Superimposition of soft tissue exaggerates the appea ashley. Trace effusion along the right minor fissure. No pneumothorax or sizable effusion. The cardio mediastinal contours are unremarkable. IMPRESSION: Mild central interstitial prominence, may reflect mild central congestion.
[2024-02-13 14:01] VITALS: BP 167/70; TEMP 97.2; O2SAT 100
--- NOTE | 2024-02-13 14:12 | EKG ---
Test Date: 2024-02-13 Test Time: 09:34:17 [place]: SONY MEASUREMENT RESULTS: Intervals: Rate: 62 MI: 278 QRSD: 74 QT: 440 QTc: 446 [place]: P: MI: 278 QRS: 64 T: 60 INTERPRETIVE STATEMENTS: Sinus rhythm with 1st degree AV block Otherwise normal ECG Compared to ECG 08/18/2023 11:14:09 First degree AV block now present Atrial fibrillation no longer present Myocardial infarct finding no longer present Electronically Signed On 02-13-24 14:10:28 CDT by Simon Bernal
--- NOTE | 2024-02-13 18:02 | ER ---
Nurse's Notes [facility] Name: Trisha Lovelace Age: 88 yrs Sex: Female : 1935 Arrival Date: 02/13/2024 Time: 08:46 Bed 17 Private MD: Diagnosis: Upper back pain;COPD/ Chronic obstructive pulmonary disease, unspecified Presentation: 02/12 08:47 Chief complaint: Patient states: Back pain near shoulder blade area starting hurting ll1 around 0730 this am with deep breaths. Slight cough. Chief complaint: EMS states: VSS. Coronavirus screen: Client denies travel out of the [place] in the last 14 days. cough unrelated to allergies, difficulty breathing, shortness of breath, Client presents with at least one sign or symptom that may indicate coronavirus-19. Standard/surgical mask placed on the client. Ebola Screen: Patient denies travel to an Ebola-affected area in the 21 days before illness onset. Initial Sepsis Screen: Does the patient meet any 2 criteria? No. Patient's initial sepsis screen is negative. Does the patient have a suspected source of infection? No. Patient's initial sepsis screen is negative. Risk Assessment: Do you want to hurt yourself or someone else? Patient reports no desire to harm self or others. Onset of symptoms was February 13, 2024. 08:47 Method Of Arrival: EMS ll1 08:47 Acuity: JUAN 3 ll1 Triage Assessment: 08:50 General: Appears uncomfortable, Behavior is calm, cooperative, appropriate for age. ll1 Pain: Complains of pain in L back Pain currently is 8 out of 10 on a pain scale. Quality of pain is described as aching, Pain began 2 hours ago. Is intermittent, Aggravated by deep breathing. Respiratory: Reports pain with respiration. Musculoskeletal: Circulation, motion, and sensation intact. Capillary refill < 3 seconds, Reports pain in back. Historical: - Allergies: 08:49 shrimp; ll1 - PMHx: 08:49 CVA; Hypothyroidism; Alzheimers; Hypertension; TIA; High Cholesterol; ll1 - PSHx: 08:49 cataract; Shoulder; hysterectomy; TIA; Tonsillectomy; ll1 - Immunization history:: Adult Immunizations up to date. - Infectious Disease History:: Denies. - Social history:: Smoking status: Patient denies any tobacco usage or history of. - Family history:: not pertinent. - Hospitalizations: : No recent hospitalization is reported. Screenin:[facility] ED Fall Risk Assessment (Adult) History of falling in the last 3 months, ll1 including since admission No falls in past 3 months (0 pts) Confusion or Disorientation No (0 pts) Intoxicated or Sedated No (0 pts) Impaired Gait No (0 pts) Mobility Assist Device Used No (0 pt) Altered Elimination No (0 pt) Score/Fall Risk Level 0 - 2 = Low Risk Maintained a safe environment, Hourly rounding (assess needs \T\ fall precautionary measures) done. Abuse screen: Denies threats or abuse. Nutritional screening: No deficits noted. Tuberculosis screening: No symptoms or risk factors identified. Assessment: 09:40 Reassessment: No changes from previously documented assessment. Patient and/or family ll1 updated on plan of care and expected duration. Pain level reassessed. Patient is alert, oriented x 3, equal unlabored respirations, skin warm/dry/pink. 11:35 Reassessment: No changes from previously documented assessment. Patient and/or family mb9 updated on plan of care and expected duration. Pain level reassessed. Patient is alert, oriented x 3, equal unlabored respirations, skin warm/dry/pink. 12:56 Reassessment: No changes from previously documented assessment. Patient and/or family mb9 updated on plan of care and expected duration. Pain level reassessed. Patient is alert, oriented x 3, equal unlabored respirations, skin warm/dry/pink. Vital Signs: 08:47 BP 177 / 66; Pulse 69; Resp 18; Temp 97.2; Pulse Ox 97% on R/A; Weight 99.79 kg; Height ll1 5 ft. 2 in. ; Pain 8/10; 09:30 BP 144 / 59; Pulse 62; Resp 17; Pulse Ox 98% ; ll1 09:51 BP 147 / 63; Pulse 61; Resp 16; Pulse Ox 97% on R/A; ll1 12:55 BP 167 / 70; Pulse 65; Resp 18; Pulse Ox 100% on R/A; mb9 08:47 Body Mass Index 40.24 (99.79 kg, 157.48 cm) ll1 08:47 Pain Scale: Adult ll1 ED Course: 08:47 Patient arrived in ED. ll1 08:49 Triage completed. ll1 08:50 Arm band placed on Patient placed in an exam room, on a stretcher. ll1 08:52 Patient has correct armband on for positive identification. Bed in low position. Call ll1 light in reach. Side rails up X 1. Cardiac monitoring not applicable on this patient. 08:54 Cecelia Rodrigez RN is Primary Nurse. ll1 09:00 Kelvin Martinez MD is Attending Physician. rn 09:20 Missed attempt(s): 22 gauge in right forearm. Bleeding controlled, band aid applied, bc6 catheter tip intact. 09:37 Initial lab(s) drawn, by me, sent to lab. Inserted saline lock: 20 gauge in right bc6 antecubital area, using aseptic technique. Blood collected. 10:07 XRAY Chest (1 view) In Process Unspecified. EDMS 10:16 CT Chest For PE Angio In Process Unspecified. EDMS 12:00 Provided Education on: press call light if needing anything. Door closed. Noise mb9 minimized. Warm blanket given. Pillow given. 13:07 Rocky Juarez MD is Referral Physician. rn 13:10 No provider procedures requiring assistance completed. IV discontinued, intact, mb9 bleeding controlled, No redness/swelling at site. Pressure dressing applied. Administered Medications: No medications were administered Medication: 13:10 VIS not applicable for this client. mb9 Outcome: 13:08 Discharge ordered by . rn 13:11 Discharged to home via wheelchair, with family, mikhail 13:11 Condition: stable 13:11 Discharge instructions given to patient, family, Instructed on discharge instructions, follow up and referral plans. Demonstrated understanding of instructions, follow-up care, medications, Prescriptions given X 1, 13:21 Patient left the ED. iw Signatures: Dispatcher [employer] EDMS Perla Mar RN RN iw Kelvin Martinez MD MD rn Lewis, Lynsay, RN RN ll1 Trisha Harry RN RN mb9 Radha Miller 6
--- NOTE | 2024-02-13 18:02 | EDPHYS ---
Physician Documentation [facility] Name: Trisha Lovelace Age: 88 yrs Sex: Female : 1935 Arrival Date: 02/13/2024 Time: 08:46 Bed 17 Private MD: ED Physician Kelvin Martinez HPI: 02/12 13:03 This 88 yrs old Female presents to ER via EMS with complaints of Back Pain. rn 13:03 The patient presents with pain that is acute. The symptoms are located in the thoracic rn area. Onset: The symptoms/episode began/occurred this morning. The pain does not radiate. Associated signs and symptoms: Pertinent negatives: abdominal pain, chest pain, fever, hematuria, incontinence. Modifying factors: The patient symptoms are alleviated by nothing, the patient symptoms are aggravated by Deep breath. Severity of symptoms: At their worst the symptoms were moderate, in the emergency department the symptoms have improved. The patient has not experienced similar symptoms in the past. The patient has not recently seen a physician. Patient reports mid scapular back pain that began this morning. No trauma or fall. Hurts to take a deep breath. Denies fever. Has slight cough. Has COPD. No abdominal pain. No chest pain.. Historical: - Allergies: 08:49 shrimp; ll1 - PMHx: 08:49 CVA; Hypothyroidism; Alzheimers; Hypertension; TIA; High Cholesterol; ll1 - PSHx: 08:49 cataract; Shoulder; hysterectomy; TIA; Tonsillectomy; ll1 - Immunization history:: Adult Immunizations up to date. - Infectious Disease History:: Denies. - Social history:: Smoking status: Patient denies any tobacco usage or history of. - Family history:: not pertinent. - Hospitalizations: : No recent hospitalization is reported. ROS: 13:03 Constitutional: Negative for fever, chills, and weight loss, Cardiovascular: Negative rn for chest pain, palpitations, and edema, Respiratory: Negative for shortness of breath, cough, wheezing, and pleuritic chest pain, Abdomen/GI: Negative for abdominal pain, nausea, vomiting, diarrhea, and constipation, Back: Positive for upper mid back pain MS/Extremity: Negative for injury and deformity, Skin: Negative for injury, rash, and discoloration, Neuro: Negative for headache, weakness, numbness, tingling, and seizure, Exam: 12:28 ECG was reviewed by the Attending Physician. rn 13:03 Constitutional: This is a well developed, well nourished patient who is awake, alert, rn and in no acute distress. Cardiovascular: Regular rate and rhythm . No pulse deficits. Respiratory: Speaking full sentences, unlabored. No wheezing no increased work of breathing, no retractions or nasal flaring. Abdomen/GI: Soft, nontender, no masses Back: No spinal tenderness. Neuro: Awake and alert, GCS 15, oriented to person, place, time, and situation. Vital Signs: 08:47 BP 177 / 66; Pulse 69; Resp 18; Temp 97.2; Pulse Ox 97% on R/A; Weight 99.79 kg; Height ll1 5 ft. 2 in. ; Pain 8/10; 09:30 BP 144 / 59; Pulse 62; Resp 17; Pulse Ox 98% ; ll1 09:51 BP 147 / 63; Pulse 61; Resp 16; Pulse Ox 97% on R/A; ll1 12:55 BP 167 / 70; Pulse 65; Resp 18; Pulse Ox 100% on R/A; mb9 08:47 Body Mass Index 40.24 (99.79 kg, 157.48 cm) ll1 08:47 Pain Scale: Adult ll1 MDM: 09:00 Patient medically screened. rn 13:03 Differential diagnosis: arthritis, Neoplasm Osteoarthritis Pulmonary embolism, rn pneumonia, pneumonitis, nerve pain. Data reviewed: vital signs, nurses notes, lab test result(s), EKG, radiologic studies, CT scan, and as a result, I will discharge patient. Counseling: I had a detailed discussion with the patient and/or guardian regarding the historical points, exam findings, and any diagnostic results supporting the discharge/admit diagnosis, lab results, radiology results, the need for outpatient follow up, to return to the emergency department if symptoms worsen or persist or if there are any questions or concerns that arise at home. Response to treatment: the patient's symptoms have markedly improved after treatment, and as a result, I will discharge patient. Special discussion: I discussed with the patient/guardian in detail that at this point there is no indication for admission to the hospital. It is understood, however, that if the symptoms persist or worsen the patient needs to return immediately for re-evaluation. ED course: Patient states feels much better. No acute findings and workup. Will discharge home with antibiotics given findings of possible pneumonitis although improved compared to previous. Patient will follow-up with Dr. Hernandez and given return precautions. I have personally reviewed all of the results, including but not limited to blood tests and imaging deemed necessary to safely discharge this patient at this time. All results given to and printed out for patient. I personally went over all the results with the patient and answered all questions. Patient will follow-up with PCP and or specialist as discussed. Return precautions given and understood.. 02/12 09:04 Order name: Basic Metabolic Panel; Complete Time: 12:21 rn 02/12 09:04 Order name: CBC with Diff; Complete Time: 12:21 rn 02/12 09:04 Order name: LFT's; Complete Time: 12:21 02/12 09:04 Order name: NT PRO-BNP; Complete Time: 12:21 rn 02/12 09:04 Order name: Troponin HS; Complete Time: 12:21 02/12 09:04 Order name: XRAY Chest (1 view); Complete Time: 12:55 rn 02/12 09:05 Order name: CT Chest For PE Angio; Complete Time: 12:21 rn 02/12 09:04 Order name: EKG; Complete Time: 09:04 rn 02/12 09:04 Order name: Cardiac monitoring; Complete Time: 09:33 rn 02/12 09:04 Order name: EKG - Nurse/Tech; Complete Time: 09:32 rn 02/12 09:04 Order name: IV Saline Lock; Complete Time: 09:27 rn 02/12 09:04 Order name: Labs collected and sent; Complete Time: 09:27 rn 02/12 09:04 Order name: O2 Per Protocol; Complete Time: : rn 02/12 09:04 Order name: O2 Sat Monitoring; Complete Time: : rn EC:28 Rate is 62 beats/min. Rhythm is regular. QRS [place] is Normal. IN interval is prolonged rn at 278 msec. QRS interval is normal. QT interval is normal. No Q waves. T waves are Normal. No ST changes noted. Clinical impression: 1st degree heart block. Interpreted by me. Reviewed by me. Administered Medications: No medications were administered Disposition Summary: 02/13/24 13:08 Discharge Ordered Notes: Location: Home rn Problem: new rn Symptoms: have improved rn Condition: Stable rn Diagnosis - Upper back pain rn - COPD/ Chronic obstructive pulmonary disease, unspecified rn Followup: rn - With: Rocky Juarez MD - When: As needed - Reason: Recheck today's complaints, Re-evaluation by your physician Discharge Instructions: - Discharge Summary Sheet rn - Acute Back Pain, Adult rn - Chronic Obstructive Pulmonary Disease rn Forms: - Medication Reconciliation Form rn - Antibiotic transition mgr rn - Prescription Opioid Use rn - Patient Portal Instructions rn - Leadership Thank You Letter rn Prescriptions: - Augmentin 875-125 mg Oral Tablet - take 1 tablet ORAL route every 12 hours for 10 days; 20 tablet; Refills: 0, rn Product Selection Permitted Signatures: Dispatcher [employer] EDMS Kelvin Martinez MD MD rn Lewis, Lynsay, RN RN ll1 Corrections: (The following items were deleted from the chart) 09:05 09:04 BASIC METABOLIC PANEL+C.LAB.BRZ ordered. EDMS EDMS 09:05 09:04 CBC+H.LAB.BRZ ordered. EDMS EDMS 09:05 09:04 HEPATIC FUNCTION+C.LAB.BRZ ordered. EDMS EDMS 09:05 09:04 PROBNP+C.LAB.BRZ ordered. EDMS EDMS 09:05 09:04 Troponin High Sensitivity+C.LAB.BRZ ordered. EDMS EDMS
== END 2024-02-13 13:21 | disposition home or self-care (01) ==
LOC: ER 08:46
DX: M54.6 Pain in thoracic spine (principal); J44.9 Chronic obstructive pulmonary disease, unspecified
CPT/HCPCS: 93005; 85025; 80048; 36415; 80076; 84484; 83880; 71275; 71045; Q9967; 99284

== ENCOUNTER 2024-06-18 18:55 | Emergency (ER) | payer OTHER ==
--- NOTE | 2024-06-18 19:17 | EDPHYS ---
Physician Documentation [facility] Name: Trisha Lovelace Age: 88 yrs Sex: Female : 1935 Arrival Date: 06/18/2024 Time: 18:55 Bed 16 Private MD: ED Physician Kelvin Martinez HPI: 06/18 19:13 This 88 yrs old Female presents to ER via Ambulatory with complaints of Skin Tear(s). rn 19:13 The patient has a laceration occurred at a parking lot, and there are no complicating rn factors. The laceration(s) is(are) located on the left hand. Onset: The symptoms/episode began/occurred just prior to arrival. The patient has not experienced similar symptoms in the past. Patient reports accidentally hit her left hand on a portion of her vehicle when leaving [place]. Sustained a small skin tear to the dorsum of the left hand. No active bleeding. Wound is clean without foreign body. Unknown last tetanus. Came mainly concerned for tetanus shot.. Historical: - Allergies: 19:04 shrimp; hb - PMHx: 19:04 Hypertension; Hypothyroidism; High Cholesterol; TIA; CVA; Alzheimers; hb - PSHx: 19:04 cataract; hysterectomy; Shoulder; TIA; Tonsillectomy; hb - Immunization history:: Last tetanus immunization: unknown. - Infectious Disease History:: Denies. - Social history:: Smoking status: Patient denies any tobacco usage or history of. - Family history:: not pertinent. - Hospitalizations: : No recent hospitalization is reported. ROS: 19:13 Constitutional: Negative for fever, chills, and weight loss, MS/Extremity: Positive for rn skin tear to the dorsum of left hand Exam: 19:13 Constitutional: This is a well developed, well nourished patient who is awake, alert, rn and in no acute distress. Skin: Warm, dry with normal turgor. Normal color with no rashes, no lesions, and no evidence of cellulitis. MS/ Extremity: Pulses equal, no cyanosis. Neurovascular intact. 3 cm superficial skin tear to the dorsum of the left hand and shape of [place], no active bleeding, no foreign body, no tissue missing. Vital Signs: 19:02 BP 147 / 91; Pulse 69; Resp 16; Temp 98.1; Pulse Ox 100% on R/A; Weight 97.07 kg; hb Height 5 ft. 3 in. ; Pain 3/10; 19:30 BP 134 / 88; Pulse 70; Resp 17; Pulse Ox 100% on R/A; Pain 0/10; rg5 19:02 Body Mass Index 37.91 (97.07 kg, 160.02 cm) hb 19:02 Pain Scale: Adult hb 19:30 Pain Scale: Adult rg5 MDM: 19:06 Medical Screening Exam initiated rn 19:13 Differential diagnosis: Superficial skin tear. Data reviewed: vital signs, nurses rn notes, and as a result, I will discharge patient. Counseling: I had a detailed discussion with the patient and/or guardian regarding the historical points, exam findings, and any diagnostic results supporting the discharge/admit diagnosis, the need for outpatient follow up, to return to the emergency department if symptoms worsen or persist or if there are any questions or concerns that arise at home. Special discussion: I discussed with the patient/guardian in detail that at this point there is no indication for admission to the hospital. It is understood, however, that if the symptoms persist or worsen the patient needs to return immediately for re-evaluation. 06/18 19:12 Order name: Wound Care; Complete Time: 19:56 rn 06/18 19:12 Order name: Wound dressing; Complete Time: 19:56 rn Administered Medications: 19:32 Drug: Tetanus Toxoid,Adsorbed IM 0.5 ml IM once; Provide Vaccine Information Statement rg5 (VIS). {Tack Maker: Piehole; Exp: MonMay 02 2025; Lot #: [id number]; Series: 1 of 1; Patient Consent: Obtained; Date/Time: ; Source Name: Trisha Lovelace; Source Relationship: Self; Address Information: [address] [place] [id number]; ; Education: Provided; VIS Presented Date: ; VIS Publication: Tetanus/Diphtheria (Td) Vaccine VIS 12/06/2016 (historic)} Route: IM; Site: right deltoid; 20:02 Follow up: Response: No adverse reaction rg5 Disposition Summary: 06/18/24 19:16 Discharge Ordered Notes: Location: Home rn Problem: new rn Symptoms: have improved rn Condition: Stable rn Diagnosis - Abrasion of left hand rn - Skin tear left hand rn Followup: rn - With: Private Physician - When: As needed - Reason: Recheck today's complaints, Re-evaluation by your physician Discharge Instructions: - Discharge Summary Sheet rn - How to Change Your Wound Dressing rn - Skin Tear rn Forms: - Medication Reconciliation Form rn - Antibiotic handle turner - Prescription Opioid Use rn - Patient Portal Instructions rn - Leadership Thank You Letter rn Prescriptions: - Cephalexin 500 mg Oral Capsule - take 1 capsule ORAL route every 12 hours for 10 days; 20 capsule; Refills: 0, rn Product Selection Permitted Signatures: Kelvin Martinez MD MD rn Baxter, Heather, RN RN Geovanni Craven RN RN rg5
--- NOTE | 2024-06-18 19:17 | ER ---
Nurse's Notes [facility] Name: Trisha Lovelace Age: 88 yrs Sex: Female : 1935 Arrival Date: 06/18/2024 Time: 18:55 Bed 16 Private MD: Diagnosis: Abrasion of left hand;Skin tear left hand Presentation: 06/18 19:02 Chief complaint: Bumped hand on car door this afternoon, large skin tear to top of left hb hand, bleeding controlled. Coronavirus screen: At this time, the client does not indicate any symptoms associated with coronavirus-19. Ebola Screen: No symptoms or risks identified at this time. Initial Sepsis Screen: Does the patient meet any 2 criteria? No. Patient's initial sepsis screen is negative. Does the patient have a suspected source of infection? No. Patient's initial sepsis screen is negative. Risk Assessment: Do you want to hurt yourself or someone else? Patient reports no desire to harm self or others. Onset of symptoms was June 18, 2024. 19:02 Method Of Arrival: Ambulatory hb 19:02 Acuity: JUAN 4 hb Historical: - Allergies: 19:04 shrimp; hb - PMHx: 19:04 Hypertension; Hypothyroidism; High Cholesterol; TIA; CVA; Alzheimers; hb - PSHx: 19:04 cataract; hysterectomy; Shoulder; TIA; Tonsillectomy; hb Historical Immunization: - Administered Vaccines 19:32 Tetanus Toxoid,Adsorbed IM 0.5 ml rg5 Book Publisher: [employer]; Exp: MonMay 02 2025; Lot #: [id number]; Series: 1 of 1; Patient Consent: Obtained; Date/Time: ; Source Name: Trisha Lovelace; Source Relationship: Self; Address Information: [address] [place] [id number]; ; Education: Provided; VIS Presented Date: ; VIS Publication: Tetanus/Diphtheria (Td) Vaccine VIS 12/06/2016 (historic) - Immunization history:: Last tetanus immunization: unknown. - Infectious Disease History:: Denies. - Social history:: Smoking status: Patient denies any tobacco usage or history of. - Family history:: not pertinent. - Hospitalizations: : No recent hospitalization is reported. Screenin:30 [facility] ED Fall Risk Assessment (Adult) History of falling in the last 3 months, rg5 including since admission No falls in past 3 months (0 pts) Confusion or Disorientation No (0 pts) Intoxicated or Sedated No (0 pts) Impaired Gait Yes (1 pt) Mobility Assist Device Used Yes (1 pt) Altered Elimination No (0 pt) Score/Fall Risk Level 0 - 2 = Low Risk Oriented to surroundings, Maintained a safe environment, Hourly rounding (assess needs \T\ fall precautionary measures) done. 19:30 Abuse screen: Denies threats or abuse. Nutritional screening: No deficits noted. rg5 Tuberculosis screening: No symptoms or risk factors identified. Assessment: 19:30 General: Appears in no apparent distress. comfortable, Behavior is calm, cooperative, rg5 appropriate for age. Pain: Denies pain. Neuro: Level of Consciousness is awake, alert, obeys commands, Oriented to person, place. Cardiovascular: Capillary refill < 3 seconds Patient's skin is warm and dry. Respiratory: Airway is patent Trachea midline Respiratory effort is even, unlabored, Respiratory pattern is regular, symmetrical. 19:30 GI: Abdomen is round non-distended. : No signs and/or symptoms were reported rg5 regarding the genitourinary system. EENT: No deficits noted. Derm: Skin is fragile, Skin is dry, Skin is normal, Skin temperature is warm. Musculoskeletal: Circulation, motion, and sensation intact. Range of motion: intact in all extremities. Injury Description: skin tear left hand. Vital Signs: 19:02 BP 147 / 91; Pulse 69; Resp 16; Temp 98.1; Pulse Ox 100% on R/A; Weight 97.07 kg; hb Height 5 ft. 3 in. ; Pain 3/10; 19:30 BP 134 / 88; Pulse 70; Resp 17; Pulse Ox 100% on R/A; Pain 0/10; rg5 19:02 Body Mass Index 37.91 (97.07 kg, 160.02 cm) hb 19:02 Pain Scale: Adult hb 19:30 Pain Scale: Adult rg5 ED Course: 18:58 Patient arrived in ED. mr 19:03 Triage completed. hb 19:04 Arm band placed on. hb 19:06 Kelvin Martinez MD is Attending Physician. rn 19:30 Patient has correct armband on for positive identification. Provided Education on: rg5 wound dressing. 19:30 No provider procedures requiring assistance completed. Patient did not have IV access rg5 during this emergency room visit. 19:31 Geovanni Craven, RN is Primary Nurse. rg5 Administered Medications: 19:32 Drug: Tetanus Toxoid,Adsorbed IM 0.5 ml IM once; Provide Vaccine Information Statement rg5 (VIS). {Book Publisher: [employer]; Exp: MonMay 02 2025; Lot #: [id number]; Series: 1 of 1; Patient Consent: Obtained; Date/Time: ; Source Name: Trisha Lovelace; Source Relationship: Self; Address Information: [address] [place] [id number]; ; Education: Provided; VIS Presented Date: ; VIS Publication: Tetanus/Diphtheria (Td) Vaccine VIS 12/06/2016 (historic)} Route: IM; Site: right deltoid; 20:02 Follow up: Response: No adverse reaction rg5 Outcome: 19:16 Discharge ordered by . rn 19:30 Discharged to home ambulatory, rg5 19:30 Condition: stable 19:30 Discharge instructions given to patient, Instructed on discharge instructions, follow up and referral plans. Demonstrated understanding of instructions, follow-up care, medications, wound care, Prescriptions given X 1, 20:10 Patient left the ED. rg5 Signatures: LoganTrisha pemberton, Oziel Ludwig Kelvin Martinez MD MD rn Baxter, Heather, RN RN Geovanni Craven, JOCELIN MONREAL rgLauren
[2024-06-18] MEDS ORDERED: TDAP (DIPHTH,PERTUSS(ACELL),TET VAC) 0.5 ML VIAL IMVAC ONE (19:45)
[2024-06-19 01:00] VITALS: TEMP 98.1; O2SAT 100
[2024-06-19 01:02] VITALS: BP 134/88
== END 2024-06-18 20:10 | disposition home or self-care (01) ==
LOC: ER 18:55
DX: S61.412A Laceration without foreign body of left hand, initial encounter (principal); Z23 Encounter for immunization
CPT/HCPCS: 90471; 99284

== ENCOUNTER 2024-11-02 10:37 | Emergency (ER) | payer OTHER ==
[2024-11-02] MEDS ORDERED: ONDANSETRON 4 MG/2 ML VIAL ONE (11:07)
[2024-11-02] MEDS ORDERED: NA CHLORIDE 0.9% 500 ML ONE ×2 (11:07→13:57)
[2024-11-02 11:40] LABS: Absolute Basophils 0.1 K/uL (0-0.5); Absolute Neutrophil 3.6 K/uL (1.8-8.0); Basophils % 1.1 % (0-1.3); Eosinophils % 0.4 % (0-4.4); Hematocrit 44.8 % (36.0-45.0); Lymphocytes % 29.5 % (15.3-44.8); MCH 29.5 pg (27.0-35.0); MCHC 33.4 g/dL (32.0-36.0); MCV 88.3 fL (80-100); MPV 8.1 fL (7.6-11.3); Monocytes % 15.5 % (3.3-12.3); Neutrophils % 53.5 % (41.7-73.7); Nucleated Red Blood Cells % 0.1 % (0-0); Platelets 195 thou/uL (152-406); RBC Red Blood Cell Count 5.08 M/uL (3.86-4.86); Red Cell Distribution Width 16.9 % (12.1-15.2)
--- NOTE | 2024-11-02 11:44 | RAD REPORT ---
EXAM: Chest Pa And Lat (2 Views) HISTORY: 88 years Female COUGH COMPARISON: 02/13/2024 FINDINGS: LUNGS/PLEURA: The lungs are clear. No pleural effusions or pneumothorax. No pulmonary edema. CARDIAC/MEDIASTINUM: The cardiac silhouette is within normal limits. UPPER ABDOMEN: No significant abnormality. BONES: No acute abnormality. LINES/TUBES/OTHER: N/A IMPRESSION: No evidence of acute cardiopulmonary disease.
[2024-11-02 11:52] LABS: Specific Gravity 1.019 (1.005-1.030); Sqamous Epithelial <5 /HPF (None Seen); Urine Bacteria <20 /HPF (<20); Urine Bilirubin NEGATIVE (Negative); Urine Blood Trace (Negative); Urine Clarity Extremely Turbid (Clear); Urine Color Light-Yellow (Yellow); Urine Culture Reflex Order NOT NEEDED; Urine Glucose NEGATIVE (Negative); Urine Ketones NEGATIVE (Negative); Urine Micro Reflex YN NO BILL MICROSCOPIC; Urine Mucus Slight /HPF (None Seen); Urine Nitrite NEGATIVE (Negative); Urine Protein 1+ (Negative); Urine RBC <5 /HPF (None Seen); Urine Urobilinogen Normal (Normal); Urine WBC <5 /HPF (<5); Urine pH 5.5 (5.0-7.0)
[2024-11-02 11:58] LABS: Albumin/Globulin Ratio 0.6 (1.1-1.8); Anion Gap 11.8 mEq/L (5.0-15.0); Bilirubin Total 0.4 mg/dL (0.2-1.0); Magnesium 2.7 mg/dL (1.6-2.4); Potassium 3.8 mEq/L (3.5-5.1)
[2024-11-02 12:02] LABS: Influenza A Ag Positive; Influenza B Ag Negative; SARS-CoV-2 Antigen Rapid Res Negative (Negative)
--- NOTE | 2024-11-02 13:41 | RAD REPORT ---
EXAMINATION: CT ABDOMEN AND PELVIS WITHOUT CONTRAST CLINICAL INDICATION: Female, 88 years old.ABD PAIN TECHNIQUE: CT abdomen and pelvis was performed, without IV contrast, as per department protocol. Axia l, sagittal and coronal reconstructions were obtained. One or more of the following dose reduction techniques were used: Automated exposure control, adjustment of the mA and/or kV according to the pat ient size, and/or iterative reconstruction. Unless otherwise specified, incidental findings do not require dedicated imaging follow-up. [id number]. IV CONTRAST: Not administered. COMPARISON: 02/14/2024 FINDINGS: The lack of intravenous contrast limits the sensitivity of this exam for evaluation of solid visceral organs, vascular structures, and retroperitoneum. LOWER CHEST: Pulmonary nodules are unchanged.No significant pericardial effusion. Mitral annular calc ifications. UPPER GI: No significant abnormality. LIVER: No significant focal abnormality. GALLBLADDER/BILE DUCTS: No biliary ductal dilatation.? PANCREAS: No mass, ductal dilation, or margo-pancreatic fluid. SPLEEN: Unremarkable. ADRENALS: No adrenal masses. KIDNEYS AND URETERS: No hydronephrosis.Intermediate attenuation right lower pole renal lesion has inc reased in size.The lesion measures 2.1 cm, previously 1.3 cm though the lesion did not enhance previously and is likely a proteinaceous or hemorrhagic cyst. 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 ABDOMINAL AORTA AND OTHER VESSELS: Moderate atherosclerotic changes without aortic aneurysm. PERITONEUM: No abnormal free fluid. No free air. LYMPH NODES: No pathologic lymphadenopathy. ABDOMINAL WALL: Left abdominal colostomy. Small fat-containing umbilical hernia. SMALL BOWEL/COLON: Costello's pouch. Left abdominal wall colostomy. No bowel obstruction.Normal append ix. Mild formed stool burden. URINARY BLADDER: Underdistended but grossly unremarkable. REPRODUCTIVE ORGANS: Uterus surgically absent. No adnexal abnormality. MUSCULOSKELETAL: Multilevel degenerative changes in the spine. No acute fracture. ADDITIONAL FINDINGS: None. IMPRESSION: No acute findings within the abdomen or pelvis. No bowel obstruction. Other incidental findings as noted above.
--- NOTE | 2024-11-02 14:11 | ER ---
Nurse's Notes [facility] Name: Trisha Lovelace Age: 88 yrs Sex: Female : 1935 Arrival Date: 11/02/2024 Time: 10:37 Bed 20 Private MD: Diagnosis: Nausea;Influenza due to identified novel influenza A virus with other manifestations Presentation: 11/02 10:44 Chief complaint: Patient states: has been feeling sick since Monday , running fever, iw back pain, cough, not getting out of bed. Coronavirus screen: Client presents with at least one sign or symptom that may indicate coronavirus-19. Ebola Screen: No symptoms or risks identified at this time. Initial Sepsis Screen: Does the patient meet any 2 criteria? No. Patient's initial sepsis screen is negative. Does the patient have a suspected source of infection?. Risk Assessment: Do you want to hurt yourself or someone else? Patient reports no desire to harm self or others. Onset of symptoms was October 30, 2024. 10:44 Method Of Arrival: Ambulatory iw 10:44 Acuity: JUAN 3 iw Triage Assessment: 10:53 General: Appears in no apparent distress. Behavior is calm, cooperative. Pain: iw Complains of pain in chest, abdomen and back. GI: Reports nausea. Historical: - Allergies: 10:46 shrimp; iw - Home Meds: 10:46 albuterol sulfate 90 mcg/actuation Inhl HFA Aerosol Inhaler [Active]; amiodarone 200 mg iw Oral tablet 1 tab daily [Active]; Eliquis 5 mg Oral tablet 1 tab 2 times per day [Active]; folic acid 1 mg Oral tab 1 tab once daily [Active]; Lasix 40 mg Oral tablet 1 tab daily [Active]; levothyroxine 50 mcg tab 1 tab once daily [Active]; levothyroxine 75 mcg cap 1 cap once daily [Active]; memantine 28 mg Oral CSpX 1 cap once daily [Active]; metoprolol tartrate 100 mg Oral tablet 1 tab daily [Active]; potassium chloride 10 mEq Oral capsule 1 cap daily [Active]; - PMHx: 10:46 Alzheimers; Hypertension; High Cholesterol; Hypothyroidism; CVA; TIA; iw 10:47 COPD; iw - PSHx: 10:46 cataract; hysterectomy; Shoulder; TIA; Tonsillectomy; iw - Immunization history:: Adult Immunizations up to date. - Infectious Disease History:: Denies. - Social history:: Smoking status: Patient/guardian denies using tobacco, but has a distant history of tobacco abuse. Screenin:09 [facility] ED Fall Risk Assessment (Adult) History of falling in the last 3 months, kj2 including since admission No falls in past 3 months (0 pts) Confusion or Disorientation No (0 pts) Intoxicated or Sedated No (0 pts) Impaired Gait No (0 pts) Mobility Assist Device Used No (0 pt) Altered Elimination No (0 pt) Score/Fall Risk Level 0 - 2 = Low Risk Maintained a safe environment, Hourly rounding (assess needs \T\ fall precautionary measures) done. Abuse screen: Denies threats or abuse. Denies injuries from another. Nutritional screening: No deficits noted. Tuberculosis screening: No symptoms or risk factors identified. Assessment: 12:07 General: Appears in no apparent distress. Behavior is calm, cooperative. Pain: Denies kj2 pain. Neuro: No deficits noted. Level of Consciousness is awake, alert, obeys commands, Oriented to person, place, time, situation. Cardiovascular: Patient's skin is warm and dry. Respiratory: Airway is patent Respiratory effort is even, unlabored. GI: Reports nausea, patient reports nausea prior to arrival but has resolved since medicated in ER. : No signs and/or symptoms were reported regarding the genitourinary system. 13:15 Reassessment: Patient appears in no apparent distress at this time. Patient and/or kj2 family updated on plan of care and expected duration. Pain level reassessed. Patient is alert, oriented x 3, equal unlabored respirations, skin warm/dry/pink. 14:31 Reassessment: Patient appears in no apparent distress at this time. Patient and/or kj2 family updated on plan of care and expected duration. Pain level reassessed. Patient is alert, oriented x 3, equal unlabored respirations, skin warm/dry/pink. Vital Signs: 10:44 BP 140 / 67; Pulse 73; Resp 19; Temp 97.9; Pulse Ox 95% on R/A; Weight 96.62 kg; Height iw 5 ft. 3 in. ; Pain 7/10; 13:15 BP 136 / 72; Pulse 64; Resp 18; Pulse Ox 99% on R/A; kj2 14:31 BP 132 / 68; Pulse 70; Resp 18; Temp 98; Pulse Ox 98% on R/A; kj2 10:44 Body Mass Index 37.73 (96.62 kg, 160.02 cm) iw 10:44 Pain Scale: Adult iw ED Course: 10:39 Patient arrived in ED. mr 10:40 Heath Aaron PA is PHCP. cp 10:40 Heath Jennings MD is Attending Physician. cp 10:46 Triage completed. iw 10:47 Arm band placed on. iw 11:09 COVID-19 Ag + Flu A+B Ag Sent. iw 11:33 XRAY Chest Pa And Lat (2 Views) In Process Unspecified. EDMS 12:05 Report received from Kaitlyn Dang RN. kj2 12:07 Holly Rutherford, RN is Primary Nurse. kj2 12:10 Patient has correct armband on for positive identification. Bed in low position. Call kj2 light in reach. Side rails up X 1. Adult w/ patient. Provided Education on: call light. 13:30 CT Abd/Pelvis - Without Contrast In Process Unspecified. EDMS 14:32 No provider procedures requiring assistance completed. IV discontinued, intact, kj2 bleeding controlled, No redness/swelling at site. Pressure dressing applied. Administered Medications: 11:32 Drug: NS 0.9% IV 500 ml IV at bolus once; to be given as a bolus over 60 minutes Route: hb IV; Rate: bolus; Site: right antecubital; 14:33 Follow up: IV Status: Completed infusion; IV Intake: 500ml kj2 11:55 Drug: Ondansetron IVP 4 mg IVP once; over 2 minutes Route: IVP; Site: right antecubital;hb 14:33 Follow up: Response: No adverse reaction kj2 14:03 Drug: NS 0.9% IV 500 ml 500 ml IV at 1 bolus once; to be given as a bolus over 60 kj2 minutes Volume: 500 ml; Route: IV; Rate: 1 bolus; Site: right antecubital; 14:33 Follow up: IV Status: Completed infusion; IV Intake: 500ml kj2 Medication: 12:10 VIS not applicable for this client. kj2 Intake: 14:33 IV: 500ml; Total: 500ml. kj2 14:33 IV: 500ml; Total: 1000ml. kj2 Outcome: 14:11 Discharge ordered by . adán 14:32 Discharged to home with family, kj2 14:32 Condition: stable 14:32 Discharge instructions given to patient, family, Instructed on discharge instructions, follow up and referral plans. Demonstrated understanding of instructions, follow-up care, 14:42 Patient left the ED. kj2 Signatures: Dispatcher [employer] EDMS Trisha Logan, Reg Reg mr Perla Mar, RN RN iw Heath Aaron PA PA cp Baxter, Heather, RN RN Holly Rutherford RN RN kj2
--- NOTE | 2024-11-02 14:11 | EDPHYS ---
Physician Documentation [facility] Name: Trisha Lovelace Age: 88 yrs Sex: Female : 1935 Arrival Date: 11/02/2024 Time: 10:37 Bed 20 Private MD: ANNA Physician Heath Jennings HPI: 11/02 11:00 This 88 yrs old Female presents to ER via Ambulatory with complaints of Fever, Nausea. cp 11:00 The patient reports fever, not measured (subjective). cp 11:00 Onset: The symptoms/episode began/occurred this past Monday. cp 11:00 Associated signs and symptoms: Pertinent positives: cough, nausea, Pertinent negatives: cp altered mental status, diarrhea, vomiting. Severity of symptoms: in the emergency department the symptoms are unchanged despite home interventions. Historical: - Allergies: 10:46 shrimp; iw - Home Meds: 10:46 albuterol sulfate 90 mcg/actuation Inhl HFA Aerosol Inhaler [Active]; amiodarone 200 mg iw Oral tablet 1 tab daily [Active]; Eliquis 5 mg Oral tablet 1 tab 2 times per day [Active]; folic acid 1 mg Oral tab 1 tab once daily [Active]; Lasix 40 mg Oral tablet 1 tab daily [Active]; levothyroxine 50 mcg tab 1 tab once daily [Active]; levothyroxine 75 mcg cap 1 cap once daily [Active]; memantine 28 mg Oral CSpX 1 cap once daily [Active]; metoprolol tartrate 100 mg Oral tablet 1 tab daily [Active]; potassium chloride 10 mEq Oral capsule 1 cap daily [Active]; - PMHx: 10:46 Alzheimers; Hypertension; High Cholesterol; Hypothyroidism; CVA; TIA; iw 10:47 COPD; iw - PSHx: 10:46 cataract; hysterectomy; Shoulder; TIA; Tonsillectomy; iw - Immunization history:: Adult Immunizations up to date. - Infectious Disease History:: Denies. - Social history:: Smoking status: Patient/guardian denies using tobacco, but has a distant history of tobacco abuse. ROS: 11:05 Constitutional: Positive for fever, poor PO intake, cp 11:05 Eyes: Negative for injury, pain, redness, and discharge, cp 11:05 ENT: Negative for drainage from ear(s), ear pain, difficulty swallowing, difficulty handling secretions, 11:05 Cardiovascular: Negative for chest pain, edema, palpitations, 11:05 Respiratory: Positive for cough, Negative for wheezing, 11:05 Abdomen/GI: Positive for abdominal pain, nausea, Negative for vomiting, diarrhea, 11:05 Neuro: Negative for altered mental status, dizziness, headache, weakness, 11:05 All other systems are negative, Exam: 11:10 Constitutional: The patient appears in no acute distress, alert, awake, cp non-diaphoretic, non-toxic, well developed, well nourished, overweight 11:10 Head/Face: Normocephalic, atraumatic. cp 11:10 Eyes: Periorbital structures: appear normal, Conjunctiva: normal, no exudate, no injection, Sclera: no appreciated abnormality, Lids and lashes: appear normal, bilaterally, 11:10 ENT: External ear(s): are unremarkable, Nose: is normal, Mouth: Lips: moist, Oral mucosa: moist, Posterior pharynx: Airway: no evidence of obstruction, patent, erythema, is not appreciated, exudate, is not appreciated, 11:10 Neck: ROM/movement: is normal, is supple, without pain, no range of motions limitations, no meningismus, 11:10 Chest/axilla: Inspection: normal, 11:10 Cardiovascular: Rate: normal, 11:10 Respiratory: the patient does not display signs of respiratory distress, Respirations: labored breathing, is not present, intercostal retractions, are absent, Breath sounds: decreased breath sounds, are not appreciated, stridor, is not appreciated, wheezing: is not appreciated, 11:10 Abdomen/GI: Inspection: obese left side colostomy noted, Bowel sounds: active, all quadrants, Palpation: soft, in all quadrants, mild abdominal tenderness, in all quadrants, 11:10 Back: CVA tenderness, is absent, 11:10 Neuro: Orientation: to person, place \T\ time. Mentation: is normal, Motor: moves all fours, no focal deficits, Vital Signs: 10:44 BP 140 / 67; Pulse 73; Resp 19; Temp 97.9; Pulse Ox 95% on R/A; Weight 96.62 kg; Height iw 5 ft. 3 in. ; Pain 7/10; 13:15 BP 136 / 72; Pulse 64; Resp 18; Pulse Ox 99% on R/A; kj2 14:31 BP 132 / 68; Pulse 70; Resp 18; Temp 98; Pulse Ox 98% on R/A; kj2 10:44 Body Mass Index 37.73 (96.62 kg, 160.02 cm) iw 10:44 Pain Scale: Adult iw MDM: 10:46 Medical Screening Exam initiated cp 14:10 Data reviewed: vital signs, nurses notes, lab test result(s), radiologic studies, CT cp scan, plain films, and as a result, I will discharge patient. 14:10 Differential diagnosis: viral Infection, bacterial infection, URI, bronchitis, cp pneumonia UTI. Counseling: I had a detailed discussion with the patient and/or guardian regarding the historical points, exam findings, and any diagnostic results supporting the discharge/admit diagnosis, lab results, radiology results, to return to the emergency department if symptoms worsen or persist or if there are any questions or concerns that arise at home. Response to treatment: the patient's symptoms have mildly improved after treatment, and as a result, I will discharge patient. 11/02 10:59 Order name: COVID-19 Ag + Flu A+B Ag; Complete Time: 12:15 cp 11/02 12:15 Interpretation: Normal except: INFLU A AG Positive. 11/02 10:59 Order name: Urinalysis W/Microscopic; Complete Time: 12:15 cp 11/02 12:15 Interpretation: Normal except: [facility] Extremely Turbid; UBLD Trace; UPROT 1+. 11/02 10:59 Order name: CBC with Diff; Complete Time: 12:15 cp 11/02 12:16 Interpretation: Normal except: RBC 5.08; RDW 16.9; MN% 15.5. cp 11/02 10:59 Order name: CMP; Complete Time: 12:15 cp 11/02 12:16 Interpretation: Normal except: NA 135; BUN 26; CRE 1.63; GFR 31; AST 420; ALT 210; ALB cp 3.0; GLOB 5.0; A/G 0.6. 03 10:59 Order name: Lipase; Complete Time: 12:15 cp 11/02 10:59 Order name: Magnesium; Complete Time: 12:15 cp 11/02 12:16 Interpretation: Abnormal: MG 2.7. cp 11/02 10:59 Order name: XRAY Chest Pa And Lat (2 Views); Complete Time: 12:15 cp 11/02 12:37 Order name: CT Abd/Pelvis - Without Contrast; Complete Time: 13:53 cp 11/02 13:54 Interpretation: Report reviewed. cp 11/02 10:59 Order name: IV Saline Lock; Complete Time: 11:55 cp 11/02 10:59 Order name: Labs collected and sent; Complete Time: 11:55 cp Administered Medications: 11:32 Drug: NS 0.9% IV 500 ml IV at bolus once; to be given as a bolus over 60 minutes Route: hb IV; Rate: bolus; Site: right antecubital; 14:33 Follow up: IV Status: Completed infusion; IV Intake: 500ml kj2 11:55 Drug: Ondansetron IVP 4 mg IVP once; over 2 minutes Route: IVP; Site: right antecubital;hb 14:33 Follow up: Response: No adverse reaction kj2 14:03 Drug: NS 0.9% IV 500 ml 500 ml IV at 1 bolus once; to be given as a bolus over 60 kj2 minutes Volume: 500 ml; Route: IV; Rate: 1 bolus; Site: right antecubital; 14:33 Follow up: IV Status: Completed infusion; IV Intake: 500ml kj2 Disposition Summary: 11/02/24 14:11 Discharge Ordered Notes: Location: Home cp Problem: new cp Symptoms: have improved cp Condition: Stable cp Diagnosis - Nausea cp - Influenza due to identified novel influenza A virus with other manifestations cp Followup: cp - With: Private Physician - When: 2 - 3 days - Reason: Recheck today's complaints Discharge Instructions: - Discharge Summary Sheet cp - Influenza, Adult cp - Nausea, Adult cp Forms: - Medication Reconciliation Form cp - Antibiotic Education cp - Prescription Opioid Use cp - Patient Portal Instructions cp - Leadership Thank You Letter cp Prescriptions: - Zofran 4 mg Oral Tablet - take 1 tablet ORAL route every 12 hours As needed; 20 tablet; Refills: 0, cp Product Selection Permitted - Zithromax Z-Rambo 250 mg Oral Tablet - take 1 tablet ORAL route as directed for 5 days Day 1 - take two (2) tablets cp one time. Day 2, 3, 4 , 5 take one (1) tablet once daily.; 6 tablet; Refills: 0, Product Selection Permitted - Tamiflu 75 mg Oral capsule - take 1 tablet ORAL route every 12 hours for 5 days; 10 tablet; Refills: 0, cp Product Selection Permitted Signatures: Dispatcher [employer] EDPerla Rosado, RN RN iw Heath Aaron PA PA cp Kaitlyn Luciano RN RN Holly Rutherford RN RN kj2 Corrections: (The following items were deleted from the chart) 11:00 11:00 COVID-19 Ag + Flu A+B Ag+I.LAB.BRZ ordered. EDMS EDMS 11:00 11:00 Urinalysis W/Microscopic+U.LAB.BRZ ordered. EDMS EDMS 11:00 11:00 CBC+H.LAB.BRZ ordered. EDMS EDMS 11:00 11:00 COMPREHENSIVE METABOLIC PANEL+C.LAB.BRZ ordered. EDMS EDMS 11:00 11:00 LIPASE+C.LAB.BRZ ordered. EDMS EDMS 11:00 11:00 MAGNESIUM+C.LAB.BRZ ordered. EDMS EDMS 11:00 11:00 Chest Pa And Lat (2 Views)+RAD.RAD.BRZ ordered. EDMS EDMS 12:38 12:38 Abdomen Pelvis Wo Con+CT.RAD.BRZ ordered. EDMS EDMS
[2024-11-02 15:14] VITALS: BP 132/68; TEMP 98; O2SAT 98
== END 2024-11-02 14:42 | disposition home or self-care (01) ==
LOC: ER 10:37
DX: J10.1 Influenza due to other identified influenza virus with other respiratory manifestations (principal); Z11.52 Encounter for screening for COVID-19; G30.9 Alzheimer's disease, unspecified; F02.80 Dementia in other diseases classified elsewhere, unspecified severity, without behavioral disturbance, psychotic disturbance, mood disturbance, and anxiety
CPT/HCPCS: 96361; 85025; 81001; 36415; 83735; 83690; 80053; 74176; 71046; 96374; 99284; 87428; J2405; J7040 ×2

== ENCOUNTER 2025-04-20 22:24 | Emergency (ER) | payer OTHER ==
[2025-04-20 23:14] LABS: Absolute Lymphocytes (CBC) 3.5 K/uL (0.7-4.9); Hematocrit 44.5 % (36.0-45.0); Hemoglobin 15.0 g/dL (12.0-15.0); MCH 30.0 pg (27.0-35.0); MCHC 33.7 g/dL (32.0-36.0); MCV 89.2 fL (80-100); MPV 8.3 fL (7.6-11.3); Nucleated RBC Absolute Count 0.0 (0-0); Nucleated Red Blood Cells % 0.1 % (0-0); RBC Red Blood Cell Count 4.98 M/uL (3.86-4.86); White Blood Count 10.00 thou/uL (4.3-10.9)
[2025-04-20 23:25] LABS: Anion Gap 13.4 mEq/L (5.0-15.0); BUN Blood Urea Nitrogen 28.0 mg/dL (7-18); Glucose Level 114.0 mg/dL (74-106); Potassium 4.4 mEq/L (3.5-5.1); Troponin High Sensitivity 8.6 pg/mL (<58.9)
[2025-04-21 00:28] LABS: Sqamous Epithelial <5 /HPF (None Seen); Urine Culture Reflex Order REFLEXED; Urine Microscopic Reflex YN ORDER UMIC; Urine WBC Clump Occasional /HPF (None Seen)
--- NOTE | 2025-04-21 00:34 | ER ---
Nurse's Notes [facility] Name: Trisha Lovelace Age: 89 yrs Sex: Female : 1935 Arrival Date: 04/20/2025 Time: 22:24 Bed 7 Private MD: Rocky Juarez C Diagnosis: Essential (primary) hypertension;UTI/ Urinary tract infection, site not specified Presentation: 04/20 22:51 Chief complaint: Patient states: high blood pressure, headache, and feel flushed since vc1 2029, took a metoprolol. Urinary frequency with urgency and only voiding a small amount for about a week. Coronavirus screen: Client denies travel out of the [place] in the last 14 days. At this time, the client does not indicate any symptoms associated with coronavirus-19. Ebola Screen: Patient negative for fever greater than or equal to 101.5 degrees Fahrenheit, and additional compatible Ebola Virus Disease symptoms Patient denies exposure to infectious person. Patient denies travel to an Ebola-affected area in the 21 days before illness onset. No symptoms or risks identified at this time. Initial Sepsis Screen: Does the patient meet any 2 criteria? No. Patient's initial sepsis screen is negative. Does the patient have a suspected source of infection? No. Patient's initial sepsis screen is negative. Risk Assessment: Do you want to hurt yourself or someone else? Patient reports no desire to harm self or others. Onset of symptoms was April 20, 2025 at 20:30. 22:51 Method Of Arrival: Ambulatory vc1 22:51 Acuity: JUAN 3 vc1 Historical: - Allergies: 22:58 shrimp (Stomach cramps); contrast OK; vc1 - Home Meds: 22:58 amiodarone 200 mg Oral tablet 1 tab daily [Active]; Eliquis 5 mg Oral tablet 1 tab 2 vc1 times per day [Active]; folic acid 1 mg Oral tab 1 tab once daily [Active]; Lasix 40 mg Oral tablet 1.5 tabs twice a day [Active]; gabapentin 100 mg oral tablet 1 tab 2 times per day [Active]; levothyroxine 75 mcg oral tablet twice a day [Active]; memantine 28 mg Oral CSpX 1 cap nightly [Active]; metoprolol tartrate 25 mg oral tablet 2 times per day [Active]; potassium chloride 10 mEq Oral capsule 1 cap three times a day [Active]; levothyroxine 75 mcg cap 1 cap once daily [Active]; albuterol sulfate 90 mcg/actuation Inhl HFA Aerosol Inhaler [Active]; rosuvastatin 5 mg oral tablet every monday [Active]; cranberry 450 mg oral tablet twice a day [Active]; magnesium oxide 250 mg magnesium Oral tablet 2 times per day [Active]; b-12 2500 mcg daily [Active]; PreserVision AREDS 2,148 mcg-113 mg-45 mg-17.4mg oral tablet 2 times per day [Active]; - PMHx: 22:58 Alzheimers; COPD; CVA; TIA; Hypothyroidism; Hypertension; High Cholesterol; vc1 - PSHx: 22:58 cataract; hysterectomy; Shoulder; TIA; Tonsillectomy; vc1 - Immunization history:: Adult Immunizations up to date, Client reports receiving the 2nd dose of the Covid vaccine. - Infectious Disease History:: Denies. - Social history:: Smoking status: Patient/guardian denies using tobacco, but has a distant history of tobacco abuse. Screenin/25 00:03 [facility] ED Fall Risk Assessment (Adult) History of falling in the last 3 months, cp4 including since admission No falls in past 3 months (0 pts) Confusion or Disorientation No (0 pts) Intoxicated or Sedated No (0 pts) Impaired Gait No (0 pts) Mobility Assist Device Used No (0 pt) Altered Elimination No (0 pt) Score/Fall Risk Level 0 - 2 = Low Risk Oriented to surroundings, Maintained a safe environment, Assessed \T\ reinforced patient's understanding of fall precautions, Hourly rounding (assess needs \T\ fall precautionary measures) done. Abuse screen: Denies threats or abuse. Denies injuries from another. Nutritional screening: No deficits noted. Tuberculosis screening: No symptoms or risk factors identified. Assessment: 00:03 General: Appears in no apparent distress. uncomfortable, Behavior is calm, cooperative, cp4 appropriate for age. Pain: Complains of pain in chest Pain does not radiate. Pain currently is 2 out of 10 on a pain scale. Neuro: Level of Consciousness is awake, alert, obeys commands, Oriented to person, place, time, situation. Cardiovascular: Patient's skin is warm and dry. Respiratory: Airway is patent Respiratory effort is even, unlabored. GI: No signs and/or symptoms were reported involving the gastrointestinal system. : Reports decrease urination. EENT: No signs and/or symptoms were reported regarding the EENT system. Derm: No signs and/or symptoms reported regarding the dermatologic system. Musculoskeletal: No signs and/or symptoms reported regarding the musculoskeletal system. Vital Signs: 04/20 22:51 BP 178 / 76; Pulse 69; Resp 16; Temp 98.1; Pulse Ox 97% ; Weight 95.25 kg; Height 5 ft. vc1 1 in. ; Pain 2/10; 04/21 00:05 BP 117 / 55; Pulse 61; Resp 20; Pulse Ox 97% ; cp4 04/20 22:51 Body Mass Index 39.68 (95.25 kg, 154.94 cm) vc1 04/20 22:51 Pain Scale: Adult vc1 ED Course: 04/20 22:27 Patient arrived in ED. jj6 22:27 Rocky Juarez MD is Private Physician. jj6 22:28 [facility]z [facility]C [facility] kb 22:28 Heath Jennings MD is Attending Physician. kb 22:57 Triage completed. vc1 23:06 Arm band placed on right wrist. vc1 23:08 Una Encarnacion is Primary Nurse. cp4 04/21 00:03 Bed in low position. Call light in reach. Side rails up X2. cp4 00:03 No provider procedures requiring assistance completed. Initial lab(s) drawn, by al, cp4 sent to lab. EKG done, by ED staff, reviewed by Yue ALDANA. Inserted saline lock: 20 gauge in right antecubital area, using aseptic technique. Blood collected. Flushed with 10 mL NS. 00:51 Provided Education on: uti, hypertension. cp4 00:51 intact, bleeding controlled, No redness/swelling at site. Pressure dressing applied. cp4 Administered Medications: 00:50 Drug: Amoxicillin-Clavulanate PO 875 mg PO once Route: PO; cp4 00:50 Follow up: Response: No adverse reaction cp4 Medication: 00:03 VIS not applicable for this client. cp4 Outcome: 00:34 Discharge ordered by . kb 00:51 Discharged to home via wheelchair, cp4 00:51 Condition: stable 00:51 Discharge instructions given to patient, family, Instructed on discharge instructions, follow up and referral plans. medication usage, Demonstrated understanding of instructions, follow-up care, medications, Prescriptions given X 1, 00:51 Patient left the ED. cp4 Signatures: Yue Quinonez, MARINE ERECTOR-C MARINE ERECTOR-CkAixa Mcbride jj6 Kaylee Parrish RN RN vc1 Una Encarnacion cp4
--- NOTE | 2025-04-21 00:35 | EDPHYS ---
Physician Documentation [facility] Name: Trisha Lovelace Age: 89 yrs Sex: Female : 1935 Arrival Date: 04/20/2025 Time: 22:24 Bed 7 Private MD: Rocky Juarez C ED Physician Heath Jennings HPI: 04/20 22:39 This 89 yrs old Female presents to ER via Unassigned with complaints of High Blood kb Pressure. 22:39 Pt is an 89 year old female who presents for high blood pressure, feeling flush, and a kb slight headache that started at 2030 this evening. States she took her metoprolol at 2030. Reports she normally takes her BP in the morning and at night before her medications because Dr Juarez told her not to take it if her systolic was less than 120. States her blood pressure continued to stay elevated after the medication so she decided to come in. Also reports urinary frequency, urgency, and urinating small amounts for about a week so she thinks she has a UTI. . Historical: - Allergies: 22:58 shrimp (Stomach cramps); contrast OK; vc1 - Home Meds: 22:58 amiodarone 200 mg Oral tablet 1 tab daily [Active]; Eliquis 5 mg Oral tablet 1 tab 2 vc1 times per day [Active]; folic acid 1 mg Oral tab 1 tab once daily [Active]; Lasix 40 mg Oral tablet 1.5 tabs twice a day [Active]; gabapentin 100 mg oral tablet 1 tab 2 times per day [Active]; levothyroxine 75 mcg oral tablet twice a day [Active]; memantine 28 mg Oral CSpX 1 cap nightly [Active]; metoprolol tartrate 25 mg oral tablet 2 times per day [Active]; potassium chloride 10 mEq Oral capsule 1 cap three times a day [Active]; levothyroxine 75 mcg cap 1 cap once daily [Active]; albuterol sulfate 90 mcg/actuation Inhl HFA Aerosol Inhaler [Active]; rosuvastatin 5 mg oral tablet every monday [Active]; cranberry 450 mg oral tablet twice a day [Active]; magnesium oxide 250 mg magnesium Oral tablet 2 times per day [Active]; b-12 2500 mcg daily [Active]; PreserVision AREDS 2,148 mcg-113 mg-45 mg-17.4mg oral tablet 2 times per day [Active]; - PMHx: 22:58 Alzheimers; COPD; CVA; TIA; Hypothyroidism; Hypertension; High Cholesterol; vc1 - PSHx: 22:58 cataract; hysterectomy; Shoulder; TIA; Tonsillectomy; vc1 - Immunization history:: Adult Immunizations up to date, Client reports receiving the 2nd dose of the Covid vaccine. - Infectious Disease History:: Denies. - Social history:: Smoking status: Patient/guardian denies using tobacco, but has a distant history of tobacco abuse. ROS: 22:39 Constitutional: As per HPI kb Exam: 22:39 Constitutional: This is a well developed, well nourished patient who is awake, alert, kb and in no acute distress. Head/Face: Normocephalic, atraumatic. ENT: Moist Mucous membranes Cardiovascular: Regular rate Respiratory: Respirations even and unlabored. No increased work of breathing. Talking in full sentences Skin: Warm, dry with normal turgor. Normal color. MS/ Extremity: Pulses equal, no cyanosis. Neurovascular intact. Full, normal range of motion. Neuro: Awake and alert, GCS 15, oriented to person, place, time, and situation. 23:05 ECG was reviewed by the Attending Physician. Vital Signs: 22:51 BP 178 / 76; Pulse 69; Resp 16; Temp 98.1; Pulse Ox 97% ; Weight 95.25 kg; Height 5 ft. vc1 1 in. ; Pain 2/10; 04/21 00:05 BP 117 / 55; Pulse 61; Resp 20; Pulse Ox 97% ; cp4 04/20 22:51 Body Mass Index 39.68 (95.25 kg, 154.94 cm) vc1 04/20 22:51 Pain Scale: Adult vc1 MDM: 04/20 22:28 Medical Screening Exam initiated kb 22:39 Data reviewed: vital signs, nurses notes. 04/21 00:33 Differential diagnosis: hypertensive crisis, Malignant HTN, uti. Historians other than kb the Patient: Family Member: family. Counseling: I had a detailed discussion with the patient and/or guardian regarding the historical points, exam findings, and any diagnostic results supporting the discharge/admit diagnosis, lab results, the need for outpatient follow up, a family practitioner, to return to the emergency department if symptoms worsen or persist or if there are any questions or concerns that arise at home. 04/20 22:35 Order name: Basic Metabolic Panel; Complete Time: 23:27 kb 04/20 22:35 Order name: CBC with Diff; Complete Time: 23:16 kb 04/20 22:35 Order name: Troponin HS; Complete Time: 23:27 kb 04/20 22:35 Order name: UA Rfx Kayode Cult if indicated; Complete Time: 00:32 kb 04/21 00:32 Order name: Urine Culture EDMS 04/20 22:35 Order name: EKG; Complete Time: 22:35 kb 04/20 22:35 Order name: Cardiac monitoring; Complete Time: 23:09 kb 04/20 22:35 Order name: EKG - Nurse/Tech; Complete Time: 23:09 kb 04/20 22:35 Order name: IV Saline Lock; Complete Time: 23:09 kb 04/20 22:35 Order name: Labs collected and sent; Complete Time: 23:09 kb 04/20 22:35 Order name: O2 Per Protocol; Complete Time: 23:09 kb 04/20 22:35 Order name: O2 Sat Monitoring; Complete Time: 23:09 kb EC/24 23:05 Rate is 65 beats/min. Rhythm is regular. QRS [place] is Normal. MO interval is prolonged kb at 326 msec. QRS interval is normal at 70 msec. QT interval is normal at 428 msec. Administered Medications: 04/21 00:50 Drug: Amoxicillin-Clavulanate PO 875 mg PO once Route: PO; cp4 00:50 Follow up: Response: No adverse reaction cp4 Disposition Summary: 04/21/25 00:34 Discharge Ordered Notes: Location: Home kb Condition: Stable kb Diagnosis - Essential (primary) hypertension kb - UTI/ Urinary tract infection, site not specified kb Followup: kb - With: Emergency Department - When: As needed - Reason: Worsening of condition Followup: kb - With: Private Physician - When: 2 - 3 days - Reason: Recheck today's complaints, Continuance of care, Re-evaluation by your physician Discharge Instructions: - Discharge Summary Sheet kb - Urinary Tract Infection, Adult, [id number] kb - Hypertension, Adult, [id number] kb Forms: - Medication Reconciliation Form kb - Antibiotic Education kb - Prescription Opioid Use kb - Patient Portal Instructions kb - Leadership Thank You Letter kb Prescriptions: - Augmentin 875-125 mg Oral Tablet - take 1 tablet ORAL route every 12 hours for 10 days; 20 tablet; Refills: 0, kb Product Selection Permitted Addendum: 04/22/2025 13:37 Co-signature as Attending Physician, Heath Jennings MD I agree with the assessment and c alejandro plan of care. Signatures: Dispatcher [employer] EDMS Yue Quinonez, LAND DEVELOPMENT PROJECT MANAGER-C LAND DEVELOPMENT PROJECT MANAGER-Heath Dean MD MD cha Calcote, Vanessa, RN RN vc1 Una Encarnacion cp4 Corrections: (The following items were deleted from the chart) 04/20 22:35 22:35 BASIC METABOLIC PANEL+C.LAB.BRZ ordered. EDMS EDMS 22:35 22:35 CBC+H.LAB.BRZ ordered. EDMS EDMS 22:35 22:35 Troponin High Sensitivity+C.LAB.BRZ ordered. EDMS EDMS 22:35 22:35 UA Rfx Kayode Cult if indicated+U.LAB.BRZ ordered. EDMS EDMS
[2025-04-21] MEDS ORDERED: AMOX/K CLAV 875 MG TAB ONE (00:44)
[2025-04-21 02:05] VITALS: TEMP 98.1; O2SAT 97
[2025-04-21 02:07] VITALS: BP 117/55
== END 2025-04-21 00:51 | disposition home or self-care (01) ==
LOC: ER 22:24
DX: I10 Essential (primary) hypertension (principal); N39.0 Urinary tract infection, site not specified; Z79.01 Long term (current) use of anticoagulants
CPT/HCPCS: 36415; 80048; 81001; 84484; 85025; 87086; 87088; 93005; 99284